=== PATIENT | male | born 1960 | race Caucasian/White ===

== ENCOUNTER 2017-01-03 09:25 | Inpatient (IN) | payer OTHER ==
[~2017-01-03] VITALS: Ht 182.9 cm; Wt 102.7 kg
[~2017-01-03 09:25] MED LIST: ACET-749 PO
[2017-01-03 09:44] VITALS: BP 135/93; PULSE 79; TEMP 36.5; O2SAT 97; Ht 182.9 cm; Wt 102.7 kg
[2017-01-03] MEDS ORDERED: ZOLPIDEM TARTRATE 5 MG TAB PO PRN (10:00)
[2017-01-03] MEDS ORDERED: MAGNESIUM HYDROXIDE SUSP 30 ML UDC PO PRN (10:00)
[2017-01-03] MEDS ORDERED: ONDANSETRON INJ 2 MG/ML 2 ML VIAL IV PRN (10:00)
[2017-01-03] MEDS ORDERED: ALUMINUM/MAGNESIUM/SIMETH (MAALOX MAX) 30 ML UDC PO PRN (10:00)
[2017-01-03] MEDS ORDERED: ACETAMINOPHEN 325 MG TAB PO PRN (10:00)
[2017-01-03 10:01] VITALS: BP 135/93; PULSE 79; TEMP 36.5; O2SAT 97
[2017-01-03] MEDS ORDERED: TRAMADOL HCL 50 MG TAB PO PRN (10:15)
--- NOTE | 2017-01-03 10:15 | History and Physical ---
History & Physical Date & Time of Service: Jan 03, 2017 at 10:03 Chief Complaint: Orbital Cellulitis Primary Care Physician: Dick Carl M.D. History of Present Illness Source: patient 56 y/o M who denies active medical issues. Pt developed swelling of his eyelid and periorbital tenderness in addition to tenderness over his R frontal sinuses. He was treated with 5 days of outpt antibiotics which have had no effect. He was therefore referred to the hospital for IV antibiotics due to concern for spreading periorbital and facial cellulitis. He states he may have had a fever the previous evening. 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 Social History Smoking Status: Never Smoker Multi-Drug Resistant Organisms History of MDRO: No Allergies Coded Allergies: No Known Allergies (Verified Allergy, Unknown, 11/29/02) Home Medications Scheduled PRN Acetaminophen/Codeine (Tylenol W/Codeine #3), 1 TAB PO for Pain Review of Systems Constitutional: + fever, No chills, No sweats Eyes: + eye pain, + redness, No worsening of vision ENT: + problem reported (facial pain), No hearing loss, No unusual epistaxis, No nasal symptoms Respiratory: No cough, No sputum, No wheezing Cardiovascular: No chest pain, No orthopnea, No PND Abdomen: No pain, No nausea, No vomiting Musculoskeletal: No joint pain, No muscle pain Genitourinary - Male: No hematuria, No dysuria, No urinary frequency, No urinary urgency Neurologic: No memory loss, No paralysis Psychiatric: No depression symptoms Endocrine: No fatigue Hematologic / Lymphatic: No abnormal bleeding/bruising Integumentary: No rash Allergic / Immunologic: No environmental allergies Physical Exam Vital Signs Date Time Temp Pulse Resp B/P (MAP) Pulse Ox O2 Delivery O2 Flow Rate FiO2 01/03/17 10:01 36.5 79 16 135/93 (107) 97 Room Air 01/03/17 09:44 36.5 79 18 135/93 97 Room Air General Appearance: WD/WN, no apparent distress Head: + pertinent finding (Erythema over R lat nasal bridge and above orbit - lid is markedly swollen - does noit appear to have orbital involvemet - no pain with eye moveemnt) Eyes: + pertinent finding (Erythema over R lat nasal bridge and above orbit - lid is markedly swollen - does noit appear to have orbital involvemet - no pain with eye moveemnt) ENT: normal ENT inspection, hearing grossly normal, TMs normal, pharynx normal Neck: supple, no JVD Respiratory/Chest: chest non-tender, lungs clear, normal breath sounds, no respiratory distress, no accessory muscle use Cardiovascular: regular rate, rhythm, no edema, no gallop, no JVD, no murmur, normal peripheral pulses Abdomen/GI: normal bowel sounds, non tender, soft Back: normal inspection, no CVA tenderness Extremities/Musculoskelatal: normal inspection, no calf tenderness, normal capillary refill, no pedal edema, normal range of motion 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 Pt developed swelling of his eyelid and periorbital tenderness in addition to tenderness over his R frontal sinuses. He was treated with 5 days of outpt antibiotics which have had no effect. He was therefore referred to the hospital for IV antibiotics due to concern for spreading periorbital and facial cellulitis. He states he may have had a fever the previous evening. Pt admitted for periorbital and facial cellulitis - labs pending - cultures to be obtained if pt has fever. We will obtain a facial/orbital CT. He is started on Van and Ceftriaxone in interim. May need ophthalmology if stye is present Heparin prophylaxis - Full code - total time for this admit including review of records - discussion with pt and outpt attending - 30 min Level of Care Med/Surg Advanced Directives Existing Living Will: No Existing Power of Rn Embedded: No Resuscitation Status FULL RESUSCITATION VTE Prophylaxis VTE Risk Assessment Done? Y/N: Yes Risk Level: Low Given or contraindicated: Unfractionated heparin SQ
[2017-01-03] MEDS ORDERED: POLYETHYLENE (MIRALAX) 17 GM PACK PO PRN (10:30)
[2017-01-03] MEDS ORDERED: SODIUM CHLORIDE 0.9% 1000ML 1,000 ML IV SCH (10:30)
--- NOTE | 2017-01-03 10:40 | Pharmacy Progress Note ---
Pharmacy Abx Initial Consult Date of Service Jan 03, 2017. Pharmacy Dosing Scope Date of Consult: 01/03/17 Consultation requested by: Dr. Stone Pharmacy is consulted to initiate Vancomycin IV dosing therapy, order appropriate labs and adjust drug dose/frequency. Subjective The patient is a 56 year old male admitted on Jan 03, 2017 at 09:25 with worsening periorbital cellulitis. Objective Height (Feet): 6 Weight (Kilograms): 102.700 Vital Signs (Past 12Hrs) Vital Signs Past 12 Hours Date Time Temp Pulse Resp B/P (MAP) Pulse Ox O2 Delivery O2 Flow Rate FiO2 01/03/17 10:01 36.5 79 16 135/93 (107) 97 Room Air 01/03/17 09:44 36.5 79 18 135/93 97 Room Air Lab Results (24Hrs) Laboratory Tests (24 Hours) Test 01/03/17 10:22 Micro Results Date/Time Source Procedure Growth Status 01/03/17 10:24 Blood Blood Culture Pending Chan Batch 01/03/17 10:24 Blood Blood Culture Pending Chan Batch Risk Factors for Resistance * Antimicrobial use within the last 90 days (Failed 5 days outpatient PO ABX prior to admission) Assessment & Plan Assessment 56 year old male initiated on Vancomycin + Rocephin IV for worsening periorbital /facial cellulitis. He is noted to have failed 5 days of outpatient PO ABX but those ABX are unknown at this time. Blood cultures pending. Plan Vancomycin IV * Loading dose: 2500 mg (25 mg/kg) * Maintenance dose: 1750 mg IV (17 mg/kg) every 12 hours * Goal trough level for cellulitis: ~15 mcg/mL. IF blood cultures positive, increase goal to 15-20 mcg/mL. * Trough level ordered for 01/05/17 @1330 prior to the 1400 dose. * Dose may need changed if Scr bumps over the next 24-48 hours; pt received IV contrast on 01/03/17. Pharmacy will continue to follow and will adjust dose/frequency as necessary. Thank you.
[2017-01-03] MEDS ORDERED: VANCOMYCIN CONSULT ACTIVE PRN (10:45)
[2017-01-03] MEDS: VANCOMYCIN INJ 2,500 MG in SODIUM CHLORIDE 0.9% 500ML 500 ML IV ONE ×2 (10:45→14:25)
[2017-01-03 10:48] LABS: HEMATOCRIT 45.2 % (42-52); MEAN CELL VOLUME 93.2 fL (80-100); MEAN CORPUSCULAR HEMOGLOBIN 33.2 pg (25-34); MEAN CORPUSCULAR HGB CONC 35.6 g/dl (32-36); MEAN PLATELET VOLUME 10.1 fL (7.4-10.4); PLATELET COUNT 163 K/uL (130-400); RED BLOOD COUNT 4.85 M/uL (4.7-6.1); WHITE BLOOD COUNT 4.18 K/uL (4.8-10.8)
[2017-01-03] MEDS: CEFTRIAXONE SOD INJ 1 GM in DEXTROSE 5% ADD-VANTAGE 50ML 50 ML IV SCH (11:05)
[2017-01-03 11:21] LABS: PROTHROMBIN TIME (PATIENT) 10.4 SECONDS (9.0-12.0)
[2017-01-03 11:26] LABS: BUN/CREATININE RATIO 14.3 (10-20); CREATININE 1.2 mg/dl (0.60-1.40); POTASSIUM 4.6 mmol/L (3.5-5.1)
[2017-01-03 11:32] LABS: CALCIUM 8.8 mg/dl (8.5-10.1)
[2017-01-03] MEDS ORDERED: OPTIRAY 320 IV PRN (13:15)
--- NOTE | 2017-01-03 13:21 | DIAGNOSTIC IMAGING REPORT ---
CT maxillofacial FACIAL-MAXILLOFACIAL WITH CLINICAL HISTORY: please cover sinuses and periorbital cellulitis TECHNIQUE: Transaxial acquisition with multi axial reformatted images COMPARISON STUDY: None FINDINGS: Findings consistent with mild right preorbital and right preseptal cellulitis. No evidence for drainable abscess or collection. Globes are symmetric. Retroseptal structures are unremarkable. All remaining soft tissue structures of the maxillofacial region are unremarkable. There are several small reactive nodes. There is again no evidence for drainable abscess or collection. There is no evidence for airway compromise. IMPRESSION: Localized right preorbital and right preseptal soft tissue edema and/or cellulitis. No evidence for abscess or collection. Electronically signed by: Kamlesh Torres M.D. 01/03/2017 1:19 PM Dictated Date/Time: 01/03/2017 1:15 PM
[2017-01-03] MEDS: HEPARIN SOD 5000 UNIT/0.5 ML CARP SQ SCH ×2 (14:00→19:38)
[2017-01-03 15:48] VITALS: BP 121/84; PULSE 88; TEMP 36.5; O2SAT 97
[2017-01-03 16:12] VITALS: O2SAT 97
[2017-01-03 23:15] VITALS: BP 112/68; PULSE 78; TEMP 37; O2SAT 96
[2017-01-04] MEDS ORDERED: VANCOMYCIN INJ 1,750 MG in SODIUM CHLORIDE 0.9% 500ML 500 ML IV SCH (02:00)
[2017-01-04] MEDS: HEPARIN SOD 5000 UNIT/0.5 ML CARP SQ SCH (06:00)
[2017-01-04 07:44] LABS: CREATININE 1.1 mg/dl (0.60-1.40)
[2017-01-04 07:55] VITALS: BP 139/98; PULSE 64; TEMP 36.6; O2SAT 98
[2017-01-04] MEDS: CEFTRIAXONE SOD INJ 1 GM in DEXTROSE 5% ADD-VANTAGE 50ML 50 ML IV SCH (09:56)
[2017-01-04] MEDS ORDERED: DOXY-300 PO (09:57)
[2017-01-04] MEDS ORDERED: CEFD1CAP14 PO (09:57)
--- NOTE | 2017-01-04 10:06 | Discharge Instructions ---
Discharge Instructions Date of Service Jan 04, 2017. Admission Reason for Admission: Orbital Cellulitis Discharge Discharge Diagnosis / Problem: facial cellulitis Discharge Goals Goal(s): Diagnostic testing, Therapeutic intervention Activity Recommendations Activity Limitations: resume your previous activity . Instructions / Follow-Up Instructions / Follow-Up facial cellulitis -infection of the skin and soft tissue around your eye. fortunately no evidence of an actual eyeball/orbit infection -since you didn't get better on the antibiotics dr carl had initially prescribed, it almost certain was one of the following culprits: a) a resistant strain of staph or strep (such as MRSA) --> which is why we started with vancomycin and will continue with doxycycline -- these reliably kill that type of bacteria b) gram negative bacteria (less likely but still possible, and wouldn't be reliably killed with the initial antibiotics) --> which is the reason for the rocephin, then cefdinir -the swollen eyelid appears to be what's causing the irritation that is making your eye water, and the lid crowding your field of vision and the watering making things look hazy is why your vision seems to be "off" -- this should get better as the swelling recedes. if somehow it doesn't, or if you were to start to feel a "foreign body" sensation (like there's something in your eye) then it would be time for a detailed ophthalmologic exam. that said, it's far and away more likely that this will just get better as the swelling goes down -timing for improvement is a little bit of a range: it would be pretty normal/ pretty much expected for this to get better somewhere in 1-2 weeks. i hate to give such a vague timeframe, but for skin and soft tissue infections, that's typically the range we expect. on the short end of things, if you're getting better really fast, then when you see Dr Carl in the office next week, he might be able to have you stop the antibiotics early; on the long end of things , if you're not basically 100% by the end of day 14 of treatment, then we'd need to have things investigated further (the same holds true for the cloudy vision) --your next doses of antibiotics should be tomorrow morning, then it's a doxycycline pill and a cefdinir pill in the morning and in the evening until either the whole course is complete or Dr Carl sees improvement to where he can stop things early. the cefdinir is usually really well tolerated - biggest thing to watch for would be if it upsets your stomach (then take with food) but the doxycycline can actually make you sun sensitive to the point of actually even a blistering sunburn on a day like today -- to prevent that, wear SPF 30 and reapply frequently, wear a hat, long sleeves, etc. everyone is a little different on this side effect, and for some people the effect can last a little while after the antibiotic is done. Current Hospital Diet Patient's current hospital diet: Regular Diet Discharge Diet Recommended Diet: Regular Diet Pending Studies Studies pending at discharge: no List of pending studies: technically your blood cultures will run in the lab for 5 days, but no growth at this point combined with your clinical appearance makes it REALLY unlikely that blood cultures will show anything Medical Emergencies . Who to Call and When: Medical Emergencies: If at any time you feel your situation is an emergency, please call 911 immediately. . Non-Emergent Contact Non-Emergency issues call your: Primary Care Provider (follow up with Dr Carl late this coming week (by 01/10)) . . "Provider Documentation" section prepared by Juno Graves. . VTE Core Measure Inpt VTE Proph given/why not?: Unfractionated heparin SQ
[2017-01-04 10:09] VITALS: O2SAT 98
[2017-01-04 10:15] VITALS: BP 139/98; PULSE 64; TEMP 36.6; O2SAT 98
--- NOTE | 2017-01-04 13:01 | Discharge Summary ---
Discharge Summary Date of Service Jan 04, 2017. Discharge Summary Admission Date: Jan 03, 2017 at 09:25 Discharge Date: Jan 04, 2017 Discharge Disposition: Home Principal Diagnosis: facial (pre-septal) cellulitis Procedures: CT maxillofacial FACIAL-MAXILLOFACIAL WITH CLINICAL HISTORY: please cover sinuses and periorbital cellulitis TECHNIQUE: Transaxial acquisition with multi axial reformatted images COMPARISON STUDY: None FINDINGS: Findings consistent with mild right preorbital and right preseptal cellulitis. No evidence for drainable abscess or collection. Globes are symmetric. Retroseptal structures are unremarkable. All remaining soft tissue structures of the maxillofacial region are unremarkable. There are several small reactive nodes. There is again no evidence for drainable abscess or collection. There is no evidence for airway compromise. IMPRESSION: Localized right preorbital and right preseptal soft tissue edema and/or cellulitis. No evidence for abscess or collection. 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 EOMI, no tenderness/pain in ROM. vision acuity seems OK per bedside assessment) Hospital Course facial cellulitis -failed broad PCN as outpt - admitted -fortunately nothing appearing truly orbital, and stayed stable on IV abx -most likely resistant gram positives as reason for failure (vanco--> doxy as outpt) vs less likely gram negatives (rocephin --> cefdinir as outpt) -extensive discussion with pt and stable for discharge after today's doses of vanco and rocephin -f/u PCP next week - total duration of abx to be determined based on how quickly he's getting better - wrote Rx to cover for 14 total days treatment, but might need as little as 7 --> to see PCP next week Total Time Spent: Greater than 30 minutes This includes examination of the patient, discharge planning, medication reconciliation, and communication with other providers. Discharge Instructions Please refer to the electronic Patient Visit Report (Discharge Instructions) for additional information. Additional Copies To Dick Carl M.D.
[2017-01-05] MEDS ORDERED: VANCOMYCIN TROUGH SCH (13:30)
== END 2017-01-04 11:41 | disposition home or self-care (01) | DRG 603 ==
LOC: C.MS2W 09:25
PROVIDERS: ADMIT Family Medicine; ATTEND Family Medicine
DX: L03.211 Cellulitis of face (principal); F17.220 Nicotine dependence, chewing tobacco, uncomplicated

== ENCOUNTER 2019-02-12 08:30 | Inpatient (IN) ==
[2019-02-12] MEDS ORDERED: SODIUM CHLORIDE 0.9% 1000ML 1,000 ML IV ONE (08:59)
[2019-02-12] MEDS ORDERED: PROMETHAZINE 25 MG/51 ML BAG IV STA (08:59)
[2019-02-12] MEDS ORDERED: KETOROLAC 30 MG/ML VIAL IV STA (09:03)
[2019-02-12] MEDS: HYDROmorphone INJ 0.5 MG/0.5 ML SYR IV PRN (09:16)
[2019-02-12 09:36] LABS: Eosinophils # (auto) 0.04 K/uL (0-0.5); Eosinophils % (auto) 2.9 %; Hematocrit (blood only) 23.5 % (42-52); Hemoglobin 8.2 g/dL (14.0-18.0); Immature Granulocytes # (auto) 0.02 K/uL (0.00-0.02); Immature Granulocytes % (auto) 1.4 %; Lymphocytes # (auto) 0.17 K/uL (1.2-3.4); Lymphocytes % (auto) 12.2 %; Mean Corpuscular Hgb Conc 34.9 g/dL (32-36); Mean Corpuscular Volume 96.3 fL (80-100); Mean Platelet Volume 9.1 fL (7.4-10.4); Monocytes # (auto) 0.11 K/uL (0.11-0.59); Monocytes % (auto) 7.9 %; Neutrophils # (auto) 1.05 K/uL (1.4-6.5); Neutrophils % (auto) 75.6 %; Platelet Count 105 K/uL (130-400); RDW Coefficient of Variation 14.5 % (11.5-14.5); RDW Standard Deviation 50.9 fL (36.4-46.3); Red Blood Count 2.44 M/uL (4.7-6.1); White Blood Count 1.39 K/uL (4.8-10.8)
[2019-02-12 09:43] LABS: iSTAT Creatinine 1.5 mg/dl (0.6-1.3); iSTAT Hemoglobin 8.5 g/dl (14.0-18.0); iSTAT Ionized Calcium 1.11 mmol/l (1.12-1.32); iSTAT Potassium 3.9 mEq/L (3.3-5.0)
[2019-02-12] MEDS ORDERED: SODIUM CHLORIDE 0.9% 250 ML IV PRN ×3 (09:48→14:26)
[2019-02-12 09:52] LABS: Alanine Aminotransferase 38 U/L (12-78); Albumin Level 2.4 gm/dl (3.4-5.0); Aspartate Aminotransferase 27 U/L (15-37); BUN Creatinine Ratio 22.2 (10-20); Blood Urea Nitrogen 34 mg/dl (7-18); Calcium 7.2 mg/dl (8.5-10.1); Carbon Dioxide 26 mmol/L (21-32); Chloride 107 mmol/L (98-107); Creatinine Clr Calc Pharmacy 64.9 ml/min; Est GFR (African American) 58.1; Est GFR (Non-African American) 50.1; Glucose 115 mg/dl (70-99); Potassium 3.9 mmol/L (3.5-5.1); Sodium 136 mmol/L (136-145)
[2019-02-12 09:57] LABS: Albumin Globulin Ratio 0.3 (0.9-2); Alkaline Phosphatase 45 U/L (45-117); Bilirubin,Total 0.5 mg/dl (0.2-1); Creatine Kinase 82 U/L (39-308); Creatine Kinase MB < 1.0 ng/ml (0.5-3.6); Globulin 7.4 gm/dl (2.5-4.0); Total Protein 9.8 gm/dl (6.4-8.2); Troponin I < 0.015 ng/ml (0-0.045)
[2019-02-12 10:28] LABS: Rouleaux 1+
--- NOTE | 2019-02-12 10:35 | XRay Report ---
XR chest 1V portable HISTORY: Sepsis COMPARISON: Head CT 02/10/2019. FINDINGS: No pneumothorax. No pleural effusions. The heart is borderline enlarged. No focal lung cons olidations to suggest pneumonia. No evidence for pulmonary edema. The patient's scattered lytic lesio ns are better appreciated on the recent study. IMPRESSION: Borderline cardiomegaly. Otherwise, no acute process within the chest. Electronically signed by: Roland Melgar M.D. 02/12/2019 10:34 AM
[2019-02-12 10:42] LABS: INR 1.2 (0.9-1.1); Partial Thromboplastin Ratio 0.8; Partial Thromboplastin Time 21.1 Seconds (21.0-31.0); Prothrombin Time 11.7 Seconds (9.0-12.0)
[2019-02-12] MEDS ORDERED: IOVERSOL 100ml IV PRN (11:15)
--- NOTE | 2019-02-12 11:29 | CT Scan Report ---
CT head/brain wo con CT DOSE: HISTORY: Mental status change Pt c/o syncope TECHNIQUE: Multiaxial CT images of the head were performed without the use of intravenous contrast. A dose lowering technique was utilized adhering to the principles of ALARA. Comparison: None. Findings: The paranasal sinuses and mastoid air cells are clear. The calvarium and skull base are int act. The ventricles and sulci are within normal limits. There is no mass, hematoma, midline shift, or acute infarct. Impression: No acute intracranial abnormality. The above report was generated using voice recognition software. It may contain grammatical, syntax or spelling errors. Electronically signed by: Kamlesh Torres M.D. 02/12/2019 11:27 AM
--- NOTE | 2019-02-12 11:29 | History & Physical Report ---
Date of Service February 12, 2019 Assessment & Plan (1) Syncope: Suspected orthostatic etiology from chemotherapy side effect probably from Velcade. Telemetry. IV fluids. EKG is normal. No chest pain or shortness of breath. Monitor orthostatic blood pressure measurements Present on Admission?: Yes (2) Pancytopenia: Hemoglobin is dropped to 8.5. Stool Hemoccult negative. I suspect the this is due to combined side effects from the Velcade and Revlimid. 2 units packed red blood cells recommended by hematology. Abdominal CT scan pending to rule out unlikelihood of retroperitoneal bleed. Present on Admission?: Yes (3) Multiple myeloma: With frequent back spasms. Start baclofen 10 mg 3 times a day. Consult hematology oncology, radiation oncology. Consult orthopedic surgery to evaluate stability of lumbar spine Present on Admission?: Yes (4) DVT prophylaxis: Avoid heparin and Lovenox for the time being. SCDs and early ambulation Present on Admission?: Yes History of Present Illness Chief Complaint: Passed out in the shower Primary Care Provider: Dick Carl MD 58-year-old male with suspected multiple myeloma who recently was started on chemotherapy including Velcade and Revlimid. He also started radiation treatments to his lumbar spine area 2 days ago. Today he felt lightheaded while in the shower and had a syncopal episode. He denies any palpitations chest pain or shortness of breath. This was witnessed by his . He has pancytopenia at this time which is a side effect of both chemotherapeutic agents. In addition, the Velcade can cause hypotension. I suspect he is having side effects from the chemotherapy agents which caused his current symptoms. Stool Hemoccult is negative. There has been no melena or hematochezia. Abdominal CT scan is pending to rule out the unlikelihood of retroperitoneal bleed. Hematology oncology has recommended 2 units blood transfusion which has been ordered by the ED physician. He will be admitted to a telemetry bed with IV fluids. Orthostatic blood pressure measurements will be monitored. Consultation to hematology oncology, radiation oncology, orthopedic surgery to evaluate lumbar spine stability have been requested. He will remain on dexamethasone 20 mg daily for the time being. We will avoid heparin or Lovenox at this time and use SCDs only and early ambulation for DVT prophylaxis. Allergies Allergy/AdvReac Type Severity Reaction Status Date / Time fentanyl AdvReac Severe nausa/vomit Unverified 02/12/19 08:51 ing Home Medications Home Medications Medication Instructions Recorded Confirmed Type oxycodone 10 mg tablet 10 mg PO Q4H PRN tab 01/29/19 02/12/19 History bortezomib 0 mg IV 2XWK 02/12/19 02/12/19 History dexamethasone 20 mg PO Q2D 02/12/19 02/12/19 History ibuprofen [Advil] 200 mg PO Q6H PRN 02/12/19 02/12/19 History lenalidomide [Revlimid] 25 mg PO UD 02/12/19 02/12/19 History ondansetron HCl 8 mg PO UD 02/12/19 02/12/19 History prochlorperazine maleate 10 mg PO UD 02/12/19 02/12/19 History Past Med/Surg History Medical History Back pain (Acute) Cellulitis, face Hyperlipemia, mixed (Acute) Lytic lesion of bone on x-ray (Acute) Plantar fascial fibromatosis (Acute) Surgical History H/O wrist surgery (Acute) Right wrist 40 yrs ago Family History Mother , age 93 / old age Breast cancer Father , age 67 Prostate cancer had radiation Coronary heart disease Diabetes Brother Diabetes Brother No problems noted. Sister Asthma Addisons disease Daughter No problems noted. Daughter No problems noted. Son No problems noted. Other Family history non-contributory Social History Preferred Language: Malawian Communication Ability: Effective Visual Impairment: No Limitations Beliefs That Will Affect Care: None marital status: Current Living Situation: Spouse current occupational status: employed Feels Safe at Home: Yes Smoking Status: Never smoker Hx Alcohol Use: No Hx Substance Use: No Childhood Exposure to Second-Hand Smoke: No Dental Care, Regularly: Yes Review of Systems Review of Systems: Constitutional-no fever or chills ENT-no blurred vision, no double vision, no epistaxis, no sore throat Respiratory-no cough, no wheezing, no shortness of breath Cardiac-no palpitations, no chest pain. Syncopal episode today as described above GI-no nausea, vomiting, diarrhea, melena, hematochezia -no urinary retention, no urinary incontinence, no dysuria, no hematuria Musculoskeletal-persistent low back pain with frequent muscle spasm Skin-no bruising, no rashes, no pruritus Neuro-no isolated weakness, no paresthesia, no weakness Psych-no depression, no anxiety Physical Exam Physical Exam: General-alert and oriented x3, no fevers, no chills. Appears flushed HEENT-head atraumatic and normocephalic, TMs intact bilaterally, pupils equal and reactive to light, extraocular muscles intact Neck-no lymphadenopathy or thyromegaly, trachea midline Chest-clear to auscultation percussion. No rales wheezing or rhonchi Cardiac-regular rate and rhythm, normal S1 and S2, no murmurs Abdomen-normal bowel sounds, nontender, no hepatosplenomegaly Extremities-no cyanosis, clubbing, or edema Neuro-cranial nerves II through XII intact, motor and sensory function within normal limits, strength symmetrical 5/5, no focal deficits Psych-normal affect, normal mood Results & Data Vital Signs (Past 12 Hours) Vital Signs Temp Pulse Pulse Resp BP BP Pulse Ox 02/12/19 11:00 79 12 100/46 L 97 02/12/19 10:45 89 13 132/71 98 02/12/19 10:30 85 24 118/68 97 02/12/19 10:15 93 H 24 140/72 98 02/12/19 10:06 92 H 96 02/12/19 10:04 88 L 02/12/19 10:00 96 H 26 H 119/76 89 L 02/12/19 09:55 97 H 25 H 144/80 H 89 L 02/12/19 09:45 103 H 17 144/80 H 91 02/12/19 09:30 108 H 22 137/63 95 02/12/19 09:15 99 H 22 97 02/12/19 09:00 93 H 22 118/58 L 98 02/12/19 08:47 85 13 104/51 L 98 02/12/19 08:36 36.7 C 80 16 107/52 L 97 02/12/19 08:15 102 H 96 Laboratory Results 02/12/19 09:21 02/12/19 09:21 PG Care Time/CCT Total # of Minutes Spent Total Time Spent with Patient: Total time spent is greater than 50% in coordination of care (as documented) at patient's floor/unit and/or counseling patient:
--- NOTE | 2019-02-12 11:45 | CT Scan Report ---
CT lumbar spine wo con CT DOSE: 1695.87 mGy.cm HISTORY: Trauma. Pain. Pt c/o low back pain TECHNIQUE: Multiaxial CT images of the lumbar spine were performed and reformatted in the sagittal an d coronal plane without the use of contrast. A dose lowering technique was utilized adhering to the principles of ALARA. COMPARISON: 01/27/2019 FINDINGS: No significant change from the prior study. Extensive lytic lesions throughout all major vi sualized structures of the lumbar and low thoracic spine. Mild superior endplate compression fracture s at L1, L2, L4, and L5 are similar. There has been no new fracture nor is there evidence of been дмитрий dence for progression of any pre-existing fracture. No significant compromise of the spinal canal. Extensive lytic lesions throughout are unchanged. IMPRESSION: 1. No change compared to the prior study of 01/27/2019. 2. Extensive lytic metastatic bone disease throughout all major visualized bony structures. 3. Mild compression deformities at L1, L2, L4, and L5 are similar. 4. No evidence for a new, interval, or progressive compression deformity. 5. No significant compromise of the spinal canal. The above report was generated using voice recognition software. It may contain grammatical, syntax or spelling errors. Electronically signed by: Kamlesh Torres M.D. 02/12/2019 11:44 AM
--- NOTE | 2019-02-12 11:57 | CT Scan Report ---
CT abd pelvis IV con only CT DOSE: HISTORY: Pain. Trauma. Pt c/o abd pain TECHNIQUE: Multiaxial CT images of the abdomen and pelvis were performed following the use of intrave nous contrast. A dose lowering technique was utilized adhering to the principles of ALARA. COMPARISON STUDY: 01/29/2019 FINDINGS: Unchanged bibasilar atelectatic change. Diffuse bony metastatic change which has been descr ibed previously and is nonprogressive. No acute posttraumatic bony changes. Small right hepatic lobe cyst. Liver spleen and pancreas otherwise enhances uniformly. Gallstone region of the gallbladder neck. Kidneys are uniform in appearance with no evidence for hydronephrosis. Nonobstructive bowel pattern. Scattered colonic diverticuli with no evidence for diverticulitis. The diffuse metastatic bone disease is again noted and is unchanged from the prior exam. Several mild compression deformities of the lumbar spine are stable with no evidence for progressive change. No e vidence for bony compromise of the spinal canal. IMPRESSION: 1. Diffuse bony metastatic disease. 2. Bibasilar chronic atelectatic change. 3. No evidence for an acute or superimposed posttraumatic finding. 4. Gallstone in the gallbladder neck The above report was generated using voice recognition software. It may contain grammatical, syntax or spelling errors. Electronically signed by: Kamlesh Torres M.D. 02/12/2019 11:55 AM
[2019-02-12 12:16] LABS: Appearance Urine Clear (Clear); Bilirubin Urine Negative (Negative); Blood Urine Negative (Negative); Color Urine Yellow; Glucose Urine UA Negative (Negative); Ketones Urine Negative (Negative); Leukocyte Esterase Urine Negative (Negative); Nitrite Urine Negative (Negative); Protein Urine Negative (Negative); Specific Gravity Urine 1.018 (1.000-1.030); Urobilinogen Urine Negative (Negative)
[2019-02-12] MEDS ORDERED: ALUMINUM/MAGNESIUM SUSP 30 ML UDC PO PRN (13:33)
[2019-02-12] MEDS: SODIUM CHLORIDE 0.9% 1000ML 1,000 ML IV SCH (13:35)
[2019-02-12] MEDS: BACLOFEN 10 MG TAB PO SCH ×2 (14:37→21:26)
--- NOTE | 2019-02-12 14:51 | Emergency Department Note ---
Entered by Noris Fisher acting as a scribe for Grey Savage MD History of Present Illness General Chief complaint: Syncope Stated complaint: Syncope Nausea Spinal CA Time Seen by Provider: 02/12/19 08:39 Source: patient and family History of Present Illness Onset (ago): hour(s) (this morning) Location: head Pain Consistency: + other (episode) Quality: + other (near-syncope) Relieved By: + rest Associated symptoms: + denies other symptoms (abdominal, neck, head, or shoulder pain; fall; head trauma) and + other (nausea, subjective fever (resolved), elevated thirst) The patient is a 58 year old male with a history of bone cancer that is presenting to the Emergency Room with complaints of a near syncopal episode that occurred this morning while the patient was in the shower. The patient reports that he became overheated and felt like he could pass out. He states that he lowered himself to the ground at this time. He denies falling or any trauma to his body. He denies any abdominal, head, neck, or shoulder pain. The patient notes that he is currently nauseous despite having received Zofran at home and en route by EMS. He states that he might have had a subjective fever last night around 2300 and notes that he took Tylenol at that time. He reports that he did not feel like himself last night. The patient states that he is currently undergoing radiation therapy for bone cancer in his spine. He notes that he has a L2 fracture. The patients family states that the patient started chemotherapy medication three days ago. His family reports that the patient is due for another dose today. His family notes that the patient stated he was extremely thirsty last night despite his fluid intake. The patient denies taking any blood thinners currently. Home Medications Home Medications Medication Instructions Recorded Confirmed Type oxycodone 10 mg tablet 10 mg PO Q4H PRN tab 01/29/19 02/12/19 History bortezomib 0 mg IV [id number] 02/12/19 02/12/19 History dexamethasone 20 mg PO Q2D 02/12/19 02/12/19 History ibuprofen [Advil] 200 mg PO Q6H PRN 02/12/19 02/12/19 History lenalidomide [Revlimid] 25 mg PO UD 02/12/19 02/12/19 History ondansetron HCl 8 mg PO UD 02/12/19 02/12/19 History prochlorperazine maleate 10 mg PO UD 02/12/19 02/12/19 History Allergies Allergy/AdvReac Type Severity Reaction Status Date / Time fentanyl AdvReac Severe nausa/vomit Unverified 02/12/19 08:51 ing Past Med/Surg History Medical History Multiple myeloma (Acute) Pancytopenia (Acute) Syncope (Acute) Back pain (Acute) Cellulitis, face Hyperlipemia, mixed (Acute) Lytic lesion of bone on x-ray (Acute) Plantar fascial fibromatosis (Acute) Surgical History H/O wrist surgery (Acute) Right wrist 40 yrs ago Family History Mother , age 93 / old age Breast cancer Father , age 67 Prostate cancer had radiation Coronary heart disease Diabetes Brother Diabetes Brother No problems noted. Sister Asthma Addisons disease Daughter No problems noted. Daughter No problems noted. Son No problems noted. Other Family history non-contributory Social History Preferred Language: Estonian Communication Ability: Effective Visual Impairment: No Limitations Community Product Specialist Required: No Beliefs That Will Affect Care: None marital status: Current Living Situation: Spouse current occupational status: employed Feels Safe at Home: Yes Smoking Status: Never smoker Hx Alcohol Use: No Hx Substance Use: No Childhood Exposure to Second-Hand Smoke: No Dental Care, Regularly: Yes Review of Systems See HPI for pertinent positives & negatives. and A total of 10 systems reviewed and were otherwise negative Physical Exam Vital Signs Vital Signs - 24 hr 02/12/19 08:15 02/12/19 08:36 02/12/19 08:47 Temperature 36.7 C Temperature Source Oral Sepsis Recent Fever Within 48 Hours No Sepsis New/Unexplained Change in Mental Status No Sepsis Action Taken by Nursing No Action Required Oxygen Flow Rate - Titration Pulse Oximetry Post Tiitration Pulse Rate 102 H 80 Pulse Rate [Apical] 85 Pulse Rate from SpO2 Sensor Pulse Rhythm Regular Pulse Rhythm [Apical] Regular Respiratory Rate 16 13 Respiratory Effort / Characteristics Non-Labored Non-Labored Respiratory Depth Normal Normal Respiratory Pattern Regular Regular Blood Pressure 107/52 L Blood Pressure [Left Arm] 104/51 L Blood Pressure Mean 70 Blood Pressure Mean [Left Arm] 68 Blood Pressure Position Lying Blood Pressure Position [Left Arm] Lying Pulse Oximetry 96 97 98 Oxygen Delivery Method Room Air Room Air Room Air Oxygen Flow Rate 0 02/12/19 09:00 02/12/19 09:15 02/12/19 09:30 Temperature Temperature Source Sepsis Recent Fever Within 48 Hours Sepsis New/Unexplained Change in Mental Status Sepsis Action Taken by Nursing Oxygen Flow Rate - Titration Pulse Oximetry Post Tiitration Pulse Rate 93 H 99 H 108 H Pulse Rate [Apical] Pulse Rate from SpO2 Sensor 93 H 109 H Pulse Rhythm Pulse Rhythm [Apical] Respiratory Rate 22 22 22 Respiratory Effort / Characteristics Respiratory Depth Respiratory Pattern Blood Pressure 118/58 L 137/63 Blood Pressure [Left Arm] Blood Pressure Mean 78 87 Blood Pressure Mean [Left Arm] Blood Pressure Position Blood Pressure Position [Left Arm] Pulse Oximetry 98 97 95 Oxygen Delivery Method Oxygen Flow Rate 02/12/19 09:45 02/12/19 09:55 02/12/19 10:00 Temperature Temperature Source Sepsis Recent Fever Within 48 Hours Sepsis New/Unexplained Change in Mental Status Sepsis Action Taken by Nursing Oxygen Flow Rate - Titration Pulse Oximetry Post Tiitration Pulse Rate 103 H 97 H 96 H Pulse Rate [Apical] Pulse Rate from SpO2 Sensor 102 H 96 H 96 H Pulse Rhythm Pulse Rhythm [Apical] Respiratory Rate 17 25 H 26 H Respiratory Effort / Characteristics Respiratory Depth Respiratory Pattern Blood Pressure 144/80 H 144/80 H 119/76 Blood Pressure [Left Arm] Blood Pressure Mean 101 101 90 Blood Pressure Mean [Left Arm] Blood Pressure Position Blood Pressure Position [Left Arm] Pulse Oximetry 91 89 L 89 L Oxygen Delivery Method Oxygen Flow Rate 02/12/19 10:04 02/12/19 10:06 02/12/19 10:15 Temperature Temperature Source Sepsis Recent Fever Within 48 Hours Sepsis New/Unexplained Change in Mental Status Sepsis Action Taken by Nursing Oxygen Flow Rate - Titration 2 Pulse Oximetry Post Tiitration 92 Pulse Rate 93 H Pulse Rate [Apical] 92 H Pulse Rate from SpO2 Sensor 92 H Pulse Rhythm Pulse Rhythm [Apical] Respiratory Rate 24 Respiratory Effort / Characteristics Respiratory Depth Respiratory Pattern Blood Pressure 140/72 Blood Pressure [Left Arm] Blood Pressure Mean 94 Blood Pressure Mean [Left Arm] Blood Pressure Position Blood Pressure Position [Left Arm] Pulse Oximetry 88 L 96 98 Oxygen Delivery Method Room Air Nasal Cannula Nasal Cannula Oxygen Flow Rate 0 2 2 02/12/19 10:30 02/12/19 10:45 02/12/19 11:00 Temperature Temperature Source Sepsis Recent Fever Within 48 Hours Sepsis New/Unexplained Change in Mental Status Sepsis Action Taken by Nursing Oxygen Flow Rate - Titration Pulse Oximetry Post Tiitration Pulse Rate 85 89 79 Pulse Rate [Apical] Pulse Rate from SpO2 Sensor 86 89 79 Pulse Rhythm Pulse Rhythm [Apical] Respiratory Rate 24 13 12 Respiratory Effort / Characteristics Respiratory Depth Respiratory Pattern Blood Pressure 118/68 132/71 100/46 L Blood Pressure [Left Arm] Blood Pressure Mean 84 91 64 Blood Pressure Mean [Left Arm] Blood Pressure Position Blood Pressure Position [Left Arm] Pulse Oximetry 97 98 97 Oxygen Delivery Method Nasal Cannula Nasal Cannula Oxygen Flow Rate 2 2 2 GENERAL: Awake. Physically weak on exam. Lying on side. Actively vomiting. HENT: Normocephalic, atraumatic. Oropharynx unremarkable. EYES: Normal conjunctiva. Sclera non-icteric. NECK: Supple. No nuchal rigidity. FROM. No JVD. RESPIRATORY: Clear to auscultation. CARDIAC: Regular rate, normal rhythm. Extremities warm and well perfused. Pulses equal. ABDOMEN: Soft, non-distended. No tenderness to palpation. No rebound or guarding. No masses. RECTAL: Heme negative. MUSCULOSKELETAL: Chest examination reveals no tenderness. The back is symmetrical on inspection without obvious abnormality. There is no CVA ten derness to palpation. No joint edema. LOWER EXTREMITIES: Calves are equal size bilaterally and non-tender. No edema. No discoloration. NEURO: Normal sensorium. No sensory or motor deficits noted. SKIN: No rash or jaundice noted. Course 0850:The patient was evaluated in room B06. A complete history and physical examination was performed. 1002: I discussed the patients case with Dr. Crooks, Oncology, who recommended that the patient receive 2 units of blood via transfusion. 1008: I updated the patient on his current lab results. He is amenable to the treatment plan. 1042: I discussed the patients case with Dr. Giles, [facility], who will evaluate the patient for further management and care. 1049: I reevaluated the patient at this time and performed a rectal exam, which was heme negative. 1055: Upon reevaluation, the patient is resting comfortably. I discussed laboratory and radiographic results with the patient. He verbalized agreement of the treatment plan. The patient will be evaluated for further management and care. Consultations Consultation #1: I discussed the patients case with Dr. Giles [facility], who will evaluate the patient for further management and care. Time: 10:42 Administered Medications Baclofen (Lioresal) 10 mg PO TID RADHA Stop: 03/14/19 13:59 Last Admin: 02/12/19 14:37 Dose: 10 mg Documented by: [id number] Hydromorphone HCl (Dilaudid) 0.5 mg IV Q15M PRN PRN Reason: Pain Stop: 02/26/19 09:02 Last Admin: 02/12/19 09:16 Dose: 0.5 mg Documented by: [id number] Sodium Chloride (Nss 1000ml) 1,000 mls @ 100 mls/hr IV .Q10H RADHA Stop: 03/14/19 13:32 Last Admin: 02/12/19 13:35 Dose: 100 mls/hr Documented by: [id number] Ioversol (Optiray 320 100ml) 94 ml IV ONCE PRN PRN Reason: Interaction Checking Stop: 02/16/19 11:14 Last Admin: 02/12/19 11:16 Dose: 94 ml Documented by: [id number] Discontinued Medications Promethazine HCl (Phenergan) 25 mg in 51 mls @ 204 mls/hr IV NOW STA Stop: 02/12/19 09:13 Last Infusion: 02/12/19 09:25 Dose: 0 mls/hr Documented by: [id number] Admin: 02/12/19 09:10 Dose: 204 mls/hr Documented by: [id number] Sodium Chloride (Nss 1000ml) 1,000 mls @ 999 mls/hr IV .Q1H1M ONE Stop: 02/12/19 09:59 Last Infusion: 02/12/19 10:11 Dose: 0 mls/hr Documented by: [id number] Admin: 02/12/19 09:10 Dose: 999 mls/hr Documented by: [id number] Ketorolac Tromethamine (Toradol) 30 mg IV NOW STA Stop: 02/12/19 09:04 Last Admin: 02/12/19 09:16 Dose: 30 mg Documented by: [id number] Medical Decision Making Differential Diagnosis Differential diagnosis: Etiologies such as vasovagal event, infection, hypoglycemia, electrolyte abnormalities, cardiac sources, intracerebral event, toxicologic, neurologic, as well as others were entertained. Medical Records Attestation: I reviewed the patient's medical records. Home Medications Current Medication List: was personally reviewed by me Laboratory Data Attestation: I reviewed the patient's lab results. Result diagrams: 02/12/19 09:21 02/12/19 09:21 Lab Results 02/12/19 02/12/19 02/12/19 Range/Units 09:21 09:21 09:21 WBC 1.39 L (4.8-10.8) K/uL RBC 2.44 L (4.7-6.1) M/uL Hgb 8.2 L (14.0-18.0) g/dL POC Hgb (14.0-18.0) g/dl Hct 23.5 L (42-52) % POC Hct (42-52) % MCV 96.3 (80-100) fL MCH 33.6 (25-34) pg MCHC 34.9 (32-36) g/dL RDW Std Deviation 50.9 H (36.4-46.3) fL RDW Coeff of George 14.5 (11.5-14.5) % Plt Count 105 L (130-400) K/uL MPV 9.1 (7.4-10.4) fL Immature Gran % (Auto) 1.4 % Neut % (Auto) 75.6 % Lymph % (Auto) 12.2 % Fergus % (Auto) 7.9 % Eos % (Auto) 2.9 % Baso % (Auto) 0.0 % Immature Gran # (Auto) 0.02 (0.00-0.02) K/uL Neut # (Auto) 1.05 L (1.4-6.5) K/uL Lymph # (Auto) 0.17 L (1.2-3.4) K/uL Fergus # (Auto) 0.11 (0.11-0.59) K/uL Eos # (Auto) 0.04 (0-0.5) K/uL Baso # (Auto) 0.00 (0-0.2) K/uL Rouleaux 1+ PT Cancelled INR Cancelled APTT Cancelled PTT Ratio Cancelled POC Sodium (135-144) mEq/L Sodium 136 (136-145) mmol/L POC Potassium (3.3-5.0) mEq/L Potassium 3.9 (3.5-5.1) mmol/L POC Chloride (101-112) mEq/L Chloride 107 (98-107) mmol/L Carbon Dioxide 26 (21-32) mmol/L POC Total CO2 (24-31) mEq/l Anion Gap 2.0 L (3-11) POC Anion Gap (16-25) mmol/L POC BUN (7-18) mg/dl BUN 34 H (7-18) mg/dl Creatinine 1.52 H (0.6-1.4) mg/dl POC Creatinine (0.6-1.3) mg/dl Est Cr Clr Drug Dosing 64.9 ml/min Est GFR ( Amer) 58.1 Est GFR (Non-Af Amer) 50.1 BUN/Creatinine Ratio 22.2 H (10-20) Glucose 115 H (70-99) mg/dl POC Glucose (other) (70-99) mg/dl Lactate (0.4-2.0) mmol/L Calcium 7.2 L (8.5-10.1) mg/dl POC Ioniz Calcium Narayan (1.12-1.32) mmol/l Total Bilirubin 0.5 (0.2-1) mg/dl AST 27 (15-37) U/L ALT 38 (12-78) U/L Alkaline Phosphatase 45 (45-117) U/L Total Creatine Kinase 82 (39-308) U/L CK-MB (CK-2) < 1.0 (0.5-3.6) ng/ml CK/CKMB % Calc TNP Troponin I < 0.015 (0-0.045) ng/ml Total Protein 9.8 H (6.4-8.2) gm/dl Albumin 2.4 L (3.4-5.0) gm/dl Globulin 7.4 H (2.5-4.0) gm/dl Albumin/Globulin Ratio 0.3 L (0.9-2) Blood Type Blood Type Recheck Antibody Screen Crossmatch 02/12/19 02/12/19 02/12/19 Range/Units 09:21 09:30 09:48 WBC (4.8-10.8) K/uL RBC (4.7-6.1) M/uL Hgb (14.0-18.0) g/dL POC Hgb 8.5 L (14.0-18.0) g/dl Hct (42-52) % POC Hct 25 L (42-52) % MCV (80-100) fL MCH (25-34) pg MCHC (32-36) g/dL RDW Std Deviation (36.4-46.3) fL RDW Coeff of George (11.5-14.5) % Plt Count (130-400) K/uL MPV (7.4-10.4) fL Immature Gran % (Auto) % Neut % (Auto) % Lymph % (Auto) % Fergus % (Auto) % Eos % (Auto) % Baso % (Auto) % Immature Gran # (Auto) (0.00-0.02) K/uL Neut # (Auto) (1.4-6.5) K/uL Lymph # (Auto) (1.2-3.4) K/uL Fergus # (Auto) (0.11-0.59) K/uL Eos # (Auto) (0-0.5) K/uL Baso # (Auto) (0-0.2) K/uL Rouleaux PT INR APTT PTT Ratio POC Sodium 137 (135-144) mEq/L Sodium (136-145) mmol/L POC Potassium 3.9 (3.3-5.0) mEq/L Potassium (3.5-5.1) mmol/L POC Chloride 102 (101-112) mEq/L Chloride (98-107) mmol/L Carbon Dioxide (21-32) mmol/L POC Total CO2 22 L (24-31) mEq/l Anion Gap (3-11) POC Anion Gap 18.0 (16-25) mmol/L POC BUN 34 H (7-18) mg/dl BUN (7-18) mg/dl Creatinine (0.6-1.4) mg/dl POC Creatinine 1.5 H (0.6-1.3) mg/dl Est Cr Clr Drug Dosing ml/min Est GFR ( Amer) Est GFR (Non-Af Amer) BUN/Creatinine Ratio (10-20) Glucose (70-99) mg/dl POC Glucose (other) 122 H (70-99) mg/dl Lactate 1.4 (0.4-2.0) mmol/L Calcium (8.5-10.1) mg/dl POC Ioniz Calcium Narayan 1.11 L (1.12-1.32) mmol/l Total Bilirubin (0.2-1) mg/dl AST (15-37) U/L ALT (12-78) U/L Alkaline Phosphatase (45-117) U/L Total Creatine Kinase (39-308) U/L CK-MB (CK-2) (0.5-3.6) ng/ml CK/CKMB % Calc Troponin I (0-0.045) ng/ml Total Protein (6.4-8.2) gm/dl Albumin (3.4-5.0) gm/dl Globulin (2.5-4.0) gm/dl Albumin/Globulin Ratio (0.9-2) Blood Type Blood Type Recheck A Positive Antibody Screen Crossmatch 02/12/19 02/12/19 Range/Units 09:49 10:18 WBC (4.8-10.8) K/uL RBC (4.7-6.1) M/uL Hgb (14.0-18.0) g/dL POC Hgb (14.0-18.0) g/dl Hct (42-52) % POC Hct (42-52) % MCV (80-100) fL MCH (25-34) pg MCHC (32-36) g/dL RDW Std Deviation (36.4-46.3) fL RDW Coeff of George (11.5-14.5) % Plt Count (130-400) K/uL MPV (7.4-10.4) fL Immature Gran % (Auto) % Neut % (Auto) % Lymph % (Auto) % Fergus % (Auto) % Eos % (Auto) % Baso % (Auto) % Immature Gran # (Auto) (0.00-0.02) K/uL Neut # (Auto) (1.4-6.5) K/uL Lymph # (Auto) (1.2-3.4) K/uL Fergus # (Auto) (0.11-0.59) K/uL Eos # (Auto) (0-0.5) K/uL Baso # (Auto) (0-0.2) K/uL Rouleaux PT 11.7 INR 1.2 H APTT 21.1 PTT Ratio 0.8 POC Sodium (135-144) mEq/L Sodium (136-145) mmol/L POC Potassium (3.3-5.0) mEq/L Potassium (3.5-5.1) mmol/L POC Chloride (101-112) mEq/L Chloride (98-107) mmol/L Carbon Dioxide (21-32) mmol/L POC Total CO2 (24-31) mEq/l Anion Gap (3-11) POC Anion Gap (16-25) mmol/L POC BUN (7-18) mg/dl BUN (7-18) mg/dl Creatinine (0.6-1.4) mg/dl POC Creatinine (0.6-1.3) mg/dl Est Cr Clr Drug Dosing ml/min Est GFR ( Amer) Est GFR (Non-Af Amer) BUN/Creatinine Ratio (10-20) Glucose (70-99) mg/dl POC Glucose (other) (70-99) mg/dl Lactate (0.4-2.0) mmol/L Calcium (8.5-10.1) mg/dl POC Ioniz Calcium Narayan (1.12-1.32) mmol/l Total Bilirubin (0.2-1) mg/dl AST (15-37) U/L ALT (12-78) U/L Alkaline Phosphatase (45-117) U/L Total Creatine Kinase (39-308) U/L CK-MB (CK-2) (0.5-3.6) ng/ml CK/CKMB % Calc Troponin I (0-0.045) ng/ml Total Protein (6.4-8.2) gm/dl Albumin (3.4-5.0) gm/dl Globulin (2.5-4.0) gm/dl Albumin/Globulin Ratio (0.9-2) Blood Type A Positive Blood Type Recheck Antibody Screen NEGATIVE Crossmatch See Detail Imaging Data Radiologist's Impression: Radiology results as stated below per my review and the radiologist's interpretation: XR chest 1V portable HISTORY: Sepsis COMPARISON: Head CT 02/10/2019. FINDINGS: No pneumothorax. No pleural effusions. The heart is borderline enlarg ed. No focal lung consolidations to suggest pneumonia. No evidence for pulmonary edema. The patient's scattered lytic lesions are better appreciated on the recent study. IMPRESSION: Borderline cardiomegaly. Otherwise, no acute process within the chest. Electronically signed by: Roland Melgar M.D. 02/12/2019 10:[address] head/brain wo con CT DOSE: HISTORY: Mental status change Pt c/o syncope TECHNIQUE: Multiaxial CT images of the head were performed without the use of intravenous contrast. A dose lowering technique was utilized adhering to the principles of ALARA. Comparison: None. Findings: The paranasal sinuses and mastoid air cells are clear. The calvarium and skull base are intact. The ventricles and sulci are within normal limits. There is no mass, hematoma, midline shift, or acute infarct. Impression: No acute intracranial abnormality. The above report was generated using voice recognition software. It may contain grammatical, syntax or spelling errors. Electronically signed by: Kamlesh Torres M.D. 02/12/2019 11:[address] abd pelvis IV con only CT DOSE: HISTORY: Pain. Trauma. Pt c/o abd pain TECHNIQUE: Multiaxial CT images of the abdomen and pelvis were performed f ollowing the use of intravenous contrast. A dose lowering technique was utilized adhering to the principles of ALARA. COMPARISON STUDY: 01/29/2019 FINDINGS: Unchanged bibasilar atelectatic change. Diffuse bony metastatic change which has been described previously and is nonprogressive. No acute p osttraumatic bony changes. Small right hepatic lobe cyst. Liver spleen and pancreas otherwise enhances uniformly. Gallstone region of the gallbladder neck. Kidneys are uniform in appearance with no evidence for hydronephrosis. Nonobstructive bowel pattern. Scattered colonic diverticuli with no evidence for diverticulitis. The diffuse metastatic bone disease is again noted and is unchanged from the prior exam. Several mild compression deformities of the lumbar spine are stable with no evidence for progressive change. No evidence for bony compromise of the spinal canal. IMPRESSION: 1. Diffuse bony metastatic disease. 2. Bibasilar chronic atelectatic change. 3. No evidence for an acute or superimposed posttraumatic finding. 4. Gallstone in the gallbladder neck The above report was generated using voice recognition software. It may contain grammatical, syntax or spelling errors. Electronically signed by: Kamlesh Torres M.D. 02/12/2019 11:[address] lumbar spine wo con CT DOSE: 1695.87 mGy.cm HISTORY: Trauma. Pain. Pt c/o low back pain TECHNIQUE: Multiaxial CT images of the lumbar spine were performed and reformatted in the sagittal and coronal plane without the use of contrast. A dose lowering technique was utilized adhering to the principles of ALARA. COMPARISON: 01/27/2019 FINDINGS: No significant change from the prior study. Extensive lytic lesions throughout all major visualized structures of the lumbar and low thoracic spine. Mild superior endplate compression fractures at L1, L2, L4, and L5 are similar. There has been no new fracture nor is there evidence of been evidence for progression of any pre-existing fracture. No significant compromise of the spinal canal. Extensive lytic lesions throughout are unchanged. IMPRESSION: 1. No change compared to the prior study of 01/27/2019. 2. Extensive lytic metastatic bone disease throughout all major visualized bony structures. 3. Mild compression deformities at L1, L2, L4, and L5 are similar. 4. No evidence for a new, interval, or progressive compression deformity. 5. No significant compromise of the spinal canal. The above report was generated using voice recognition software. It may contain grammatical, syntax or spelling errors. Electronically signed by: Kamlesh Torres M.D. 02/12/2019 11:44 AM ECG Data Attestation: I personally reviewed and interpreted this ECG as follows: Indication: syncope Rate (beats per minute): 90 Rhythm: normal sinus Findings: + other (normal EKG); no ST depression, no ST elevation and no acute ischemic change Blood Pressure Blood Pressure Findings: Normal blood pressure MDM Narrative This is a 58-year-old male who presents emergency department after syncopal episode at home. The patient is pancytopenic and has dropped a significant amount of red blood cells in the past 2 weeks. He was given a normal saline bolus x2. I did discuss the case with the patient's oncologist who asked that the patient be typed and crossed for 2 units of packed red blood cells. For thi s reason I did discuss the case with the hospitalist service. CAT scans of the head lumbar spine and abdomen and pelvis do not show any acute process. Impression & Plan Syncope, Anemia Discharge Plan Visit Data *Final* Discharge Date/Time: 02/12/19 13:37 Chief Complaint: Syncope Stated Complaint: Syncope Nausea Spinal CA Other Complaint: Nausea ED Provider: Grey Savage Discharge Problem: Syncope, Anemia Patient Disposition: Admitted As Inpatient Discharge Instructions Interventions: ED Discharge Assessment Last Done: 02/12/19 13:37 Discharge Problem: Syncope Qualifiers: Syncope type: unspecified Qualified Code(s): R55 - Syncope and collapse The scribe's documentation has been prepared under my direction and personally reviewed by me in its entirety. I confirm that the note above accurately reflects all work, treatment, procedures, and medical decision making performed by me.
--- NOTE | 2019-02-12 15:47 | Radiation OncologyConsultation ---
Date of Consultation February 12, 2019 Assessment & Plan (1) Multiple myeloma: Assessment: Mr. Silva is a 58-year-old gentleman with myeloma who is currently receiving external beam radiation therapy to the lumbar spine. He has received 7/10 fractions of radiation therapy. He was not treated today due to being admitted to the hospital due to a syncopal episode most likely from chemotherapy. Orthopedic surgery has also been consulted regarding this patient to discuss potential stabilization and their recommendations will be appreciated. Recommendation: Unless intervention is recommended by orthopedic surgery, plan to continue palliative external beam radiation therapy on Friday in the inpatient or outpatient setting. Plan: 1. Plan for external beam radiation therapy to continue on Friday unless otherwise noted by orthopedic surgery for intervention. 2. Appreciate orthopedic surgery and medical oncology input. 3. Continue all other medical care as per primary medical team. Multiple myeloma remission status: not in remission Qualified Code(s): C90.00 - Multiple myeloma not having achieved remission History of Present Illness Attending Physician: Armand Giles MD History of Present Illness 07/2018. Patient noted that he started to develop migratory lower back and pelvic pain. 12/2018. Patient has been seen by Dr. Harrell who performed injections in the left thigh SI joint for presumed low back pain. 01/16/2019. Patient presented to emergency room for low back pain. Discharged home with pain medication and referred to primary care. 01/20/2019. MRI of lumbar spine. IMPRESSION: 1. Interval development of a diffusely abnormal marrow signal. The findings are consistent with diffuse metastatic disease or myeloma. Further workup is advocated. 01/27/2019. CT lumbar spine. IMPRESSION: 1. Innumerable lytic lesions seen throughout the visualized osseous structures consistent with metastatic disease or multiple myeloma. 2.. Pathologic mild compression fractures at L1, L2, L4, an d L5. No associated retropulsion. These remain unchanged. 3. A 1.5 cm lytic lesion within the posterior aspect of the L3 vertebral body demonstrating breakthrough of the posterior cortex and mild epidural involvement. However, no significant central canal narrowing. 01/29/2019. Medical oncology consultation with Dr. Crooks. Dr. Crooks has recommended work-up for potential multiple myeloma. Dr. Crooks has recommended obtaining staging scans including a PET/CT and a bone marrow biopsy. Dr. Crooks has referred the patient to Dr. Angel for recommendations regarding orthopedic stabilization. Dr. Crooks was also recommended consideration of palliative radiation therapy to the lumbar spine. 02/03/2019. External beam radiation therapy started to lumbar spine. Plan for 10 fractions, 300 cGy per fraction, 3000 cGy total dose. 02/10/2019. PET/CT. IMPRESSION: 1. Innumerable lytic lesions are noted predominantly involving the spine, ribs, sternum, scapula and bony pelvis. Lesions within the left scapula and pelvis demonstrate hypermetabolic uptake as above. No acute pathologic fracture identified. Findings are suggestive of multiple myeloma with lytic metastasis also within the differential. 2. No hypermetabolic adenopathy. 3. Additional incidental findings as above include coronary arterial calcifications, cholelithiasis and colonic diverticulosis. 01/2019. Patient started on Velcade chemotherapy underneath the supervision of Dr. Crooks. 02/12/2019. Patient admitted to hospital due to syncopal episode at home thought to be due to Velcade chemotherapy. 02/12/2019. CT head. Impression: No acute intracranial abnormality. 02/12/2019. Lumbar spine CT. IMPRESSION: 1. No change compared to the prior study of 01/27/2019. 2. Extensive lytic metastatic bone disease throughout all major visualized bony structures. 3. Mild compression deformities at L1, L2, L4, and L5 are similar. 4. No evidence for a new, interval, or progressive compression deformity. 5. No significant compromise of the spinal canal. 02/12/2019. CT of abdomen/pelvis. IMPRESSION: 1. Diffuse bony metastatic disease. 2. Bibasilar chronic atelectatic change. 3. No evidence for an acute or superimposed posttraumatic finding. 4. Gallstone in the gallbladder neck. Currently, the patient continues to have some low back pain and muscle aches as well to. He is feeling better since he got admitted to the hospital. Allergies Allergy/AdvReac Type Severity Reaction Status Date / Time fentanyl AdvReac Severe nausa/vomit Unverified 02/12/19 08:51 ing Home Medications Home Medications Medication Instructions Recorded Confirmed Type oxycodone 10 mg tablet 10 mg PO Q4H PRN tab 01/29/19 02/12/19 History bortezomib 0 mg IV 2XWK 02/12/19 02/12/19 History dexamethasone 20 mg PO Q2D 02/12/19 02/12/19 History ibuprofen [Advil] 200 mg PO Q6H PRN 02/12/19 02/12/19 History lenalidomide [Revlimid] 25 mg PO UD 02/12/19 02/12/19 History ondansetron HCl 8 mg PO UD 02/12/19 02/12/19 History prochlorperazine maleate 10 mg PO UD 02/12/19 02/12/19 History Patient History Medical History Multiple myeloma (Acute) Pancytopenia (Acute) Syncope (Acute) Back pain (Acute) Cellulitis, face Hyperlipemia, mixed (Acute) Lytic lesion of bone on x-ray (Acute) Plantar fascial fibromatosis (Acute) Surgical History H/O wrist surgery (Acute) Right wrist 40 yrs ago Family History Mother , age 93 / old age Breast cancer Father , age 67 Prostate cancer had radiation Coronary heart disease Diabetes Brother Diabetes Brother No problems noted. Sister Asthma Addisons disease Daughter No problems noted. Daughter No problems noted. Son No problems noted. Other Family history non-contributory Social History Preferred Language: Haitian Communication Ability: Effective Visual Impairment: No Limitations Activity Assistant Required: No Beliefs That Will Affect Care: None marital status: Current Living Situation: Spouse current occupational status: employed Feels Safe at Home: Yes Smoking Status: Never smoker Hx Alcohol Use: No Hx Substance Use: No Childhood Exposure to Second-Hand Smoke: No Dental Care, Regularly: Yes Physical Exam Constitutional: WD/WN, vitals as above well developed Results Additional Studies 02/12/19 08:59 ECG 12 lead EKG Stat XR chest 1V portable Stat 02/12/19 10:43 CT abd pelvis IV con only Stat CT head/brain wo con Stat CT lumbar spine wo con Stat
[2019-02-13] MEDS: SODIUM CHLORIDE 0.9% 1000ML 1,000 ML IV SCH ×3 (00:50→19:58)
[2019-02-13] MEDS: ACETAMINOPHEN 325 MG TAB PO PRN ×3 (00:51→20:37)
--- NOTE | 2019-02-13 04:39 | Progress Note ---
Date of Service February 13, 2019 Received a text page at 4:26 AM from the patient's nurse stating that patient had a temperature of 38.1 around midnight and received Tylenol for this. However, on recheck his temperature is now 38.3. In brief review of his chart, patient was admitted yesterday for syncope. He is undergoing chemotherapy and radiation therapy for multiple myeloma and lumbar spine treatments. Based on admission labs, his ANC is 1042. No reports of suspected infectious issues on admission. Patient complains of some back spasms but otherwise no new symptoms. Due to this new neutropenic fever, will start empiric cefepime 2 gm IV every 8 hours. This order will need to be renewed if needed past 48 hours. Soni Aldana, PGY3 Overnight call Results & Data Vital Signs (Past 12 Hours) Vital Signs Temp Pulse Pulse Resp BP Pulse Ox 02/13/19 01:08 101 H 02/12/19 23:10 38.1 C H 100 H 18 110/65 94 02/12/19 18:55 37.7 C H 100 H 18 116/56 L 95
[2019-02-13] MEDS: CEFEPIME 2,000 MG in SYRINGE 7.5 ML IV SCH ×3 (05:03→21:26)
[2019-02-13 08:06] LABS: Hematocrit (blood only) 27.4 % (42-52); Hemoglobin 9.5 g/dL (14.0-18.0); Mean Corpuscular Hgb Conc 34.7 g/dL (32-36); Mean Corpuscular Volume 93.5 fL (80-100); RDW Coefficient of Variation 16.6 % (11.5-14.5); RDW Standard Deviation 56.8 fL (36.4-46.3); Red Blood Count 2.93 M/uL (4.7-6.1); White Blood Count 1.25 K/uL (4.8-10.8)
[2019-02-13] MEDS ORDERED: MAGNESIUM HYDROXIDE SUSP 30 ML UDC PO ONE (08:22)
[2019-02-13 08:32] LABS: Mean Platelet Volume 9.3 fL (7.4-10.4); Platelet Count 89 K/uL (130-400)
[2019-02-13 08:34] LABS: Eosinophils # (auto) 0.04 K/uL (0-0.5); Eosinophils % (auto) 3.2 %; Lymphocytes # (auto) 0.17 K/uL (1.2-3.4); Lymphocytes % (auto) 13.6 %; Monocytes # (auto) 0.06 K/uL (0.11-0.59); Monocytes % (auto) 4.8 %; Neutrophils # (auto) 0.98 K/uL (1.4-6.5); Neutrophils % (auto) 78.4 %; Platelet Estimate Decreased (Normal); Rouleaux 1+
[2019-02-13 08:35] LABS: BUN Creatinine Ratio 18.9 (10-20); Calcium 6.7 mg/dl (8.5-10.1); Est GFR (African American) 57.2; Est GFR (Non-African American) 49.4; Potassium 3.6 mmol/L (3.5-5.1)
[2019-02-13] MEDS: dexAMETHasone 4 MG TAB PO SCH (08:50)
[2019-02-13] MEDS: BACLOFEN 10 MG TAB PO SCH ×3 (08:51→20:35)
--- NOTE | 2019-02-13 09:05 | Consultation Report ---
DATE OF ADMISSION: 02/12/2019 CHIEF COMPLAINT: Back pain and syncopal episode. HISTORY OF PRESENT ILLNESS: Ankit is delightful. He is 58. I have known him for years. 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 He was getting some chemotherapy, had some orthostatic syncope, fell forward, hit his head, 911 was called. He was brought via emergency transport to [facility] for evaluation and treatment and admission. I am serving as a consulting physician for his disease and multiple myeloma. I just saw Mr. Silva in the office about a week ago, we were going to continue with the chemotherapy and radiation treatments and hold off any type of spinal surgery if at all possible. I am seeing him this morning on rounds approximately 8:00 in the morning. He has a fever. He is sweating. He is alert and oriented, does not appear to be his normal usual healthy self. He seems a lot more impaired here today than he did just a week ago. PAST MEDICAL HISTORY: Positive for hyperlipidemia and apparent multiple myeloma, I do not think it is metastatic disease from another source. PAST SURGICAL HISTORY: Wrist surgery for carpal tunnel. FAMILY HISTORY: Mother is . Father is of prostate CA. Brother, diabetes. Children are healthy. SOCIAL HISTORY: He is nonsmoker, nonalcohol user, no substance abuser. REVIEW OF SYSTEMS: He admits to some fevers, sweats, chills. Denies any chest pain or palpitations. Denies any nausea, vomiting, urgency, frequency, dysuria. He has significant musculoskeletal back pain. He can barely turn left to right with significant muscle spasticity. There are no bruises or rashes. PHYSICAL EXAMINATION: GENERAL: He is alert, oriented. VITAL SIGNS: He has a slight temperature elevation this morning. His pulse is 102. His blood pressure is slightly low: HEENT: Examination essentially normal. LUNGS: Clear. CARDIAC: Regular rate, rhythm at 100 beats per minute. ABDOMEN: Soft. EXTREMITIES: Demonstrate no cyanosis or clubbing. NEUROLOGIC: Cranial nerves intact. Motor and sensory to the extremities intact as well. LABORATORY DATA: From this morning demonstrates a hemoglobin of 9.5. It is up a little bit from yesterday. Hematocrit 27.4. White cell count 1.25, which is concerning. His blood glucose is 122. Sodium 137, potassium 3.9. His BUN is elevated at 34. Creatinine is elevated at 1.52. Calcium is normal. His MRI was reviewed in detail, CT scan as well, appears to have diffuse infiltrate throughout all vertebral bodies that I can see on lumbar spine, we have not accessed to the thoracic spine. He has very mild compression fractures of L4 and L2 and L1. IMPRESSION: Delightful patient with apparent multiple myeloma or metastatic focus. He is significantly compromised medically and physically here today. He has some mild compression deformities consistent with his disease process. PLAN: At this point in time, we are not planning any heroic surgery over the weekend. He would be a reasonable candidate for kyphoplasty procedure for pain control which is quite useful in the setting of multiple myeloma. I probably do a kyphoplasty of L1, L2 and L4 one setting. I think he can tolerate that well. I would prefer if we can continue with the radiation and pain control, chemotherapy and then get his metabolic stay little better situated, sometimes going into surgery when were compromised is not always leaving the best outcome. I will follow him daily as we proceed with his care.
--- NOTE | 2019-02-13 09:18 | Hospitalist Progress Note ---
Date of Service February 13, 2019 Assessment & Plan (1) Gram negative sepsis: continue cefepime. Awaiting final culture results. preliminary are positive. (2) Febrile neutropenia: Patient has been having fevers. Started on cefepime overnight. This is likely causing his fevers. (3) Syncope: Suspected orthostatic etiology from chemotherapy side effect probably from Velcade. Telemetry. IV fluids. EKG is normal. No chest pain or shortness of breath. Monitor orthostatic blood pressure measurements (4) Pancytopenia: . Stool Hemoccult negative. I suspect the this is due to combined side effects from the Velcade and Revlimid. 2 units packed red blood cells recommended by hematology. Abdominal CT scan pending to rule out unlikelihood of retroperitoneal bleed. Likely secondary to multiple myeloma. Numbers improved after transfusion, will continue to monitor. (5) Multiple myeloma: With frequent back spasms. Start baclofen 10 mg 3 times a day. Consult hematology oncology, radiation oncology. Consult orthopedic surgery to evaluate stability of lumbar spine (6) DVT prophylaxis: Avoid heparin and Lovenox for the time being. SCDs and early ambulation Spent 35 minutes in management of patient. Subjective Patient reports overnight he had a fever and this was accompanied by shivering. Patient then states he has back pain and right side lumbar. Patient received 2 PRBC overnight. He states he feels more comfortable this morning. He continues to have moderate pain. Patient denies any abd. pain, nausea, vomiting. Review of Systems Review of Systems: Constitutional-no fever or chills ENT-no blurred vision, no double vision, no epistaxis, no sore throat Respiratory-no cough, no wheezing, no shortness of breath Cardiac-no palpitations, no chest pain. GI-no nausea, vomiting, diarrhea, melena, hematochezia -no urinary retention, no urinary incontinence, no dysuria, no hematuria Musculoskeletal-persistent low back pain with frequent muscle spasm Skin-no bruising, no rashes, no pruritus Neuro-no isolated weakness, no paresthesia, no weakness Psych-no depression, no anxiety Physical Exam 2 Physical Exam: General-alert and oriented x3, no fevers, no chills. Appears flushed HEENT-head atraumatic and normocephalic, Neck-no lymphadenopathy or thyromegaly, trachea midline Chest-clear to auscultation percussion. No rales wheezing or rhonchi Cardiac-regular rate and rhythm, normal S1 and S2, no murmurs Abdomen-normal bowel sounds, nontender, no hepatosplenomegaly Extremities-no cyanosis, clubbing, or edema Neuro-cranial nerves II through XII intact, motor and sensory function within normal limits, strength symmetrical 5/5, no focal deficits Psych-normal affect, normal mood Results & Data Vital Signs (Past 12 Hours) Vital Signs Temp Pulse Pulse Resp BP Pulse Ox 02/13/19 09:00 104 H 02/13/19 07:33 38.0 C H 102 H 18 108/56 L 90 02/13/19 04:00 38.3 C H 100 H 20 121/70 95 02/13/19 01:08 101 H 02/12/19 23:10 38.1 C H 100 H 18 110/65 94 PG Care Time/CCT Total # of Minutes Spent Total Time Spent with Patient: Total time spent is greater than 50% in coordination of care (as documented) at patient's floor/unit and/or counseling patient: (1) Syncope Syncope type: unspecified Qualified Code(s): R55 - Syncope and collapse (2) Multiple myeloma Multiple myeloma remission status: not in remission Qualified Code(s): C90.00 - Multiple myeloma not having achieved remission
[2019-02-13] MEDS: LIDOCAINE 5% 1 PATCH TD SCH (10:18)
[2019-02-13] MEDS: CALCIUM 600MG + VIT D 400 IU TAB PO SCH ×2 (10:18→21:23)
[2019-02-13] MEDS ORDERED: POTASSIUM PHOS 3 MMOL/1 ML INFUSION IV STA (11:17)
--- NOTE | 2019-02-13 11:29 | Oncology Consultation ---
Date of Consultation February 13, 2019 Assessment & Plan (1) Pancytopenia: His pancytopenia is related to multiple myeloma. We are still awaiting a final report on his bone marrow biopsy, but I suspect he has extensive marrow involvement with disease. This would be much to soon to see cytopenias related to Velcade or Revlimid on their own. I would transfuse him for hemoglobin <8 and platelets <20K or bleeding. Present on Admission?: Yes (2) Multiple myeloma: He is due for another dose of Velcade on Friday and should be ready by then. We will just skip his planned dose on Friday. He will also need to resume radiation therapy on Friday for his symptomatic lumbar spine lesion. He can restart his Revlimid on Friday. He should also be on Acyclovir 400 mg BID for HSV reactivation prophylaxis. Present on Admission?: Yes (3) Febrile neutropenia: The source of his fevers is not immediately clear. His UA was non-infectio us and his chest x-ray is clear. I would continue with broad-spectrum antibiotics for now while we await blood cultures. It is possible these represent drug fevers (seen in up to a quarter of patients who receive Velcade) or tumor fevers, but we should rule out infection first before assuming one of these etiologies. Present on Admission?: Yes History of Present Illness Reason for Consultation: Fevers Pancytopenia Multiple myeloma Attending Physician: Archie Jiménez History of Present Illness Mr. Silva is a 58 year old man with newly diagnosed IgG kappa multiple myeloma. He began treatment last week with Velcade, Revlimid, and dexamethasone. He had his first dose of Velcade on Friday. He also has been undergoing palliative RT for a symptomatic lumbar spine metastasis. He was due for both treatments on Friday morning, but was brought to the ER by EMS instead after a syncopal episode at home. He had chills and a subjective fever on night. He felt generally unwell but did not have any cough, sputum production, diarrhea, dysuria, or pyuria. Yesterday morning, he was taking a hot shower and, as he went to turn off the water, he started feeling faint and passed out in the shower. He did not hit his head and only fell a few inches. He was febrile again overnight last night, with Tmax 38.3C. He is feeling better today on antibiotics and IV fluids. His pain is his primary issue, particularly in his low back. He also has had a difficult time moving his bowels. He is on narcotics but had stopped his Senokot S out of concern that he might have treatment-related diarrhea. Allergies Allergy/AdvReac Type Severity Reaction Status Date / Time fentanyl AdvReac Severe nausa/vomit Unverified 02/12/19 08:51 ing Home Medications Home Medications Medication Instructions Recorded Confirmed Type oxycodone 10 mg tablet 10 mg PO Q4H PRN tab 01/29/19 02/12/19 History bortezomib 0 mg IV 2XWK 02/12/19 02/12/19 History dexamethasone 20 mg PO Q2D 02/12/19 02/12/19 History ibuprofen [Advil] 200 mg PO Q6H PRN 02/12/19 02/12/19 History lenalidomide [Revlimid] 25 mg PO UD 02/12/19 02/12/19 History ondansetron HCl 8 mg PO UD 02/12/19 02/12/19 History prochlorperazine maleate 10 mg PO UD 02/12/19 02/12/19 History Patient History Medical History Multiple myeloma (Acute) Pancytopenia (Acute) Syncope (Acute) Back pain (Acute) Cellulitis, face Hyperlipemia, mixed (Acute) Lytic lesion of bone on x-ray (Acute) Plantar fascial fibromatosis (Acute) Surgical History H/O wrist surgery (Acute) Right wrist 40 yrs ago Family History Mother , age 93 / old age Breast cancer Father , age 67 Prostate cancer had radiation Coronary heart disease Diabetes Brother Diabetes Brother No problems noted. Sister Asthma Addisons disease Daughter No problems noted. Daughter No problems noted. Son No problems noted. Other Family history non-contributory Social History Preferred Language: Tristanian Communication Ability: Effective Visual Impairment: No Limitations Supervisor [employer] Required: No Beliefs That Will Affect Care: None marital status: Current Living Situation: Spouse current occupational status: employed Feels Safe at Home: Yes Smoking Status: Never smoker Tobacco Type: smokeless tobacco Second Hand Exposure: No Hx Alcohol Use: No Hx Substance Use: No Childhood Exposure to Second-Hand Smoke: No Dental Care, Regularly: Yes Review of Systems Constitutional: + fever, + fatigue and + weakness Ear, Nose, Mouth, Throat: no nasal congestion and no sinus pain/pressure Respiratory: no cough and no change in sputum Cardiovascular: no chest pain and no edema Gastrointestinal: + constipation; no abdominal pain, no nausea and no diarrhea/loose stools Genitourinary: + urinary frequency; no dysuria and no hematuria Musculoskeletal: + back pain (as per HPI) Integumentary: no rash and no changing lesions Neurologic: + syncope; no headache(s) Hematologic / Lymphatic: no easy bleeding and no easy bruising Physical Exam Constitutional: average body habitus and comfortable; no acute distress Eyes: + anicteric sclerae and EOM intact bilaterally ENMT: external ear and nose normal, oropharynx normal Respiratory: normal respiratory effort, lungs clear to auscultation Cardiovascular: RRR, no murmur, no edema Gastrointestinal (Abdomen): Inspection/Auscultation: normal bowel sounds; abdomen not distended Percussion/Palpation: abdomen soft; abdomen nontender Skin: no rashes, warm and dry Psychiatric: A+Ox3, euthymic affect Results & Data Vital Signs (Past 12 Hours) Vital Signs Temp Pulse Pulse Resp BP Pulse Ox 02/13/19 10:19 37.2 C 02/13/19 09:00 104 H 02/13/19 07:33 38.0 C H 102 H 18 108/56 L 90 02/13/19 04:00 38.3 C H 100 H 20 121/70 95 02/13/19 01:08 101 H Laboratory Results Abnormal lab results 02/12/19 02/12/19 02/13/19 Range/Units 09:49 21:05 07:29 WBC 1.25 L (4.8-10.8) K/uL RBC 2.93 L (4.7-6.1) M/uL Hgb 9.0 L 9.5 L (14.0-18.0) g/dL Hct 27.4 L (42-52) % RDW Std Deviation 56.8 H (36.4-46.3) fL RDW Coeff of George 16.6 H (11.5-14.5) % Plt Count 89 L (130-400) K/uL Neut # (Auto) 0.98 L* (1.4-6.5) K/uL Lymph # (Auto) 0.17 L (1.2-3.4) K/uL [place] # (Auto) 0.06 L (0.11-0.59) K/uL Platelet Estimate Decreased L (Normal) Chloride (98-107) mmol/L BUN (7-18) mg/dl Creatinine (0.6-1.4) mg/dl Glucose (70-99) mg/dl Calcium (8.5-10.1) mg/dl Phosphorus (2.5-4.9) mg/dl Crossmatch See Detail 02/13/19 02/13/19 Range/Units 07:29 07:29 WBC (4.8-10.8) K/uL RBC (4.7-6.1) M/uL Hgb (14.0-18.0) g/dL Hct (42-52) % RDW Std Deviation (36.4-46.3) fL RDW Coeff of George (11.5-14.5) % Plt Count (130-400) K/uL Neut # (Auto) (1.4-6.5) K/uL Lymph # (Auto) (1.2-3.4) K/uL [place] # (Auto) (0.11-0.59) K/uL Platelet Estimate (Normal) Chloride 110 H (98-107) mmol/L BUN 29 H (7-18) mg/dl Creatinine 1.54 H (0.6-1.4) mg/dl Glucose 118 H (70-99) mg/dl Calcium 6.7 L (8.5-10.1) mg/dl Phosphorus 1.2 L* (2.5-4.9) mg/dl Crossmatch (1) Multiple myeloma Multiple myeloma remission status: not in remission Qualified Code(s): C90.00 - Multiple myeloma not having achieved remission
[2019-02-13] MEDS ORDERED: POTASSIUM PHOSPHATE 24 MMOL in SODIUM CHLORIDE 0.9% 500 ML IV ONE (11:30)
--- NOTE | 2019-02-13 14:51 | Infectious Disease Consult ---
Date of Consultation February 13, 2019 Assessment & Plan (1) Febrile neutropenia: 58-year-old male with multiple myeloma with febrile neutropenia with gram- negative bacteremia. No obvious source so may be translocation from the GI tract. Patient can be continued on cefepime pending final identification and sensitivity. Hopefully will not require prolonged IV antibiotics. Await recovery of white blood cell count. Will follow. (2) Gram negative sepsis: History of Present Illness Reason for Consultation: Intractable fever, neutropenia, multiple myeloma Attending Physician: Archie Jiménez History of Present Illness 58-year-old male with known multiple myeloma with extensive involvement of the spine, recently started on chemotherapy and radiation therapy, was admitted after syncopal episode yesterday, then with significant fever and rigors. Was found to be neutropenic, and started on broad-spectrum antibiotics and is feeling better this afternoon. No further chills. Blood cultures now reported positive for gram-negative bacilli. He denies any significant GI or urinary complaints. No cough or shortness of breath. No joint complaints, no rash. No indwelling lines. Allergies Allergy/AdvReac Type Severity Reaction Status Date / Time fentanyl AdvReac Severe nausa/vomit Unverified 02/12/19 08:51 ing Home Medications Home Medications Medication Instructions Recorded Confirmed Type oxycodone 10 mg tablet 10 mg PO Q4H PRN tab 01/29/19 02/12/19 History bortezomib 0 mg IV 2XWK 02/12/19 02/12/19 History dexamethasone 20 mg PO Q2D 02/12/19 02/12/19 History ibuprofen [Advil] 200 mg PO Q6H PRN 02/12/19 02/12/19 History lenalidomide [Revlimid] 25 mg PO UD 02/12/19 02/12/19 History ondansetron HCl 8 mg PO UD 02/12/19 02/12/19 History prochlorperazine maleate 10 mg PO UD 02/12/19 02/12/19 History Patient History Medical History Multiple myeloma (Acute) Pancytopenia (Acute) Syncope (Acute) Back pain (Acute) Cellulitis, face Hyperlipemia, mixed (Acute) Lytic lesion of bone on x-ray (Acute) Plantar fascial fibromatosis (Acute) Surgical History H/O wrist surgery (Acute) Right wrist 40 yrs ago Family History Mother , age 93 / old age Breast cancer Father , age 67 Prostate cancer had radiation Coronary heart disease Diabetes Brother Diabetes Brother No problems noted. Sister Asthma Addisons disease Daughter No problems noted. Daughter No problems noted. Son No problems noted. Other Family history non-contributory Social History Preferred Language: Mohawk Communication Ability: Effective Visual Impairment: No Limitations Supervisor Production Managing Required: No Beliefs That Will Affect Care: None marital status: Current Living Situation: Spouse current occupational status: employed Feels Safe at Home: Yes Smoking Status: Never smoker Tobacco Type: smokeless tobacco Second Hand Exposure: No Hx Alcohol Use: No Hx Substance Use: No Childhood Exposure to Second-Hand Smoke: No Dental Care, Regularly: Yes Review of Systems Review of Systems: All systems reviewed & are unremarkable except as noted in HPI & below Physical Exam Constitutional: WD/WN, vitals as above comfortable; no acute distress Eyes: PERRL, conjunctivae normal, anicteric sclerae ENMT: external ear and nose normal, oropharynx normal Neck: trachea midline, no thyromegaly neck nontender Respiratory: normal respiratory effort, lungs clear to auscultation normal percussion; does not use accessory muscles Cardiovascular: Rate/Rhythm: regular rate and regular rhythm Heart Sounds: normal S1 and normal S2; no gallop, no murmur and no cardiac rub Vessels: normal peripheral pulses; no JVD Gastrointestinal (Abdomen): normal bowel sounds, soft, nontender, no hepatosplenomegaly Musculoskeletal: no cyanosis or clubbing, extremities motor strength 5/5 Spine: + thoracic spinal tenderness and + lumbar spinal tenderness Skin: no rashes, warm and dry normal turgor; no lesions Neurologic: patellar DTR's 2+ bilat, sensation intact no focal motor deficits Psychiatric: A+Ox3, euthymic affect Orientation: cooperative Lymphatic: no cervical or axillary lymphadenopathy no inguinal lymphadenopathy Results & Data Vital Signs (Past 12 Hours) Vital Signs Temp Pulse Pulse Resp BP Pulse Ox 02/13/19 10:19 37.2 C 02/13/19 09:00 104 H 02/13/19 07:33 38.0 C H 102 H 18 108/56 L 90 02/13/19 04:00 38.3 C H 100 H 20 121/70 95 Laboratory Results Short CBC 02/12/19 02/13/19 Range/Units 21:05 07:29 WBC 1.25 L (4.8-10.8) K/uL Hgb 9.0 L 9.5 L (14.0-18.0) g/dL Hct 27.4 L (42-52) % Plt Count 89 L (130-400) K/uL BMP 02/13/19 07:29 Sodium 136 Potassium 3.6 Chloride 110 H Carbon Dioxide 22 BUN 29 H Creatinine 1.54 H Glucose 118 H Calcium 6.7 L Diagnostic Findings Microbiology 02/12/19 09:25 Blood Aerobic Blood Culture - Preliminary No growth in Aerobic bottle after 24 hours. 02/12/19 09:25 Blood Anaerobic Blood Culture - Preliminary Gram negative bacilli 02/12/19 09:21 Blood Aerobic Blood Culture - Preliminary No growth in Aerobic bottle after 24 hours. 02/12/19 09:21 Blood Anaerobic Blood Culture - Preliminary No growth in Anaerobic bottle after 24 hours. cc: ~ CT lumbar spine wo con CT DOSE: 1695.87 mGy.cm HISTORY: Trauma. Pain. Pt c/o low back pain TECHNIQUE: Multiaxial CT images of the lumbar spine were performed and reformatted in the sagittal and coronal plane without the use of contrast. A dose lowering technique was utilized adhering to the principles of ALARA. COMPARISON: 01/27/2019 FINDINGS: No significant change from the prior study. Extensive lytic lesions throughout all major visualized structures of the lumbar and low thoracic spine. Mild superior endplate compression fractures at L1, L2, L4, and L5 are similar. There has been no new fracture nor is there evidence of been evidence for progression of any pre-existing fracture. No significant compromise of the spinal canal. Extensive lytic lesions throughout are unchanged. IMPRESSION: 1. No change compared to the prior study of 01/27/2019. 2. Extensive lytic metastatic bone disease throughout all major visualized bony structures. 3. Mild compression deformities at L1, L2, L4, and L5 are similar. 4. No evidence for a new, interval, or progressive compression deformity. 5. No significant compromise of the spinal canal. The above report was generated using voice recognition software. It may contain grammatical, syntax or spelling errors. Electronically signed by: Kamlesh Torres M.D. 02/12/2019 11:44 AM Dictated: 02/12/19 1130
[2019-02-13] MEDS: HYDROmorphone INJ 0.5 MG/0.5 ML SYR IV PRN ×2 (16:05→19:32)
[2019-02-13] MEDS: OXYCODONE HCL IR 5 MG TAB (IMMEDIATE RELEASE) PO PRN (20:37)
[2019-02-13] MEDS ORDERED: HYDROmorphone INJ 0.5 MG/0.5 ML SYR IV PRN (21:34)
[2019-02-14] MEDS: ACETAMINOPHEN 325 MG TAB PO PRN ×2 (00:17→05:16)
[2019-02-14] MEDS: SODIUM CHLORIDE 0.9% 1000ML 1,000 ML IV SCH ×2 (05:20→15:38)
[2019-02-14] MEDS: CEFEPIME 2,000 MG in SYRINGE 7.5 ML IV SCH ×3 (05:48→20:47)
[2019-02-14] MEDS: OXYCODONE HCL IR 5 MG TAB (IMMEDIATE RELEASE) PO PRN (05:59)
[2019-02-14] MEDS: dexAMETHasone 4 MG TAB PO SCH (07:43)
[2019-02-14] MEDS: BACLOFEN 10 MG TAB PO SCH ×3 (07:44→20:39)
[2019-02-14] MEDS: LIDOCAINE 5% 1 PATCH TD SCH (07:45)
[2019-02-14 07:53] LABS: Hematocrit (blood only) 26.4 % (42-52); Hemoglobin 9.1 g/dL (14.0-18.0); Mean Corpuscular Hgb Conc 34.5 g/dL (32-36); Mean Corpuscular Volume 92.3 fL (80-100); RDW Coefficient of Variation 16.4 % (11.5-14.5); RDW Standard Deviation 55.1 fL (36.4-46.3); Red Blood Count 2.86 M/uL (4.7-6.1); White Blood Count 2.51 K/uL (4.8-10.8)
[2019-02-14 08:04] LABS: Mean Platelet Volume 9.8 fL (7.4-10.4); Platelet Count 78 K/uL (130-400)
[2019-02-14 08:36] LABS: BUN Creatinine Ratio 18.8 (10-20); Calcium 6.5 mg/dl (8.5-10.1); Creatinine Clr Calc Pharmacy 80.1 ml/min; Est GFR (African American) 74.3; Est GFR (Non-African American) 64.1
[2019-02-14 08:40] LABS: Basophils # (auto) 0.01 K/uL (0-0.2); Basophils % (auto) 0.4 %; Immature Granulocytes # (auto) 0.04 K/uL (0.00-0.02); Immature Granulocytes % (auto) 1.6 %; Lymphocytes # (auto) 0.13 K/uL (1.2-3.4); Lymphocytes % (auto) 5.2 %; Monocytes # (auto) 0.09 K/uL (0.11-0.59); Monocytes % (auto) 3.6 %; Neutrophils # (auto) 2.24 K/uL (1.4-6.5); Neutrophils % (auto) 89.2 %; Rouleaux 1+
--- NOTE | 2019-02-14 09:03 | Progress Note ---
DATE: 02/14/2019 SUBJECTIVE: He is alert, oriented this morning, feels relatively stable. His temperature has come down. He is conversant, lucent and pain relatively controlled. OBJECTIVE: Neurologically intact. Moderate pain with percussion, but neurologically normal. 5/5 strength, good sensation to the extremities, no deficits. Hemoglobin 9.1, hematocrit 26.4, white cell count still low at 2.5. IMPRESSION: Gram-negative sepsis, anemia, multiple myeloma, pancytopenia and compression fractures from the myeloma. PLAN: We will treat him conservatively at this point in time, I am always aware that a kyphoplasty may be helpful to him, we are not going to jump on that and do at anytime soon. Hopefully, he will get improved. He should wear his brace when he is up and ambulatory.
[2019-02-14] MEDS: CALCIUM 600MG + VIT D 400 IU TAB PO SCH ×2 (09:45→20:40)
[2019-02-14] MEDS: ONDANSETRON INJ 2 MG/ML 2 ML VIAL IV PRN (10:32)
[2019-02-14] MEDS ORDERED: ENOXAPARIN INJ 40 MG/0.4 ML SYR SQ ONE (16:25)
--- NOTE | 2019-02-14 17:00 | Infectious Disease Progress Nt ---
Date of Service February 14, 2019 Assessment & Plan (1) Febrile neutropenia: 58-year-old male with multiple myeloma with febrile neutropenia with gram- negative bacteremia. No obvious source so may be translocation from the GI tract. Patient can be continued on cefepime pending final identification and sensitivity. Hopefully will not require prolonged IV antibiotics. Await recovery of white blood cell count. Will follow. (2) Gram negative sepsis: Subjective Offers no new complaints today. Temperature coming down. Orthopedic follow-up noted. Blood cultures still not identified as of yet. Review of Systems Review of Systems: All systems reviewed & are unremarkable except as noted in HPI & below Physical Exam 2 Constitutional: WD/WN, vitals as above comfortable; no acute distress Eyes: PERRL, conjunctivae normal, anicteric sclerae ENMT: external ear and nose normal, oropharynx normal Neck: trachea midline, no thyromegaly neck nontender Respiratory: normal respiratory effort, lungs clear to auscultation normal percussion; does not use accessory muscles Cardiovascular: Rate/Rhythm: regular rate and regular rhythm Heart Sounds: normal S1 and normal S2; no gallop, no murmur and no cardiac rub Vessels: normal peripheral pulses; no JVD Gastrointestinal (Abdomen): normal bowel sounds, soft, nontender, no hepatosplenomegaly Musculoskeletal: no cyanosis or clubbing, extremities motor strength 5/5 Spine: + thoracic spinal tenderness and + lumbar spinal tenderness Skin: no rashes, warm and dry normal turgor; no lesions Neurologic: patellar DTR's 2+ bilat, sensation intact no focal motor deficits Psychiatric: A+Ox3, euthymic affect Orientation: cooperative Lymphatic: no cervical or axillary lymphadenopathy no inguinal lymphadenopathy Results & Data Vital Signs (Past 12 Hours) Vital Signs Temp Pulse Pulse Resp BP Pulse Ox 02/14/19 15:47 78 02/14/19 15:05 36.4 C L 66 16 111/69 91 02/14/19 11:59 68 02/14/19 11:19 36.4 C L 63 18 119/78 91 02/14/19 07:42 36.5 C 66 18 103/63 96 02/14/19 06:23 78 Laboratory Results Short CBC 02/14/19 Range/Units 07:42 WBC 2.51 L (4.8-10.8) K/uL Hgb 9.1 L (14.0-18.0) g/dL Hct 26.4 L (42-52) % Plt Count 78 L (130-400) K/uL BMP 02/14/19 02/14/19 07:42 09:00 Sodium 135 L Potassium 4.4 D Chloride 112 H Carbon Dioxide 19 L BUN 23 H Creatinine 1.24 D Glucose 191 H Calcium 6.5 L Diagnostic Findings Microbiology 02/12/19 09:25 Blood Aerobic Blood Culture - Preliminary No growth in Aerobic bottle after 48 hours. 02/12/19 09:25 Blood Anaerobic Blood Culture - Preliminary Gram negative bacilli 02/12/19 09:21 Blood Aerobic Blood Culture - Preliminary No growth in Aerobic bottle after 48 hours. 02/12/19 09:21 Blood Anaerobic Blood Culture - Preliminary Gram negative bacilli
[2019-02-14] MEDS: DOCUSATE SODIUM/SENNA 50/8.6MG TAB PO SCH (18:23)
[2019-02-14] MEDS: POLYETHYLENE (MIRALAX) 17 GM PACK PO SCH (18:23)
--- NOTE | 2019-02-14 22:40 | Hospitalist Progress Note ---
Date of Service February 14, 2019 Assessment & Plan (1) Gram negative sepsis: continue cefepime. Awaiting final culture results. preliminary are positive. (2) Febrile neutropenia: Patient has been having fevers. Afebrile on 02/04 though. Fevers likely due to bacteremia. (3) Syncope: Suspected orthostatic etiology from chemotherapy side effect probably from Velcade. Telemetry. IV fluids. EKG is normal. No chest pain or shortness of breath. Monitor orthostatic blood pressure measurements (4) Pancytopenia: . Stool Hemoccult negative. I suspect the this is due to combined side effects from the Velcade and Revlimid. 2 units packed red blood cells recommended by hematology. Abdominal CT scan pending to rule out unlikelihood of retroperitoneal bleed. Likely secondary to multiple myeloma. Numbers improved after transfusion, will continue to monitor. Hem/onc is on the case (5) Multiple myeloma: With frequent back spasms. Start baclofen 10 mg 3 times a day. Consult hematology oncology, radiation oncology. Consult orthopedic surgery to evaluate stability of lumbar spine (6) Back pain: On lidocaine, baclofen, and dilaudid. Will decrease baclofen to 5mg po tid. And will monitor respiratory effort (as noted in subjective portion of note). Patient also placed on incentive spirometry. Given that patient has been bedridden, easy for patient to develop atelectasis. (7) DVT prophylaxis: DVT order a one time dose in PM of ovenox. will montior cbc. If patient tolerates dose will recommend continuing in PM. SCDs and early ambulation Spent 35 minutes in management of patient. Subjective Patient reports feeling better as his fever has subsided. His is at bedside and is updated. Patient is concerned as he reports he has felt weak and difficulty breathing today. He attributes that the weakness (difficulty taking a deep breath) is from the baclofen. He is asking if the dose can be lowered. He reports his pain currently is controlled with the pain medicine: narcotics, licocaine patches. Review of Systems Review of Systems: Constitutional-no fever or chills ENT-no blurred vision, no double vision, no epistaxis, no sore throat Respiratory-no cough, no wheezing, no shortness of breath Cardiac-no palpitations, no chest pain. GI-no nausea, vomiting, diarrhea, melena, hematochezia -no urinary retention, no urinary incontinence, no dysuria, no hematuria Musculoskeletal-persistent low back pain with frequent muscle spasm Skin-no bruising, no rashes, no pruritus Neuro-no isolated weakness, no paresthesia, no weakness Psych-no depression, no anxiety Physical Exam Physical Exam: General-alert and oriented x3, no fevers, no chills. HEENT-head atraumatic and normocephalic, Neck-no lymphadenopathy or thyromegaly, trachea midline Chest-clear to auscultation percussion. No rales wheezing or rhonchi Cardiac-regular rate and rhythm, normal S1 and S2, no murmurs Abdomen-normal bowel sounds, nontender, no hepatosplenomegaly Extremities-no cyanosis, clubbing, or edema Neuro-cranial nerves II through XII intact, motor and sensory function within normal limits, strength symmetrical 5/5, no focal deficits Psych-normal affect, normal mood Results & Data Vital Signs (Past 12 Hours) Vital Signs Temp Pulse Pulse Resp BP Pulse Ox 02/14/19 19:01 36.4 C L 81 20 138/81 96 02/14/19 15:47 78 02/14/19 15:05 36.4 C L 66 16 111/69 91 02/14/19 11:59 68 02/14/19 11:19 36.4 C L 63 18 119/78 91 PG Care Time/CCT Total # of Minutes Spent Total Time Spent with Patient: Total time spent is greater than 50% in coordination of care (as documented) at patient's floor/unit and/or counseling patient: (1) Syncope Syncope type: unspecified Qualified Code(s): R55 - Syncope and collapse (2) Multiple myeloma Multiple myeloma remission status: not in remission Qualified Code(s): C90.00 - Multiple myeloma not having achieved remission
[2019-02-15] MEDS: SODIUM CHLORIDE 0.9% 1000ML 1,000 ML IV SCH ×3 (01:14→22:42)
[2019-02-15] MEDS: ONDANSETRON INJ 2 MG/ML 2 ML VIAL IV PRN ×2 (04:15→20:10)
[2019-02-15 07:28] LABS: Hematocrit (blood only) 27.8 % (42-52); Hemoglobin 9.8 g/dL (14.0-18.0); Mean Corpuscular Hgb Conc 35.3 g/dL (32-36); Mean Corpuscular Volume 91.1 fL (80-100); RDW Coefficient of Variation 15.9 % (11.5-14.5); RDW Standard Deviation 53.8 fL (36.4-46.3); Red Blood Count 3.05 M/uL (4.7-6.1); White Blood Count 3.24 K/uL (4.8-10.8)
[2019-02-15] MEDS: BACLOFEN 10 MG TAB PO SCH ×3 (07:40→20:38)
[2019-02-15] MEDS: dexAMETHasone 4 MG TAB PO SCH (07:40)
[2019-02-15] MEDS: CALCIUM 600MG + VIT D 400 IU TAB PO SCH ×2 (07:41→20:37)
[2019-02-15] MEDS: LIDOCAINE 5% 1 PATCH TD SCH (07:41)
[2019-02-15] MEDS: DOCUSATE SODIUM/SENNA 50/8.6MG TAB PO SCH (07:45)
[2019-02-15] MEDS: POLYETHYLENE (MIRALAX) 17 GM PACK PO SCH (07:45)
[2019-02-15 08:06] LABS: BUN Creatinine Ratio 22.8 (10-20); Calcium 7.2 mg/dl (8.5-10.1); Creatinine Clr Calc Pharmacy 87.2 ml/min; Est GFR (African American) 82.3; Mean Platelet Volume 9.6 fL (7.4-10.4); Platelet Count 82 K/uL (130-400); Potassium 4.1 mmol/L (3.5-5.1)
[2019-02-15 08:13] LABS: Basophils # (auto) 0.01 K/uL (0-0.2); Basophils % (auto) 0.3 %; Dohle Bodies 1+; Immature Granulocytes # (auto) 0.01 K/uL (0.00-0.02); Immature Granulocytes % (auto) 0.3 %; Lymphocytes # (auto) 0.24 K/uL (1.2-3.4); Lymphocytes % (auto) 7.4 %; Monocytes # (auto) 0.22 K/uL (0.11-0.59); Monocytes % (auto) 6.8 %; Neutrophils # (auto) 2.76 K/uL (1.4-6.5); Neutrophils % (auto) 85.2 %; Rouleaux 1+
--- NOTE | 2019-02-15 08:31 | Progress Note ---
DATE: 02/15/2019 HEMATOLOGY PROGRESS NOTE DIAGNOSES: 1. Gram-negative bacteremia. 2. Febrile neutropenia. 3. Syncope. 4. Pancytopenia. 5. Multiple myeloma. SUBJECTIVE: Tim is a pleasant 58-year-old gentleman recently diagnosed with IgG kappa multiple myeloma, recently began combination Revlimid, Velcade and dexamethasone. Tim had also been receiving palliative XRT to the lumbar spine. He became severely myelosuppressed as a result. I believe the radiation therapy probably played a little bit more of a role considering he just recently started chemotherapy. He had a precipitous drop in hemoglobin level necessitating a transfusion. His pain is currently managed. He continues to have difficulty with muscle spasms and ambulation. His fever has improved as well as his white count. Blood cultures recently grew out gram-negative bacilli. He is being covered. Nursing reports no overnight difficulties at this juncture. OBJECTIVE: GENERAL: A very pleasant 58-year-old gentleman in no acute distress. VITAL SIGNS: Temperature 36.3, pulse 75, respiratory rate 18, blood pressure 124/70. SKIN: Without rash or lesion. HEENT: Oral mucosa without erythema or ulceration. HEART: Regular rate and rhythm. LUNGS: Clear to auscultation bilaterally. ABDOMEN: Soft, nontender, nondistended. EXTREMITIES: No clubbing, cyanosis or edema. NEUROLOGIC: Grossly intact. LABORATORY DATA: WBC count 30-40, hemoglobin 9.8, platelet count 82,000. Calcium 7.2. Sodium 140, potassium 4.1, chloride 113, carbon dioxide 22, creatinine 1.44, BUN 26. RADIOGRAPHIC DATA: CT scan of the lumbar spine performed on 02/12 reveals no change compared to prior study. Extensive lytic metastatic bony disease and mild compression deformities of L1, L2, L4, L5. IMPRESSION: 1. Neutropenic fever. 2. Pancytopenia attributable to both radiation and chemotherapy. 3. Gram-negative bacilli. 4. IgG multiple myeloma. 5. Acute renal injury. PLAN: I saw Tim at bedside this morning. Continues to struggle with ambulation with spasticity of his left quad. Pain is vastly improved, currently on opioids. I would argue radiation therapy was most likely the myelosuppressive trigger as he just recently began Revlimid and Velcade. Agree with transfusional support. I will talk to Dr. Chatman informally and advise aborting the remaining fractions prescribed so that I can resume systemic therapy. I believe blood cultures have been repeated and would prefer they be clear before moving forward. We will continue to follow Tim extensively during his hospital stay. Appreciate the assistance in his care from the hospitalist service. Thank you very much for allowing me to participate in his care. ISABEL
[2019-02-15] MEDS: CEFEPIME 2,000 MG in SYRINGE 7.5 ML IV SCH ×2 (09:35→20:41)
--- NOTE | 2019-02-15 15:02 | Infectious Disease Progress Nt ---
Date of Service February 15, 2019 Assessment & Plan (1) Febrile neutropenia: 58-year-old male with multiple myeloma with febrile neutropenia with Bacteroides bacteremia. No obvious source so may be translocation from the GI tract. Have added metronidazole. Will follow. (2) Gram negative sepsis: Subjective Patient seen in follow-up for neutropenic fever. Feeling slightly better today, still having muscle spasms. Blood cultures growing Bacteroides. Currently afebrile, hemodynamically stable. No other new complaints. Review of Systems Review of Systems: All systems reviewed & are unremarkable except as noted in HPI & below Physical Exam Constitutional: WD/WN, vitals as above comfortable; no acute distress Eyes: PERRL, conjunctivae normal, anicteric sclerae ENMT: external ear and nose normal, oropharynx normal Neck: trachea midline, no thyromegaly neck nontender Respiratory: normal respiratory effort, lungs clear to auscultation normal percussion; does not use accessory muscles Cardiovascular: Rate/Rhythm: regular rate and regular rhythm Heart Sounds: normal S1 and normal S2; no gallop, no murmur and no cardiac rub Vessels: normal peripheral pulses; no JVD Gastrointestinal (Abdomen): normal bowel sounds, soft, nontender, no hepatosplenomegaly Musculoskeletal: no cyanosis or clubbing, extremities motor strength 5/5 Spine: + thoracic spinal tenderness and + lumbar spinal tenderness Skin: no rashes, warm and dry normal turgor; no lesions Neurologic: patellar DTR's 2+ bilat, sensation intact no focal motor deficits Psychiatric: A+Ox3, euthymic affect Orientation: cooperative Lymphatic: no cervical or axillary lymphadenopathy no inguinal lymphadenopathy Results & Data Vital Signs (Past 12 Hours) Vital Signs Temp Pulse Pulse Resp BP Pulse Ox 02/15/19 11:52 60 02/15/19 07:43 36.3 C L 75 18 124/70 94 02/15/19 05:41 36.4 C L 79 18 138/81 93 Laboratory Results Short CBC 02/15/19 Range/Units 07:19 WBC 3.24 L (4.8-10.8) K/uL Hgb 9.8 L (14.0-18.0) g/dL Hct 27.8 L (42-52) % Plt Count 82 L (130-400) K/uL BMP 02/15/19 07:19 Sodium 140 Potassium 4.1 Chloride 113 H Carbon Dioxide 22 BUN 26 H Creatinine 1.14 Glucose 147 H Calcium 7.2 L Diagnostic Findings Microbiology 02/12/19 09:21 Blood Aerobic Blood Culture - Preliminary No growth in Aerobic bottle after 48 hours. 02/12/19 09:21 Blood Anaerobic Blood Culture - Preliminary Bacteroides uniformis 02/12/19 09:25 Blood Aerobic Blood Culture - Preliminary No growth in Aerobic bottle after 48 hours. 02/12/19 09:25 Blood Anaerobic Blood Culture - Preliminary Bacteroides uniformis
[2019-02-15] MEDS: VALACYCLOVIR HCL 500 MG TABLET PO SCH ×2 (16:11→20:37)
[2019-02-15] MEDS: metroNIDAZOLE 500 MG/100 ML BAG IV SCH ×2 (16:15→23:34)
[2019-02-15] MEDS: LENALIDOMIDE 25 MG PO SCH (20:37)
--- NOTE | 2019-02-15 21:31 | Hospitalist Progress Note ---
Date of Service February 15, 2019 Assessment & Plan (1) Septicemia: Improved. 2nd to bacteroides. repeat blood cx's from 02/14/19 thus far negative. GI source suspected. has gallstones on prior imaging -- will obtain gall bladder u/s -- r/o cholecystitis. IV flagyl added by Dr Clements -- need to continue cefepime? Present on Admission?: Yes (2) Febrile neutropenia: 2nd to bacteremia/septicemia - resolved. ANC well over 1500 today. Neutropenia 2nd to MM and recent radiation to the spine. Appreciate Dr Crooks's consultation. CBC in am for stability. Present on Admission?: Yes (3) Syncope: Likely he had volume depletion and weakness in setting of septicemia. Resolved. No further dizziness. In light of brief run of wide-complex tachycardia today -- obtain echo in am to ensure structurally normal heart. Present on Admission?: Yes (4) Pancytopenia: 2nd to MM and additional myelosuppression in setting of recent Rx for MM. Counts stable. s/p 2 units PRBCs on 02/12/19 for low Hb of 8.2. CBC in am. Present on Admission?: Yes (5) Wide-complex tachycardia: Recheck electrolytes in am. Continue telemetry. Echo in am. NSVT vs aberrancy. Present on Admission?: No (6) Multiple myeloma: Resume revlimid - patient to use home stock. Care d/w Dr Crooks today. MM has led to widespread lytic bony lesions and was set up for pathological lumbar compression fractures. Present on Admission?: Yes (7) Back pain: On lidocaine patches, baclofen, and dilaudid. Cont decreased baclofen dose at 5mg po tid. See compression Fx section below. Present on Admission?: Yes (8) Lumbar compression fracture: L1, L2, L4, L5. nonoperative management for now. cont topical Rx, pain meds, back brace, gentle PT/OT. appreciate Dr Angel's consult. These are pathological compression Fx's due to the presence of lytic bone lesions from his multiple myeloma. Present on Admission?: Yes (9) Cold sore: Due to immunocompromised status start valtrex 500mg BID. (10) Acute kidney injury: Likely due to volume depletion. Resolved. Peak Cr 1.5, now 1.1. Stop IVF. Present on Admission?: Yes (11) Gallstone: In light of bacteroides septicemia will check RUQ u/s to rule out acute cholecystitis as cause of bacteremia. Present on Admission?: Yes (12) BRBPR (bright red blood per rectum): Sounds like anal outlet bleeding -- hemorroid?? Will check external rectum. (13) DVT prophylaxis: In light of thrombocytopenia will avoid chemical means for now. SCDs and ambulation. updated. Subjective pt c/o left lateral thigh numbness. also had what sounds like muscle spasm over this area in the last few days (very severe over weekend). energy and appetite are beginning to improve. denies dizziness. back pain still quite prominent. using brace. also with cold sore over bottom lip - present for a few days. had episode of bright red blood per rectum over weekend - was not in the stool but surrounded such. Review of Systems Constitutional: no fever and no chills Respiratory: no dyspnea Cardiovascular: no chest pain Gastrointestinal: no abdominal pain Physical Exam Constitutional: well developed and well nourished; no acute distress and no altered mental status ENMT: external ear and nose normal, oropharynx normal Mouth: + lip abnormality (cold sore bottom left lip) Respiratory: normal respiratory effort, lungs clear to auscultation Cardiovascular: Rate/Rhythm: regular rate and regular rhythm Heart Sounds: normal S1 and normal S2; no murmur Vessels: posterior tibial pulses present and dorsalis pedis pulses present; no JVD Extremities: no edema Gastrointestinal (Abdomen): normal bowel sounds, soft, nontender, no hepatosplenomegaly Musculoskeletal: back brace in place Neurologic: deep tendon reflexes 2+ bilaterally and moves all extremities; no focal motor deficits Psychiatric: A+Ox3, euthymic affect Results & Data Vital Signs (Past 12 Hours) Vital Signs Temp Pulse Pulse Resp BP Pulse Ox 02/15/19 20:11 36.5 C 71 18 143/69 H 96 02/15/19 15:58 36.5 C 65 20 153/72 H 96 02/15/19 15:47 81 02/15/19 11:52 60 Laboratory Results Laboratory Results - last 24 hr 02/15/19 02/15/19 07:19 07:19 WBC 3.24 L RBC 3.05 L Hgb 9.8 L Hct 27.8 L MCV 91.1 MCH 32.1 MCHC 35.3 RDW Std Deviation 53.8 H RDW Coeff of George 15.9 H Plt Count 82 L MPV 9.6 Immature Gran % (Auto) 0.3 Neut % (Auto) 85.2 Lymph % (Auto) 7.4 Shoshone % (Auto) 6.8 Eos % (Auto) 0.0 Baso % (Auto) 0.3 Immature Gran # (Auto) 0.01 Neut # (Auto) 2.76 Lymph # (Auto) 0.24 L Shoshone # (Auto) 0.22 Eos # (Auto) 0.00 Baso # (Auto) 0.01 Dohle Bodies 1+ Rouleaux 1+ Sodium 140 Potassium 4.1 Chloride 113 H Carbon Dioxide 22 Anion Gap 5.0 BUN 26 H Creatinine 1.14 Est Cr Clr Drug Dosing 87.2 Est GFR ( Amer) 82.3 Est GFR (Non-Af Amer) 71.0 BUN/Creatinine Ratio 22.8 H Glucose 147 H Calcium 7.2 L Diagnostic Findings blood cx's with bacteroides PG Care Time/CCT Total # of Minutes Spent Total Time Spent with Patient: Total time spent is greater than 50% in coordination of care (as documented) at patient's floor/unit and/or counseling patient: (1) Back pain Back pain location: low back pain Chronicity: acute Back pain laterality: midline Sciatica presence: without sciatica Qualified Code(s): M54.5 - Low back pain (2) Syncope Syncope type: unspecified Qualified Code(s): R55 - Syncope and collapse (3) Multiple myeloma Multiple myeloma remission status: not in remission Qualified Code(s): C90.00 - Multiple myeloma not having achieved remission (4) Lumbar compression fracture Encounter type: subsequent encounter Lumbar vertebra fracture level: unspecified lumbar vertebra Fracture healing: with routine healing Qualified Code(s): S32.000D - Wedge compression fracture of unspecified lumbar vertebra, subsequent encounter for fracture with routine healing (5) Gallstone Cholecystitis presence: without cholecystitis Biliary obstruction: without biliary obstruction Qualified Code(s): K80.20 - Calculus of gallbladder without cholecystitis without obstruction
[2019-02-16] MEDS: CALCIUM CARBONATE 500 MG CHEWABLE TAB PO PRN ×2 (00:09→05:09)
[2019-02-16] MEDS: ONDANSETRON INJ 2 MG/ML 2 ML VIAL IV PRN (05:09)
--- NOTE | 2019-02-16 06:31 | Ultrasound Report ---
US gallbladder HISTORY: 58 years-old Male anaerobic bacteremia; gallstones; eval cholecystit acute right upper quad rant abdominal pain with cholelithiasis COMPARISON: CT abdomen and pelvis 02/12/2019 TECHNIQUE: Multiple real-time sonographic images of the abdominal right upper quadrant were obtained assessing grayscale appearance and color flow FINDINGS: Study is limited secondary to obscuring bowel gas. Pancreas is not diagnostically visualized. 7 mm hy poechoic lesion of the left hepatic lobe suggests a probable cyst. No evidence of cirrhosis or ascite s. No biliary ductal dilation. Cholelithiasis without gallbladder wall thickening or pericholecystic fluid. Nonmobile stone seen within the gallbladder neck. Sonographic Coon sign not reported. Common bile duct is normal, 4 mm. Imaged right kidney is unremarkable without hydronephrosis. Incidental note is made of a small right pleural effusion. IMPRESSION: 1. Cholelithiasis without sonographic evidence of acute cholecystitis. 2. No biliary ductal dilation. 3. Incidental note is made of a small right pleural effusion. The above report was generated using voice recognition software. It may contain grammatical, syntax o r spelling errors. Electronically signed by: Yoni Johnson M.D. 02/16/2019 6:30 AM
[2019-02-16] MEDS ORDERED: PERFLUTREN LIPID MICROSPHERE (DEFINITY) IV ONE (07:17)
[2019-02-16] MEDS: BACLOFEN 10 MG TAB PO SCH ×3 (07:40→20:38)
[2019-02-16] MEDS: DOCUSATE SODIUM/SENNA 50/8.6MG TAB PO SCH (07:41)
[2019-02-16] MEDS: dexAMETHasone 4 MG TAB PO SCH (07:41)
[2019-02-16] MEDS: VALACYCLOVIR HCL 500 MG TABLET PO SCH ×2 (07:42→20:39)
[2019-02-16] MEDS: CALCIUM 600MG + VIT D 400 IU TAB PO SCH ×2 (07:42→20:39)
[2019-02-16] MEDS: POLYETHYLENE (MIRALAX) 17 GM PACK PO SCH (07:42)
[2019-02-16] MEDS: LIDOCAINE 5% 1 PATCH TD SCH (07:42)
[2019-02-16] MEDS: metroNIDAZOLE 500 MG/100 ML BAG IV SCH ×3 (07:43→23:43)
[2019-02-16 08:13] LABS: Hemoglobin 9.9 g/dL (14.0-18.0); Mean Corpuscular Hgb Conc 35.4 g/dL (32-36); Mean Corpuscular Volume 92.4 fL (80-100); RDW Coefficient of Variation 15.7 % (11.5-14.5); RDW Standard Deviation 53.3 fL (36.4-46.3); Red Blood Count 3.03 M/uL (4.7-6.1)
[2019-02-16 08:31] LABS: Mean Platelet Volume 10.1 fL (7.4-10.4); Platelet Count 89 K/uL (130-400)
[2019-02-16 08:38] LABS: Calcium 7.6 mg/dl (8.5-10.1); Creatinine Clr Calc Pharmacy 89.8 ml/min; Est GFR (Non-African American) 73.3; Magnesium 2.1 mg/dl (1.8-2.4); Potassium 4.1 mmol/L (3.5-5.1)
--- NOTE | 2019-02-16 09:07 | Progress Note ---
DATE: 02/16/2019 HEMATOLOGY PROGRESS NOTE DIAGNOSES: 1. Gram-negative bacteremia. 2. Cholelithiasis. 3. Febrile neutropenia. 4. Syncope. 5. Pancytopenia. 6. Multiple myeloma. SUBJECTIVE: Tim was seen and examined at bedside. Had recommended discontinuing radiation as I believe contributed more to his myelosuppression and chemotherapy. Actually, recommended he resume daily Revlimid while he recovers. His hemoglobin has remained stable since transfusion. Metronidazole was added by the infectious disease portfolio consultant. Making slow but steady progress. Nursing reports no overnight difficulties. OBJECTIVE: GENERAL: A very pleasant 58-year-old gentleman in no acute distress. VITAL SIGNS: Temperature 36.4, pulse 66, respiratory rate 20, blood pressure 135/77. SKIN: Without rash or lesion. HEENT: Oral mucosa without erythema or ulceration. HEART: Regular rate and rhythm. LUNGS: Clear to auscultation bilaterally. ABDOMEN: Soft, nontender, nondistended. EXTREMITIES: No clubbing, cyanosis or edema. NEUROLOGICAL: Grossly intact. LABORATORY DATA: WBC count 4000, hemoglobin 9.9, platelet count is pending. Electrolytes pending. RADIOGRAPHIC DATA: Ultrasound of the gallbladder reveals cholelithiasis without sonographic evidence for acute cholecystitis. IMPRESSION: 1. Neutropenic fever. 2. Pancytopenia, attributable to both chemo and radiation therapy. 3. Gram-negative bacilli bacteremia. 4. IgG multiple myeloma. 5. Acute renal injury. 6. Cholelithiasis. PLAN: Tim was seen and examined at bedside. I think he is slowly starting to feel better. Recommended restarting daily Revlimid moving forward. I have asked radiation to defer on further palliative radiation therapy to avoid protracted myelosuppression. His peripheral counts seem to be stable at this point. While he has evidence for gallstones, there is no evidence of underlying cholecystitis. Would avoid proceeding with surgery unless he becomes symptomatic. Renal function is slowly improving. Agree with medical management including antimicrobial therapy moving forward. We will continue to follow Tim regularly during his stay.
[2019-02-16] MEDS: CEFEPIME 2,000 MG in SYRINGE 7.5 ML IV SCH ×2 (09:10→20:38)
[2019-02-16] MEDS: PANTOprazole 40 MG TAB PO SCH (11:52)
--- NOTE | 2019-02-16 19:56 | Hospitalist Progress Note ---
Date of Service February 16, 2019 Assessment & Plan (1) Septicemia: Improved/resolved. 2nd to bacteroides. repeat blood cx's from 02/14/19 cont to be negative. GI source suspected. bowel translocation? has gallstones on u/s but no signs of acute cholecystitis and no symptoms of such. IV flagyl added by Dr Clements. d/c cefepime. (2) Febrile neutropenia: 2nd to bacteremia/septicemia - resolved. Neutropenia 2nd to MM and recent radiation to the spine. Appreciate Dr Crooks's consultation. CBC in am for stability. (3) Syncope: Likely he had volume depletion and weakness in setting of septicemia. Resolved. No further dizziness. ECHO normal. Normal anatomy and LV function/wall motion. (4) Pancytopenia: 2nd to MM and additional myelosuppression in setting of recent Rx for MM. Counts stable again today. s/p 2 units PRBCs on 02/12/19 for low Hb of 8.2. CBC in am. (5) Wide-complex tachycardia: K/mag normal. Echo normal. NSVT vs aberrancy x 1 episode this admission. Cont tele status. Has seen Dr Trino Mann in past. (6) Multiple myeloma: Resumed revlimid - patient to use home stock. MM has led to widespread lytic bony lesions and was set up for pathological lumbar compression fractures. (7) Back pain: On lidocaine patches, baclofen, and oxycodone prn. Cont decreased baclofen dose at 5mg po tid. See compression Fx section below. Adequate control today. Cont back brace. Cont heat. (8) Lumbar compression fracture: L1, L2, L4, L5. Pathological fx's. nonoperative management for now. cont topical Rx, pain meds, back brace, gentle PT/OT. appreciate Dr Angel's consult. These are pathological compression Fx's due to the presence of lytic bone lesions from his multiple myeloma. (9) Cold sore: Due to immunocompromised status cont valtrex 500mg BID. (10) Acute kidney injury: Likely due to volume depletion. Resolved. (11) Gallstone: RUQ u/s w/ stones but no signs of acute cholecystitis. Monitor for biliary colic episodes. (12) BRBPR (bright red blood per rectum): Sounds like anal outlet bleeding -- internal hemorrhoid? Has not recurred. (13) GERD (gastroesophageal reflux disease): change zantac to protonix 40mg daily monitor response (14) DVT prophylaxis: In light of thrombocytopenia will avoid chemical means for now. SCDs and ambulation. updated again today. observe until repeat blood cx's are proven to be negative. Subjective patient feels better today. appetite improved. back pain modestly better. denies dyspnea. no constipation. had episode of reflux last night - resolved with Tums and zantac. denies any exertional CP or dyspnea in the weeks/months leading up to this admission. father with CAD and had CABG however. tele yesterday - wide complex tachycardia episode, 10-15 beats; no other events. Review of Systems Constitutional: no fever and no chills Respiratory: no cough and no dyspnea Cardiovascular: no chest pain Gastrointestinal: as per Subjective / HPI, + bloating, + heartburn and + nausea (early AM only; none otherwise) Physical Exam Constitutional: well developed and well nourished; no acute distress and no altered mental status looks good today wearing back brace ENMT: external ear and nose normal, oropharynx normal Mouth: + lip abnormality (cold sore bottom left lip) Respiratory: normal respiratory effort, lungs clear to auscultation Cardiovascular: Rate/Rhythm: regular rate and regular rhythm Heart Sounds: normal S1 and normal S2; no murmur Vessels: posterior tibial pulses present and dorsalis pedis pulses present; no JVD Extremities: no edema Gastrointestinal (Abdomen): normal bowel sounds, soft, nontender, no hepatosplenomegaly no external hemorrhoid Neurologic: moves all extremities; no focal motor deficits Psychiatric: A+Ox3, euthymic affect Results & Data Vital Signs (Past 12 Hours) Vital Signs Temp Pulse Pulse Resp BP BP Pulse Ox 02/16/19 17:15 56 L 02/16/19 15:06 36.6 C 65 21 133/75 96 02/16/19 10:47 66 02/16/19 07:58 36.4 C L 66 20 135/77 96 Laboratory Results Laboratory Results - last 24 hr 02/16/19 02/16/19 08:01 08:01 WBC 4.00 L RBC 3.03 L Hgb 9.9 L Hct 28.0 L MCV 92.4 MCH 32.7 MCHC 35.4 RDW Std Deviation 53.3 H RDW Coeff of George 15.7 H Plt Count 89 L MPV 10.1 Sodium 139 Potassium 4.1 Chloride 112 H Carbon Dioxide 21 Anion Gap 6.0 BUN 29 H Creatinine 1.11 Est Cr Clr Drug Dosing 89.8 Est GFR ( Amer) 85.0 Est GFR (Non-Af Amer) 73.3 BUN/Creatinine Ratio 26.0 H Glucose 115 H Calcium 7.6 L Magnesium 2.1 PG Care Time/CCT Total # of Minutes Spent Total Time Spent with Patient: Total time spent is greater than 50% in coordination of care (as documented) at patient's floor/unit and/or counseling patient: (1) Gallstone Biliary obstruction: without biliary obstruction Cholecystitis presence: without cholecystitis Qualified Code(s): K80.20 - Calculus of gallbladder without cholecystitis without obstruction (2) Back pain Back pain laterality: midline Back pain location: low back pain Chronicity: acute Sciatica presence: without sciatica Qualified Code(s): M54.5 - Low back pain (3) Lumbar compression fracture Encounter type: subsequent encounter Fracture healing: with routine healing Lumbar vertebra fracture level: unspecified lumbar vertebra Qualified Code(s): S32.000D - Wedge compression fracture of unspecified lumbar vertebra, subsequent encounter for fracture with routine healing (4) Syncope Syncope type: unspecified Qualified Code(s): R55 - Syncope and collapse (5) Multiple myeloma Multiple myeloma remission status: not in remission Qualified Code(s): C90.00 - Multiple myeloma not having achieved remission (6) GERD (gastroesophageal reflux disease) Esophagitis presence: esophagitis presence not specified Qualified Code(s): K21.9 - Gastro-esophageal reflux disease without esophagitis
[2019-02-16] MEDS: LENALIDOMIDE 25 MG PO SCH (20:40)
[2019-02-17 07:29] LABS: Hematocrit (blood only) 29.3 % (42-52); Hemoglobin 10.3 g/dL (14.0-18.0); Mean Corpuscular Hgb Conc 35.2 g/dL (32-36); Mean Corpuscular Volume 92.4 fL (80-100); RDW Coefficient of Variation 15.4 % (11.5-14.5); RDW Standard Deviation 52.5 fL (36.4-46.3); Red Blood Count 3.17 M/uL (4.7-6.1)
[2019-02-17 07:37] LABS: Mean Platelet Volume 9.9 fL (7.4-10.4); Platelet Count 98 K/uL (130-400)
[2019-02-17] MEDS: POLYETHYLENE (MIRALAX) 17 GM PACK PO SCH (07:42)
[2019-02-17] MEDS: metroNIDAZOLE 500 MG/100 ML BAG IV SCH (07:44)
[2019-02-17 07:49] LABS: Immature Granulocytes # (auto) 0.01 K/uL (0.00-0.02); Immature Granulocytes % (auto) 0.3 %; Lymphocytes # (auto) 0.43 K/uL (1.2-3.4); Lymphocytes % (auto) 14.3 %; Monocytes # (auto) 0.38 K/uL (0.11-0.59); Monocytes % (auto) 12.7 %; Neutrophils # (auto) 2.18 K/uL (1.4-6.5); Neutrophils % (auto) 72.7 %; Rouleaux 1+
[2019-02-17] MEDS: VALACYCLOVIR HCL 500 MG TABLET PO SCH (07:49)
[2019-02-17] MEDS: CALCIUM 600MG + VIT D 400 IU TAB PO SCH (07:49)
[2019-02-17] MEDS: LIDOCAINE 5% 1 PATCH TD SCH (07:50)
[2019-02-17] MEDS: BACLOFEN 10 MG TAB PO SCH ×2 (07:50→13:08)
[2019-02-17] MEDS: PANTOprazole 40 MG TAB PO SCH (07:50)
[2019-02-17] MEDS: DOCUSATE SODIUM/SENNA 50/8.6MG TAB PO SCH (07:52)
[2019-02-17 08:01] LABS: BUN Creatinine Ratio 26.8 (10-20); Creatinine Clr Calc Pharmacy 89.1 ml/min; Est GFR (Non-African American) 73.3; Potassium 4.3 mmol/L (3.5-5.1)
--- NOTE | 2019-02-17 10:45 | Progress Note ---
DATE: 02/17/2019 HEMATOLOGY PROGRESS NOTE DIAGNOSES: 1. Gram-negative bacteremia (Bacteroides uniformis). 2. Cholelithiasis. 3. Febrile neutropenia. 4. Syncope. 5. Pancytopenia. 6. Multiple myeloma, IgG kappa. SUBJECTIVE: Tim was seen and examined at bedside. Clinically, he seems to be making decent progress. He continues to receive Flagyl for Bacteroides bacteremia. Has been recultured and awaiting clearance before discharge. Presently, tolerating his diet. Back pain seems to be well controlled. I did resume Revlimid for Tim and he recently completed oral dexamethasone. The hospitalist service wants to keep Mr. Silva in until probably Friday. Nursing reports no overnight difficulties otherwise. OBJECTIVE: GENERAL: A very pleasant 58-year-old gentleman, awake, alert and appropriate, in no acute distress. VITAL SIGNS: Temperature 36.9, pulse 79, respiratory rate 20, blood pressure 145/74. SKIN: Without rash or lesion. HEENT: Oral mucosa without erythema or ulceration. NECK: Supple. Trachea is midline. HEART: Regular rate and rhythm. No clicks, rubs or murmurs. LUNGS: Clear to auscultation bilaterally. ABDOMEN: Soft, nontender, nondistended. EXTREMITIES: No clubbing, cyanosis or edema. NEUROLOGIC: Grossly intact. LABORATORY DATA: WBC count 3000, hemoglobin 10.3, platelet count 98,000. Sodium 138, potassium 4.3, chloride 111, carbon dioxide 23, creatinine 1.11, BUN 30. IMPRESSION: 1. Bacteroides bacteremia. 2. Neutropenic fever. 3. Pancytopenia, attributable to both chemo and radiation therapy. 4. IgG multiple myeloma. 5. Acute renal injury. 6. Cholelithiasis. PLAN: Mr. Silva is making steady progress towards discharge. According to nursing, hospitalist service wants to keep Mr. Silva until Friday. Awaiting clearance of cultures while he continues metronidazole. I have instructed Mr. Silva to resume Revlimid and he continues to pulse dexamethasone. We will plan to resume Velcade once he is discharged and medically stable. I have asked radiation oncology to defer on further palliation at this point. We will continue to follow up Tim during his stay. Appreciate the help of the hospitalist service and other consultants.
--- NOTE | 2019-02-17 11:57 | Radiation Oncology Progress Nt ---
Date of Service February 17, 2019 Assessment & Plan (1) Multiple myeloma: As per conversation with patient and Dr. Crooks, we will discontinue radiation therapy due to severe myelosuppression and concern that further radiation therapy will prolong myelosuppresion and prevent patient from continuing on chemotherapy which is more critical for overall prognosis. Patient may continue to follow in our clinic as needed. No scheduled follow up necessary as patient will have close follow up with medical oncology. Please call us with any further questions or concerns. (1) Multiple myeloma Multiple myeloma remission status: not in remission Qualified Code(s): C90.00 - Multiple myeloma not having achieved remission
--- NOTE | 2019-02-23 11:01 | Discharge Summary ---
Date of Service date of admission - 02/12/19 date of discharge - 02/17/19 Admission HPI Per Admitting Provider 58-year-old male with suspected multiple myeloma who recently was started on chemotherapy including Velcade and Revlimid. He also started radiation treatments to his lumbar spine area 2 days ago. Today he felt lightheaded while in the shower and had a syncopal episode. He denies any palpitations chest pain or shortness of breath. This was witnessed by his . He has pancytopenia at this time which is a side effect of both chemotherapeutic agents. In addition, the Velcade can cause hypotension. I suspect he is having side effects from the chemotherapy agents which caused his current symptoms. Stool Hemoccult is negative. There has been no melena or hematochezia. Abdominal CT scan is pending to rule out the unlikelihood of retroperitoneal bleed. Hematology oncology has recommended 2 units blood transfusion which has been ordered by the ED physician. He will be admitted to a telemetry bed with IV fluids. Orthostatic blood pressure measurements will be monitored. Consultation to hematology oncology, radiation oncology, orthopedic surgery to evaluate lumbar spine stability have been requested. He will remain on dexamethasone 20 mg daily for the time being. We will avoid heparin or Lovenox at this time and use SCDs only and early ambulation for DVT prophylaxis. Principal Diagnosis septicemia 2nd bacteroides Discharge Exam Constitutional well developed and well nourished; no acute distress and no altered mental status ENMT external ear and nose normal, oropharynx normal Mouth: + lip abnormality (cold sore bottom left lip) Respiratory normal respiratory effort, lungs clear to auscultation Cardiovascular Rate/Rhythm: regular rate and regular rhythm Heart Sounds: normal S1 and normal S2; no murmur Vessels: posterior tibial pulses present and dorsalis pedis pulses present; no JVD Extremities: no edema Gastrointestinal (Abdomen) normal bowel sounds, soft, nontender, no hepatosplenomegaly Musculoskeletal back brace in place Neurologic moves all extremities; no focal motor deficits Psychiatric A+Ox3, euthymic affect Discharge Data Allergies Allergy/AdvReac Type Severity Reaction Status Date / Time fentanyl AdvReac Severe nausa/vomit Unverified 02/12/19 08:51 ing Consultations Hematology/Oncology - Shar Crooks DO Orthopedic Surgery - Sukhjinder Angel DO Infectious Diseases - Brandyn Clements MD Radiation Oncology - Anjelica Chatman MD PT, OT Orthotics Procedures Performed 2 units PRBCs Ordered Studies 1. CT abd/pelvis- IMPRESSION: 1. Diffuse bony metastatic disease. 2. Bibasilar chronic atelectatic change. 3. No evidence for an acute or superimposed posttraumatic finding. 4. Gallstone in the gallbladder neck 2. CT head - no acute pathology. 3. CT lumbar spine - IMPRESSION: 1. No change compared to the prior study of 01/27/2019. 2. Extensive lytic metastatic bone disease throughout all major visualized bony structures. 3. Mild compression deformities at L1, L2, L4, and L5 are similar. 4. No evidence for a new, interval, or progressive compression deformity. 5. No significant compromise of the spinal canal. 4. US gallbladder - IMPRESSION: 1. Cholelithiasis without sonographic evidence of acute cholecystitis. 2. No biliary ductal dilation. 3. Incidental note is made of a small right pleural effusion. Hospital Course (1) Septicemia: 2nd to bacteroides. Repeat blood cx's from 02/14/19 were negative prior to discharge. GI source suspected. Bowel translocation? Has gallstones on u/s but no signs of acute cholecystitis and no symptoms of biliary tract disease. Was initially treated with broad-spectrum IV antibiotic therapy and then narrowed to cipro/flagyl by the time of discharge. Advised 1-2 additional weeks of PO cipro/flagyl at discharge. Blood cultures will need to be followed closely post-discharge. (2) Febrile neutropenia: 2nd to bacteremia/septicemia - resolved. Neutropenia 2nd to MM and recent radiation to the spine. ANC on day of discharge was well over 1500. (3) Syncope: Likely he had volume depletion and weakness in the setting of septicemia. Resolved. No further dizziness. ECHO normal. Normal anatomy and LV function/wall motion. His telemetry was normal while hospitalized. (4) Pancytopenia: 2nd to MM and additional myelosuppression in setting of recent treatment for MM. s/p 2 units PRBCs on 02/12/19 for low Hb of 8.2. Hemoglobin at discharge was 10.3. (5) Wide-complex tachycardia: K/mag normal. Echo normal. NSVT was seen on one occasion while hospitalized. He was asymptomatic from this. No further follow-up needed unless he developed cardiovascular symptoms. (6) Multiple myeloma: Resumed revlimid while hospitalized. MM has led to widespread lytic bony lesions and was the set up for pathological lumbar compression fractures. Radiation therapy to spine to be placed on hold for now. (7) Back pain: 2nd to compression fractures. On lidocaine patches, baclofen, and oxycodone prn. Cont back brace. Cont heat. (8) Lumbar compression fracture: L1, L2, L4, L5. Pathological fractures due to lytic bone lesions from multiple myeloma. Seen by Dr Sukhjinder Angel - nonoperative management for now. He will continue topical Rx, pain meds, back brace, and gentle PT/OT. (9) Cold sore: Due to his immunocompromised status continue valtrex 500mg BID as prophylaxis. (10) Acute kidney injury: Likely due to volume depletion. Resolved. Peak Cr 1.5; 1.1 at discharge. (11) Gallstone: RUQ u/s w/ stones but no signs of acute cholecystitis. Monitor for biliary colic episodes as outpatient. (12) BRBPR (bright red blood per rectum): Sounds like anal outlet bleeding -- internal hemorrhoid? Diverticular disease? Did not recur while hospitalized. (13) GERD (gastroesophageal reflux disease): Cont PPI at discharge. Total Time Total Time Spent Total Time Spent (In Minutes): 45 Total Time Includes: Examination of the Patient, Discharge Planning, Medication Reconciliation and Communication With Other Providers Discharge Plan Discharge Items Patient Disposition: Home - Self-Care Reason For Visit: SYNCOPE, PANCYTOPENIA Discharge Diagnosis: 1. passing out spell ("syncope") due to blood stream infection ("bacteremia") 2. compression fractures of lumbar spine 3. pancytopenia (low blood counts) due to multiple myeloma and recent radiation treatments Discharge Goals: Decrease discomfort, Diagnostic testing, Improve disease control, Improve function, Learn about illness and Therapeutic intervention Activity: As commented below Activity Comment: light activities only (gentle, short walks) Lifting: No more than 10 pounds Bathing: No limitations Sexual Activity: Wait until after follow-up appointment Exercise/Sports: Wait until after follow-up appointment Driving/Machine Use Comment: no driving for at least 1 week Non-emergency contact: Primary Care Provider, Specialist and Oncologist Call non-emergency contact if: you have any medication questions, your symptoms worsen, your pain is not controlled, your pain is worsening and your temperature is above 100.5 Follow-up/Referrals: Dick Carl MD [Primary Care Provider] - 02/23/19 9:50 am (Please, follow up at Dr. Carl' office on FridayFebruary 23 at 9:50 am. *If you need to change this appointment, call the office at [phone].) Sukhjinder Angel DO [Surgeon] - 03/03/19 11:10 am (Please, follow up with Dr. Angel on FridayMarch 03 at 11:10 am. *The office is located at [address] [facility] in [place]. If you need to change this appointment, call the office at [phone].) Melanie Garcia CRNP [Nurse Practitioner] - 03/02/19 1:50 pm (Please, follow up at [facility] with Melanie ESCAMILLA on FridayMarch 02 at 1:50 pm. *If you need to change this appointment, call the office at [phone].) Diet: Regular Addtl Provider Instructions: You were treated for a number of issues while here including bacteremia (blood stream infection), neutropenia (low neutrophils which is a type of infection- fighting cell), compression fractures of the lumbar spine, reflux, and passing out spell. We believe that the infection in your blood came from the GI tract. We checked your gall bladder and although you have gallstones it appears that the gall bladder is otherwise healthy / not sick at this time. You responded well to antibiotics for the infection and the infection now appears resolved. Dr Angel from orthopedics saw you for your compression fractures and is recommending a brace and non-operative treatment at this time. The compression fractures occurred as a result of your multiple myeloma. In terms of the passing out spell you likely had this because you were sick from your bloodstream infection. Your echocardiogram (heart ultrasound) was normal. Your heart was monitored for 5 days on the manager channel and you had 2 brief episodes of racing heart. You did not have symptoms from these 2 episodes however. I do not think your passing out spell was from heart rhythm abnormalities. However, you can speak to Dr Carl about obtaining a 30-day "event monitor" which is when you wear a small heart monitor under your clothes for a month. This can determine if you are having irregular heart rhythm on a chronic basis. Recommendations -- 1. antibiotics -- 9 more days each of cipro and metronidazole. Please do not drink alcohol with the latter antibiotic as this could lead to nausea and/or vomiting. 2. take valtrex 500mg once daily to prevent cold sores. You can start this tomorrow. 3. back pain - * oxycodone 10mg as needed * baclofen 5mg every 8 hours as needed for back pain/spasm * back brace (you can remove when in bed) * tylenol as needed * I would avoid anti-inflammatories (motrin, ibuprofen, naprosyn, aspirin, etc) 4. reflux and prevention of stomach upset - take pantoprazole 40mg once daily every morning. 5. constipation - [id number] miralax once or twice daily for prevention/treatment of constipation. 6. steroids - * take the dexamethasone for 4 days followed by OFF for 4 days * you are on day #1 of the "OFF" cycle * thus, please resume the steroid dexamethasone on Friday, February 21 * if you have questions about the steroids please call Dr Crooks 7. resume your revlimid per the instructions of Dr Crooks Follow-up -- see separate section. Please call the Oncology office TOMORROW on - Dr Crooks will likely give you your Valcade injection prior to the weekend. Return to [facility] if -- * you have fevers over 100 degrees * you have shaking chills or loss of appetite * you have worsening back pain not responding to your pain meds * you have numbness or weakness in either leg * you have right-sided abdominal pain, nausea or vomiting following meals * you have chest pain or difficulty breathing * any other concerns Prescriptions: New polyethylene glycol 3350 [Miralax] 17 gram Powder In Packet 17 g PO DAILY Qty: 1 RF: 0 valacyclovir 500 mg Tablet 500 mg PO DAILY Qty: 30 RF: 1 baclofen 10 mg Tablet 5 mg PO TID Qty: 60 RF: 0 pantoprazole 40 mg Tablet,Delayed Release (Dr/Ec) 40 mg PO QAM Qty: 30 RF: 5 ciprofloxacin HCl [Cipro] 500 mg tablet 500 mg PO BID Qty: 14 RF: 0 metronidazole [Flagyl] 500 mg tablet 500 mg PO TID Qty: 21 RF: 0 Continued oxycodone 10 mg tablet 10 mg PO Q4H PRN (Reason: pain) RF: 0 ondansetron HCl 8 mg tablet 8 mg PO UD RF: 0 prochlorperazine maleate 10 mg tablet 10 mg PO UD RF: 0 bortezomib 3.5 mg Recon Soln IV 2XWK RF: 0 Revlimid 25 mg capsule 25 mg PO UD RF: 0 Changed dexamethasone 4 mg tablet 20 mg PO Q4D Qty: 0 RF: 0 Discontinued ibuprofen [Advil] 200 mg Tablet 200 mg PO Q6H PRN (Reason: Pain) RF: 0 Stand-Alone Forms: [facility] Discharge Orders: Discharge Order (Routine); Ordered 02/17/19 Ordered By: Dick Vazquez Admission Data Admit Date/Time: 02/12/19 11:26 Attending Provider: Dick Vazquez Admit Provider: Armand Giles Primary Care Provider: Dick Carl Other Providers: Armand Giles ; Shar Crooks John C ; Patel, Veeral B. ; Brandyn Clements Service: Telemetry Medical Other Interventions: Discharge Summary Assessment (RN) Last Done: 02/17/19 15:49 Pending Studies at Discharge: No DC Date/Time DO NOT enter until pt leaves facility: 02/17/19 16:05
== END 2019-02-17 16:05 | disposition home or self-care (01) | DRG 872 ==
LOC: ED 08:30 → SUATTDRO 11:26 → 2N 11:26
DX: N17.9 Acute kidney failure, unspecified; K21.9 Gastro-esophageal reflux disease without esophagitis; R55 Syncope and collapse; E78.5 Hyperlipidemia, unspecified; K62.5 Hemorrhage of anus and rectum; K80.20 Calculus of gallbladder without cholecystitis without obstruction; B00.9 Herpesviral infection, unspecified; R00.0 Tachycardia, unspecified; D70.9 Neutropenia, unspecified; C90.00 Multiple myeloma not having achieved remission; D61.818 Other pancytopenia; A41.9 Sepsis, unspecified organism

== ENCOUNTER 2019-03-22 11:15 | Inpatient (IN) ==
[2019-03-22 12:17] LABS: Albumin Level 2.8 gm/dl (3.4-5.0); BUN Creatinine Ratio 17.1 (10-20); Calcium 8.3 mg/dl (8.5-10.1); Creatinine Clr Calc Pharmacy 76.5 ml/min; Est GFR (African American) 79.7; Est GFR (Non-African American) 68.8; Potassium 3.8 mmol/L (3.5-5.1)
[2019-03-22 12:19] LABS: Albumin Globulin Ratio 0.7 (0.9-2); Bilirubin,Total 1.3 mg/dl (0.2-1); Globulin 4.3 gm/dl (2.5-4.0); Total Protein 7.1 gm/dl (6.4-8.2)
[2019-03-22] MEDS ORDERED: MoRPHine SULFATE 10 MG/ML CARP/VIAL IV STA (12:22)
[2019-03-22 12:36] LABS: Eosinophils # (auto) 0.01 K/uL (0-0.5); Eosinophils % (auto) 0.3 %; Hematocrit (blood only) 29.2 % (42-52); Hemoglobin 10.2 g/dL (14.0-18.0); Immature Granulocytes # (auto) 0.02 K/uL (0.00-0.02); Immature Granulocytes % (auto) 0.7 %; Lymphocytes # (auto) 0.31 K/uL (1.2-3.4); Lymphocytes % (auto) 10.6 %; Mean Corpuscular Hgb Conc 34.9 g/dL (32-36); Mean Corpuscular Volume 95.1 fL (80-100); Mean Platelet Volume 9.2 fL (7.4-10.4); Monocytes # (auto) 0.55 K/uL (0.11-0.59); Monocytes % (auto) 18.8 %; Neutrophils # (auto) 2.04 K/uL (1.4-6.5); Neutrophils % (auto) 69.6 %; Platelet Count 122 K/uL (130-400); RDW Coefficient of Variation 17.6 % (11.5-14.5); RDW Standard Deviation 60.8 fL (36.4-46.3); Red Blood Count 3.07 M/uL (4.7-6.1); White Blood Count 2.93 K/uL (4.8-10.8)
[2019-03-22] MEDS ORDERED: ONDANSETRON INJ 2 MG/ML 2 ML VIAL ONE (12:38)
[2019-03-22] MEDS ORDERED: IOVERSOL 100ml IV PRN (12:57)
[2019-03-22 13:01] LABS: Dohle Bodies 1+; Giant Platelets 1+; Toxic Granulation 1+
--- NOTE | 2019-03-22 13:20 | CT Scan Report ---
CT abd pelvis IV con only CLINICAL HISTORY: 58 years-old Male presenting with lower ab pain, h/o MM, gallstones. TECHNIQUE: Multidetector CT of the abdomen and pelvis was performed after the administration of intra venous contrast. IV contrast: 84 mL of Optiray 320. One or more dose lowering techniques were used co nsistent with the principles of ALARA (as low as reasonably achievable), including automatic exposure control, mA or kV adjustment to individual patient size, and/or use of iterative reconstruction. COMPARISON: 02/18/2019. CT DOSE (mGy.cm): The estimated cumulative dose is 576.75 mGy.cm. FINDINGS: [employer] topogram: Unremarkable. Lung bases: Normal heart size. No pericardial or pleural effusion. Minimal dependent changes likely a telectasis. Liver: Normal morphology. Well-defined hypodense lesion in the left hepatic lobe likely cyst. Additio nal smaller cysts or hamartomas noted. Patent hepatic vasculature. Biliary: No intrahepatic or extrahepatic biliary ductal dilatation. Gallbladder contains gallstones. Pancreas: Normal. Spleen: Normal. Adrenal glands: Normal. Kidneys and ureters: Resolution of the prior hypoenhancement of the lower pole the left kidney. Renal parenchyma is now normal bilaterally. No nephrolithiasis or hydronephrosis. Ureters nondistended. Bladder: Circumferential bladder wall thickening. Pelvic organs: Prostate enlargement likely secondary to benign prostatic hyperplasia. Bowel: Diverticulosis of the descending and sigmoid colon to a severe degree. There is also now wall thickening and extensive pericolonic inflammatory change along the distal sigmoid colon. This abuts t he bladder dome and results in significant peritoneal thickening. The appendix is normal. No bowel ob struction. Peritoneal cavity: Small free fluid in the left lower quadrant and pelvis. The fluid within the rectu m prostatic recess may also demonstrate peritoneal enhancement. Extensive fluid in the extraperitonea l pelvis and lower portions of the retroperitoneum as a response to the sigmoid colon inflammation. Lymph nodes: No enlarged lymph nodes in the abdomen or pelvis. Vasculature: Aorta and IVC patent and normal in caliber. Abdominal wall: Small fat-containing umbilical hernia. Musculoskeletal: Diffusely abnormal bone marrow with innumerable lytic foci. More focal soft tissue l ytic lesion in the L2 vertebral body as on prior exam. No gross evidence of acute fracture. Mild comp ression deformity of L1 and minimal compression deformity of L2 as on prior exam. IMPRESSION: 1. Interval development of severe acute diverticulosis of the distal sigmoid colon with associated t race early peritonitis in the pelvis. No abscess, extraluminal gas, or free air. Extensive inflammati on along the bladder dome without evidence of a fistula at this time. 2. Extensive bone marrow abnormality consistent with the history of multiple myeloma. Focal soft tis shavon lytic lesion noted at L2 as on prior exam. 3. Cholelithiasis. Electronically signed by: Isidro Powers M.D. 03/22/2019 1:19 PM
[2019-03-22] MEDS ORDERED: PIPERACILL/TAZOBAC CONSULT ACTIVE PRN ×2 (13:23→16:37)
[2019-03-22] MEDS ORDERED: PIPERACILLIN/TAZOBACTAM 4.5 GM/120 ML BAG IV ONE (13:23)
--- NOTE | 2019-03-22 15:05 | History & Physical Report ---
Date of Service March 22, 2019 Assessment & Plan (1) Diverticulosis large intestine w/o perforation or abscess w/o bleeding: Is a 58-year-old male with recent diagnosis of multiple myeloma. He underwent chemotherapy and recently was treated for febrile neutropenia. He reached marko 03/16/2019 and presents today with abdominal pain without nausea, vomiting, diarrhea. Last bowel movement was this morning with small hard stool. Patient is on Senokot for bowel regimen at home with nothing further. CT imaging shows diverticulosis of the sigmoid colon. There is no perforation or free air Patient will be admitted to the medical floor in a private room due to his recent neutropenia Patient will be continued on Zosyn every 8 hours. Patient will also be started on Diflucan due to high risk for fungemia Patient is on suppressive therapy with acyclovir. This will be continued as well. Patient has been pancultured Oncology be consulted as the patient is followed by Dr. Crooks At this point we will keep the patient clear fluids only for diet and see how he progresses No further imaging is ordered at this time. Reevaluate tomorrow (2) Intractable abdominal pain: Patient with diverticulosis as listed above Patient did receive morphine sulfate 8 mg IV in the emergency department Will hold morphine and is much the patient has bowel full of stool and diverticulosis Patient on oxycodone at home Will continue oral oxycodone and will add 1 mg of Dilaudid IV every 6 hours as needed for pain (3) Multiple myeloma: Patient diagnosed with IgG kappa multiple myeloma in January Underwent first course of chemotherapy in mid January with Velcade, Revlimid, and dexamethasone. Patient is also underwent concurrent palliative radiation therapy for symptomatic lumbar spine metastasis. * Radiation to the lumbar spine was stopped February 11, 2019. Total radiation received was 2100 cGy * Treatment stopped at the request of medical oncology due to low blood counts Most recently admitted to [facility] for febrile neutropenia and received 2 units of packed red blood cells on 02/12/2019 for low hemoglobin of 8.2 (4) Hyperglycemia: No history of diabetes mellitus Most likely elevated glucose secondary to prednisone use Will check a hemoglobin A1c to trend Hold metformin while inpatient Will start NovoLog sliding scale insulin Follow labs (5) GERD (gastroesophageal reflux disease): Patient on continuous release pantoprazole at home Will prescribe pantoprazole 40 mg p.o. daily while inpatient (6) DVT prophylaxis: Hemoglobin count and platelet count acceptable We will start Lovenox for prophylaxis as patient is malignant with metastatic disease No prior history of thrombotic disease Ambulate as tolerated Please refer to Dr. Ellis's addendum for further recommendations History of Present Illness This is a 58-year-old male with recent diagnosis of multiple myeloma and chemotherapy. He recently had neutropenia and reach marko 03/16/2019. His counts recovered at this point. The patient does report that he did have Neupogen but does not know what date. Patient presents with 2 days of abdominal pain with worsening yesterday. The patient thought that it was obstipation and although he has significant abdominal pain with bowel movement yesterday he elected to wait to come to the hospital until today. On arrival patient was found to be afebrile with a white blood cell count of 10. He had CT abdomen pelvis completed which showed diverticulosis at the sigmoid colon with wall thickening. The patient denies any melena, hematochezia, bright red blood per rectum. He has no hematemesis. He does have a crampy painful feeling in the abdomen in the left lower quadrant. Patient does report he had some chills and fever with night sweats over the last 2 to 3 days. He attributes this to prednisone taken 4 days on a 4 days off. The patient has no shortness of breath or chest pain. He has no awareness of palpitations. He is on prescribed medications only and is not using any medical marijuana or other controlled substance. He denies tobacco abuse and denies ethanol use. The patient does have 4 levels of compression fracture in his lumbar spine and does complain about bilateral hip pain that is worsened with pressure when laying on one side or the other. He has no long bone pain and no pathological fracture history of the long bones. The patient denies any previous blood clots. He does follow with Dr. Crooks for oncology. The patient denies any prior history of cardiac or pulmonary disease. He had one period where he had some PVCs which was attributed to heavy caffeine use. He has significantly decreased his caffeine intake to 1 or less caffeinated drinks per day. The patient has no prior malignancy history. He does have a history of GERD and is on pantoprazole daily. He has no other acute complaints at this time. Primary Care Provider: Dick Carl MD Allergies Allergy/AdvReac Type Severity Reaction Status Date / Time fentanyl AdvReac Severe nausa/vomit Unverified 03/22/19 12:22 ing Home Medications Home Medications Medication Instructions Recorded Confirmed Type oxycodone 10 mg tablet 10 mg PO Q4H PRN tab 01/29/19 03/22/19 History Revlimid 25 mg PO UD 02/12/19 03/22/19 History bortezomib 0 mg IV 2XWK 02/12/19 03/22/19 History ondansetron HCl 8 mg PO UD PRN 02/12/19 03/22/19 History prochlorperazine maleate 10 mg PO UD 02/12/19 03/22/19 History baclofen 5 mg PO TID #60 tab 02/17/19 03/22/19 Rx acyclovir 400 mg PO BID 03/22/19 03/22/19 History calcium-vitamin D3-vitamin K 1 tab PO QAM 03/22/19 03/22/19 History [Citracal Chew] dexamethasone 12 mg PO Q4D 03/22/19 03/22/19 History metformin 500 mg PO DAILY 03/22/19 03/22/19 History pantoprazole 20 mg PO QAM 03/22/19 03/22/19 History sennosides [senna] 8.6 mg PO DAILY 03/22/19 03/22/19 History Past Med/Surg History Medical History GERD (gastroesophageal reflux disease) Gallstone (Chronic) Lumbar compression fracture (Acute) Multiple myeloma (Acute) Pancytopenia (Acute) Syncope (Acute) Neoplasm of bone (Chronic) Back pain (Acute) Cellulitis, face Hyperlipemia, mixed (Acute) Lytic lesion of bone on x-ray (Acute) Plantar fascial fibromatosis (Acute) Surgical History H/O wrist surgery (Acute) Right wrist 40 yrs ago Family History Mother , age 93 / old age Breast cancer Father , age 67 Prostate cancer had radiation Coronary heart disease Diabetes Brother Diabetes Brother No problems noted. Sister Asthma Addisons disease Daughter No problems noted. Daughter No problems noted. Son No problems noted. Other Family history non-contributory Social History Preferred Language: Slovak Communication Ability: Effective Visual Impairment: No Limitations Business Process Lead Required: No Beliefs That Will Affect Care: None marital status: Current Living Situation: Spouse current occupational status: employed Feels Safe at Home: Yes Safety Concerns: Feels Safe At This Time Smoking Status: Never smoker Tobacco Type: smokeless tobacco ; Second Hand Exposure: No ; Hx Alcohol Use: No Hx Substance Use: No Childhood Exposure to Second-Hand Smoke: No Dental Care, Regularly: Yes Review of Systems Review of Systems: All systems reviewed & are unremarkable except as noted in HPI & below Physical Exam Physical Exam: GENERAL : Moderate distress from abdominal pain but able to speak in full sentences and answer appropriately. is present in the room EYES: No icterus, gaze conjugate. Pupils equal round and reactive to light NOSE: No evidence of epistaxis. MOUTH: No lesions or candidiasis. Mucosa is moist tongue is midline. NECK: Supple. No carotid bruits. Trachea is midline LUNGS: CTA B/L, no wheezes, rales or rhonchi. Good inspiratory effort. Breath sounds are equal to the bases HEART: Regular, rate controlled. No appreciation of murmurs gallops or rubs ABDOMEN: Soft, NT, ND, BS Present. No high-pitched bowel sounds. No rebound tenderness or guarding appreciated. EXTREMITIES: No LE edema, pedal pulses intact. NEURO: A&OX3. No focal deficits appreciated. No facial droop. Tongue midline. PERRL. Speech is appropriate. No memory deficiencies. Results & Data Vital Signs (Past 12 Hours) Vital Signs Temp Pulse Pulse Resp BP BP Pulse Ox 03/22/19 13:08 82 20 120/52 L 96 03/22/19 12:55 86 86 18 104/53 L 95 03/22/19 11:19 36.9 C 88 20 107/70 98 Laboratory Results 03/22/19 12:28 03/22/19 11:44 Magnesium and phosphorus are pending Diagnostic Findings CT abd pelvis IV con only CLINICAL HISTORY: 58 years-old Male presenting with lower ab pain, h/o MM, gallstones. TECHNIQUE: Multidetector CT of the abdomen and pelvis was performed after the administration of intravenous contrast. IV contrast: 84 mL of Optiray 320. One or more dose lowering techniques were used consistent with the principles of ALARA (as low as reasonably achievable), including automatic exposure control, mA or kV adjustment to individual patient size, and/or use of iterative reconstruction. COMPARISON: 02/18/2019. CT DOSE (mGy.cm): The estimated cumulative dose is 576.75 mGy.cm. FINDINGS: P[employer] Supervisor topogram: Unremarkable. Lung bases: Normal heart size. No pericardial or pleural effusion. Minimal dependent changes likely atelectasis. Liver: Normal morphology. Well-defined hypodense lesion in the left hepatic lobe likely cyst. Additional smaller cysts or hamartomas noted. Patent hepatic vasculature. Biliary: No intrahepatic or extrahepatic biliary ductal dilatation. Gallbladder contains gallstones. Pancreas: Normal. Spleen: Normal. Adrenal glands: Normal. Kidneys and ureters: Resolution of the prior hypoenhancement of the lower pole the left kidney. Renal parenchyma is now normal bilaterally. No nephrolithiasis or hydronephrosis. Ureters nondistended. Bladder: Circumferential bladder wall thickening. Pelvic organs: Prostate enlargement likely secondary to benign prostatic hyperplasia. Bowel: Diverticulosis of the descending and sigmoid colon to a severe degree. There is also now wall thickening and extensive pericolonic inflammatory change along the distal sigmoid colon. This abuts the bladder dome and results in significant peritoneal thickening. The appendix is normal. No bowel obstruction. Peritoneal cavity: Small free fluid in the left lower quadrant and pelvis. The fluid within the rectum prostatic recess may also demonstrate peritoneal enhancement. Extensive fluid in the extraperitoneal pelvis and lower portions of the retroperitoneum as a response to the sigmoid colon inflammation. Lymph nodes: No enlarged lymph nodes in the abdomen or pelvis. Vasculature: Aorta and IVC patent and normal in caliber. Abdominal wall: Small fat-containing umbilical hernia. Musculoskeletal: Diffusely abnormal bone marrow with innumerable lytic foci. More focal soft tissue lytic lesion in the L2 vertebral body as on prior exam. No gross evidence of acute fracture. Mild compression deformity of L1 and mini mal compression deformity of L2 as on prior exam. IMPRESSION: 1. Interval development of severe acute diverticulosis of the distal sigmoid colon with associated trace early peritonitis in the pelvis. No abscess, extraluminal gas, or free air. Extensive inflammation along the bladder dome without evidence of a fistula at this time. 2. Extensive bone marrow abnormality consistent with the history of multiple myeloma. Focal soft tissue lytic lesion noted at L2 as on prior exam. 3. Cholelithiasis. Electronically signed by: Isidro Powers M.D. 03/22/2019 1:19 PM Medications Administered Zosyn administered in the emergency department Morphine sulfate 8 mg IV administered in the ED Zofran 4 mg administered in the ED Code Status & VTE Plan Code Status Level I: Full resuscitation VTE Prophylaxis Plan VTE Prophylaxis will be ordered: Yes Critical Care Time Critical Care Time: No Prolonged Care Time Prolonged Care Time: No Supervising Physician Co-Signing Physician Notes I personally interviewed and examined the patient. I agree with history of present illness and physical exam mentioned above, I also performed my own history taking and examination. Past medical history and review of system has been obtained by myself I reviewed all pertinent labs and studies Reviewed current medications I discussed and formulated of the assessment and plan mentioned above. Please refer to the Summary mentioned below. 58-year-old man with recent diagnosis of multiple myeloma 2 to 3 months ago, currently on chemotherapy, who presented to the hospital with acute episode of lower abdominal pain followed 1 diarrhea GI bowel movement yesterday. Denies any blood in stool. Patient does have history of diverticulitis in the past. Never had any colonoscopy. Currently denies any fever, chills. CT scan showed distal sigmoid colitis with possible adjacent peritonitis. No abscess or free air. Started on Zosyn/fluconazole Ordered stool studies including C. difficile, culture and sensitivity, ova and parasite Ordered blood cultures Oncology consult appreciated Eventually will need colonoscopy General Appearance: not in acute distress Eyes: normal Sclerae, extraocular muscle intact ENT: hearing grossly normal Neck: supple Respiratory/Chest: normal air entry bilateral ,no respiratory distress, no accessory muscle use Cardiovascular: regular rate, rhythm, no murmur Abdomen: Abdominal tenderness especially in the left ABDOMEN: Soft, no organs or masses felt. Bowel sounds normo-active. No bruits. Extremities: no edema musculoskeletal: no significant swelling or inflammation in any joint Neurologic/Psychiatric: Awake alert oriented times place and person moves all extremities sensation intact cranial nerves II-12 appear to be intact Skin: normal color, warm/dry, no rash Wesam Moustafa Chris MD, [facility] Care Time/CCT Total # of Minutes Spent Total Time Spent with Patient: Total time spent is greater than 50% in coordination of care (as documented) at patient's floor/unit and/or counseling patient: 50 Critical Care Time: No Prolonged Care Time Prolonged Care Time: No (1) GERD (gastroesophageal reflux disease) Esophagitis presence: esophagitis presence not specified Qualified Code(s): K21.9 - Gastro-esophageal reflux disease without esophagitis
[2019-03-22] MEDS ORDERED: HYDROmorphone INJ 1 MG/ML SYRINGE IV STA ×2 (15:16→15:20)
[2019-03-22 15:59] LABS: Appearance Urine Clear (Clear); Bilirubin Urine Negative (Negative); Blood Urine Negative (Negative); Color Urine Yellow; Glucose Urine UA Negative (Negative); Ketones Urine Negative (Negative); Leukocyte Esterase Urine Negative (Negative); Nitrite Urine Negative (Negative); Protein Urine Negative (Negative); Urobilinogen Urine Negative (Negative); pH Urine 6.5 (4.5-7.5)
[2019-03-22] MEDS ORDERED: PIPERACILLIN/TAZOBACTAM 4.5 GM in DEXTROSE 5% 100 ML IV STA (16:37)
[2019-03-22] MEDS ORDERED: DEXTROSE 50% 50 ML SYRINGE IV PRN (16:37)
[2019-03-22] MEDS ORDERED: HYDROmorphone INJ 1 MG/ML SYRINGE IV PRN (16:37)
[2019-03-22] MEDS ORDERED: GLUCAGON FOR INJ 1 MG VIAL SQ PRN (16:37)
[2019-03-22] MEDS ORDERED: ONDANSETRON INJ 2 MG/ML 2 ML VIAL IV PRN (16:37)
[2019-03-22] MEDS ORDERED: CARBOHYDRATES FOR HYPOGLYCEMIA PO PRN (16:37)
[2019-03-22] MEDS ORDERED: GLUCOSE 10 TABS/TUBE PO PRN (16:37)
[2019-03-22] MEDS ORDERED: POLYETHYLENE (MIRALAX) 17 GM PACK PO PRN (16:37)
[2019-03-22] MEDS ORDERED: GLUCOSE 40% GEL 15 GM TUBE PO PRN (16:37)
[2019-03-22] MEDS: LACTATED RINGER'S 1,000 ML IV SCH ×2 (17:39→23:30)
--- NOTE | 2019-03-22 17:40 | Emergency Department Note ---
Entered by Jacqueline Menchaca acting as a scribe for Triston Munoz MD History of Present Illness General Chief complaint: Abdominal Pain Stated complaint: ABD PAIN Time Seen by Provider: 03/22/19 12:01 Source: patient Mode of arrival: ambulatory Limitations: no limitations History of Present Illness Provider complaint: Abdominal pain Onset (ago): day(s) (noon yesterday) Location: abdomen (lower) Pain Consistency: + other (worsening) Quality: + other (pain) Relieved By: + medication (Oxycodone) Associated symptoms: + fever/chills (positive chills, negative fevers) and + other (Denies: hematochezia, back pain); no nausea/vomiting and no rash The patient is a 58 year old white male w/ PMHx of hyperlipidemia, multiple myeloma, neoplasm of the back, plantar fascial fibromatosis, GERD, lumbar compression fracture, and gallstones who presents to the ED w/ CC of worsening lower abdominal pain beginning around noon yesterday. The patient reports that his pain presented after be passed a bowel movement. He denies any hematochezia. He states that he took Oxycodone for his pain yesterday with no significant relief. He also complains of chills but denies any nausea, vomiting, fevers, rashes, and back pain. He adds that he is not consuming a lot of fluids at this time. The patient reports that he started receiving chemotherapy 2 weeks ago [address] Mary at [facility] for oncology. He notes that he has been taking his medications as prescribed. He states that he has no history of kidney stones, abdominal surgeries, and a port/PICC line. He also denies any history of smoking. Home Medications Home Medications Medication Instructions Recorded Confirmed Type oxycodone 10 mg tablet 10 mg PO Q4H PRN tab 01/29/19 03/22/19 History Revlimid 25 mg PO UD 02/12/19 03/22/19 History bortezomib 0 mg IV 2XWK 02/12/19 03/22/19 History ondansetron HCl 8 mg PO UD PRN 02/12/19 03/22/19 History prochlorperazine maleate 10 mg PO UD 02/12/19 03/22/19 History baclofen 5 mg PO TID #60 tab 02/17/19 03/22/19 Rx acyclovir 400 mg PO BID 03/22/19 03/22/19 History calcium-vitamin D3-vitamin K 1 tab PO QAM 03/22/19 03/22/19 History [Citracal Chew] dexamethasone 12 mg PO Q4D 03/22/19 03/22/19 History metformin 500 mg PO DAILY 03/22/19 03/22/19 History pantoprazole 20 mg PO QAM 03/22/19 03/22/19 History sennosides [senna] 8.6 mg PO DAILY 03/22/19 03/22/19 History Allergies Allergy/AdvReac Type Severity Reaction Status Date / Time fentanyl AdvReac Severe nausa/vomit Unverified 03/22/19 12:22 ing Past Med/Surg History Medical History GERD (gastroesophageal reflux disease) Gallstone (Chronic) Lumbar compression fracture (Acute) Multiple myeloma (Acute) Pancytopenia (Acute) Syncope (Acute) Neoplasm of bone (Chronic) Back pain (Acute) Cellulitis, face Hyperlipemia, mixed (Acute) Lytic lesion of bone on x-ray (Acute) Plantar fascial fibromatosis (Acute) Surgical History H/O wrist surgery (Acute) Right wrist 40 yrs ago Family History Mother , age 93 / old age Breast cancer Father , age 67 Prostate cancer had radiation Coronary heart disease Diabetes Brother Diabetes Brother No problems noted. Sister Asthma Addisons disease Daughter No problems noted. Daughter No problems noted. Son No problems noted. 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 and A total of 10 systems reviewed and were otherwise negative Physical Exam Vital Signs Vital Signs - 24 hr 03/22/19 11:19 03/22/19 12:55 03/22/19 13:08 Temperature 36.9 C Temperature Source Oral Sepsis Recent Fever Within 48 Hours No Sepsis New/Unexplained Change in Mental Status No Sepsis Action Taken by Nursing No Action Required Pulse Rate 88 86 Pulse Rate [Left Finger] 86 82 Pulse Rhythm Regular Pulse Rhythm [Left Finger] Regular Pulse Strength [Left Finger] Normal Respiratory Rate 20 18 20 Respiratory Effort / Characteristics Non-Labored Spontaneous Respiratory Depth Normal Respiratory Pattern Regular Blood Pressure 107/70 Blood Pressure [Left Arm] 104/53 L 120/52 L Blood Pressure Mean 82 Blood Pressure Mean [Left Arm] 70 74 Blood Pressure Position [Left Arm] Lying Pulse Oximetry 98 95 96 Oxygen Delivery Method Room Air Room Air Room Air GENERAL: Uncomfortable appearing, well nourished, mild distress, non-toxic. EYE EXAM: Normal conjunctiva. PERRL, no anisocoria and EOM's grossly intact w/o pain. OROPHARYNX: Moist mucous membranes. Grossly normal dentition. NECK: Supple, no nuchal rigidity, no adenopathy, non-tender. No signs of meningismus. LUNGS: Clear to auscultation. Normal chest wall mechanics. HEART: NSR, no MRG. ABDOMEN: Abdomen soft, non-tender, normo-active bowel sounds, no masses, no rebound or guarding. Lower abdominal pain, not peritonitic. BACK: No CVA TTP. SKIN: No rashes and no bruising. UPPER EXTREMITIES: Upper extremities are grossly normal. LOWER EXTREMITIES: No pitting edema. No calf pain. NEURO EXAM: A&O x3, cranial nerves II-XII grossly intact, normal speech, moves a ll 4 extremities on command w/o issue. Course 1204: The patient was evaluated in room A3, and a complete history and physical examination were performed. 1335: I reviewed the patient's case with Chandra Prater PA-C. Dr. Perez will evaluate the patient for further management. 1341: I checked on the patient and updated him on his results. He is agreeable to the treatment plan. Consultations Consultation #1: I reviewed the patient's case with Chandra Prater PA-C. Dr. Perez will evaluate the patient for further management. Time: 13:35 Administered Medications Ioversol (Optiray 320 100ml) 94 ml IV ONCE PRN PRN Reason: Interaction Checking Stop: 03/26/19 12:56 Last Admin: 03/22/19 12:57 Dose: 94 ml Documented by: [id number] Discontinued Medications Hydromorphone HCl (Dilaudid) 1 mg IV NOW STA Stop: 03/22/19 15:17 Last Admin: 03/22/19 16:38 Dose: Not Given Documented by: [id number] Hydromorphone HCl (Dilaudid) 1 mg IV NOW STA Stop: 03/22/19 15:21 Last Admin: 03/22/19 16:38 Dose: Not Given Documented by: [id number] Piperacillin Sod/Tazobactam Sod (Zosyn) 4.5 gm in 120 mls @ 240 mls/hr IV NOW ONE Stop: 03/22/19 13:52 Last Infusion: 03/22/19 14:07 Dose: 0 mls/hr Documented by: [id number] Admin: 03/22/19 13:37 Dose: 240 mls/hr Documented by: [id number] Morphine Sulfate (Morphine Sulfate) 8 mg IV NOW STA Stop: 03/22/19 12:23 Last Admin: 03/22/19 12:39 Dose: 8 mg Documented by: [id number] Ondansetron HCl (Zofran) Confirm Administered Dose 4 mg .ROUTE .STK-MED ONE Stop: 03/22/19 12:39 Last Admin: 03/22/19 12:39 Dose: 4 mg Documented by: [id number] Medical Decision Making Differential Diagnosis Differential diagnosis includes: appendicitis, diverticulitis, PUD, biliary pathology, UTI, pancreatitis, obstruction, mesenteric ischemia, aortic pathology, infections, inflammatory bowel disease, renal colic, as well as others were entertained. Medical Records Attestation: I reviewed the patient's medical records. Home Medications Current Medication List: was personally reviewed by me Laboratory Data Attestation: I reviewed the patient's lab results. Result diagrams: 03/22/19 12:28 03/22/19 11:44 Lab Results 03/22/19 03/22/19 03/22/19 Range/Units 11:44 11:44 12:28 WBC 2.93 L (4.8-10.8) K/uL RBC 3.07 L (4.7-6.1) M/uL Hgb 10.2 L (14.0-18.0) g/dL Hct 29.2 L (42-52) % MCV 95.1 (80-100) fL MCH 33.2 (25-34) pg MCHC 34.9 (32-36) g/dL RDW Std Deviation 60.8 H (36.4-46.3) fL RDW Coeff of George 17.6 H (11.5-14.5) % Plt Count 122 L (130-400) K/uL MPV 9.2 (7.4-10.4) fL Immature Gran % (Auto) 0.7 % Neut % (Auto) 69.6 % Lymph % (Auto) 10.6 % Hamilton % (Auto) 18.8 % Eos % (Auto) 0.3 % Baso % (Auto) 0.0 % Immature Gran # (Auto) 0.02 (0.00-0.02) K/uL Neut # (Auto) 2.04 (1.4-6.5) K/uL Lymph # (Auto) 0.31 L (1.2-3.4) K/uL Hamilton # (Auto) 0.55 (0.11-0.59) K/uL Eos # (Auto) 0.01 (0-0.5) K/uL Baso # (Auto) 0.00 (0-0.2) K/uL Toxic Granulation 1+ Dohle Bodies 1+ Giant Platelets 1+ Sodium 135 L (136-145) mmol/L Potassium 3.8 (3.5-5.1) mmol/L Chloride 101 (98-107) mmol/L Carbon Dioxide 27 (21-32) mmol/L Anion Gap 7.0 (3-11) BUN 20 H (7-18) mg/dl Creatinine 1.17 (0.6-1.4) mg/dl Est Cr Clr Drug Dosing 76.5 ml/min Est GFR ( Amer) 79.7 Est GFR (Non-Af Amer) 68.8 BUN/Creatinine Ratio 17.1 (10-20) Glucose 160 H (70-99) mg/dl Lactate (0.4-2.0) mmol/L Calcium 8.3 L (8.5-10.1) mg/dl Phosphorus 2.8 (2.5-4.9) mg/dl Total Bilirubin 1.3 H (0.2-1) mg/dl AST 13 L (15-37) U/L ALT 43 (12-78) U/L Alkaline Phosphatase 70 (45-117) U/L Total Protein 7.1 (6.4-8.2) gm/dl Albumin 2.8 L (3.4-5.0) gm/dl Globulin 4.3 H (2.5-4.0) gm/dl Albumin/Globulin Ratio 0.7 L (0.9-2) Lipase 85 (73-393) U/L 03/22/19 Range/Units 12:28 WBC (4.8-10.8) K/uL RBC (4.7-6.1) M/uL Hgb (14.0-18.0) g/dL Hct (42-52) % MCV (80-100) fL MCH (25-34) pg MCHC (32-36) g/dL RDW Std Deviation (36.4-46.3) fL RDW Coeff of George (11.5-14.5) % Plt Count (130-400) K/uL MPV (7.4-10.4) fL Immature Gran % (Auto) % Neut % (Auto) % Lymph % (Auto) % Hamilton % (Auto) % Eos % (Auto) % Baso % (Auto) % Immature Gran # (Auto) (0.00-0.02) K/uL Neut # (Auto) (1.4-6.5) K/uL Lymph # (Auto) (1.2-3.4) K/uL Hamilton # (Auto) (0.11-0.59) K/uL Eos # (Auto) (0-0.5) K/uL Baso # (Auto) (0-0.2) K/uL Toxic Granulation Dohle Bodies Giant Platelets Sodium (136-145) mmol/L Potassium (3.5-5.1) mmol/L Chloride (98-107) mmol/L Carbon Dioxide (21-32) mmol/L Anion Gap (3-11) BUN (7-18) mg/dl Creatinine (0.6-1.4) mg/dl Est Cr Clr Drug Dosing ml/min Est GFR ( Amer) Est GFR (Non-Af Amer) BUN/Creatinine Ratio (10-20) Glucose (70-99) mg/dl Lactate 1.3 (0.4-2.0) mmol/L Calcium (8.5-10.1) mg/dl Phosphorus (2.5-4.9) mg/dl Total Bilirubin (0.2-1) mg/dl AST (15-37) U/L ALT (12-78) U/L Alkaline Phosphatase (45-117) U/L Total Protein (6.4-8.2) gm/dl Albumin (3.4-5.0) gm/dl Globulin (2.5-4.0) gm/dl Albumin/Globulin Ratio (0.9-2) Lipase (73-393) U/L Imaging Data Radiologist's Impression: Radiology results as stated below per my review and the radiologist's interpretation: CT abd pelvis IV con only CLINICAL HISTORY: 58 years-old Male presenting with lower ab pain, h/o MM, gallstones. TECHNIQUE: Multidetector CT of the abdomen and pelvis was performed after the administration of intravenous contrast. IV contrast: 84 mL of Optiray 320. One or more dose lowering techniques were used consistent with the principles of ALARA (as low as reasonably achievable), including automatic exposure control, mA or kV adjustment to individual patient size, and/or use of iterative reconstruction. COMPARISON: 02/18/2019. CT DOSE (mGy.cm): The estimated cumulative dose is 576.75 mGy.cm. FINDINGS: Paper Finisher topogram: Unremarkable. Lung bases: Normal heart size. No pericardial or pleural effusion. Minimal dependent changes likely atelectasis. Liver: Normal morphology. Well-defined hypodense lesion in the left hepatic lobe likely cyst. Additional smaller cysts or hamartomas noted. Patent hepatic vasculature. Biliary: No intrahepatic or extrahepatic biliary ductal dilatation. Gallbladder contains gallstones. Pancreas: Normal. Spleen: Normal. Adrenal glands: Normal. Kidneys and ureters: Resolution of the prior hypoenhancement of the lower pole the left kidney. Renal parenchyma is now normal bilaterally. No nephrolithiasis or hydronephrosis. Ureters nondistended. Bladder: Circumferential bladder wall thickening. Pelvic organs: Prostate enlargement likely secondary to benign prostatic hyperplasia. Bowel: Diverticulosis of the descending and sigmoid colon to a severe degree. Th ere is also now wall thickening and extensive pericolonic inflammatory change along the distal sigmoid colon. This abuts the bladder dome and results in significant peritoneal thickening. The appendix is normal. No bowel obstruction. Peritoneal cavity: Small free fluid in the left lower quadrant and pelvis. The fluid within the rectum prostatic recess may also demonstrate peritoneal enhancement. Extensive fluid in the extraperitoneal pelvis and lower portions of the retroperitoneum as a response to the sigmoid colon inflammation. Lymph nodes: No enlarged lymph nodes in the abdomen or pelvis. Vasculature: Aorta and IVC patent and normal in caliber. Abdominal wall: Small fat-containing umbilical hernia. Musculoskeletal: Diffusely abnormal bone marrow with innumerable lytic foci. More focal soft tissue lytic lesion in the L2 vertebral body as on prior exam. No gross evidence of acute fracture. Mild compression deformity of L1 and minimal compression deformity of L2 as on prior exam. IMPRESSION: 1. Interval development of severe acute diverticulosis of the distal sigmoid colon with associated trace early peritonitis in the pelvis. No abscess, extraluminal gas, or free air. Extensive inflammation along the bladder dome without evidence of a fistula at this time. 2. Extensive bone marrow abnormality consistent with the history of multiple myeloma. Focal soft tissue lytic lesion noted at L2 as on prior exam. 3. Cholelithiasis. Electronically signed by: Isidro Powers M.D. 03/22/2019 1:19 PM Blood Pressure Blood Pressure Findings: Low blood pressure Blood Pressure Disposition: further management by hospitalist BRIT Narrative The patient is a 58 year old white male w/ PMHx of hyperlipidemia, multiple myeloma, neoplasm of the back, plantar fascial fibromatosis, GERD, lumbar compression fracture, and gallstones who presents to the ED w/ CC of worsening lower abdominal pain beginning around noon yesterday. Patient was seen and evaluated the bedside. Patient does have a known history of GERD compression fractures multiple myeloma does present with lower abdominal pain. The patient does receive chemotherapy last received 2 weeks [address] to see Dr. TERRY HERNANDES with [facility] oncology. The patient is mildly uncomfortable in appearance and does have lower abdominal discomfort. The patient had blood work completed along with a CT of the abdomen pelvis and was given pain medication IV fluids. The patient declined any nausea medication at this time. Patient's blood work shows mild leukopenia and anemia. The anemia chronic. The patient does have a trace elevation T bili but patient does not have right upper quadrant pain. The patient's CT abdomen pelvis does show a localized peritonitis and associated inflammation of the bowel without necessarily true diverticulitis. Given the after mentioned the fact that his patient is on chemo I did speak the on-call hospitalist agreed to further evaluate treat the patient. Patient was admitted to the medicine service. Impression & Plan Peritonitis, Diverticulitis Discharge Plan Visit Data *Final* Discharge Date/Time: 03/22/19 15:54 Chief Complaint: Abdominal Pain Stated Complaint: ABD PAIN ED Provider: Triston Munoz Discharge Problem: Peritonitis, Diverticulitis Patient Disposition: Admitted As Inpatient Discharge Instructions Interventions: ED Discharge Assessment Last Done: 03/22/19 15:54 The scribe's documentation has been prepared under my direction and personally reviewed by me in its entirety. I confirm that the note above accurately reflects all work, treatment, procedures, and medical decision making performed by me.
[2019-03-22] MEDS: INSULIN ASPART 100 UNITS/ML 3 ML PEN SC SCH ×2 (17:51→21:41)
[2019-03-22] MEDS: FLUCONAZOLE 200 MG/100 ML BAG IV SCH (18:05)
[2019-03-22] MEDS: ENOXAPARIN INJ 30 MG/0.3 ML SYR SQ SCH (18:22)
[2019-03-22] MEDS: CALCIUM 600MG + VIT D 400 IU TAB PO SCH (18:22)
[2019-03-22] MEDS: PIPERACILLIN/TAZOBACTAM 3.375 GM in DEXTROSE 5% 100 ML IV SCH (19:10)
[2019-03-22] MEDS: ACETAMINOPHEN 325 MG TAB PO PRN (19:10)
[2019-03-22] MEDS: SENNA 8.6 MG TAB PO SCH (21:43)
[2019-03-22] MEDS: DOCUSATE SODIUM 100 MG CAP PO SCH (21:43)
[2019-03-22] MEDS: BACLOFEN 10 MG TAB PO SCH (21:43)
[2019-03-22] MEDS: ACYCLOVIR 400 MG TAB PO SCH (21:43)
[2019-03-22] MEDS: OXYCODONE HCL IR 5 MG TAB (IMMEDIATE RELEASE) PO PRN (21:49)
[2019-03-23] MEDS: PIPERACILLIN/TAZOBACTAM 3.375 GM in DEXTROSE 5% 100 ML IV SCH ×3 (03:54→18:21)
[2019-03-23 06:41] LABS: Eosinophils # (auto) 0.05 K/uL (0-0.5); Eosinophils % (auto) 2.3 %; Hematocrit (blood only) 24.1 % (42-52); Hemoglobin 8.3 g/dL (14.0-18.0); Immature Granulocytes # (auto) 0.02 K/uL (0.00-0.02); Immature Granulocytes % (auto) 0.9 %; Lymphocytes # (auto) 0.37 K/uL (1.2-3.4); Mean Corpuscular Hgb Conc 34.4 g/dL (32-36); Mean Corpuscular Volume 94.5 fL (80-100); Monocytes # (auto) 0.35 K/uL (0.11-0.59); Monocytes % (auto) 16.1 %; Neutrophils # (auto) 1.39 K/uL (1.4-6.5); Neutrophils % (auto) 63.7 %; Platelet Count 113 K/uL (130-400); RDW Coefficient of Variation 17.8 % (11.5-14.5); RDW Standard Deviation 60.9 fL (36.4-46.3); Red Blood Count 2.55 M/uL (4.7-6.1); White Blood Count 2.18 K/uL (4.8-10.8)
[2019-03-23] MEDS: LACTATED RINGER'S 1,000 ML IV SCH ×3 (07:07→23:31)
[2019-03-23] MEDS: ACETAMINOPHEN 325 MG TAB PO PRN (07:07)
[2019-03-23 07:19] LABS: BUN Creatinine Ratio 16.2 (10-20); Calcium 7.6 mg/dl (8.5-10.1); Creatinine Clr Calc Pharmacy 87.7 ml/min; Est GFR (African American) 94.1; Est GFR (Non-African American) 81.2; Magnesium 1.8 mg/dl (1.8-2.4); Potassium 3.6 mmol/L (3.5-5.1)
[2019-03-23 07:23] LABS: Dohle Bodies 2+; Spherocytes 1+; Toxic Granulation 1+
[2019-03-23 07:45] LABS: Estimated Average Glucose 194 mg/dl; Hemoglobin A1C 8.4 % (4.5-5.6)
[2019-03-23] MEDS: CALCIUM 600MG + VIT D 400 IU TAB PO SCH (08:03)
[2019-03-23] MEDS: FLUCONAZOLE 200 MG/100 ML BAG IV SCH (08:03)
[2019-03-23] MEDS: DOCUSATE SODIUM 100 MG CAP PO SCH ×2 (08:03→20:46)
[2019-03-23] MEDS: ACYCLOVIR 400 MG TAB PO SCH ×2 (08:03→20:48)
[2019-03-23] MEDS: BACLOFEN 10 MG TAB PO SCH ×3 (08:03→20:45)
[2019-03-23] MEDS: SENNA 8.6 MG TAB PO SCH ×2 (08:04→20:47)
[2019-03-23] MEDS: PANTOprazole 40 MG TAB PO SCH (08:04)
[2019-03-23] MEDS: INSULIN ASPART 100 UNITS/ML 3 ML PEN SC SCH ×4 (08:26→20:47)
[2019-03-23] MEDS: OXYCODONE HCL IR 5 MG TAB (IMMEDIATE RELEASE) PO PRN (11:55)
--- NOTE | 2019-03-23 13:28 | Hospitalist Progress Note ---
Date of Service March 23, 2019 Assessment & Plan (1) Diverticulosis large intestine w/o perforation or abscess w/o bleeding: Recurrent diverticulitis in the setting of mild neutropenia Continue Zosyn and fluconazole, in the setting of chemotherapy could be mucositis Apparently improving slowly (2) Intractable abdominal pain: Improving, continue conservative management Continue IV fluid hydration Continue antinausea medicine (3) Multiple myeloma: Currently on chemotherapy Continue management by oncology (4) Hyperglycemia: Hemoglobin A1c is 8.4 We will adjust oral hypoglycemic, will consider increasing metformin from 500 mg daily to 500 twice a day, and add small dose of glipizide 5 mg p.o. daily, upon discharge meanwhile continue sliding scale (5) GERD (gastroesophageal reflux disease): Continue Protonix daily (6) DVT prophylaxis: Continue Lovenox subcu (7) Neutropenia: Mild, likely induced by chemotherapy Continue to monitor in a.m. Subjective Laying down comfortable in bed. Continues to have bilateral lower abdominal pain more on the left side Denies any blood in the stool, nausea, vomiting Review of Systems Review of Systems: Review of system Constitutional: No fever / no chills / no sweats / no weakness / no fatigue Eyes: no blurring of vision / no eye pain / no discharge / no redness ENT: no hearing loss / no epistaxis /no swallowing problems Respiratory: no cough / no wheezing / no SOB / no hemoptysis Cardiovascular: no Chest pain / no lower extremity edema / no palpitation Abdomen: Positive for abdominal pain as mentioned no nausea / no vomiting / no constipation Musculoskeletal: no joint pain / no muscle pain / no joint swelling Genitourinary: no dysuria / no incontinence / no urinary retention Neurologic: no focal weakness / no numbness/tingling / no ataxia Psychiatric: no depression symptoms / no anxiety / no insomnia Endocrine: no excessive thirst / no excessive urination Hematologic: no abnormal bleeding / no bruising / no LN swelling Skin: No rash / no pallor Physical Exam Physical Exam: Physical examination General patient appears to be comfortable, not in acute distress HEENT: Atraumatic , normocephalic /no jaundice /no pallor /anicteric /no dry mucous membrane /normal external ear inspection Neck: Supple /no swelling /central trach Heart: S1/S2 normal/regular rate and rhythm/no gallop /no rub /no murmur Lungs: Clear to auscultation bilaterally/normal chest with expansion/no rhonchi/no rales/no wheezing/no use of accessory muscles of respiration Abdomen: Moderate tenderness in left lower quadrant, but no guarding/no rebound/no organomegaly/no pulsatile mass Musculoskeletal: No swelling/no edema/no tenderness/normal range of motion Neuro exam: Awake alert oriented 3/cranial nerves II through XII appear to be intact/sensation intact/moves all extremities/no abnormal movements Psychiatric evaluation: No depressed mood/normal affect Skin: No rash on exposed skin area/no erythema Extremity: Normal pulse/no pitting edema/no clubbing or cyanosis Endocrine/lymphatic: No obvious lymphadenopathy /no lymphedema Results & Data Vital Signs (Past 12 Hours) Vital Signs Temp Pulse Resp BP Pulse Ox 03/23/19 11:23 36.9 C 72 17 101/60 95 03/23/19 06:57 37.2 C 73 17 93/57 L 95 03/23/19 04:00 37.2 C 77 19 101/62 95 PG Care Time/CCT Total # of Minutes Spent Total Time Spent with Patient: 35 minutes total time spent is greater than 50% in coordination of care (as documented) at patient's floor/unit and/or counseling patient/family discussion of care with nursing staff (1) GERD (gastroesophageal reflux disease) Esophagitis presence: esophagitis presence not specified Qualified Code(s): K21.9 - Gastro-esophageal reflux disease without esophagitis
[2019-03-23] MEDS: ENOXAPARIN INJ 30 MG/0.3 ML SYR SQ SCH (18:23)
[2019-03-23 19:07] LABS: Immunoglobulin A 33.6 mg/dl (70-400); Immunoglobulin M 40.9 mg/dl (40-230)
[2019-03-23] MEDS: TRAMADOL HCL 50 MG TABLET PO PRN (20:49)
--- NOTE | 2019-03-23 22:23 | Consultation Report ---
DATE OF CONSULTATION: 03/23/2019 REASON FOR CONSULTATION: A 58-year-old gentleman with IgG kappa multiple myeloma, admitted to [facility] on 03/22 with intractable abdominal pain. HISTORY OF PRESENT ILLNESS: Tim Silva is a pleasant 58-year-old gentleman well known to my service, recently diagnosed with IgG kappa multiple myeloma, currently receiving combination of Revlimid, Velcade and dexamethasone. I believe he is beginning his third cycle tentatively scheduled for today. Over the past couple days, he had been battling with worsening abdominal pain, initially thought it was attributable to constipation as he has required low dose opioids to control skeletal pain, which he presented with originally. The patient also relates a low-grade fever within the last 24 hours with T-max of 100 degrees Fahrenheit. For the most part, Tim has been able to maintain his weight and appetite. He ran into issues with elevated blood sugars attributable to high doses of dexamethasone. Blood sugars have been better controlled since starting Metformin. Upon admission, CT scan of the abdomen and pelvis revealed diverticular disease with sigmoid wall thickening. The patient denies waqas rectal bleeding, hematochezia or melena at present. Again, in regards to multiple myeloma, Ankit has been responding favorably to current regimen. Interestingly, he states that the abdominal pain seems to be most prevalent on his off week from Revlimid. Generally, this agent is given daily for 21 days and then may have 7 days off on a 28-day cycle. Revlimid itself can cause GI side effects, particularly diarrhea and sometimes muscle cramping as well. Nonetheless, I agree with medical approach he is being treated for possible diverticulitis despite no absolute radiographic evidence. I have been asked to check in on Tim as he was to begin his third cycle of combination therapy today. PAST MEDICAL HISTORY: Significant for gastroesophageal reflux disease, cholelithiasis, compression fracture of L2 attributable to multiple myeloma, IgG kappa multiple myeloma, pancytopenia attributable to treatment, back pain, plantar fasciitis. PAST SURGICAL HISTORY: Right wrist 40 years ago. MEDICATIONS: Prior to admission include oxycodone 10 mg q. 4 hours p.r.n. for pain. Revlimid 25 mg p.o. daily for 21 days every 28-day cycle, bortezomib he receives on day 1, 4, 8 and 12 week cycle. Zofran 8 mg p.o. q. 8 hours p.r.n., Compazine 10 mg p.o. q. 6 hours p.r.n., baclofen 5 mg p.o. t.i.d., acyclovir 40 mg p.o. b.i.d., dexamethasone 12 mg daily for 4 days, off for 4 days alternating, metformin 500 mg p.o. daily, Protonix 20 mg p.o. daily, senna 8.6 mg p.o. daily. ALLERGIES: Fentanyl, which is not an allergy. He had some intolerance resulting in severe nausea and vomiting. SOCIAL HISTORY: The patient is , employed at [employer]. He has children. He is a nonsmoker. Positive for social alcohol. FAMILY HISTORY: Mother of breast cancer. Father of prostate cancer. Brother with diabetes mellitus. Sister with asthma and Asim's disease. REVIEW OF SYSTEMS: As per HPI, most notably for a low-grade fever, no chills or rigors. He is maintaining his weight and appetite. SKIN: No rashes or lesions. No history of dermatoses. HEENT: Denies headaches, lightheadedness or dizziness. No acute visual or hearing deficits. No sinus symptoms, sore throat or dysphagia. LYMPH: No history of lymphoproliferative disease. CARDIAC: Negative for angina or palpitations. PULMONARY: Negative for COPD. He is not short of breath, dyspnea or orthopnea. No cough or hemoptysis. GASTROINTESTINAL: As per HPI. GENITOURINARY: No hematuria, dysuria, urinary incontinence. MUSCULOSKELETAL: Positive for lytic bone disease, receives bisphosphonate therapy monthly. Skeletal pain has improved since diagnosis. ENDOCRINE: Positive for hypoglycemia attributable to chronic steroid use. Negative for thyroid disease. NEUROLOGIC: Negative for seizure, stroke, or migraine headache. HEMATOLOGIC: Positive for pancytopenia attributable to current chemotherapy regimen. PHYSICAL EXAMINATION: GENERAL: Tim is a very pleasant 58-year-old gentleman in no acute distress. VITAL SIGNS: Temperature 36.9, pulse 72, respiratory rate 17, blood pressure 101/60. SKIN: Warm, dry, noncyanotic without petechia, rash or ecchymosis. HEENT: Head is atraumatic, normocephalic. Eyes: PERRLA, EOMI. Sclerae nonicteric. No conjunctival injection. Nares are patent without rhinorrhea or discharge. Throat is clear. Tongue is midline. Mucous membranes are moist. NECK: Supple without JVD or thyromegaly. LYMPHATICS: No cervical or supraclavicular palpable nodes. HEART: Regular rate and rhythm. No clicks, rubs, murmurs or gallops. LUNGS: Clear to auscultation bilaterally. ABDOMEN: Soft, nontender, nondistended. EXTREMITIES: No calf tenderness or swelling. No clubbing, cyanosis or edema. NEUROLOGICAL: The patient is grossly intact. No acute motor or sensory deficits to note. LABORATORY DATA: WBC count 2180, hemoglobin 8.3, platelet count 113,000, absolute neutrophil count is 1390. Sodium 139, potassium 3.6, chloride 107, carbon dioxide 26, creatinine 1.02, BUN 17. UA unremarkable. Glucose is a bit generous at 126. RADIOGRAPHIC DATA: CT scan of the abdomen and pelvis reveals interval development of severe acute diverticulosis of the sigmoid and distal colon with associated trace of early peritonitis in the pelvis, extensive bone marrow normally attributable to multiple myeloma. IMPRESSION: 1. New-onset diverticular disease/possible diverticulitis/peritonitis. 2. IgG kappa multiple myeloma. 3. Status post 2 cycles of combination Revlimid, Velcade and dexamethasone. 4. Osseous lytic disease attributable to multiple myeloma. 5. Hyperglycemia attributable to corticosteroid therapy. PLAN: I have been asked to check in on Tim's progress. Again, this is a 58-year-old gentleman recently diagnosed with IgG kappa multiple myeloma, thus far successfully treated with current Revlimid, Velcade and dexamethasone. Over the past couple of days, he developed severe abdominal cramping pain. Tim has been on opiates since diagnosis because of osseous disease and thus has struggled intermittently with constipation. However, once he moves his bowels, pain has remitted. During this episode, the crampiness has not resolved. A CT scan is certainly suspicious for emerging peritonitis, even though the diverticulum do not appear to be infected. Agree with broad-spectrum antibiotics. He is due to resume combination therapy today, but will hold off until he is medically stable. From a hematologic standpoint, he has adequate neutrophils at present, but if he would fall below 800, I recommend administering granulocyte colony stimulating growth factor. His platelets and hemoglobin are otherwise satisfactory at this point. I will plan on reconvening Tim within a week or so and we will continue to follow him periodically during hospital stay. Thank you very much for allowing me to participate in his care. ISABEL
[2019-03-24] MEDS: OXYCODONE HCL IR 5 MG TAB (IMMEDIATE RELEASE) PO PRN (00:26)
[2019-03-24] MEDS: PIPERACILLIN/TAZOBACTAM 3.375 GM in DEXTROSE 5% 100 ML IV SCH ×2 (03:16→10:24)
[2019-03-24] MEDS: LACTATED RINGER'S 1,000 ML IV SCH ×2 (03:16→11:44)
[2019-03-24 07:54] LABS: Basophils # (auto) 0.01 K/uL (0-0.2); Basophils % (auto) 0.5 %; Eosinophils # (auto) 0.06 K/uL (0-0.5); Hematocrit (blood only) 25.9 % (42-52); Lymphocytes # (auto) 0.42 K/uL (1.2-3.4); Lymphocytes % (auto) 21.3 %; Mean Corpuscular Hgb Conc 34.7 g/dL (32-36); Mean Corpuscular Volume 93.8 fL (80-100); Mean Platelet Volume 9.1 fL (7.4-10.4); Monocytes # (auto) 0.33 K/uL (0.11-0.59); Monocytes % (auto) 16.8 %; Neutrophils # (auto) 1.15 K/uL (1.4-6.5); Neutrophils % (auto) 58.4 %; Platelet Count 119 K/uL (130-400); RDW Coefficient of Variation 17.4 % (11.5-14.5); RDW Standard Deviation 59.9 fL (36.4-46.3); Red Blood Count 2.76 M/uL (4.7-6.1); White Blood Count 1.97 K/uL (4.8-10.8)
[2019-03-24] MEDS: TRAMADOL HCL 50 MG TABLET PO PRN ×3 (07:54→19:21)
[2019-03-24] MEDS: FLUCONAZOLE 200 MG/100 ML BAG IV SCH (07:55)
--- NOTE | 2019-03-24 07:57 | Progress Note ---
DATE: 03/24/2019 HEMATOLOGY PROGRESS NOTE DIAGNOSES: 1. New-onset abdominal pain. 2. Diverticular disease, possible emerging diverticulitis versus peritonitis. 3. IgG kappa multiple myeloma. 4. Status post cycle 2 combination of Revlimid, Velcade and dexamethasone. 5. Osseous lytic disease attributable to multiple myeloma. 5. Hyperglycemia attributable to corticosteroid therapy. SUBJECTIVE: Ar was seen and examined at bedside. He continues to struggle with low abdominal pain, which is crampy in nature. He denies any fevers overnight. Spot checked his IgG level; very pleased to see he is definitely responding to therapy. Originally IgG in excess of 6800, now just above 800. He also complains of some mild back pain today as well. Nursing reports no overnight difficulties otherwise. He is not passing flatus, but did have a BM yesterday. OBJECTIVE: GENERAL: A very pleasant 58-year-old gentleman in no acute distress. VITAL SIGNS: Temperature 37.1, pulse 81, respiratory rate 18, blood pressure 108/63. SKIN: Without rash or lesion. HEENT: Oral mucosa without erythema or ulceration. HEART: Regular rate and rhythm. LUNGS: Clear to auscultation bilaterally. ABDOMEN: Soft, somewhat tender in the suprapubic area. No rigidity or guarding, however. EXTREMITIES: No clubbing, cyanosis or edema. NEUROLOGIC: Grossly intact. LABORATORY DATA: Pending. IMPRESSION: 1. Intractable abdominal pain. 2. Diverticular disease with possible emerging diverticulitis/peritonitis. 3. IgG kappa multiple myeloma. 4. Status post 2 cycles of combination Revlimid, Velcade and dexamethasone. 5. Osseous lytic disease attributable to multiple myeloma. 6. Hyperglycemia attributable to corticosteroid therapy. PLAN: Ar continues to struggle with crampy abdominal pain. He is on broad spectrum antibiotics to cover diverticulitis. He reportedly had a bowel movement yesterday. His p.o. intake is marginal at this point. He has required minimal doses of opioids and IV nonsteroidal anti-inflammatories. As stated yesterday, we will hold off on resuming chemotherapy until he is medically stable. I was very pleased to see his IgG level as he is nearing a complete remission. At this point, probably we will have him discontinue corticosteroids completely and continue treating him with a combination Velcade and Revlimid. We will continue to follow Ar periodically during his stay. I agree with medical management otherwise. Thank you for allowing me to participate in Ar's care.
[2019-03-24 08:33] LABS: BUN Creatinine Ratio 8.6 (10-20); Calcium 7.8 mg/dl (8.5-10.1); Creatinine Clr Calc Pharmacy 88.8 ml/min; Est GFR (African American) 86.9; Est GFR (Non-African American) 74.9; Potassium 3.7 mmol/L (3.5-5.1)
[2019-03-24 08:47] LABS: Dohle Bodies 2+; Toxic Granulation 3+
[2019-03-24] MEDS: INSULIN ASPART 100 UNITS/ML 3 ML PEN SC SCH ×4 (08:53→21:15)
[2019-03-24] MEDS: DOCUSATE SODIUM 100 MG CAP PO SCH ×3 (10:25→20:18)
[2019-03-24] MEDS: PANTOprazole 40 MG TAB PO SCH (10:25)
[2019-03-24] MEDS: CALCIUM 600MG + VIT D 400 IU TAB PO SCH (10:25)
[2019-03-24] MEDS: BACLOFEN 10 MG TAB PO SCH ×3 (10:25→20:16)
[2019-03-24] MEDS: SENNA 8.6 MG TAB PO SCH ×2 (10:26→20:16)
[2019-03-24] MEDS: ACYCLOVIR 400 MG TAB PO SCH ×2 (10:26→20:16)
--- NOTE | 2019-03-24 17:09 | Hospitalist Progress Note ---
Date of Service March 24, 2019 Assessment & Plan (1) Diverticulosis large intestine w/o perforation or abscess w/o bleeding: Recurrent diverticulitis in the setting of mild neutropenia Initially started on Zosyn and fluconazole, in the setting of chemotherapy could be mucositis On 03/24, Zosyn and fluconazole were stopped He was started on Cipro/Flagyl He continues to improve (2) Intractable abdominal pain: Improving, continue conservative management Currently tolerating oral intake, will stop IV fluid Continue antinausea medicine (3) Multiple myeloma: Currently on chemotherapy Continue management by oncology, Dr. Medina is pleased by his progress he will continue continue treating him with a combination Velcade and Revlimid (4) Hyperglycemia: Hemoglobin A1c is 8.4 We will adjust oral hypoglycemic, will consider increasing metformin from 500 mg daily to 500 twice a day, and add small dose of glipizide 5 mg p.o. daily, upon discharge meanwhile continue sliding scale (5) GERD (gastroesophageal reflux disease): Continue Protonix daily (6) DVT prophylaxis: Continue Lovenox subcu (7) Neutropenia: Mild, likely induced by chemotherapy Continue to monitor in a.m. Subjective Appears to be more comfortable today, able to walk in the hallway Still have lower abdominal pain but much improved Denies any chest pain or shortness of breath Review of Systems Review of Systems: Review of system Constitutional: No fever / no chills / no sweats / no weakness / no fatigue Eyes: no blurring of vision / no eye pain / no discharge / no redness ENT: no hearing loss / no epistaxis /no swallowing problems Respiratory: no cough / no wheezing / no SOB / no hemoptysis Cardiovascular: no Chest pain / no lower extremity edema / no palpitation Abdomen: Positive for lower abdominal pain but improving/ no nausea / no vomiting / no constipation Musculoskeletal: no joint pain / no muscle pain / no joint swelling Genitourinary: no dysuria / no incontinence / no urinary retention Neurologic: no focal weakness / no numbness/tingling / no ataxia Psychiatric: no depression symptoms / no anxiety / no insomnia Endocrine: no excessive thirst / no excessive urination Hematologic: no abnormal bleeding / no bruising / no LN swelling Skin: No rash / no pallor Physical Exam Physical Exam: Physical examination General patient appears to be comfortable, not in acute distress HEENT: Atraumatic , normocephalic /no jaundice /no pallor /anicteric /no dry mucous membrane /normal external ear inspection Neck: Supple /no swelling /central trach Heart: S1/S2 normal/regular rate and rhythm/no gallop /no rub /no murmur Lungs: Clear to auscultation bilaterally/normal chest with expansion/no rhonchi/no rales/no wheezing/no use of accessory muscles of respiration Abdomen: Soft/mild tenderness in lower/no guarding/no rebound/no organomegaly/no pulsatile mass Musculoskeletal: No swelling/no edema/no tenderness/normal range of motion Neuro exam: Awake alert oriented 3/cranial nerves II through XII appear to be intact/sensation intact/moves all extremities/no abnormal movements Psychiatric evaluation: No depressed mood/normal affect Skin: No rash on exposed skin area/no erythema Extremity: Normal pulse/no pitting edema/no clubbing or cyanosis Endocrine/lymphatic: No obvious lymphadenopathy /no lymphedema Results & Data Vital Signs (Past 12 Hours) Vital Signs Temp Pulse Resp BP Pulse Ox 03/24/19 16:29 37.0 C 82 18 113/72 98 03/24/19 11:20 37.0 C 79 17 118/69 97 03/24/19 07:12 37.1 C 81 18 108/63 94 PG Care Time/CCT Total # of Minutes Spent Total Time Spent with Patient: 35 Total time spent is greater than 50% in coordination of care (as documented) at patient's floor/unit and/or counseling patient: (1) GERD (gastroesophageal reflux disease) Esophagitis presence: esophagitis presence not specified Qualified Code(s): K21.9 - Gastro-esophageal reflux disease without esophagitis
[2019-03-24] MEDS: metroNIDAZOLE 500 MG/100 ML BAG IV SCH (17:42)
[2019-03-24] MEDS: CIPROFLOXACIN 400 MG/200 ML BAG IV SCH (17:43)
[2019-03-24] MEDS: ENOXAPARIN INJ 30 MG/0.3 ML SYR SQ SCH (17:44)
[2019-03-25] MEDS: metroNIDAZOLE 500 MG/100 ML BAG IV SCH ×3 (02:06→17:31)
[2019-03-25] MEDS: CIPROFLOXACIN 400 MG/200 ML BAG IV SCH ×2 (06:20→17:31)
[2019-03-25] MEDS: TRAMADOL HCL 50 MG TABLET PO PRN (06:20)
[2019-03-25] MEDS: INSULIN ASPART 100 UNITS/ML 3 ML PEN SC SCH ×4 (08:40→20:46)
[2019-03-25] MEDS: DOCUSATE SODIUM 100 MG CAP PO SCH ×2 (08:40→20:44)
[2019-03-25] MEDS: CALCIUM 600MG + VIT D 400 IU TAB PO SCH (08:40)
[2019-03-25] MEDS: PANTOprazole 40 MG TAB PO SCH (08:41)
[2019-03-25 08:43] LABS: Basophils # (auto) 0.02 K/uL (0-0.2); Basophils % (auto) 1.1 %; Eosinophils # (auto) 0.05 K/uL (0-0.5); Eosinophils % (auto) 2.8 %; Hemoglobin 7.6 g/dL (14.0-18.0); Immature Granulocytes # (auto) 0.01 K/uL (0.00-0.02); Immature Granulocytes % (auto) 0.6 %; Lymphocytes # (auto) 0.38 K/uL (1.2-3.4); Lymphocytes % (auto) 21.1 %; Mean Corpuscular Hgb Conc 34.5 g/dL (32-36); Mean Platelet Volume 8.9 fL (7.4-10.4); Monocytes # (auto) 0.29 K/uL (0.11-0.59); Monocytes % (auto) 16.1 %; Neutrophils # (auto) 1.05 K/uL (1.4-6.5); Neutrophils % (auto) 58.3 %; Platelet Count 133 K/uL (130-400); RDW Coefficient of Variation 17.3 % (11.5-14.5); RDW Standard Deviation 59.5 fL (36.4-46.3); Red Blood Count 2.34 M/uL (4.7-6.1)
[2019-03-25] MEDS: SENNA 8.6 MG TAB PO SCH ×2 (08:43→20:44)
[2019-03-25] MEDS: ACYCLOVIR 400 MG TAB PO SCH ×2 (08:45→20:46)
[2019-03-25] MEDS: BACLOFEN 10 MG TAB PO SCH ×3 (08:45→20:45)
[2019-03-25] MEDS: OXYCODONE HCL IR 5 MG TAB (IMMEDIATE RELEASE) PO PRN (08:47)
[2019-03-25 09:17] LABS: Albumin Level 2.1 gm/dl (3.4-5.0); BUN Creatinine Ratio 7.2 (10-20); Calcium 7.9 mg/dl (8.5-10.1); Creatinine Clr Calc Pharmacy 100.8 ml/min; Est GFR (African American) 101.3; Est GFR (Non-African American) 87.4; Magnesium 1.9 mg/dl (1.8-2.4); Potassium 3.6 mmol/L (3.5-5.1)
[2019-03-25 09:18] LABS: Anisocytosis Present; Spherocytes 1+
[2019-03-25 09:20] LABS: Albumin Globulin Ratio 0.5 (0.9-2); Bilirubin,Total 0.6 mg/dl (0.2-1); Globulin 3.9 gm/dl (2.5-4.0)
--- NOTE | 2019-03-25 11:19 | Progress Note ---
DATE: 03/25/2019 DIAGNOSES: 1. New onset crampy abdominal pain. 2. Diverticular disease. 3. IgG kappa multiple myeloma. 4. Status post cycle 2 combination of Revlimid, Velcade and dexamethasone. 5. Osseous lytic disease attributable to multiple myeloma. 6. Hyperglycemia attributable to corticosteroid therapy. SUBJECTIVE: The patient was seen and examined this morning at bedside. He once again had an episode of crampy abdominal pain and had a single liquid diarrheal stool. The patient is approximately 6 days removed from his last dose of Revlimid. This agent is notorious for GI side effect. Discussed the possibility of changing his dose to a lower daily dose instead of the daily dose for 3 weeks and the fourth week off. I have also recommended because of his blood sugar issues and great response to therapy to discontinue dexamethasone from this point moving forward. Again, he continues on antibiotics. His white count is decreased, but he is not in neutropenic range. He is ambulating, but again appetite and p.o. intake minimal. Nursing reports no overnight difficulties otherwise. OBJECTIVE: GENERAL: A very pleasant 58-year-old gentleman in no acute distress. VITAL SIGNS: Temperature 36.9, pulse 75, respiratory rate 16, blood pressure 119/76. SKIN: Without rash or lesion. HEENT: Oral mucosa without erythema or ulceration. HEART: Regular rate and rhythm. LUNGS: Clear to auscultation bilaterally. ABDOMEN: Point tenderness just above the pubic line, but otherwise no rigidity or guarding. Bowel sounds are hypoactive. EXTREMITIES: No clubbing, cyanosis or edema. NEUROLOGIC: Grossly intact. LABORATORY DATA: WBC count 1800, hemoglobin 7.6, platelet count 133,000, absolute neutrophil count 1000. Sodium 138, potassium 3.6, chloride 108, carbon dioxide 25, creatinine 0.96, BUN 7. Albumin 2.1. IMPRESSION: 1. Hypoalbuminemia. 2. Leukopenia/anemia attributable to treatment. 3. Crampy abdominal pain. 4. Diverticular disease. 5. Hyperglycemia attributable to corticosteroid therapy. PLAN: Again engaged in active discussion with the patient at bedside this morning. Unclear rather Revlimid may be causing this residual crampy abdominal pain, but would expect 6 days post dose to start to resolve. He is being covered for potential infectious GI pathogens. He is not rigid or guarding. Does not appear to be an acute abdomen per se. Nonetheless, I may consider reducing his dose of Revlimid to 10 mg and provide it daily in lieu of the 25 mg dose which is administered daily for 21 days every 28-day cycle. His response to therapy has been terrific and therefore feel comfortable on discontinuing dexamethasone from this point forward and continuing Revlimid and Velcade combination. Perhaps an antispasmodic such as Bentyl may be reasonable moving forward for the patient. His hemoglobin is 7.6. If it drops any further, would consider transfusion of 1-2 units of packed RBCs. We will continue to watch his white count and if necessary, provide a dose or two of granulocyte colony stimulating growth factor. Thank you again for allowing me to participate in the patient's care.
[2019-03-25] MEDS: ENOXAPARIN INJ 30 MG/0.3 ML SYR SQ SCH (17:31)
[2019-03-25 18:15] LABS: Albumin 2.6 G/DL (3.8-4.8); Alpha 1 Globulin 0.4 G/DL (0.2-0.3); Alpha 2 Globulin 0.9 G/DL (0.5-0.9); Beta-1-Globulin 0.4 G/DL (0.4-0.6); Beta-2-Globulin 0.3 G/DL (0.2-0.5); Gamma Globulin 0.8 G/DL (0.8-1.7); Monoclonal Protein Band 1 0.6 G/DL (NOT DETECTED); Monoclonal Protein Band 2 DNR G/DL (NOT DETECTED); Monoclonal Protein Band 3 DNR G/DL (NOT DETECTED); Total Protein 5.3 G/DL (6.2-8.3)
[2019-03-25] MEDS ORDERED: MoRPHine SULFATE 2 MG/ML CARP IV PRN (20:17)
--- NOTE | 2019-03-25 20:23 | Hospitalist Progress Note ---
Date of Service March 25, 2019 Assessment & Plan (1) Diverticulosis large intestine w/o perforation or abscess w/o bleeding: Recurrent diverticulitis in the setting of mild neutropenia Initially started on Zosyn and fluconazole, in the setting of chemotherapy could be mucositis On 03/24, Zosyn and fluconazole were stopped He was started on Cipro/Flagyl He continues to improve, but today had severe left lower quadrant pain after bowel movement Stool studies are still pending including stool culture, ova and parasite If no improvement, will consider repeating abdomen pelvis CT scan with contrast (2) Intractable abdominal pain: Improving, continue conservative management Currently tolerating oral intake, will stop IV fluid Continue antinausea medicine (3) Multiple myeloma: Currently on chemotherapy Continue management by oncology, Dr. Medina is pleased by his progress he will continue continue treating him with a combination Velcade and Revlimid (4) Hyperglycemia: Hemoglobin A1c is 8.4 We will adjust oral hypoglycemic, will consider increasing metformin from 500 mg daily to 500 twice a day, and add small dose of glipizide 5 mg p.o. daily, upon discharge meanwhile continue sliding scale (5) GERD (gastroesophageal reflux disease): Continue Protonix daily (6) DVT prophylaxis: Continue Lovenox subcu (7) Neutropenia: Mild, likely induced by chemotherapy, await oncologist Continue to monitor in a.m. Subjective Patient appears to be comfortable now, but states that when he had a bowel movement this morning it was watery diarrhea he had severe abdominal pain after that that lasted for 4 hours Review of Systems Review of Systems: Review of system Constitutional: No fever / no chills / no sweats / no weakness / no fatigue Eyes: no blurring of vision / no eye pain / no discharge / no redness ENT: no hearing loss / no epistaxis /no swallowing problems Respiratory: no cough / no wheezing / no SOB / no hemoptysis Cardiovascular: no Chest pain / no lower extremity edema / no palpitation Abdomen: Severe abdominal pain after bowel movement/ no vomiting / no constipation Musculoskeletal: no joint pain / no muscle pain / no joint swelling Genitourinary: no dysuria / no incontinence / no urinary retention Neurologic: no focal weakness / no numbness/tingling / no ataxia Psychiatric: no depression symptoms / no anxiety / no insomnia Endocrine: no excessive thirst / no excessive urination Hematologic: no abnormal bleeding / no bruising / no LN swelling Skin: No rash / no pallor Physical Exam Physical Exam: Physical examination General patient appears to be comfortable, not in acute distress HEENT: Atraumatic , normocephalic /no jaundice /no pallor /anicteric /no dry mucous membrane /normal external ear inspection Neck: Supple /no swelling /central trach Heart: S1/S2 normal/regular rate and rhythm/no gallop /no rub /no murmur Lungs: Clear to auscultation bilaterally/normal chest with expansion/no rhonchi/no rales/no wheezing/no use of accessory muscles of respiration Abdomen: Soft/nontender/no guarding/no rebound/no organomegaly/no pulsatile mass Musculoskeletal: No swelling/no edema/no tenderness/normal range of motion Neuro exam: Awake alert oriented 3/cranial nerves II through XII appear to be intact/sensation intact/moves all extremities/no abnormal movements Psychiatric evaluation: No depressed mood/normal affect Skin: No rash on exposed skin area/no erythema Extremity: Normal pulse/no pitting edema/no clubbing or cyanosis Endocrine/lymphatic: No obvious lymphadenopathy /no lymphedema Results & Data Vital Signs (Past 12 Hours) Vital Signs Temp Pulse Resp BP Pulse Ox 03/25/19 19:00 37.1 C 72 18 99/59 L 96 03/25/19 15:00 37.1 C 79 18 111/69 98 03/25/19 11:19 36.8 C 71 16 102/58 L 97 PG Care Time/CCT Total # of Minutes Spent Total Time Spent with Patient: 35 minutes total time spent is greater than 50% in coordination of care (as documented) at patient's floor/unit and/or counseling patient/family discussion of care with nursing staff (1) GERD (gastroesophageal reflux disease) Esophagitis presence: esophagitis presence not specified Qualified Code(s): K21.9 - Gastro-esophageal reflux disease without esophagitis
[2019-03-26] MEDS: metroNIDAZOLE 500 MG/100 ML BAG IV SCH ×3 (01:23→19:14)
[2019-03-26] MEDS: CIPROFLOXACIN 400 MG/200 ML BAG IV SCH ×2 (05:33→19:14)
[2019-03-26] MEDS: CALCIUM 600MG + VIT D 400 IU TAB PO SCH (08:37)
[2019-03-26] MEDS: DOCUSATE SODIUM 100 MG CAP PO SCH ×2 (08:37→20:21)
[2019-03-26] MEDS: BACLOFEN 10 MG TAB PO SCH ×3 (08:37→20:22)
[2019-03-26] MEDS: PANTOprazole 40 MG TAB PO SCH (08:37)
[2019-03-26] MEDS: SENNA 8.6 MG TAB PO SCH ×2 (08:38→20:21)
[2019-03-26] MEDS: ACYCLOVIR 400 MG TAB PO SCH ×2 (08:38→20:21)
[2019-03-26] MEDS: INSULIN ASPART 100 UNITS/ML 3 ML PEN SC SCH ×4 (08:43→21:40)
[2019-03-26 08:45] LABS: Eosinophils # (auto) 0.03 K/uL (0-0.5); Eosinophils % (auto) 1.7 %; Hematocrit (blood only) 23.8 % (42-52); Hemoglobin 8.4 g/dL (14.0-18.0); Immature Granulocytes # (auto) 0.01 K/uL (0.00-0.02); Immature Granulocytes % (auto) 0.6 %; Lymphocytes # (auto) 0.35 K/uL (1.2-3.4); Lymphocytes % (auto) 20.3 %; Mean Corpuscular Hgb Conc 35.3 g/dL (32-36); Mean Corpuscular Volume 93.3 fL (80-100); Mean Platelet Volume 9.4 fL (7.4-10.4); Monocytes # (auto) 0.24 K/uL (0.11-0.59); Neutrophils # (auto) 1.09 K/uL (1.4-6.5); Neutrophils % (auto) 63.4 %; Platelet Count 135 K/uL (130-400); RDW Coefficient of Variation 17.5 % (11.5-14.5); RDW Standard Deviation 59.9 fL (36.4-46.3); Red Blood Count 2.55 M/uL (4.7-6.1); White Blood Count 1.72 K/uL (4.8-10.8)
[2019-03-26 09:11] LABS: Albumin Level 2.2 gm/dl (3.4-5.0); BUN Creatinine Ratio 6.4 (10-20); Creatinine Clr Calc Pharmacy 89.5 ml/min; Est GFR (African American) 96.4; Est GFR (Non-African American) 83.2; Potassium 3.6 mmol/L (3.5-5.1)
[2019-03-26 09:14] LABS: Albumin Globulin Ratio 0.5 (0.9-2); Bilirubin,Total 0.6 mg/dl (0.2-1); Total Protein 6.2 gm/dl (6.4-8.2)
[2019-03-26] MEDS: OXYCODONE HCL IR 5 MG TAB (IMMEDIATE RELEASE) PO PRN (09:33)
[2019-03-26] MEDS: ACETAMINOPHEN 325 MG TAB PO PRN (14:39)
--- NOTE | 2019-03-26 17:01 | Hospitalist Progress Note ---
Date of Service March 26, 2019 Assessment & Plan (1) Diverticulosis large intestine w/o perforation or abscess w/o bleeding: Recurrent diverticulitis in the setting of mild neutropenia Initially started on Zosyn and fluconazole, in the setting of chemotherapy could be mucositis On 03/24, Zosyn and fluconazole were stopped He was started on Cipro/Flagyl on 03/24/2019 He continues to improve, We will hold off on repeating CT scan at this point (2) Intractable abdominal pain: Improving, continue conservative management Currently tolerating oral intake, IV fluids were Continue antinausea medicine (3) Multiple myeloma: Currently on chemotherapy Continue management by oncology, Dr. Lay is pleased by his progress he will continue continue treating him with a combination Velcade and Revlimid, might adjust the dose as per his note Continues to have neutropenia, its up to Dr. scott lay if he wants to give any granulocyte colony stimulating growth factor. Also hemoglobin improved to 8.4, will hold off transfusion at this point Platelets also improved to 135 (4) Hyperglycemia: Hemoglobin A1c is 8.4 We will adjust oral hypoglycemic, will consider increasing metformin from 500 mg daily to 500 twice a day, and add small dose of glipizide 5 mg p.o. daily, upon discharge meanwhile continue sliding scale (5) GERD (gastroesophageal reflux disease): Continue Protonix daily (6) DVT prophylaxis: Continue Lovenox subcu (7) Neutropenia: Mild, likely induced by chemotherapy, await oncologist Continue to monitor in a.m. Subjective Today and feeling much better Still have lower abdominal pain but is not as severe as before. He had a bowel movement today that was more formed stool Did not complain from severe abdominal pain after the bowel movement like used Review of Systems Review of Systems: Review of system Constitutional: No fever / no chills / no sweats / no weakness / no fatigue Eyes: no blurring of vision / no eye pain / no discharge / no redness ENT: no hearing loss / no epistaxis /no swallowing problems Respiratory: no cough / no wheezing / no SOB / no hemoptysis Cardiovascular: no Chest pain / no lower extremity edema / no palpitation Abdomen: Slight abdominal pain but significantly/ no nausea / no vomiting / no constipation Musculoskeletal: no joint pain / no muscle pain / no joint swelling Genitourinary: no dysuria / no incontinence / no urinary retention Neurologic: no focal weakness / no numbness/tingling / no ataxia Psychiatric: no depression symptoms / no anxiety / no insomnia Endocrine: no excessive thirst / no excessive urination Hematologic: no abnormal bleeding / no bruising / no LN swelling Skin: No rash / no pallor Physical Exam Physical Exam: Physical examination General patient appears to be comfortable, not in acute distress HEENT: Atraumatic , normocephalic /no jaundice /no pallor /anicteric /no dry mucous membrane /normal external ear inspection Neck: Supple /no swelling /central trach Heart: S1/S2 normal/regular rate and rhythm/no gallop /no rub /no murmur Lungs: Clear to auscultation bilaterally/normal chest with expansion/no rhonchi/no rales/no wheezing/no use of accessory muscles of respiration Abdomen: Soft/nontender/no guarding/no rebound/no organomegaly/no pulsatile mass Musculoskeletal: No swelling/no edema/no tenderness/normal range of motion Neuro exam: Awake alert oriented 3/cranial nerves II through XII appear to be intact/sensation intact/moves all extremities/no abnormal movements Psychiatric evaluation: No depressed mood/normal affect Skin: No rash on exposed skin area/no erythema Extremity: Normal pulse/no pitting edema/no clubbing or cyanosis Endocrine/lymphatic: No obvious lymphadenopathy /no lymphedema Results & Data Vital Signs (Past 12 Hours) Vital Signs Temp Pulse Resp BP Pulse Ox 03/26/19 15:19 36.7 C 69 19 104/62 97 03/26/19 11:46 36.9 C 76 17 108/97 97 03/26/19 07:21 36.9 C 72 16 112/66 97 PG Care Time/CCT Total # of Minutes Spent Total Time Spent with Patient: Total time spent is greater than 50% in coordination of care (as documented) at patient's floor/unit and/or counseling patient: (1) GERD (gastroesophageal reflux disease) Esophagitis presence: esophagitis presence not specified Qualified Code(s): K21.9 - Gastro-esophageal reflux disease without esophagitis
[2019-03-26] MEDS: ENOXAPARIN INJ 30 MG/0.3 ML SYR SQ SCH (19:14)
[2019-03-27] MEDS: metroNIDAZOLE 500 MG/100 ML BAG IV SCH ×3 (02:47→18:12)
[2019-03-27] MEDS: CIPROFLOXACIN 400 MG/200 ML BAG IV SCH ×2 (05:42→18:12)
[2019-03-27] MEDS: INSULIN ASPART 100 UNITS/ML 3 ML PEN SC SCH ×4 (08:00→21:26)
[2019-03-27] MEDS: CALCIUM 600MG + VIT D 400 IU TAB PO SCH (09:07)
[2019-03-27] MEDS: BACLOFEN 10 MG TAB PO SCH ×3 (09:08→20:32)
[2019-03-27] MEDS: DOCUSATE SODIUM 100 MG CAP PO SCH ×2 (09:08→20:33)
[2019-03-27] MEDS: PANTOprazole 40 MG TAB PO SCH (09:08)
[2019-03-27] MEDS: SENNA 8.6 MG TAB PO SCH ×2 (09:09→20:32)
[2019-03-27] MEDS: ACYCLOVIR 400 MG TAB PO SCH ×2 (09:09→20:32)
[2019-03-27 10:44] LABS: Hematocrit (blood only) 25.3 % (42-52); Hemoglobin 8.7 g/dL (14.0-18.0); Mean Corpuscular Volume 94.4 fL (80-100); Mean Platelet Volume 9.7 fL (7.4-10.4); Platelet Count 156 K/uL (130-400); RDW Coefficient of Variation 17.6 % (11.5-14.5); RDW Standard Deviation 60.9 fL (36.4-46.3); Red Blood Count 2.68 M/uL (4.7-6.1); White Blood Count 1.52 K/uL (4.8-10.8)
[2019-03-27 11:08] LABS: Mean Corpuscular Hgb Conc 34.4 g/dL (32-36)
[2019-03-27 11:13] LABS: Calcium 8.2 mg/dl (8.5-10.1); Creatinine Clr Calc Pharmacy 76.5 ml/min; Est GFR (African American) 79.7; Est GFR (Non-African American) 68.8; Magnesium 1.8 mg/dl (1.8-2.4); Potassium 3.3 mmol/L (3.5-5.1)
[2019-03-27 12:36] LABS: D Dimer 4010 ug/L FEU (0-500)
--- NOTE | 2019-03-27 13:09 | Hospitalist Progress Note ---
Date of Service March 27, 2019 Assessment & Plan (1) Diverticulosis large intestine w/o perforation or abscess w/o bleeding: Recurrent diverticulitis in the setting of mild neutropenia Initially started on Zosyn and fluconazole, in the setting of chemotherapy could be mucositis On 03/24, Zosyn and fluconazole were stopped He was started on Cipro/Flagyl on 03/24/2019 He continues to improve, had a normal bowel movement today If he continues to improve he will be discharged tomorrow We will hold off on repeating CT scan at this point (2) Intractable abdominal pain: Improving, continue conservative management Currently tolerating oral intake, IV fluids were Continue antinausea medicine (3) Multiple myeloma: Currently on chemotherapy Continue management by oncology, Dr. Lay is pleased by his progress he will continue continue treating him with a combination Velcade and Revlimid, might adjust the dose as per his note Continues to have neutropenia, its up to Dr. scott lay if he wants to give any g ranulocyte colony stimulating growth factor. White blood cell count today is 1.5, discussed with Dr. Gonzalez patient has been stable in the past despite of neutropenia, will repeat white blood cell count in a.m., but currently no intervention Also hemoglobin improved to 8.4, will hold off transfusion at this point Platelets also improved to 135 (4) Hyperglycemia: Hemoglobin A1c is 8.4 We will adjust oral hypoglycemic, will consider increasing metformin from 500 mg daily to 500 twice a day, and add small dose of glipizide 5 mg p.o. daily, upon discharge meanwhile continue sliding scale (5) GERD (gastroesophageal reflux disease): Continue Protonix daily (6) DVT prophylaxis: Continue Lovenox subcu (7) Neutropenia: Mild, likely induced by chemotherapy, await oncologist Continue to monitor in a.m. Subjective Continues to improve, no new complaint Had a bowel movement today with less abdominal pain Review of Systems Review of Systems: Review of system Constitutional: No fever / no chills / no sweats / no weakness / no fatigue Eyes: no blurring of vision / no eye pain / no discharge / no redness ENT: no hearing loss / no epistaxis /no swallowing problems Respiratory: no cough / no wheezing / no SOB / no hemoptysis Cardiovascular: no Chest pain / no lower extremity edema / no palpitation Abdomen: no pain / no nausea / no vomiting / no constipation Musculoskeletal: no joint pain / no muscle pain / no joint swelling Genitourinary: no dysuria / no incontinence / no urinary retention Neurologic: no focal weakness / no numbness/tingling / no ataxia Psychiatric: no depression symptoms / no anxiety / no insomnia Endocrine: no excessive thirst / no excessive urination Hematologic: no abnormal bleeding / no bruising / no LN swelling Skin: No rash / no pallor Physical Exam Physical Exam: Physical examination General patient appears to be comfortable, not in acute distress HEENT: Atraumatic , normocephalic /no jaundice /no pallor /anicteric /no dry mucous membrane /normal external ear inspection Neck: Supple /no swelling /central trach Heart: S1/S2 normal/regular rate and rhythm/no gallop /no rub /no murmur Lungs: Clear to auscultation bilaterally/normal chest with expansion/no rhonchi/no rales/no wheezing/no use of accessory muscles of respiration Abdomen: Soft/nontender/no guarding/no rebound/no organomegaly/no pulsatile mass Musculoskeletal: No swelling/no edema/no tenderness/normal range of motion Neuro exam: Awake alert oriented 3/cranial nerves II through XII appear to be intact/sensation intact/moves all extremities/no abnormal movements Psychiatric evaluation: No depressed mood/normal affect Skin: No rash on exposed skin area/no erythema Extremity: Normal pulse/no pitting edema/no clubbing or cyanosis Endocrine/lymphatic: No obvious lymphadenopathy /no lymphedema Results & Data Vital Signs (Past 12 Hours) Vital Signs Temp Pulse Resp BP Pulse Ox 03/27/19 07:34 37.0 C 80 16 126/74 98 03/27/19 04:00 36.9 C 75 20 106/66 96 PG Care Time/CCT Total # of Minutes Spent Total Time Spent with Patient: Total time spent is greater than 50% in coordination of care (as documented) at patient's floor/unit and/or counseling patient: (1) GERD (gastroesophageal reflux disease) Esophagitis presence: esophagitis presence not specified Qualified Code(s): K21.9 - Gastro-esophageal reflux disease without esophagitis
[2019-03-27] MEDS: ACETAMINOPHEN 325 MG TAB PO PRN (14:35)
--- NOTE | 2019-03-27 16:09 | Ultrasound Report ---
US venous doppler UE RT CLINICAL HISTORY: Right arm swelling. Positive d-dimer. COMPARISON STUDY: No previous studies for comparison. FINDINGS: There is thrombus identified within the mid to distal cephalic vein of the upper arm near t he IV site. No additional thrombus was identified. The internal jugular, radial, basilic, radial, uln ar, axillary, and subclavian veins appear patent. IMPRESSION: Mid to distal cephalic vein thrombus within the upper arm near the IV site. Electronically signed by: Julio C Varghese M.D. 03/27/2019 4:08 PM
[2019-03-27] MEDS: ENOXAPARIN INJ 30 MG/0.3 ML SYR SQ SCH (18:12)
[2019-03-28] MEDS: metroNIDAZOLE 500 MG/100 ML BAG IV SCH ×2 (03:17→10:45)
[2019-03-28] MEDS: CIPROFLOXACIN 400 MG/200 ML BAG IV SCH (05:23)
[2019-03-28 08:24] LABS: Hematocrit (blood only) 25.5 % (42-52); Hemoglobin 8.7 g/dL (14.0-18.0); Mean Corpuscular Hgb Conc 34.1 g/dL (32-36); Mean Corpuscular Volume 94.8 fL (80-100); Mean Platelet Volume 9.6 fL (7.4-10.4); Platelet Count 155 K/uL (130-400); RDW Coefficient of Variation 17.7 % (11.5-14.5); RDW Standard Deviation 60.3 fL (36.4-46.3); Red Blood Count 2.69 M/uL (4.7-6.1); White Blood Count 1.76 K/uL (4.8-10.8)
[2019-03-28] MEDS: SENNA 8.6 MG TAB PO SCH (08:35)
[2019-03-28] MEDS: DOCUSATE SODIUM 100 MG CAP PO SCH (08:35)
[2019-03-28] MEDS: BACLOFEN 10 MG TAB PO SCH ×2 (08:35→12:40)
[2019-03-28] MEDS: ACYCLOVIR 400 MG TAB PO SCH (08:35)
[2019-03-28] MEDS: CALCIUM 600MG + VIT D 400 IU TAB PO SCH (08:35)
[2019-03-28] MEDS: PANTOprazole 40 MG TAB PO SCH (08:35)
[2019-03-28 08:49] LABS: Albumin Level 2.3 gm/dl (3.4-5.0); BUN Creatinine Ratio 4.8 (10-20); Calcium 8.5 mg/dl (8.5-10.1); Creatinine Clr Calc Pharmacy 77.8 ml/min; Est GFR (African American) 81.4; Est GFR (Non-African American) 70.3; Potassium 3.6 mmol/L (3.5-5.1)
[2019-03-28 08:52] LABS: Albumin Globulin Ratio 0.6 (0.9-2); Bilirubin,Total 0.4 mg/dl (0.2-1); Globulin 4.1 gm/dl (2.5-4.0); Total Protein 6.4 gm/dl (6.4-8.2)
[2019-03-28 08:53] LABS: Basophils # (auto) 0.03 K/uL (0-0.2); Basophils % (auto) 1.7 %; Eosinophils # (auto) 0.06 K/uL (0-0.5); Eosinophils % (auto) 3.4 %; Immature Granulocytes # (auto) 0.01 K/uL (0.00-0.02); Immature Granulocytes % (auto) 0.6 %; Lymphocytes # (auto) 0.47 K/uL (1.2-3.4); Lymphocytes % (auto) 26.7 %; Monocytes # (auto) 0.31 K/uL (0.11-0.59); Monocytes % (auto) 17.6 %; Neutrophils # (auto) 0.88 K/uL (1.4-6.5); Polychromasia 1+; Toxic Granulation 2+
[2019-03-28] MEDS: INSULIN ASPART 100 UNITS/ML 3 ML PEN SC SCH (09:20)
--- NOTE | 2019-03-28 11:36 | Discharge Summary ---
Date of Service March 28, 2019 Admission HPI Per Admitting Provider This is a 58-year-old male with recent diagnosis of multiple myeloma and chemotherapy. He recently had neutropenia and reach marko 03/16/2019. His counts recovered at this point. The patient does report that he did have Neupogen but does not know what date. Patient presents with 2 days of abdominal pain with worsening yesterday. The patient thought that it was obstipation and although he has significant abdominal pain with bowel movement yesterday he elected to wait to come to the hospital until today. On arrival patient was found to be afebrile with a white blood cell count of 10. He had CT abdomen pelvis completed which showed diverticulosis at the sigmoid colon with wall thickening. The patient denies any melena, hematochezia, bright red blood per rectum. He has no hematemesis. He does have a crampy painful feeling in the abdomen in the left lower quadrant. Patient does report he had some chills and fever with night sweats over the last 2 to 3 days. He attributes this to predni sone taken 4 days on a 4 days off. The patient has no shortness of breath or chest pain. He has no awareness of palpitations. He is on prescribed medications only and is not using any medical marijuana or other controlled substance. He denies tobacco abuse and denies ethanol use. The patient does have 4 levels of compression fracture in his lumbar spine and does complain about bilateral hip pain that is worsened with pressure when laying on one side or the other. He has no long bone pain and no pathological fracture history of the long bones. The patient denies any previous blood clots. He does follow with Dr. Crooks for oncology. The patient denies any prior history of cardiac or pulmonary disease. He had one period where he had some PVCs which was attributed to heavy caffeine use. He has significantly decreased his caffeine intake to 1 or less caffeinated drinks per day. The patient has no prior malignancy history. He does have a history of GERD and is on pantoprazole daily. He has no other acute complaints at this time. Principal Diagnosis Small bowel obstruction Abdominal pain secondary to above Hemochromatosis Essential hypertension new diagnosis Suspected obstructive sleep apnea Positive colonoscopy 8 years ago, need for follow-up Discharge Exam Physical examination General patient appears to be comfortable, not in acute distress HEENT: Atraumatic , normocephalic /no jaundice /no pallor /anicteric /no dry mucous membrane /normal external ear inspection Neck: Supple /no swelling /central trach Heart: S1/S2 normal/regular rate and rhythm/no gallop /no rub /no murmur Lungs: Clear to auscultation bilaterally/normal chest with expansion/no rhonchi/no rales/no wheezing/no use of accessory muscles of respiration Abdomen: Soft/nontender/no guarding/no rebound/no organomegaly/no pulsatile mass Musculoskeletal: No swelling/no edema/no tenderness/normal range of motion Neuro exam: Awake alert oriented 3/cranial nerves II through XII appear to be intact/sensation intact/moves all extremities/no abnormal movements Psychiatric evaluation: No depressed mood/normal affect Skin: No rash on exposed skin area/no erythema Extremity: Normal pulse/no pitting edema/no clubbing or cyanosis Endocrine/lymphatic: No obvious lymphadenopathy /no lymphedema Discharge Data Allergies Allergy/AdvReac Type Severity Reaction Status Date / Time fentanyl AdvReac Severe nausa/vomit Unverified 03/22/19 12:22 ing Consultations 03/22/19 13:37 ED Decision to Admit Stat 03/22/19 16:37 Consult Case Management - Discharge Planning Routine 03/22/19 17:27 Consult Oncology Routine Ordered Studies 03/22/19 12:02 CT abd pelvis IV con only Stat 03/27/19 13:41 US venous doppler UE RT Stat Hospital Course (1) Diverticulosis large intestine w/o perforation or abscess w/o bleeding: He was admitted to telemetry CT scan abdomen and pelvis showed Severe diverticulosis of sigmoid colon with severe diverticulitis, thickening and pericolonic fluid of distal sigmoid. Recurrent diverticulitis in the setting of mild neutropenia Initially started on Zosyn and fluconazole, the fluconazole was given empirically as in the setting of chemotherapy could be mucositis On 03/24, Zosyn and fluconazole were stopped He was started on Cipro/Flagyl on 03/24/2019then switched to oral on 03/28 to finish 5 more days , course is slightly prolonged as he remains neutropenic (2) Intractable abdominal pain: Initially required morphine IV, IV fluid and Zofran Currently does not require any medications, abdominal pain resolved (3) Multiple myeloma: Currently on chemotherapy Continue management by oncology, Dr. Medina is pleased by his progress he will continue continue treating him with a combination Velcade and Revlimid, might adjust the dose as per his note Continues to have neutropenia, but being asymptomatic, as per oncology team no need for any granulocyte colony stimulating growth factor. Patient has been neutropenic in the past. Dr. Gonzalez recommended that he calls the office if he developed any low-grade fever Pancytopenia in general is due to chemotherapy hemoglobin improved to 8.4, Platelets also improved to 135 (4) Hyperglycemia: Hemoglobin A1c is 8.4 We will adjust oral hypoglycemic, I am in discharge, increased metformin from 500 mg daily to 500 twice a day, and add small dose of glipizide 5 mg p.o. daily, (5) GERD (gastroesophageal reflux disease): Continue Protonix daily (6) DVT prophylaxis: The hospital he was on Lovenox subcu Which was discontinued on Friday (7) Neutropenia: As mentioned above Total Time Total Time Spent Total Time Spent (In Minutes): 35 minutes total time spent is greater than 50% in coordination of care (as documented) at patient's floor/unit and/or counseling patient/family discussion of care with nursing staff Discharge Plan Discharge Items Patient Disposition: Home - Self-Care Reason For Visit: DIVERTICULOSIS,RECENT NEUTROPENIA Discharge Diagnosis: Abdominal pain secondary to below Diverticulitis and distal sigmoid: Severe diverticulosis of descending and sigmoid colon Multiple myeloma currently on Velcade/Revlimid Diabetes mellitus, uncontrolled GERD Neutropenia secondary to chemotherapy Right upper arm distal cephalic vein thrombosis Discharge Goals: Decrease discomfort and Improve function Activity: Resume your previous activity Lifting: Gradually increase as tolerated Sexual Activity: When tolerated Exercise/Sports: Gradually increase as tolerated Driving/Machine Use: Resume 3 days after discharge Weightbearing: Full weightbearing Non-emergency contact: Primary Care Provider, Paper Pattern Folder and Oncologist Call non-emergency contact if: you have any medication questions and your pain is not controlled Follow-up/Referrals: Dick Carl MD [Primary Care Provider] - 03/30/19 8:50 am (Please, follow up at Dr. Dick Carl' office on FridayMarch 30 at 8:50 am. *If you need to change this appointment, call the office at [phone].) Diet: Carb Consistent or DM2 Diet Comment: Start with soft diet like mashed potatoes, soup, advance slowly as tolerated, chew the food really well and take sips of water with a Addtl Provider Instructions: Your blood sugar was not controlled your hemoglobin A1c is 8.4 Upon discharge increased your metformin dose to 500 twice a day Started you on glipizide 5 mg every morning with breakfast Prescriptions: New polyethylene glycol 3350 [Miralax] 17 gram Powder In Packet 17 g PO DAILY Qty: 30 RF: 0 glipizide 5 mg tablet 5 mg PO .with breakfast Qty: 30 RF: 0 metronidazole [Flagyl] 500 mg tablet 500 mg PO BID 5 Days Qty: 10 RF: 0 ciprofloxacin HCl [Cipro] 500 mg tablet 500 mg PO BID 5 Days Qty: 10 RF: 0 Continued oxycodone 10 mg tablet 10 mg PO Q4H PRN (Reason: pain) RF: 0 ondansetron HCl 8 mg tablet 8 mg PO UD PRN (Reason: Nausea) RF: 0 prochlorperazine maleate 10 mg tablet 10 mg PO UD RF: 0 bortezomib 3.5 mg Recon Soln IV 2XWK RF: 0 Revlimid 25 mg capsule 25 mg PO UD RF: 0 baclofen 10 mg Tablet 5 mg PO TID Qty: 60 RF: 0 sennosides [senna] 8.6 mg Tablet 8.6 mg PO DAILY RF: 0 acyclovir 400 mg tablet 400 mg PO BID RF: 0 pantoprazole 20 mg tablet,delayed release (DR/EC) 20 mg PO QAM RF: 0 calcium-vitamin D3-vitamin K [Citracal Chew] 500 mg-1,000 unit-40 mcg Tablet,Chewable 1 tab PO QAM RF: 0 Changed metformin 500 mg tablet extended release 24 hr 500 mg PO BID Qty: 60 RF: 0 Discontinued dexamethasone 4 mg tablet 12 mg PO Q4D RF: 0 Stand-Alone Forms: Call Back Authorization, [facility]/Other Patient Handouts: Diabetes Manage A1C Test Discharge Orders: Discharge Order (Routine); Ordered 03/28/19 Ordered By: Silvia Perez Admission Data Admit Date/Time: 03/22/19 14:40 Attending Provider: Silvia Fulton Admit Provider: [place]ad Primary Care Provider: Dick Carl Other Providers: Shar Crooks V ; Silvia Fulton Service: Medical
[2019-03-28] MEDS: ACETAMINOPHEN 325 MG TAB PO PRN (12:40)
== END 2019-03-28 13:05 | disposition home or self-care (01) | DRG 392 ==
LOC: ED 11:15 → SUATTDRO 14:40 → 2W 14:40
DX: C90.00 Multiple myeloma not having achieved remission; K57.90 Diverticulosis of intestine, part unspecified, without perforation or abscess without bleeding; R73.9 Hyperglycemia, unspecified; T45.1X5A Adverse effect of antineoplastic and immunosuppressive drugs, initial encounter; T38.0X5A Adverse effect of glucocorticoids and synthetic analogues, initial encounter; D70.9 Neutropenia, unspecified; K21.9 Gastro-esophageal reflux disease without esophagitis

== ENCOUNTER 2019-12-30 09:16 | Inpatient (IN) ==
[2019-12-30] MEDS ORDERED: ACETAMINOPHEN 325 MG TAB PO PRN ×2 (11:10→14:12)
[2019-12-30] MEDS ORDERED: ONDANSETRON INJ 2 MG/ML 2 ML VIAL IV PRN (11:10)
[2019-12-30] MEDS ORDERED: ALUMINUM/MAGNESIUM SUSP 30 ML UDC PO PRN (11:10)
[2019-12-30] MEDS ORDERED: MAGNESIUM HYDROXIDE SUSP 30 ML UDC PO PRN (11:10)
[2019-12-30] MEDS ORDERED: POLYETHYLENE (MIRALAX) 17 GM PACK PO PRN (11:10)
--- NOTE | 2019-12-30 11:15 | History & Physical Report ---
Date of Service December 30, 2019 Assessment & Plan (1) Pulmonary embolism: Incidental finding on outpatient CT A/P with IV contrast Patient is hemodynamically stable No right heart strain on EKG adn troponin negative Patient with multiple myeloma - discussed anticoagulation with Dr Crooks and will start on apixaban Since he already had IV contrast today and took metformin yesterday will get CT for PE in AM to confirm US suppler LE given swelling L > R (2) Multiple myeloma: Continue Dexamethasone (3) Type 2 diabetes mellitus: Steroid-induced but has to remain on these for his myeloma treatment T2 diabetic diet with insulin sliding scale HbA1C repeat in AM (4) Weight gain: Suspect steroids causing his weight gain and abdominal distension Follow up EGD/colonoscopy as per GI note Admission and Anticipated Discharge Date Admission Date: December 30, 2019 History of Present Illness Chief Complaint: Pulmonary Embolism Primary Care Provider: Dick Carl MD Ankit Silva is a 59 year old male with multiple myeloma who is a direct admission from home (referring physician Dr Vail) after incidental finding on CT A/P showed bilateral pulmonary filling defects indicative of pulmonary emboli. Initial scan was performed due to increasing abdominal distension with no pathology to explain this, although he does note his weight has increased dramatically with steroid use. In hindsight he has been more fatigued with shortness of breath on exertion for the last 2 weeks. No chest pain. Other than snoring no other symptoms to suggest obstructive sleep apnea. Allergies Allergy/AdvReac Type Severity Reaction Status Date / Time fentanyl AdvReac Severe nausa/vomit Verified 12/29/19 10:58 ing Home Medications Home Medications Medication Instructions Recorded Confirmed Type ondansetron HCl 8 mg PO Q8H PRN 02/12/19 12/30/19 History prochlorperazine maleate 10 mg PO Q8H PRN 02/12/19 12/30/19 History acyclovir 400 mg PO BID 03/22/19 12/30/19 History acetaminophen 650 mg PO Q6H PRN 05/19/19 12/30/19 History calcium citrate-vitamin D3 1 tab PO QAM 05/19/19 12/30/19 History [Citracal Regular] dexamethasone [Decadron] 2 mg PO QAM 05/19/19 12/30/19 History dicyclomine 20 mg PO BID 05/19/19 12/30/19 History pantoprazole 40 mg PO QAM 05/19/19 12/30/19 History bortezomib 3.5 mg solution for 3.5 mg SUBCUT WK 12/28/19 12/30/19 History injection cetirizine 10 mg capsule 10 mg PO QAM 12/28/19 12/30/19 History daratumumab 20 mg/mL intravenous 20 mg IV DIRECTED 12/28/19 12/30/19 History solution metformin 1,000 mg tablet 1,000 mg PO BID 12/28/19 12/30/19 History zoledronic acid 4 mg/5 mL 4 mg IV DIRECTED 12/28/19 12/30/19 History intravenous solution sodium,potassium,mag sulfates 17.5 See Rx Instructions PO .COMPLEX 12/29/19 12/30/19 Rx gram-3.13 gram-1.6 gram oral soln #354 ml Past Med/Surg History Medical History (Updated 12/31/19 @ 10:06 by Dick Cali MD) Acute kidney injury (Inactive) Anemia Cellulitis, face Diverticular disease Febrile neutropenia (Inactive) Gallstone (Chronic) GERD (gastroesophageal reflux disease) Lumbar compression fracture (Acute) Lytic lesion of bone on x-ray (Acute) Multiple myeloma (Acute) BLOOD AND BONE DX JANUARY 2019 Neoplasm of bone (Chronic) Pancytopenia (Acute) Peritonitis (Inactive) Plantar fascial fibromatosis (Acute) PT UNAWARE Prediabetes STEROID INDUCED Surgical History H/O kyphoplasty [facility] H/O wrist surgery (Acute) RT [place] teeth removed Social History Preferred Language: [place] Communication Ability: Effective Visual Impairment: No Limitations Line Crew Supervisor Required: No Beliefs That Will Affect Care: None marital status: Current Living Situation: Spouse current occupational status: employed Other Information That Helps Us Care for You: No Feels Safe at Home: Yes Safety Concerns: Feels Safe At This Time Smoking Status: Never smoker Tobacco Type: smokeless tobacco ; Second Hand Exposure: No ; Hx Alcohol Use: Yes Alcohol type: beer and wine Hx Substance Use: No Childhood Exposure to Second-Hand Smoke: No Dental Care, Regularly: Yes Review of Systems Review of Systems: All systems reviewed & are unremarkable except as noted in HPI & below Physical Exam Constitutional: + obese Eyes: + anicteric sclerae; normal pupil size ENMT: external ear and nose normal, oropharynx normal Neck: trachea midline, no thyromegaly Respiratory: normal respiratory effort, lungs clear to auscultation Cardiovascular: Rate/Rhythm: regular rate and regular rhythm Heart Sounds: no murmur Extremities: normal capillary refill and + pedal edema (2+ to knees b/l L > R); no calf tenderness Gastrointestinal (Abdomen): Inspection/Auscultation: + abdomen distended and normal bowel sounds Percussion/Palpation: abdomen soft; abdomen nontender, no guarding and abdomen not rigid Musculoskeletal: no cyanosis or clubbing, extremities motor strength 5/5 Skin: no rashes, warm and dry Neurologic: moves all extremities and awake; no focal motor deficits Psychiatric: A+Ox3, euthymic affect Results & Data Results & Data ([facility]) Vital Signs (Past 12 Hours) Vital Signs Temp Pulse Pulse Resp BP Pulse Ox 12/30/19 11:02 99 H 12/30/19 10:52 36.8 C 95 H 16 138/[address] abd pelvis oral and IV con IMPRESSION: 1. Bilateral pulmonary filling defects indicative of acute pulmonary embolism. This finding will be called to the referring clinician. 2. Extensive lytic bone disease consistent with the clinical history of multiple myeloma 3. No evidence of bowel obstruction. No evidence of free air 4. Normal appendix 5. Diverticulosis. No evidence of acute diverticulitis ECG Indication: SOB/dyspnea Rate (beats per minute): 87 Rhythm: normal sinus Findings: no acute ischemic change Comparison ECG Date: from (02/12/2019) Change: no significant change Code Status & VTE Plan Code Status Full VTE Prophylaxis Plan VTE Prophylaxis will be ordered: Yes PG Care Time/CCT Total # of Minutes Spent Total Time Spent with Patient: Total time spent is greater than 50% in coordination of care (as documented) at patient's floor/unit and/or counseling patient: Coding Level of Care Code 23896 Initial Inpt Care Lvl 2 Diagnoses Pulmonary embolism I26.99 Multiple myeloma C90.00 Type 2 diabetes mellitus E11.9 Weight gain R63.5
[2019-12-30 11:30] LABS: Basophils # (auto) 0.01 K/uL (0-0.2); Basophils % (auto) 0.3 %; Eosinophils # (auto) 0.01 K/uL (0-0.5); Eosinophils % (auto) 0.3 %; Hematocrit (blood only) 36.9 % (42-52); Hemoglobin 12.1 g/dL (14.0-18.0); Immature Granulocytes # (auto) 0.01 K/uL (0.00-0.02); Immature Granulocytes % (auto) 0.3 %; Lymphocytes # (auto) 1.18 K/uL (1.2-3.4); Lymphocytes % (auto) 31.2 %; Mean Corpuscular Hemoglobin 34.4 pg (25-34); Mean Corpuscular Volume 104.8 fL (80-100); Mean Platelet Volume 10.7 fL (7.4-10.4); Monocytes # (auto) 0.42 K/uL (0.11-0.59); Monocytes % (auto) 11.1 %; Neutrophils # (auto) 2.15 K/uL (1.4-6.5); Neutrophils % (auto) 56.8 %; Nucleated RBC # (auto) 0.05 K/uL (0-0); Nucleated RBC % (auto) 1.4 %; Platelet Count 183 K/uL (130-400); RDW Coefficient of Variation 15.9 % (11.5-14.5); Red Blood Count 3.52 M/uL (4.7-6.1); White Blood Count 3.78 K/uL (4.8-10.8)
[2019-12-30 11:41] LABS: Mean Corpuscular Hgb Conc 32.8 g/dL (32-36); Partial Thromboplastin Ratio 0.8; Partial Thromboplastin Time 23.1 Seconds (21.0-31.0); Prothrombin Time 10.8 Seconds (9.0-12.0)
[2019-12-30 11:47] LABS: Albumin Level 3.5 gm/dl (3.4-5.0); BUN Creatinine Ratio 16.2 (10-20); Calcium 9.2 mg/dl (8.5-10.1); Creatinine Clr Calc Pharmacy 78.9 ml/min; Est GFR (African American) 69.7; Est GFR (Non-African American) 60.1; Potassium 3.7 mmol/L (3.5-5.1)
[2019-12-30 11:50] LABS: Albumin Globulin Ratio 0.8 (0.9-2); Bilirubin,Total 0.3 mg/dl (0.2-1); Globulin 4.4 gm/dl (2.5-4.0); Total Protein 7.9 gm/dl (6.4-8.2)
[2019-12-30] MEDS ORDERED: GLUCOSE 10 TABS/TUBE PO PRN (13:13)
[2019-12-30] MEDS ORDERED: GLUCAGON FOR INJ 1 MG VIAL SQ PRN (13:13)
[2019-12-30] MEDS ORDERED: CARBOHYDRATES FOR HYPOGLYCEMIA PO PRN (13:13)
[2019-12-30] MEDS ORDERED: GLUCOSE 40% GEL 15 GM TUBE PO PRN (13:13)
[2019-12-30] MEDS ORDERED: DEXTROSE 50% 50 ML SYRINGE IV PRN (13:13)
[2019-12-30] MEDS ORDERED: PROCHLORPERAZINE MALEATE 10 MG TAB PO PRN (14:12)
[2019-12-30] MEDS ORDERED: ONDANSETRON 8MG OD TAB PO PRN (14:12)
[2019-12-30] MEDS ORDERED: APIXABAN 5 MG TABLET PO STA (14:16)
--- NOTE | 2019-12-30 16:09 | Ultrasound Report ---
BILATERAL LOWER EXTREMITY VENOUS DOPPLER CLINICAL HISTORY: left > right leg swelling ?DVT COMPARISON STUDY: No previous studies for comparison. TECHNIQUE: Sonography of the deep venous system of the bilateral lower extremities was performed. Co mpression and augmentation were evaluated. FINDINGS: The right common femoral, superficial femoral and popliteal veins were compressible. Augme ntation was normal. Flow was shown within the deep calf vessels. Note is made of acute appearing occl usive thrombus within the distal left popliteal vein as well as the left peroneal vein. IMPRESSION: Acute appearing deep venous thrombus within the left popliteal and peroneal veins. ACT 112: Negative or not required by law. Electronically signed by: Mendel Roach M.D. 12/30/2019 4:08 PM
[2019-12-30] MEDS: INSULIN ASPART 100 UNITS/ML 3 ML PEN SC SCH ×2 (17:31→20:36)
[2019-12-30] MEDS: ACYCLOVIR 400 MG TAB PO SCH (20:37)
[2019-12-30] MEDS: DICYCLOMINE HCL 20 MG TAB PO SCH (20:38)
--- NOTE | 2019-12-30 23:25 | Electrocardiogram Report ---
Test Reason : Blood Pressure : / mmHG Vent. Rate : 087 BPM Atrial Rate : 087 BPM P-R Int : 148 ms QRS Dur : 086 ms QT Int : 350 ms P-R-T Axes : 056 044 053 degrees QTc Int : 421 ms Normal sinus rhythm Normal ECG When compared with ECG of 12-FEB-2019 08:53, No significant change was found Confirmed by Doc Marie ([id number]) on 12/30/2019 11:25:15 PM Referred By: Dick Cali Confirmed By:Doc Marie
[2019-12-31 06:08] LABS: Hematocrit (blood only) 35.8 % (42-52); Hemoglobin 11.7 g/dL (14.0-18.0); Mean Corpuscular Hemoglobin 34.3 pg (25-34); Mean Corpuscular Hgb Conc 32.7 g/dL (32-36); Mean Platelet Volume 10.7 fL (7.4-10.4); Nucleated RBC # (auto) 0.02 K/uL (0-0); Nucleated RBC % (auto) 0.7 %; Platelet Count 159 K/uL (130-400); Red Blood Count 3.41 M/uL (4.7-6.1); White Blood Count 3.21 K/uL (4.8-10.8)
[2019-12-31 06:40] LABS: BUN Creatinine Ratio 16.2 (10-20); Calcium 9.6 mg/dl (8.5-10.1); Creatinine Clr Calc Pharmacy 82.7 ml/min; Est GFR (African American) 73.1; Est GFR (Non-African American) 63.1; Potassium 4.2 mmol/L (3.5-5.1)
[2019-12-31 07:22] LABS: Estimated Average Glucose 183 mg/dl
[2019-12-31] MEDS ORDERED: OPTIRAY 320 125ml IV PRN (08:10)
[2019-12-31] MEDS: DICYCLOMINE HCL 20 MG TAB PO SCH (08:28)
[2019-12-31] MEDS: ACYCLOVIR 400 MG TAB PO SCH (08:29)
[2019-12-31] MEDS: INSULIN ASPART 100 UNITS/ML 3 ML PEN SC SCH ×2 (08:31→12:40)
--- NOTE | 2019-12-31 08:36 | CT Scan Report ---
CT ANGIOGRAM OF THE CHEST CLINICAL HISTORY: Shortness of breath. Possible pulmonary embolism. Abnormal prior CT scan. COMPARISON STUDY: Abdominal pelvic CT dated 12/30/2019 TECHNIQUE: Following the IV administration of 120 mL of Optiray-320, CT angiogram of the thorax was p erformed from the thoracic inlet to the lung bases utilizing the pulmonary embolus protocol. Images a re reviewed in the axial, sagittal, and coronal planes. IV contrast was administered without complica tion. MIP imaging was performed. A dose lowering technique was utilized adhering to the principles o f ALARA. CT DOSE: 561.96 mGycm FINDINGS: Lymph nodes within the right as ago esophageal recess are the upper limits of normal in diameter There was no evidence of thoracic aortic dilatation. There are bilateral pulmonary artery filling defects, confirming the previously described bilateral p ulmonary emboli. There is no evidence of significant right ventricular strain. No pleural effusions are visualized. There are dependent opacities, likely atelectatic. There are innumerable lytic foci within the skeleton consistent with the clinical history of multiple myeloma IMPRESSION: 1. Bilateral pulmonary filling defects, indicative of bilateral pulmonary emboli. 2. Innumerable lytic foci within the skeleton, consistent with the clinical history of multiple myelo ma ACT 112: Negative or not required by law. Electronically signed by: Julio C Varghese M.D. 12/31/2019 8:34 AM
[2019-12-31] MEDS ORDERED: CETIRIZINE HCL 10 MG TABLET PO SCH (09:00)
[2019-12-31] MEDS ORDERED: CALCIUM 600MG + VIT D 400 IU TAB PO SCH (09:00)
[2019-12-31] MEDS ORDERED: APIXABAN 5 MG TABLET PO SCH (09:00)
[2019-12-31] MEDS ORDERED: dexAMETHasone 1 MG TAB PO SCH (09:00)
[2019-12-31] MEDS ORDERED: PANTOprazole 40 MG TAB PO SCH (09:00)
--- NOTE | 2019-12-31 10:10 | Hospitalist Progress Note ---
Date of Service December 31, 2019 Assessment & Plan Admission and Anticipated Discharge Date Admission Date: December 30, 2019 Results & Data Results & Data ([facility]) Vital Signs (Past 12 Hours) Vital Signs Temp Pulse Pulse Resp BP BP Pulse Ox 12/31/19 07:24 36.7 C 87 18 118/75 93 12/31/19 04:00 36.6 C 91 H 19 103/65 93 12/31/19 00:56 88 12/30/19 23:01 36.8 C 95 H 19 134/67 92
[2019-12-31 11:17] VITALS: TEMP 97.9; O2SAT 95
--- NOTE | 2019-12-31 13:57 | Discharge Summary ---
Date of Service December 31, 2019 Admission HPI Per Admitting Provider Ankit Silva is a 59 year old male with multiple myeloma who is a direct admission from home (referring physician Dr Vail) after incidental finding on CT A/P showed bilateral pulmonary filling defects indicative of pulmonary emboli. Initial scan was performed due to increasing abdominal distension with no pathology to explain this, although he does note his weight has increased dramatically with steroid use. In hindsight he has been more fatigued with shortness of breath on exertion for the last 2 weeks. No chest pain. Other than snoring no other symptoms to suggest obstructive sleep apnea. Principal Diagnosis VTE Discharge Exam gen aaox3 pleasant nad heent nc at mmm breathing unlabored no accessory muscles good effort skin no rashes no pallor or icterus neuro no focal deficits Discharge Data Allergies Allergy/AdvReac Type Severity Reaction Status Date / Time fentanyl AdvReac Severe nausa/vomit Verified 12/29/19 10:58 ing Ordered Studies 12/30/19 15:00 US venous doppler LE BI Routine showing DVT 12/31/19 07:00 CT angio chest PE protocol Routine showing B/L PE 12/29 CT abd/pelvis - showed PE's and lytic lesions but no intraabdominal findings of pathologic significance. on personal review, there was at least a modest degree of stool Hospital Course (1) Pulmonary embolism: incidental but large enough to be significant, with concomitant DVT, and ongoing risk for hypercoagulability given myeloma --> eliquis started - 10mg bid x first 7 days, then 5mg bid thereafter - ongoing provoking factor w myeloma so anticoagulation right now needs to be open ended. discussed risks/benefits/bleeding/etc - he expressed good understanding. --->stable for home (2) Type 2 diabetes mellitus: A1c less than optimal at 8% - discussed "high sugars clog arteries" and discussed how eating habits (not just sugars but also starches) will worsen hyperglycemia. discussed checking postprandial glucoses to learn from foods. no med changes for now since lifestyle change, if done successfully, should regress his insulin resistance and bring sugars in line. if not, then GLP reasonable to consider (3) Weight gain: appears calories in > calories out. discussed calorie balance and "physics of weight loss" - steroids probably play a role but more in increasing appetite than fundamentally altering metabolic rate. he expressed understanding (4) Multiple myeloma: (5) Abdominal distention: CT wtihout pathologic findings - but did have reasonable amount of stool - which certainly could explain what he's been feeling. miralax. Total Time Total Time Spent Total Time Spent (In Minutes): ~90mins Discharge Plan Discharge Items Patient Disposition: Home - Self-Care Reason For Visit: PE Discharge Diagnosis: Pulmonary Embolus Activity: Resume your previous activity Non-emergency contact: Primary Care Provider and Oncologist Call non-emergency contact if: you have any medication questions, your symptoms worsen and your pain is not controlled Follow-up/Referrals: Dikc Carl MD [Primary Care Provider] - Diet: Carb Consistent or DM2 Addtl Attending Provider Instructions: You were evaluated in the hospital for abdominal distension that required a CT of your abdomen and pelvis. The CT scan showed no acute abnormalities, but did show blood clots at the bases of both lungs. A follow up CT angiography of your chest confirmed multiple large blood clots in your lungs. Because these are likely secondary to your cancer making your blood more clottable, you were started on Eliquis 10 mg in the hospital. You will continue on 10 mg twice daily for a total of one week, and then switch down to 5 mg twice daily going forward. This will likely be a daily medication for you as long as your cancer diagnosis is ongoing. We also discussed your Diabetes Type 2 management and your A1C of 8.0. The metformin you're currently on is helping control your sugars, but is maxed out. The next step that will help control your sugars the most is management of your diet and exercise. Avoiding high sugar and high carb foods AND doing 30 minutes of moderate level activity every day will go a long way in helping your body regulate sugar and fat control, and prevent future clogging of arteries [heart attacks and strokes]. Talk with your primary care provider about all of the resources in the office available to you about changing your lifestyles to support your type 2 diabetes. Contact your GI doctor to reschedule your upper endoscopy and follow up with your Oncologist and Primary Care Provider as needed. Pending Studies at Discharge: No Stand-Alone Forms: [employer], Smoking Cessation Medications and DC Order Prescriptions: New Eliquis 5 mg Tablet 10 mg PO BID 30 Days Qty: 70 RF: 0 Continued Suprep Bowel Prep Kit 17.5-3.13-1.6 gram recon soln See Rx Instructions PO .COMPLEX Qty: 354 RF: 0 Darzalex 20 mg/mL solution 20 mg IV DIRECTED RF: 0 Velcade 3.5 mg recon soln 3.5 mg subcut WK RF: 0 zoledronic acid 4 mg/5 mL solution 4 mg IV DIRECTED RF: 0 metformin 1,000 mg tablet 1,000 mg PO BID RF: 0 Zyrtec 10 mg capsule 10 mg PO QAM RF: 0 acetaminophen 325 mg Tablet 650 mg PO Q6H PRN (Reason: Pain) RF: 0 dicyclomine 20 mg Tablet 20 mg PO BID RF: 0 pantoprazole 40 mg Tablet,Delayed Release (Dr/Ec) 40 mg PO QAM RF: 0 dexamethasone [Decadron] 4 mg Tablet 2 mg PO QAM RF: 0 calcium citrate-vitamin D3 [Citracal Regular] 250 mg calcium- 200 unit Tablet 1 tab PO QAM RF: 0 ondansetron HCl 8 mg tablet 8 mg PO Q8H PRN (Reason: Nausea) RF: 0 prochlorperazine maleate 10 mg tablet 10 mg PO Q8H PRN (Reason: Nausea) RF: 0 acyclovir 400 mg tablet 400 mg PO BID RF: 0 Discharge Orders: Discharge Order (Routine); Ordered 12/31/19 Ordered By: Char Stubbs Admission Data Admit Date/Time: 12/30/19 10:17 Attending Provider: Juno Graves Admit Provider: Dick Cali Primary Care Provider: Dick Carl Other Providers: Char Stubbs ; Dick Cali Other Interventions: Discharge Summary Assessment (RN) Last Done: 12/31/19 14:23 DC Date/Time DO NOT enter until pt leaves facility: 12/31/19 15:15 Supervising Physician Co-Signing Physician Notes I personally examined the patient and verified all pierre points of history and exam, discussed case, and agree with decision making with Dr Stubbs. feeling good, wants to go home extensive discussions - see a/p below - answered all questions to the best of my ability and to his/'s satisfaction vitals noted nad heent nc at mmm breathing unlabored no accessory muscles good effort CT films and reports personally reviewed acute VTE - DVT and PE - incidental finding but not small/subsegmental - appears to definitely require treatment - especially in the context of active malignancy raising VTE risk. treat with eliquis - treatment will need to be extended/open ended. discussed risks/benefits. stable for home DM2 - uncontrolled - discussed diet changes and checking postprandial glucoses weight gain - discussed physics of weight loss / calorie balance/etc - he expressed good understanding of this stable for home, otherwise as above, about 90mins on care today Resident Activity Tracking Resident Involvement: Resident Care Provided Care Provided: Adult Hospital Medicine
[2019-12-31 14:26] VITALS: BP 103/65; PULSE 87
--- NOTE | 2019-12-31 17:24 | Billing Data ---
Date of Service December 31, 2019 Coding Level of Care Code D/C Day Management >30 mins
== END 2019-12-31 15:15 | disposition home or self-care (01) | DRG 299 ==
LOC: 2N 10:17 → SUATTDRO 10:17 → 2W 17:29

== ENCOUNTER 2021-02-20 03:30 | Observation (INO) ==
[2021-02-20] MEDS ORDERED: ONDANSETRON INJ 2 MG/ML 2 ML VIAL IV STA (03:51)
[2021-02-20] MEDS ORDERED: MoRPHine SULFATE 4 MG/ML 1 ML CARP\\VIAL IV STA (03:51)
[2021-02-20] MEDS ORDERED: SODIUM CHLORIDE 0.9% 1000ML 1,000 ML IV STA (03:51)
--- NOTE | 2021-02-20 03:58 | Emergency Department Note ---
History of Present Illness General Chief complaint: Abdominal Pain Stated complaint: ABDOMINAL PAIN Time Seen by Provider: 02/20/21 03:43 History of Present Illness Maximum Pain Intensity: 9 This 60-year-old with multiple myeloma presents to the ER complaining of right upper quadrant pain Location: Right upper quadrant Quality: Painful Severity: Moderate Duration: Tonight Timing: Started about an hour ago Context: Patient was concerned and came in Modifying factors: better with nothing; worse with palpation Patient denies prior abdominal surgeries. He gets chemo every 3 weeks. He is due for tomorrow. Patient denies chest pain, dyspnea, fevers, flulike illness, diarrhea. He still has gallbladder. Home Medications Medication Instructions Recorded Confirmed Type acyclovir 400 mg tablet 400 mg PO BID 03/22/19 02/12/21 History pantoprazole 40 mg tablet,delayed 40 mg PO QAM 05/19/19 02/12/21 History release apixaban 5 mg tablet (Eliquis) 5 mg PO BID 03/14/20 02/12/21 History insulin glargine 100 unit/mL (3 0 - 12 unit SUBCUT QAM 01/25/21 02/12/21 History mL) subcutaneous pen (Basaglar KwikPen U-100 Insulin) sulfamethoxazole 400 1 tab PO UD 01/25/21 02/12/21 History mg-trimethoprim 80 mg tablet (Bactrim) Allergies Allergy/AdvReac Type Severity Reaction Status Date / Time fentanyl Allergy Severe Vomiting Verified 02/12/21 08:44 Past Med/Surg History Medical History Back problem Deep vein thrombosis in leg 02/06 (REASON FOR ELIQUIS) Diverticular disease GERD (gastroesophageal reflux disease) History of chemotherapy oral chemo until 01/30, taking IV chemo and then will be starting with maintaince dose per audie scheduling Lytic lesion of bone on x-ray since 01/2019 and had radiation on this lesion Multiple myeloma (02/02/19) follows with [facility] protocol --- stem cell transplant in 08/2020 with audie and takes bactrim M- W- F. 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 Self 02/05/21 [place] teeth removed Family History Mother , age 93 / old age Breast cancer Father , age 67 Prostate cancer had radiation Coronary heart disease Diabetes Heart disease Brother Diabetes Brother No problems noted. Sister Asthma Addisons disease Daughter No problems noted. Daughter No problems noted. Son No problems noted. 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 Required: No Beliefs That Will Affect Care: None marital status: Current Living Situation: Spouse current occupational status: retired and disabled How many Children do You have: 3 Feels Safe at Home: Yes Childhood Exposure to Second-Hand Smoke: No Dental Care, Regularly: Yes Assistive Devices: Glasses Review of Systems A total of 10 systems reviewed and were otherwise negative Physical Exam Vital Signs Vital Signs - 24 hr 02/20/21 03:34 02/20/21 04:00 02/20/21 04:11 Temperature 36.6 C Temperature Source Temporal Artery Scan Pulse Rate 63 58 L Pulse Rate [Apical] 69 Pulse Rhythm Regular Respiratory Rate 20 22 22 Respiratory Effort / Characteristics Non-Labored Spontaneous Respiratory Depth Normal Blood Pressure 170/83 H Blood Pressure [Right Arm] 148/83 H Blood Pressure Mean 112 Blood Pressure Mean [Right Arm] 104 Blood Pressure Position [Right Arm] Lying Pulse Oximetry 100 100 100 Oxygen Delivery Method Room Air Room Air Room Air Oxygen Flow Rate Sepsis Recent Fever Within 48 Hours No Sepsis New/Unexplained Change in Mental Status N/A Sepsis Action Taken by Nursing No Action Required Oxygen Flow Rate - Titration Pulse Oximetry Post Tiitration 02/20/21 05:26 02/20/21 05:30 Temperature Temperature Source Pulse Rate Pulse Rate [Apical] 63 Pulse Rhythm Respiratory Rate 16 Respiratory Effort / Characteristics Non-Labored Spontaneous Respiratory Depth Normal Blood Pressure Blood Pressure [Right Arm] 134/75 Blood Pressure Mean Blood Pressure Mean [Right Arm] 94 Blood Pressure Position [Right Arm] Lying Pulse Oximetry 85 L 99 Oxygen Delivery Method Room Air Nasal Cannula Nasal Cannula Oxygen Flow Rate 2 Sepsis Recent Fever Within 48 Hours Sepsis New/Unexplained Change in Mental Status Sepsis Action Taken by Nursing Oxygen Flow Rate - Titration 2 Pulse Oximetry Post Tiitration 100 VITALS: Vitals are noted on the nurse's note and reviewed by myself. Vital signs stable. GENERAL: Pleasant male, in no acute distress, nondiaphoretic, well-developed well-nourished. SKIN: The skin was without rashes, erythema, edema, or bruising. There is no tenting of the skin. Capillary reflex less than 2 seconds. HEAD: Normocephalic atraumatic. EARS: External auditory canals clear, EYES: Pupils equal round and reactive to light and accommodation. Conjunctivae without injection, sclerae without icterus. Extraocular movements intact. NOSE: Patent, turbinates without inflammation or discharge. MOUTH: Mucous membranes moist. Pharynx without erythema or exudate. Uvula midline. Airway patent. Tongue does not deviate. NECK: Supple without nuchal rigidity. No lymphadenopathy. No thyromegaly. Cervical spine is nontender. No JVD. HEART: Regular rate and rhythm LUNGS: Clear to auscultation bilaterally without wheezes, rales or rhonchi. No retractions or accessory muscle use. ABDOMEN: Positive bowel sounds x 4. Normal tympanic percussion. Soft, tender to palpation right upper quadrant, without masses or organomegaly. No guarding or rebound tenderness. No CVA tenderness MUSCULOSKELETAL: No muscle atrophy, erythema, or edema noted. NEURO: Patient was alert and oriented to person place and time. Normal sensation to light and sharp touch. No focal neurological deficits. Course Administered Medications Discontinued Medications Hydromorphone HCl (Hydromorphone Inj 1 Mg/Ml Syringe) 1 mg IV NOW STA Stop: 02/20/21 05:03 Last Admin: 02/20/21 05:05 Dose: 1 mg Documented by: [id number] Sodium Chloride (Nss 1000ml) 1,000 mls @ 999 mls/hr IV .Q1H1M STA Stop: 02/20/21 04:51 Last Infusion: 02/20/21 05:07 Dose: 0 mls/hr Documented by: [id number] Admin: 02/20/21 04:03 Dose: 999 mls/hr Documented by: [id number] Cefoxitin Sodium (Mefoxin) 2,000 mg in 60 mls @ 100 mls/hr IV NOW STA Stop: 02/20/21 06:12 Last Admin: 02/20/21 05:46 Dose: 100 mls/hr Documented by: [id number] Morphine Sulfate (Morphine Sulfate 4 Mg/Ml 1 Ml Carp\\Vial) 4 mg IV NOW STA Stop: 02/20/21 03:52 Last Admin: 02/20/21 04:01 Dose: 4 mg Documented by: [id number] Ondansetron HCl (Ondansetron Inj 2 Mg/Ml 2 Ml Vial) 4 mg IV NOW STA Stop: 02/20/21 03:52 Last Admin: 02/20/21 04:01 Dose: 4 mg Documented by: [id number] Medical Decision Making Medical Records Attestation: I reviewed the patient's medical records. Home Medications Current Medication List: was personally reviewed by me Laboratory Data Attestation: I reviewed the patient's lab results. Result diagrams: 02/20/21 03:55 02/20/21 03:55 Lab Results 02/20/21 02/20/21 02/20/21 Range/Units 03:55 03:55 05:09 WBC 3.39 L (4.8-10.8) K/uL RBC 3.32 L (4.7-6.1) M/uL Hgb 11.4 L (14.0-18.0) g/dL Hct 33.2 L (42-52) % MCV 100.0 (80-100) fL MCH 34.3 H (25-34) pg MCHC 34.3 (32-36) g/dL RDW Std Deviation 59.6 H (36.4-46.3) fL RDW Coeff of George 16.3 H (11.5-14.5) % Plt Count 197 (130-400) K/uL MPV 8.9 (7.4-10.4) fL Immature Gran % (Auto) 0.6 % Neut % (Auto) 66.3 % Lymph % (Auto) 20.1 % [place] % (Auto) 7.7 % Eos % (Auto) 3.2 % Baso % (Auto) 2.1 % Neut # (Auto) 2.25 (1.4-6.5) K/uL Lymph # (Auto) 0.68 L (1.2-3.4) K/uL [place] # (Auto) 0.26 (0.11-0.59) K/uL Eos # (Auto) 0.11 (0-0.5) K/uL Baso # (Auto) 0.07 (0-0.2) K/uL Immature Gran # (Auto) 0.02 (0.00-0.02) K/uL Sodium 139 (136-145) mmol/L Potassium 4.0 (3.5-5.1) mmol/L Chloride 110 H (98-107) mmol/L Carbon Dioxide 23 (21-32) mmol/L Anion Gap 6.0 (3-11) BUN 24 H (7-18) mg/dl Creatinine 1.44 H D (0.6-1.4) mg/dl Est Cr Clr Drug Dosing 68.1 ml/min Est GFR ( Amer) 61.2 ml/min Est GFR (Non-Af Amer) 52.8 ml/min BUN/Creatinine Ratio 16.4 (10-20) Glucose 189 H (70-99) mg/dl Calcium 9.0 (8.5-10.1) mg/dl Total Bilirubin 0.8 (0.2-1) mg/dl AST 14 L (15-37) U/L ALT 25 (12-78) U/L Alkaline Phosphatase 166 H (45-117) U/L Total Protein 6.9 (6.4-8.2) gm/dl Albumin 3.6 (3.4-5.0) gm/dl Globulin 3.3 (2.5-4.0) gm/dl Albumin/Globulin Ratio 1.1 (0.9-2) Lipase 66 L (73-393) U/L COVID-19 Eval Order Covid19 at [facility] Imaging Data Attestation: I personally reviewed and interpreted this imaging study as follows: MDM Narrative Prior records/ancillary studies reviewed. Triage Nursing notes reviewed. Additional history obtained from family. The patient's history was concerning for abdominal pain. Differential diagnosis: Etiologies such as appendicitis, diverticulitis, PUD, biliary pathology, UTI, pancreatitis, obstruction, mesenteric ischemia, aortic pathology, infections, inflammatory bowel disease, renal colic, as well as others were entertained. Physical examination findings: As above. ER treatment provided: An order was placed for continuous cardiac monitoring. The monitor shows a rate of 60-1 10 with a sinus rhythm. IV fluids, morphine, Zofran, Dilaudid, Mefoxin On reassessment the patient felt better. Diagnostics interpreted by me: The labs revealed no leukocytosis. Mildly elevated alk phos. Imaging studies: Preliminary Findings Only See Final Report For Complete Findings US RUQ: Impression: Fatty liver. 7 mm left hepatic cyst. 1.5 cm gallstone. Gallbladder wall thickness measures 4.2 mm. Trace pericholecystic fluid. Patient on pain medications ultrasound Coon sign could not be evaluated. These findings are suspicious for acute cholecystitis. Ringdown artifact in the gallbladder wall suggestive of adenomyomatosis. CBD caliber is within normal limits, measuring 4.4 mm Radiologist: Brayden Coronado MD Consultation: A consultation was placed with Dr Jose Cruz KOLB. The case was discussed and diagnostics were reviewed. She request medical admission as the patient has multiple medical problems. Medicine was consulted. The patient was evaluated in the ER for further treatment. Exam and history seem consistent with acute cholecystitis. Patient was started on antibiotics. Surgery medicine were consulted. He will be admitted to the medical service. By the evaluation outlined above emergent etiologies such as appendicitis, diverticulitis, UTI, pancreatitis, obstruction, mesenteric ischemia, aortic pathology, inflammatory bowel disease, renal colic, as well as others were deemed relatively unlikely. The pt informed about the findings as listed above. All questions were answered and pleased with the treatment. The chart was completed utilizing [employer] Speech voice recognition software. Grammatical errors, random word insertions, pronoun errors, and incomplete sentences are an occassional consequence of this system due to software limitations, ambient noise, and hardware issues. Any formal questions or concerns about the content, text, or information contained within the body of this dictation should be directly addressed to the physician players assistant for clarification. Impression & Plan Acute cholecystitis Discharge Plan Visit Data Chief Complaint: Abdominal Pain Stated Complaint: ABDOMINAL PAIN ED Provider: Devin Colmenares ED Midlevel Provider: Kasandra Boyd Discharge Problem: Acute cholecystitis Patient Disposition: Admitted As Inpatient Condition: Fair Forms Stand Alone Forms: My [facility] Prescriptions Prescriptions: No Action Eliquis 5 mg tablet 5 mg PO BID RF: 0 sulfamethoxazole-trimethoprim [Bactrim] 400-80 mg tablet 1 tab PO UD RF: 0 pantoprazole 40 mg Tablet,Delayed Release (Dr/Ec) 40 mg PO QAM RF: 0 acyclovir 400 mg tablet 400 mg PO BID RF: 0 Basaglar KwikPen U-100 Insulin 100 unit/mL (3 mL) Insulin Pen 0 - 12 unit SUBCUT QAM RF: 0 Referrals Referrals: Dick Carl MD [Primary Care Provider] -
[2021-02-20 04:06] LABS: Basophils # (auto) 0.07 K/uL (0-0.2); Basophils % (auto) 2.1 %; Eosinophils # (auto) 0.11 K/uL (0-0.5); Eosinophils % (auto) 3.2 %; Hematocrit (blood only) 33.2 % (42-52); Hemoglobin 11.4 g/dL (14.0-18.0); Immature Granulocytes # (auto) 0.02 K/uL (0.00-0.02); Immature Granulocytes % (auto) 0.6 %; Lymphocytes # (auto) 0.68 K/uL (1.2-3.4); Lymphocytes % (auto) 20.1 %; Mean Corpuscular Hemoglobin 34.3 pg (25-34); Mean Corpuscular Hgb Conc 34.3 g/dL (32-36); Mean Platelet Volume 8.9 fL (7.4-10.4); Monocytes # (auto) 0.26 K/uL (0.11-0.59); Monocytes % (auto) 7.7 %; Neutrophils # (auto) 2.25 K/uL (1.4-6.5); Neutrophils % (auto) 66.3 %; Platelet Count 197 K/uL (130-400); RDW Coefficient of Variation 16.3 % (11.5-14.5); RDW Standard Deviation 59.6 fL (36.4-46.3); Red Blood Count 3.32 M/uL (4.7-6.1); White Blood Count 3.39 K/uL (4.8-10.8)
[2021-02-20 04:22] LABS: Albumin Level 3.6 gm/dl (3.4-5.0); BUN Creatinine Ratio 16.4 (10-20); Creatinine Clr Calc Pharmacy 68.1 ml/min; Est GFR (African American) 61.2 ml/min; Est GFR (Non-African American) 52.8 ml/min
[2021-02-20 04:25] LABS: Albumin Globulin Ratio 1.1 (0.9-2); Bilirubin,Total 0.8 mg/dl (0.2-1); Globulin 3.3 gm/dl (2.5-4.0); Total Protein 6.9 gm/dl (6.4-8.2)
[2021-02-20] MEDS ORDERED: HYDROmorphone INJ 1 MG/ML SYRINGE IV STA (05:02)
[2021-02-20] MEDS ORDERED: cefOXitin 2,000 MG/60 ML BAG IV STA (05:37)
--- NOTE | 2021-02-20 06:48 | History & Physical Report ---
Date of Service February 20, 2021 Assessment & Plan (1) Acute cholecystitis: Plan: Ultrasound findings suggestive of acute cholecystitis 1.5 cm gallstone Normal LFTs NPO Zosyn 4.5 g IV every 8 hours Zosyn 4 g IV every 6 hours as needed Famotidine 20 mg IV every 12 hours NSS at 80 mils per hour General surgery consult Dr. Self asked that Eliquis be reversed to do surgery today. (2) Pulmonary embolism: Plan: Last apixaban dose was last evening We will hold prior to surgery. Reversed today as noted above Start heparin low-dose without bolus in the interim for anticoagulation if needs anticoagulation and cannot take Eliquis (3) Multiple myeloma: Plan: Continue acyclovir and Bactrim prophylaxis. If cannot take oral, may need to take IV (4) Acute kidney injury: Plan: Creatinine 1.44 upon admission, with base 1.11 NSS at 80 mils per hour Recheck laboratories in a.m. (5) Gallstone: Plan: See above Can be discussed with surgery whether an MRCP is indicated as well (6) Multiple myeloma: Plan: Case discussed with Dr. Crooks History of Present Illness Chief Complaint: The patient presents to the emergency department with acute onset of severe epigastric pain and nausea without vomiting that began earlier this morning while in bed Primary Care Provider: Dick Carl MD The patient is a 60-year-old male with a past medical history including syncope, pancytopenia, lumbar compression fracture, wide-complex tachycardia, BRBPR, septicemia, diverticulosis, diverticulitis, multiple myeloma, pulmonary embolism, diabetes mellitus type 2, lytic lesion of bone and GERD. Patient presents with symptoms as noted above Work-up in the emergency department including an ultrasound right upper quadrant which showed the following: Fatty liver. 7 mm left hepatic cyst. 1.5 cm ga llstone. Gallbladder wall thickness measuring 4.2 mm. Trace pericholecystic fluid. These findings are suspicious for acute cholecystitis. Ringdown artifact in the gallbladder wall suggestive of adenomyomatosis. CBD caliber is within normal limits at 4.4 mm Significant laboratories: Glucose 189, creatinine 1.44 Allergies Allergy/AdvReac Type Severity Reaction Status Date / Time fentanyl Allergy Severe Vomiting Verified 02/12/21 08:44 Home Medications Medication Instructions Recorded Confirmed Type acyclovir 400 mg tablet 400 mg PO BID 03/22/19 02/12/21 History pantoprazole 40 mg tablet,delayed 40 mg PO QAM 05/19/19 02/12/21 History release apixaban 5 mg tablet (Eliquis) 5 mg PO BID 03/14/20 02/12/21 History insulin glargine 100 unit/mL (3 0 - 12 unit SUBCUT QAM 01/25/21 02/12/21 History mL) subcutaneous pen (Basaglar KwikPen U-100 Insulin) sulfamethoxazole 400 1 tab PO UD 01/25/21 02/12/21 History mg-trimethoprim 80 mg tablet (Bactrim) Past Med/Surg History Medical History Back problem Deep vein thrombosis in leg 02/06 (REASON FOR ELIQUIS) Diverticular disease GERD (gastroesophageal reflux disease) History of chemotherapy oral chemo until 01/30, taking IV chemo and then will be starting with maintaince dose per audie scheduling Lytic lesion of bone on x-ray since 01/2019 and had radiation on this lesion Multiple myeloma (02/02/19) follows with [facility] protocol --- stem cell transplant in 08/2020 with audie and takes bactrim M- W- F. 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 Self 02/05/21 [place] teeth removed Family History Mother , age 93 / old age Breast cancer Father , age 67 Prostate cancer had radiation Coronary heart disease Diabetes Heart disease Brother Diabetes Brother No problems noted. Sister Asthma Addisons disease Daughter No problems noted. Daughter No problems noted. Son No problems noted. 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 Beliefs That Will Affect Care: None marital status: Current Living Situation: Spouse current occupational status: retired and disabled How many Children do You have: 3 Feels Safe at Home: Yes Childhood Exposure to Second-Hand Smoke: No Dental Care, Regularly: Yes Assistive Devices: Glasses Review of Systems Review of Systems: The patient denies chest pain, palpitations, shortness of breath, dyspnea on exertion, cough, lower extremity swelling, sore throat, fevers, chills, sweats, vomiting, diarrhea , constipation, pelvic pain, blood in urine or stool, dysuria, urinary frequency or urgency, lightheadedness, dizziness, headache, memory loss, loss of consciousness, rash, abnormal bruising or bleeding, imbalance, focal or generalized weakness, numbness or tingling in arms or legs, generalized arthralgias or myalgias, neck pain, or night sweats. The review of systems is otherwise negative other than for that already noted above, and at least 10 systems have been reviewed. Physical Exam Physical Exam: The patient is awake, alert and oriented 3, well developed and well nourished, normocephalic and atraumatic, lying in bed and in mild to moderate distress secondary to abdominal pain HEENT--PERRL, EOMI, mucous membranes and oropharynx dry. Neck--supple. No JVD. No bruits. Thyroid normal, trachea midline, no adenopathy. Heart--normal S1 and S2. No murmurs, rubs or gallops. Lungs--clear bilaterally, no respiratory distress, no accessory muscle use. Abdomen--normal bowel sounds and soft. Epigastric and right upper quadrant tenderness. Nondistended. Extremities--no cyanosis or clubbing. No edema. Dermatologic--normal skin turgor, normal color, no abnormal lymph nodes, no rash. Neurologic--cranial nerves II through XII grossly intact. Rheumatologic--normal range of motion. Psychiatric--normal affect. Results & Data Results & Data ([facility]) Vital Signs (Past 12 Hours) Vital Signs Temp Pulse Pulse Resp BP BP Pulse Ox 02/20/21 05:30 63 16 134/75 99 02/20/21 05:26 85 L 02/20/21 04:11 58 L 22 100 02/20/21 04:00 69 22 148/83 H 100 02/20/21 03:34 97.9 F 63 20 170/83 H 100 Laboratory Results Laboratory Results WBC 3.39 K/uL (4.8-10.8) L 02/20/21 03:55 RBC 3.32 M/uL (4.7-6.1) L 02/20/21 03:55 Hgb 11.4 g/dL (14.0-18.0) L 02/20/21 03:55 Hct 33.2 % (42-52) L 02/20/21 03:55 MCV 100.0 fL (80-100) 02/20/21 03:55 MCH 34.3 pg (25-34) H 02/20/21 03:55 MCHC 34.3 g/dL (32-36) 02/20/21 03:55 RDW Std Deviation 59.6 fL (36.4-46.3) H 02/20/21 03:55 RDW Coeff of George 16.3 % (11.5-14.5) H 02/20/21 03:55 Plt Count 197 K/uL (130-400) 02/20/21 03:55 MPV 8.9 fL (7.4-10.4) 02/20/21 03:55 Immature Gran % (Auto) 0.6 % 02/20/21 03:55 Neut % (Auto) 66.3 % 02/20/21 03:55 Lymph % (Auto) 20.1 % 02/20/21 03:55 [place] % (Auto) 7.7 % 02/20/21 03:55 Eos % (Auto) 3.2 % 02/20/21 03:55 Baso % (Auto) 2.1 % 02/20/21 03:55 Neut # (Auto) 2.25 K/uL (1.4-6.5) 02/20/21 03:55 Lymph # (Auto) 0.68 K/uL (1.2-3.4) L 02/20/21 03:55 [place] # (Auto) 0.26 K/uL (0.11-0.59) 02/20/21 03:55 Eos # (Auto) 0.11 K/uL (0-0.5) 02/20/21 03:55 Baso # (Auto) 0.07 K/uL (0-0.2) 02/20/21 03:55 Immature Gran # (Auto) 0.02 K/uL (0.00-0.02) 02/20/21 03:55 Sodium 139 mmol/L (136-145) 02/20/21 03:55 Potassium 4.0 mmol/L (3.5-5.1) 02/20/21 03:55 Chloride 110 mmol/L (98-107) H 02/20/21 03:55 Carbon Dioxide 23 mmol/L (21-32) 02/20/21 03:55 Anion Gap 6.0 (3-11) 02/20/21 03:55 BUN 24 mg/dl (7-18) H 02/20/21 03:55 Creatinine 1.44 mg/dl (0.6-1.4) H D 02/20/21 03:55 Est Cr Clr Drug Dosing 68.1 ml/min 02/20/21 03:55 Est GFR ( Amer) 61.2 ml/min 02/20/21 03:55 Est GFR (Non-Af Amer) 52.8 ml/min 02/20/21 03:55 BUN/Creatinine Ratio 16.4 (10-20) 02/20/21 03:55 Glucose 189 mg/dl (70-99) H 02/20/21 03:55 Calcium 9.0 mg/dl (8.5-10.1) 02/20/21 03:55 Total Bilirubin 0.8 mg/dl (0.2-1) 02/20/21 03:55 AST 14 U/L (15-37) L 02/20/21 03:55 ALT 25 U/L (12-78) 02/20/21 03:55 Alkaline Phosphatase 166 U/L (45-117) H 02/20/21 03:55 Total Protein 6.9 gm/dl (6.4-8.2) 02/20/21 03:55 Albumin 3.6 gm/dl (3.4-5.0) 02/20/21 03:55 Globulin 3.3 gm/dl (2.5-4.0) 02/20/21 03:55 Albumin/Globulin Ratio 1.1 (0.9-2) 02/20/21 03:55 Lipase 66 U/L (73-393) L 02/20/21 03:55 COVID-19 Eval Order Covid19 at [facility] 02/20/21 05:09 SARS-CoV-2 (PCR) NEGATIVE (Negative) 02/20/21 05:09 Diagnostic Findings [facility] Patient: BLANQUITA ALMEIDA (Male) : 62 Status: ER Date: 02/20/21 04:58 Room #: History: RUQ PAIN Slices: 65 Priors: CT 03/05/20 Tech: Kassy Manriquez @ [phone] Exams: US RUQ Contrast: Accession Numbers: [id number] Referring Physician: REFERRED SELF Preliminary Findings Only See Final Report For Complete Findings US RUQ: Impression: Fatty liver. 7 mm left hepatic cyst. 1.5 cm gallstone. Gallbladder wall thickness measures 4.2 mm. Trace pericholecystic fluid. Patient on pain medications ultrasound Coon sign could not be evaluated. These findings are suspicious for acute cholecystitis. Ringdown artifact in the gallbladder wall suggestive of adenomyomatosis. CBD caliber is within normal limits, measuring 4.4 mm Radiologist: Brayden Coronado MD Study ready at 05:07 and initial results transmitted at 05:30 *This report constitutes a preliminary interpretation only. Non-acute findings felt to be unrelated to the clinical presentation may not be discussed in this report. The study will be interpreted and a final report will be generated by the local Radiologist the following shift. To reach the hospital radiology department call [phone]. If a discrepancy is found between the preliminary and final interpretations of this study, please notify us via our Client Portal at [email or web address] [email or web address].You can also fax this report with a description of the discrepancy, or include the final report, to our daytime fax number [phone].If faxing, please indicate the severity of discrepancy using one of the following categories: [ ] 1 - Agree/Informational [ ] 2 - Unlikely to Affect Management [ ] 3 - Possible Eventual Change of Management [ ] 4 - Probable Immediate Change of Management For all other patient related information, please fax us at [phone] [id number] [phone] Code Status & VTE Plan Code Status Full code VTE Prophylaxis Plan VTE Prophylaxis will be ordered: Yes PG Care Time/CCT Total # of Minutes Spent Total Time Spent with Patient: Total time spent is greater than 50% in coordination of care (as documented) at patient's floor/unit and/or counseling patient: Coding Level of Care Code 79239 Initial Inpt Care Lvl 3 Diagnoses Acute cholecystitis K81.0 Pulmonary embolism I26.99 Multiple myeloma C90.00 Multiple myeloma remission status: not in remission Acute kidney injury N17.9 Gallstone K80.20 Cholecystitis presence: without cholecystitis Biliary obstruction: without biliary obstruction Multiple myeloma C90.00 (1) Multiple myeloma Multiple myeloma remission status: not in remission Qualified Code(s): C90.00 - Multiple myeloma not having achieved remission (2) Gallstone Cholecystitis presence: without cholecystitis Biliary obstruction: without biliary obstruction Qualified Code(s): K80.20 - Calculus of gallbladder without cholecystitis without obstruction
[2021-02-20 06:49] LABS: Appearance Urine Clear (Clear); Bilirubin Urine Negative (Negative); Blood Urine Negative (Negative); Color Urine Yellow; Glucose Urine UA Negative (Negative); Ketones Urine Negative (Negative); Leukocyte Esterase Urine Negative (Negative); Nitrite Urine Negative (Negative); Protein Urine Negative (Negative); Specific Gravity Urine 1.016 (1.000-1.030); Urobilinogen Urine Negative (Negative); pH Urine 6.5 (4.5-7.5)
--- NOTE | 2021-02-20 07:50 | Ultrasound Report ---
US gallbladder HISTORY: 60 years-old Male ruq pain acute right upper quadrant abdominal pain COMPARISON: CTA chest 08/07/2020, PET CT 07/19/2020 TECHNIQUE: Multiple real-time sonographic images of the abdominal right upper quadrant were obtained assessing grayscale appearance and color flow FINDINGS: The pancreas is mostly obscured by bowel gas. Unremarkable appearance of the liver. No hepatic mass i dentified. 9 mm left hepatic lobe cyst. Adenomyomatosis of the gallbladder fundus. Mild gallbladder d istention measuring up to 9.8 cm in length. Gallbladder wall is mildly edematous measuring up to 4 mm in thickness. Trace pericholecystic fluid. 1.5 cm stone within the gallbladder neck. Sonographic Mur phy sign was unable to be assessed secondary to recent pain medication administered to the patient. N ormal common bile duct, 4 mm. The imaged right kidney is unremarkable without hydronephrosis. IMPRESSION: 1. Mild gallbladder distention with cholelithiasis, gallbladder wall thickening and trace pericholecy stic fluid is suspicious for acute cholecystitis. 2. No biliary ductal dilation. 3. Adenomyomatosis of the gallbladder fundus. ACT 112: Negative or not required by law. The above report was generated using voice recognition software. It may contain grammatical, syntax o r spelling errors. Electronically signed by: Misha Johnson M.D. 02/20/2021 7:49 AM
--- NOTE | 2021-02-20 07:50 | Surgery Consultation ---
Date of Consultation February 20, 2021 Assessment & Plan (1) Acute cholecystitis: Patient is for laparoscopic cholecystectomy possible open operation We will give him some Kcentra just prior to the operation He will require overnight observation History of Present Illness Attending Physician: Gerardo Naik MD History of Present Illness 60-year-old male presenting the emergency room with severe upper abdominal pain Tenderness in the right upper quadrant Ultrasound shows a thickened gallbladder with a stone in the neck consistent with acute cholecystitis from obstruction Patient has a history of multiple myeloma, DVT, bilateral PE-he is on Eliquis which he took 5 mg last evening at 9:30 PM Allergies Allergy/AdvReac Type Severity Reaction Status Date / Time fentanyl Allergy Severe Vomiting Verified 02/20/21 06:50 Home Medications Medication Instructions Recorded Confirmed Type acyclovir 400 mg tablet 400 mg PO BID 03/22/19 02/20/21 History pantoprazole 40 mg tablet,delayed 40 mg PO QAM 05/19/19 02/20/21 History release apixaban 5 mg tablet (Eliquis) 5 mg PO BID 03/14/20 02/20/21 History insulin glargine 100 unit/mL (3 0 - 12 unit SUBCUT QAM 01/25/21 02/20/21 History mL) subcutaneous pen (Basaglar KwikPen U-100 Insulin) sulfamethoxazole 400 1 tab PO UD 01/25/21 02/20/21 History mg-trimethoprim 80 mg tablet (Bactrim) Bifidobacterium infantis 4 mg 4 mg PO DAILY 02/20/21 02/20/21 History capsule (Align) Patient History Medical History Back problem Deep vein thrombosis in leg 02/06 (REASON FOR ELIQUIS) Diverticular disease GERD (gastroesophageal reflux disease) History of chemotherapy oral chemo until 01/30, taking IV chemo and then will be starting with maintaince dose per audie scheduling Lytic lesion of bone on x-ray since 01/2019 and had radiation on this lesion Multiple myeloma (02/02/19) follows with [facility] protocol --- stem cell transplant in 08/2020 with audie and takes bactrim M- W- F. 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 Self 02/05/21 [place] teeth removed Family History Mother , age 93 / old age Breast cancer Father , age 67 Prostate cancer had radiation Coronary heart disease Diabetes Heart disease Brother Diabetes Brother No problems noted. Sister Asthma Addisons disease Daughter No problems noted. Daughter No problems noted. Son No problems noted. 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 Beliefs That Will Affect Care: None marital status: Current Living Situation: Spouse current occupational status: retired and disabled How many Children do You have: 3 Feels Safe at Home: Yes Childhood Exposure to Second-Hand Smoke: No Dental Care, Regularly: Yes Assistive Devices: Glasses Review of Systems Review of Systems: All systems reviewed & are unremarkable except as noted in HPI & below Physical Exam Physical Exam: Patient is in the emergency room he is in no distress but does complain of abdominal pain Constitutional: well developed and well nourished; no acute distress Eyes: + anicteric sclerae Respiratory: normal respiratory effort; no respiratory distress Cardiovascular: Rate/Rhythm: regular rate Gastrointestinal (Abdomen): Patient has abdominal pain to palpation of the right upper quadrant Musculoskeletal: No deformities Skin: Warm dry Psychiatric: Normal affect and alert Results & Data ([facility]) Vital Signs (Past 12 Hours) Vital Signs Temp Pulse Pulse Resp BP BP Pulse Ox 02/20/21 07:30 67 16 132/78 100 02/20/21 07:26 69 16 126/76 100 02/20/21 07:00 67 18 122/74 99 02/20/21 06:30 69 20 130/80 97 02/20/21 05:30 63 16 134/75 99 02/20/21 05:26 85 L 02/20/21 04:11 58 L 22 100 02/20/21 04:00 69 22 148/83 H 100 02/20/21 03:34 36.6 C 63 20 170/83 H 100 Laboratory Results I reviewed his laboratories, his liver functions are normal PG Care Time/CCT Total # of Minutes Spent Total Time Spent with Patient: Total time spent is greater than 50% in coordination of care (as documented) at patient's floor/unit and/or counseling patient: Coding Level of Care Code 14446 Inpt Consult Level 3 Diagnoses Acute cholecystitis K81.0
[2021-02-20] MEDS ORDERED: KCENTRA (500unit vial) 2000 units IVP IV SCH (09:00)
[2021-02-20] MEDS ORDERED: ATROPINE SULFATE 0.1 MG/ML 10ML SYR IV PRN (10:46)
[2021-02-20] MEDS ORDERED: HYDROmorphone INJ 1 MG/ML SYRINGE IV PRN (10:46)
[2021-02-20] MEDS ORDERED: LABETALOL HCL IV 5 MG/ML 20ML IV PRN (10:46)
[2021-02-20] MEDS ORDERED: PHENYLEPHRINE 100MCG/ML 5ML SYR IV PRN (10:46)
[2021-02-20] MEDS ORDERED: ePHEDrine sulfate 50 MG/ML AMP IV PRN (10:46)
[2021-02-20] MEDS ORDERED: ONDANSETRON INJ 2 MG/ML 2 ML VIAL IV PRN ×2 (10:46→17:30)
--- NOTE | 2021-02-20 10:50 | Anesthesiology Consultation ---
Date of Service February 20, 2021 Assessment & Plan (1) Encounter for pre-operative examination: Chart Review Chart Review: Acceptable Risk for Surgery and Patient NOT seen in Pre Admission Testing Consults Requested none History Surgery Operation Date: 02/20/21 09:10 Proposed Procedures p Laparoscopic Cholecystectomy - Armand Self MD, FACS Height/Weight Height: 6 ft 1 in Weight: 98.2 kg Allergies Allergy/AdvReac Type Severity Reaction Status Date / Time fentanyl Allergy Severe Vomiting Verified 02/20/21 06:50 Medications Home Medications Medication Instructions Recorded Confirmed Last Taken acyclovir 400 mg tablet 400 mg PO BID 03/22/19 02/20/21 02/19/21 pantoprazole 40 mg tablet,delayed 40 mg PO QAM 05/19/19 02/20/21 02/19/21 release apixaban 5 mg tablet (Eliquis) 5 mg PO BID 03/14/20 02/20/21 02/19/21 insulin glargine 100 unit/mL (3 0 - 12 unit SUBCUT QAM 01/25/21 02/20/21 02/19/21 mL) subcutaneous pen (Basaglar 8 units KwikPen U-100 Insulin) sulfamethoxazole 400 1 tab PO UD 01/25/21 02/20/21 02/19/21 mg-trimethoprim 80 mg tablet (Bactrim) Bifidobacterium infantis 4 mg 4 mg PO DAILY 02/20/21 02/20/21 02/19/21 capsule (Align) Past Medical History Medical History Anemia Back problem Deep vein thrombosis in leg 02/06 (REASON FOR ELIQUIS) Diverticular disease GERD (gastroesophageal reflux disease) History of chemotherapy oral chemo until 01/30, taking IV chemo and then will be starting with maintaince dose per audie scheduling Lytic lesion of bone on x-ray since 01/2019 and had radiation on this lesion Multiple myeloma (02/02/19) follows with [facility] protocol --- stem cell transplant in 08/2020 with audie and takes bactrim M- W- F. this is retirement Neoplasm of bone Plantar fascial fibromatosis PT UNAWARE Prediabetes STEROID INDUCED "MY SUGAR GOES UP AND DOWN" checks sugar daily Pulmonary embolism "01/2019 went from leg to lung" (REASON FOR ELIQUIS) Past Family History Family History Mother , age 93 / old age Breast cancer Father , age 67 Prostate cancer had radiation Coronary heart disease Diabetes Heart disease Brother Diabetes Brother No problems noted. Sister Asthma Addisons disease Daughter No problems noted. Daughter No problems noted. Son No problems noted. Other Family history non-contributory Past Surgical History Surgical History H/O kyphoplasty [facility] May 2019 H/O wrist surgery RT Hx of biopsy ABDOMINAL LESION LOCATED OUTSIDE PANCREAS Hx of colonoscopy May 2020 Port-A-Cath in place (02/05/21) Insertion of Access Port Left Cephalic Dr. Self 02/05/21 [place] teeth removed Social History Smoking Status: Never smoker tobacco type: smokeless tobacco Hx Alcohol Use: Yes Alcohol type: beer alcohol intake frequency: a few times a month Hx Substance Use: No substance use type: does not use Physical Exam Vital Signs Last Vital Signs Temp 36.6 C 02/20/21 03:34 Pulse 62 02/20/21 10:40 Resp 18 02/20/21 10:40 BP 131/82 02/20/21 10:40 Pulse Ox 100 02/20/21 10:40 Testing Laboratory Results 02/20/21 03:55 02/20/21 03:55 Urine Color Yellow 02/20/21 06:40 Urine Appearance Clear (Clear) 02/20/21 06:40 Urine pH 6.5 (4.5-7.5) 02/20/21 06:[address] [place] 1.016 (1.000-1.030) 02/20/21 06:40 Urine Protein Negative (Negative) 02/20/21 06:40 Urine Glucose (UA) Negative (Negative) 02/20/21 06:40 Urine Ketones Negative (Negative) 02/20/21 06:40 Urine Nitrite Negative (Negative) 02/20/21 06:40 Ur Leukocyte Esterase Negative (Negative) 02/20/21 06:40 Electrocardiogram Date: 02/20/21 Findings: + SB @ (58) Chest X-Ray Date: 02/05/21 XR chest 1V portable CLINICAL HISTORY: Port placement COMPARISON STUDY: Chest CT August 07, 2020. FINDINGS: There is no pneumothorax placement of a left subclavian [id number]. Catheter tip projects over the cavoatrial junction. Catheter is intact. Cardiomegaly is unchanged. No evidence for pulmonary edema. There is no consolidation. IMPRESSION: No pneumothorax placement of a left subclavian [id number]. ACT 112: Negative or not required by law. Electronically signed by: Mendel Roach M.D. 02/05/2021 8:17 AM Dictated: 02/05/21 0816Transcribed: 02/05/21 0816
[2021-02-20] MEDS ORDERED: BUPIVACAINE 0.5 % 5 MG/1 ML MPF 30ML VIAL ONE (11:02)
[2021-02-20] MEDS ORDERED: MIDAZOLAM HCL 1 MG/ML 2ML VIAL ONE (11:18)
[2021-02-20] MEDS ORDERED: HYDROmorphone INJ 2 MG/ML SYR/VIAL ONE (11:18)
[2021-02-20] MEDS ORDERED: SCOPOLAMINE 1 MG TDSY TD ONE ×2 (11:32→11:38)
[2021-02-20] MEDS ORDERED: ROCURONIUM BROMIDE 10 MG/ML 5 ML VIAL IV ONE (11:43)
[2021-02-20] MEDS ORDERED: PROPOFOL IV EMULSION 10 MG/ML 20 ML VIAL IV ONE (11:43)
[2021-02-20] MEDS ORDERED: LIDOCAINE 2% 2 ML VIAL/AMP(20MG/ML) INFIL ONE (11:43)
[2021-02-20] MEDS ORDERED: DEXAMETHASONE SOD INJ 4 MG/ML VIAL ONE (11:43)
[2021-02-20] MEDS ORDERED: ONDANSETRON INJ 2 MG/ML 2 ML VIAL ONE ×2 (11:43→11:49)
[2021-02-20] MEDS ORDERED: GLYCOPYRROLATE 0.2 MG/ML VIAL ONE ×2 (11:43→12:21)
[2021-02-20] MEDS ORDERED: NEOSTIGMINE METHYLSULFATE 1 MG/ML 10ML VIAL ONE ×2 (11:43→12:21)
[2021-02-20] MEDS ORDERED: FLOSEAL HEMOSTATIC MATRIX 10ML TOP ONE (12:02)
[2021-02-20] MEDS ORDERED: ACETAMINOPHEN 1,000 MG/100 ML VIAL IV ONE (12:33)
--- NOTE | 2021-02-20 12:33 | Post Operative Brief Note ---
PG Immediate Post Op with CF Date of Surgery February 20, 2021 Pre & Post Diagnosis Operation Date: 02/20/21 09:10 Pre-Op Diagnosis: Cholecystitis Post-Op Diagnosis: Cholecystitis I identified the patient and participated in the time-out.: Yes Procedure Operation Date: 02/20/21 09:10 Actual Procedures p Laparoscopic Cholecystectomy(Not Applicable) - Armand Self MD, FACS Surgeon Armand Self MD, FACS [employer] Annabelle Sexton Estimated Blood Loss 10 Findings Consistent with Post-Op Diagnosis Specimens Specimen Description: A. gallbladder
[2021-02-20] MEDS ORDERED: ACETAMINOPHEN 1000 MG/100 ML IV IV ONE (12:51)
--- NOTE | 2021-02-20 12:57 | Operative Report (OR) ---
DATE OF PROCEDURE: 02/20/2021 NAME OF THE OPERATION: Laparoscopic cholecystectomy. PREOPERATIVE DIAGNOSIS: Acute cholecystitis. POSTOPERATIVE DIAGNOSIS: Acute cholecystitis. NAME OF SURGEON: Armand Self MD. ENGINE REPAIRER PRODUCTION: Debra Sexton PA-C. ANESTHESIA: General. DESCRIPTION OF PROCEDURE: The patient was brought in the operating room and placed on the operating table in supine position. His abdomen was prepped and draped in the usual fashion. A 0.5% plain Mar adonis was used to anesthetize all incisions. Incision was made above the umbilicus, carrying dissect ion down to the fascia, placing a Veress needle producing pneumoperitoneum. Placed an 11 mm port at this level. Under visualization, three 5 mm ports were placed, one cephalad and two laterally. Gall bladder was grasped and retracted. It was edematous, inflamed and hemorrhagic. Dissection was cele ed out to the jacy hepatis, identifying the cystic duct and cystic artery. These were clipped and t ransected and the gallbladder was dissected away from the liver bed in the usual fashion, placed in a n Endobag. After appropriate hemostasis, I did use some FloSeal in the liver bed and then the gallbl adder was removed through the umbilical site. All ports were removed. The fascia at the umbilicus c losed using 0 Vicryl suture. The skin was reapproximated using subcuticular 4-0 Monocryl and Dermabo nd. The patient was transferred to recovery room in stable condition. Job ID: [id number]
--- NOTE | 2021-02-20 13:29 | Anesthesiology Progress Note ---
Date of Service February 20, 2021 Anesthesia Post Procedure Vital Signs Vital Signs: Temp Pulse Pulse Resp BP BP Pulse Ox 02/20/21 13:20 57 L 12 118/62 99 02/20/21 13:10 81 13 145/80 H 97 02/20/21 13:00 65 12 152/81 H 100 02/20/21 12:50 65 14 167/82 H 100 02/20/21 12:44 77 15 153/92 H 100 02/20/21 10:50 36.6 C 58 L 16 133/80 99 02/20/21 10:40 62 18 131/82 100 02/20/21 10:30 67 18 131/82 100 02/20/21 10:00 62 20 137/79 100 02/20/21 09:30 70 18 124/78 97 02/20/21 09:00 58 L 16 125/77 100 02/20/21 08:30 72 16 117/75 100 02/20/21 08:00 63 17 118/67 100 02/20/21 07:30 67 16 132/78 100 02/20/21 07:26 69 16 126/76 100 02/20/21 07:00 67 18 122/74 99 02/20/21 06:30 69 20 130/80 97 02/20/21 05:30 63 16 134/75 99 02/20/21 05:26 85 L 02/20/21 04:11 58 L 22 100 02/20/21 04:00 69 22 148/83 H 100 02/20/21 03:34 36.6 C 63 20 170/83 H 100 Transfer of Care Handoff Completed per policy Notes Mental Status: alert / awake / arousable Patient Amnestic to Procedure: Yes Nausea / Vomiting: adequately controlled Pain: adequately controlled Airway Patency, RR, SpO2: stable & adequate BP & HR: stable & adequate Hydration State: stable & adequate Anesthetic Complications: no major complications apparent and Pt Satisfied with anesthetic care Notes: Postop BSG is 157.
[2021-02-20] MEDS ORDERED: CHECK SCOPOLAMINE PATCH PLACEMENT SCH (16:00)
[2021-02-20 17:17] LABS: Basophils # (auto) 0.02 K/uL (0-0.2); Basophils % (auto) 0.4 %; Eosinophils # (auto) 0.01 K/uL (0-0.5); Eosinophils % (auto) 0.2 %; Hemoglobin 11.1 g/dL (14.0-18.0); Immature Granulocytes # (auto) 0.02 K/uL (0.00-0.02); Immature Granulocytes % (auto) 0.4 %; Lymphocytes # (auto) 0.34 K/uL (1.2-3.4); Lymphocytes % (auto) 6.8 %; Mean Corpuscular Hemoglobin 33.6 pg (25-34); Mean Corpuscular Hgb Conc 33.6 g/dL (32-36); Mean Platelet Volume 8.9 fL (7.4-10.4); Monocytes # (auto) 0.07 K/uL (0.11-0.59); Monocytes % (auto) 1.4 %; Neutrophils # (auto) 4.54 K/uL (1.4-6.5); Neutrophils % (auto) 90.8 %; Platelet Count 167 K/uL (130-400); RDW Coefficient of Variation 16.6 % (11.5-14.5); RDW Standard Deviation 60.1 fL (36.4-46.3)
[2021-02-20] MEDS ORDERED: PIPERACILLIN/TAZOBACTAM 4.5 GM in DEXTROSE 5% 100 ML IV SCH (17:30)
[2021-02-20] MEDS ORDERED: PIPERACILL/TAZOBAC CONSULT ACTIVE PRN (17:30)
[2021-02-20] MEDS ORDERED: GLUCOSE 40% GEL 15 GM TUBE PO PRN (17:30)
[2021-02-20] MEDS ORDERED: GLUCAGON FOR INJ 1 MG VIAL SQ PRN (17:30)
[2021-02-20] MEDS ORDERED: DEXTROSE 50% 50 ML SYRINGE IV PRN (17:30)
[2021-02-20] MEDS ORDERED: PROMETHAZINE HCL 12.5 MG in SODIUM CHLORIDE 0.9% 50 ML IV PRN (17:30)
[2021-02-20] MEDS ORDERED: GLUCOSE 10 TABS/TUBE PO PRN (17:30)
[2021-02-20] MEDS ORDERED: PROMETHAZINE HCL 25 MG in SODIUM CHLORIDE 0.9% 50 ML IV PRN (17:30)
[2021-02-20] MEDS ORDERED: CARBOHYDRATES FOR HYPOGLYCEMIA PO PRN (17:30)
--- NOTE | 2021-02-20 18:21 | History & Physical Bridge Note ---
Date of Service February 20, 2021 History & Physical Bridge Note I have examined the patient, reviewed the History & Physical and in the interval since the performance of the History & Physical I have noted the following changes of clinical significance: no changes noted Seen after surgery. Minimal pain. Some sore throat. Doing well overall with stable vitals. No changes at this time. Will defer apixaban for now. Check labs in the AM. Possible discharge.
[2021-02-20] MEDS ORDERED: PIPERACILLIN/TAZOBACTAM 3.375 GM in DEXTROSE 5% 100 ML IV ONE (18:30)
[2021-02-20] MEDS: INSULIN ASPART 100 UNITS/ML 3 ML PEN SC SCH ×2 (19:01→22:12)
[2021-02-20] MEDS: SODIUM CHLORIDE 0.9% 1000ML 1,000 ML IV SCH (19:03)
[2021-02-20] MEDS: FAMOTIDINE 20 MG in SYRINGE 3 ML IV SCH (19:03)
[2021-02-20] MEDS ORDERED: COUGH DROP (SUGAR FREE) LOZ 24 LOZ/1 BOX BUCCAL ONE (22:18)
[2021-02-21] MEDS: PIPERACILLIN/TAZOBACTAM 3.375 GM in DEXTROSE 5% 100 ML IV SCH ×2 (00:32→09:13)
[2021-02-21] MEDS ORDERED: HEPARIN 100 UNIT/ML 5ML FLUSH FLUSH PRN (01:46)
[2021-02-21 03:36] VITALS: TEMP 97.7
[2021-02-21] MEDS: SODIUM CHLORIDE 0.9% 1000ML 1,000 ML IV SCH (03:58)
[2021-02-21] MEDS: FAMOTIDINE 20 MG in SYRINGE 3 ML IV SCH (06:28)
[2021-02-21 07:30] VITALS: BP 130/60; PULSE 66; O2SAT 96
[2021-02-21 08:04] LABS: Hematocrit (blood only) 32.6 % (42-52); Lymphocytes # (auto) 0.46 K/uL (1.2-3.4); Lymphocytes % (auto) 8.9 %; Mean Corpuscular Hemoglobin 34.3 pg (25-34); Mean Corpuscular Hgb Conc 33.7 g/dL (32-36); Mean Corpuscular Volume 101.6 fL (80-100); Mean Platelet Volume 9.2 fL (7.4-10.4); Monocytes # (auto) 0.32 K/uL (0.11-0.59); Monocytes % (auto) 6.2 %; Neutrophils # (auto) 4.37 K/uL (1.4-6.5); Neutrophils % (auto) 84.9 %; Platelet Count 196 K/uL (130-400); RDW Coefficient of Variation 16.5 % (11.5-14.5); RDW Standard Deviation 60.8 fL (36.4-46.3); Red Blood Count 3.21 M/uL (4.7-6.1); White Blood Count 5.15 K/uL (4.8-10.8)
[2021-02-21 08:05] LABS: Immature Granulocytes # (auto) 0.01 K/uL (0.00-0.02); Immature Granulocytes % (auto) 0.2 %; Lymphocytes # (auto) 0.54 K/uL (1.2-3.4); Lymphocytes % (auto) 10.3 %; Mean Corpuscular Hemoglobin 33.8 pg (25-34); Mean Corpuscular Hgb Conc 33.3 g/dL (32-36); Mean Corpuscular Volume 101.5 fL (80-100); Mean Platelet Volume 9.5 fL (7.4-10.4); Monocytes # (auto) 0.36 K/uL (0.11-0.59); Monocytes % (auto) 6.9 %; Neutrophils # (auto) 4.33 K/uL (1.4-6.5); Neutrophils % (auto) 82.6 %; Platelet Count 202 K/uL (130-400); RDW Coefficient of Variation 16.6 % (11.5-14.5); RDW Standard Deviation 61.1 fL (36.4-46.3); Red Blood Count 3.25 M/uL (4.7-6.1); White Blood Count 5.24 K/uL (4.8-10.8)
[2021-02-21 08:17] LABS: Estimated Average Glucose 114 mg/dl; Hemoglobin A1C 5.6 % (4.5-5.6)
[2021-02-21 08:48] LABS: Albumin Globulin Ratio 1.1 (0.9-2); Albumin Level 3.3 gm/dl (3.4-5.0); BUN Creatinine Ratio 16.2 (10-20); BUN Creatinine Ratio 16.5 (10-20); Bilirubin Direct 0.1 mg/dl (0-0.2); Bilirubin,Total 0.7 mg/dl (0.2-1); Calcium 8.2 mg/dl (8.5-10.1); Creatinine Clr Calc Pharmacy 80.4 ml/min; Creatinine Clr Calc Pharmacy 81.8 ml/min; Est GFR (African American) 74.7 ml/min; Est GFR (African American) 76.3 ml/min; Est GFR (Non-African American) 64.5 ml/min; Est GFR (Non-African American) 65.8 ml/min; Globulin 3.1 gm/dl (2.5-4.0); Globulin 3.2 gm/dl (2.5-4.0); Magnesium 1.8 mg/dl (1.8-2.4); Potassium 4.2 mmol/L (3.5-5.1); Potassium 4.3 mmol/L (3.5-5.1); Total Protein 6.4 gm/dl (6.4-8.2); Total Protein 6.5 gm/dl (6.4-8.2)
[2021-02-21] MEDS ORDERED: HEPARIN SOD 5,000 UNIT/0.5 ML VIAL SQ SCH (09:00)
[2021-02-21] MEDS: INSULIN ASPART 100 UNITS/ML 3 ML PEN SC SCH (09:13)
--- NOTE | 2021-02-21 18:28 | Discharge Summary ---
Date of Service February 21, 2021 Admission HPI Per Admitting Provider The patient is a 60-year-old male with a past medical history including syncope, pancytopenia, lumbar compression fracture, wide-complex tachycardia, BRBPR, septicemia, diverticulosis, diverticulitis, multiple myeloma, pulmonary embolism, diabetes mellitus type 2, lytic lesion of bone and GERD. Patient presents with symptoms as noted above Work-up in the emergency department including an ultrasound right upper quadrant which showed the following: Fatty liver. 7 mm left hepatic cyst. 1.5 cm gallstone. Gallbladder wall thickness measuring 4.2 mm. Trace pericholecystic fluid. These findings are suspicious for acute cholecystitis. Ringdown artifact in the gallbladder wall suggestive of adenomyomatosis. CBD caliber is within normal limits at 4.4 mm Significant laboratories: Glucose 189, creatinine 1.44 Principal Diagnosis Cholecystitis Discharge Exam Constitutional WD/WN, vitals as above Eyes EOM intact bilaterally; no conjunctival abnormality ENMT external ear and nose normal, oropharynx normal Neck trachea midline, no thyromegaly normal visual inspection Respiratory normal respiratory effort, lungs clear to auscultation no respiratory distress Cardiovascular RRR, no murmur, no edema Gastrointestinal (Abdomen) Inspection/Auscultation: + abdominal surgical incision (Clean, no erythema); abdomen not distended Musculoskeletal no cyanosis or clubbing, extremities motor strength 5/5 Skin no rashes, warm and dry Neurologic moves all extremities and awake Psychiatric Orientation: alert, oriented to person and cooperative Discharge Data Allergies Allergy/AdvReac Type Severity Reaction Status Date / Time fentanyl Allergy Severe Vomiting Verified 02/20/21 06:50 Consultations 02/20/21 05:48 ED Decision to Admit Stat Procedures Performed Operation Date: 02/20/21 09:10 Actual Procedures p Laparoscopic Cholecystectomy(Not Applicable) - Armand Self MD, FACS Ordered Studies 02/20/21 03:51 US gallbladder Urgent Hospital Course (1) Acute cholecystitis: Ultrasound findings suggestive of acute cholecystitis 1.5 cm gallstone Normal LFTs NPO Zosyn 4.5 g IV every 8 hours Zosyn 4 g IV every 6 hours as needed Famotidine 20 mg IV every 12 hours NSS at 80 mils per hour General surgery consult Dr. Self asked that Eliquis be reversed to do surgery today. - Underwent uncomplicated lap danica on 02/[address] Self. Instructed to hold apixaban until tomorrow per Dr. Self. (2) Pulmonary embolism: Last apixaban dose was last evening We will hold prior to surgery. Reversed today as noted above (3) Multiple myeloma: Continue acyclovir and Bactrim prophylaxis. (4) Acute kidney injury: Creatinine 1.44 upon admission, with base 1.11 - NSS at 80 mils per hour - Returning to baseline by discharge. (5) Gallstone: See above Total Time Total Time Spent Total Time Spent (In Minutes): 35 Discharge Plan Discharge Items Patient Disposition: Home - Self-Care Reason For Visit: CHOLECYSTITIS, MM, ON ELIQUIS Discharge Diagnosis: cholecysititis Condition on Discharge: Good Activity: Per Instructions section Activity Comment: Light activity for 4 weeks Lifting: No more than 10 pounds Bathing Comment: may shower; no soaking in tubs/pools Sexual Activity: When tolerated Exercise/Sports: Wait until after follow-up appointment Exercise Comment: wait 4 weeks Driving/Machine Use: no driving while taking narcotics for pain Non-emergency contact: Primary Care Provider and Surgeon Call non-emergency contact if: you have any medication questions, your symptoms worsen, your pain is not controlled, your pain is worsening, your pain is concerning for you, you have a fever, your temperature is above 101.5, your wound has increased redness, your wound has increased drainage and your wound pain has increased Follow-up/Referrals: Armand Self MD, FACS [Physician] - 02/28/21 8:30 am Dick Carl MD [Primary Care Provider] - Diet: Carb Consistent or DM2 Addtl Attending Provider Instructions: SPECIAL CARE INSTRUCTIONS: * Cover incisions and change daily for comfort/drainage. * May leave uncovered with dermabond *Begin Eliquis morning- usual dose * Expect some swelling and bruising. Call your doctor if: * Temperature above 101 degrees * Pain not relieved by pain medicine ordered * There is increased drainage or redness from any incision * You have any unanswered questions or concerns [phone]. FOLLOW UP VISIT: If not already scheduled, please call the office for a follow-up visit. for 2 weeks- no sutures to remove OFFICE PHONE NUMBER: Dr. Self Office Pending Studies at Discharge: Yes Studies:: surgical pathology Stand-Alone Forms: My [facility], Smoking Cessation Medications and DC Order Prescriptions: Continued Eliquis 5 mg tablet 5 mg PO BID RF: 0 sulfamethoxazole-trimethoprim [Bactrim] 400-80 mg tablet 1 tab PO UD RF: 0 pantoprazole 40 mg Tablet,Delayed Release (Dr/Ec) 40 mg PO QAM RF: 0 acyclovir 400 mg tablet 400 mg PO BID RF: 0 Align 4 mg Capsule 4 mg PO DAILY RF: 0 Basaglar KwikPen U-100 Insulin 100 unit/mL (3 mL) Insulin Pen 0 - 12 unit SUBCUT QAM RF: 0 Discharge Orders: Discharge Order (Routine); Ordered 02/21/21 Ordered By: Armand Aponte/Other Patient Handouts: DVT Post Op Prevention, Having Laparoscopic Cholecystectomy Admission Data Admit Date/Time: 02/20/21 06:31 Attending Provider: Gerardo Naik Admit Provider: Moustapha Austin Primary Care Provider: Dick Carl Other Providers: Gerardo Naik ; Moustapha Austin Other Interventions: Discharge Summary Assessment (RN) Last Done: 02/21/21 09:36 Coding Level of Care Code D/C DAY MANAGEMENT >30 MINS Diagnoses Acute cholecystitis K81.0 Pulmonary embolism I26.99 Multiple myeloma C90.00 Multiple myeloma remission status: not in remission Acute kidney injury N17.9 Gallstone K80.20 Cholecystitis presence: without cholecystitis Biliary obstruction: without biliary obstruction
--- NOTE | 2021-02-22 05:59 | Electrocardiogram Report ---
Test Reason : Blood Pressure : / mmHG Vent. Rate : 058 BPM Atrial Rate : 055 BPM P-R Int : 170 ms QRS Dur : 092 ms QT Int : 400 ms P-R-T Axes : 055 061 062 degrees QTc Int : 392 ms Sinus bradycardia with sinus arrhythmia Otherwise normal ECG When compared with ECG of 25-JAN-2021 11:26, No significant change Confirmed by Doc Marie ([id number]) on 02/22/2021 5:59:37 AM Referred By: REFERRED SELF Confirmed By:Doc Marie
== END 2021-02-21 11:21 | disposition home or self-care (01) ==
LOC: ED 03:30 → INTOOBSV 06:31 → EDINP 06:31 → SUATTDRO 06:31 → 3E 17:28

== ENCOUNTER 2021-07-30 11:14 | Inpatient (IN) ==
[2021-07-30] MEDS ORDERED: RAPID SEQUENCE INDUCTION BAG ONE (11:21)
[2021-07-30] MEDS ORDERED: SODIUM CHLORIDE 0.9% 1000ML 1,000 ML IV ONE ×2 (11:29→12:41)
[2021-07-30] MEDS ORDERED: ONDANSETRON INJ 2 MG/ML 2 ML VIAL IV STA ×3 (11:30→18:09)
--- NOTE | 2021-07-30 11:30 | Emergency Department Note ---
Impression & Plan Syncope, Aspiration pneumonia ADMIT ED Provider Note HPI: The patient is a 60-year-old male with history of DVT, on Eliquis, history of multiple myeloma currently undergoing radiation therapy, history of neutropenia, presents the emergency department after a syncopal event at radiation oncology today. Patient arrives to the emergency department after a CODE BLUE was called at radiation oncology when the patient had a syncopal event was unresponsive. He reportedly became more responsive after stimulation and chest compressions. On arrival here to the ED the patient is ill-appearing however he is hemodynamically stable. He tells me that he has had syncopal events in the past. Tells me he feels very nauseous but denies any chest pain. While I am obtaining history the patient states that he feels that he is going to "go out". He does have bradycardia on the monitor and then briefly went asystolic for about 5-10 seconds and was unresponsive, CODE BLUE was called and the patient became alert following about 5-10 seconds of chest compressions. On reassess ment following this the patient's vital signs did stabilize, he continues to say that he feels "sick", he denies any focal complaint of pain, admits only to nausea at this time and a generalized feeling of illness. ROS: -Neuro: Multiple syncopal events with bradycardia *10 point review systems was conducted and is otherwise negative unless stated above *Outpatient medications and allergy history reviewed PE: General: Alert, ill-appearing, pale HEENT: Normocephalic, atraumatic Eyes: Extraocular eye movement is intact, no scleral erythema Pulmonary: Clear to auscultation bilaterally, no wheezing Cardio: Regular rate and rhythm GI: Abdomen is soft, nontender : No suprapubic tenderness MSK: No evidence of trauma or malformation of the extremities, no edema Skin: No evidence of rash Neuro: Alert, no focal deficits 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 He actually had a syncopal event shortly after arrival here to the ED from radiation oncology where a CODE BLUE was initially called. Patient did have an episode of bradycardia on the monitor here in the ED, he briefly became asystolic and then became more alert when chest compressions were initiated after a second CODE BLUE was activated. Patient was initiated with IV fluid boluses, he remained symptomatic from the standpoint of his nausea but he had no further syncopal episodes here in the ED. He denied any chest pain or shortness of breath. EKG shows sinus rhythm without any interval prolongation, no evidence of ischemic changes, troponin is negative x1. Case was discussed with on-call interventional cardiology, Dr. Coyne, given the patient's multiple syncopal events with bradycardia and a brief period of asystole on the monitor, who was in agreement for inpatient consultation when the patient is admitted as he is symptomatically improved at this point is been stable on telemetry. His EKG shows normal sinus rhythm without any evidence of a high degree heart block at this time. lab work shows leukopenia which is the patient's baseline as he is on chemo and radiation therapy, he is not neutropenic. He does not have a fever. CT imaging of the chest does not show any evidence of pulmonary embolism, no aortic pathology is noted on CT scan of the chest or the CT scan of the abdomen, otherwise no acute surgical abnormalities. There is mention of a right lower lung consolidation concerning for aspiration pneumonia, patient was initiated on broad-spectrum antibiotics with vancomycin and Unasyn tailored towards the possibility of aspiration pneumonia. His COVID-19 testing is negative. The patient's states he has had a slight cough and some "swallowing issues" recently. Unclear origin of this. He is saturating well on room air here in the ED. He has not had any hypoxia or increased work of breathing. On my reassessment he states he does feel improved. Patient's was requesting transfer to [facility] in [place] where the patient does receive his hematology/oncology care, he previously had a stem cell transplant this past August. I did attempt to arrange this however per [facility] transfer services the patient was accepted but it would be multiple days before bed would be available. Given this I did see it appropriate to admit the patient here [facility] to which the patient and his are in agreement. Case was discussed with the on-call hospitalist service with Dr. Cali, patient was a ccepted to a telemetry bed in stable condition. * CRITICAL CARE TIME: ( 33 ) minutes -Stabilization and brief resuscitation of patient with episode of bradycardia and brief period of asystole requiring activation of a CODE BLUE, interpretation of diagnostic studies, discussion with specialty physician/interventional cardiology, discussion with multiple other providers including the hospitalist service and initial attempt to transfer to tertiary care center given the patient's complex medical history, initiation of broad-spectrum antibiotics for pneumonia with leukopenia in a pt with immunocompromised status. Diagnosis: 1. Multiple syncopal events with transient asystole 2. Bradycardic episode 3. Leukopenia 4. Immunocompromised status, on chemo and radiation therapy 5. Aspiration pneumonia Disposition: Admission Kamlesh Crowley DO Emergency Medicine Past Med/Surg History Medical History Anemia Back problem Deep vein thrombosis in leg 02/06 (REASON FOR ELIQUIS) Diverticular disease GERD (gastroesophageal reflux disease) History of chemotherapy oral chemo until 01/30, taking IV chemo and then will be starting with maintaince dose per [facility] scheduling Lytic lesion of bone on x-ray since 01/2019 and had radiation on this lesion Multiple myeloma (02/02/19) Neoplasm of bone Plantar fascial fibromatosis PT UNAWARE Prediabetes STEROID INDUCED "MY SUGAR GOES UP AND DOWN" checks sugar daily Pulmonary embolism "01/2019 went from leg to lung" (REASON FOR ELIQUIS) Surgical History H/O kyphoplasty H/O wrist surgery Hx laparoscopic cholecystectomy (02/20/21) Hx of biopsy Hx of colonoscopy Port-A-Cath in place (02/05/21) [place] teeth removed Family History Mother Breast cancer Father Prostate cancer Coronary heart disease Diabetes Heart disease Brother Diabetes Brother No problems noted. Sister Asthma Addisons disease Daughter No problems noted. Daughter No problems noted. Son No problems noted. Other Family history non-contributory Hearing loss No family history of adverse response to anesthesia No family history of bleeding disorder Social History Smoking Status: Unknown if ever smoked Second Hand Exposure: No; Hx Alcohol Use: Yes Alcohol type: wine Alcohol Intake Frequency: Monthly or Less Alcohol Intake Frequency Comment: twice a month Hx Substance Use: No Preferred Language: Romansh Communication Ability: Effective Visual Impairment: No Limitations Hearing Ability: Normal Braille Transcriber Required: No Beliefs That Will Affect Care: None marital status: Current Living Situation: Spouse Current Living Situation Comment: Lives with and 2 daughters current occupational status: retired and disabled How many Children do You have: 3 Feels Safe at Home: Yes Childhood Exposure to Second-Hand Smoke: No Dental Care, Regularly: Yes Assistive Devices: None Allergies Allergies Allergy/AdvReac Type Severity Reaction Status Date / Time fentanyl Allergy Severe Vomiting Verified 07/30/21 14:47 Home Meds Home Medications Medication Instructions Recorded Confirmed acyclovir 400 mg tablet 400 mg PO BID 03/22/19 07/30/21 pantoprazole 40 mg tablet,delayed 40 mg PO QAM 05/19/19 07/30/21 release apixaban 5 mg tablet (Eliquis) 5 mg PO BID 03/14/20 07/30/21 insulin glargine 100 unit/mL (3 0 - 12 unit SUBCUT DIRECTED PRN 01/25/21 07/30/21 mL) subcutaneous pen (Basaglar KwikPen U-100 Insulin) carfilzomib 30 mg intravenous 30 mg IV .ON HOLD ea 05/08/21 07/30/21 solution (Kyprolis) dexamethasone 4 mg tablet 4 mg PO .ON HOLD 05/08/21 07/30/21 ondansetron HCl 8 mg tablet 8 mg PO Q8H PRN 05/08/21 07/30/21 oxycodone 5 mg tablet 5 mg PO Q6H PRN 05/08/21 07/30/21 palonosetron 0.25 mg/5 mL 0.25 mg IV .ON HOLD ml 05/08/21 07/30/21 intravenous solution (Aloxi) pomalidomide 1 mg capsule 1 mg PO DAILY 07/16/21 07/30/21 (Pomalyst) tramadol 50 mg tablet 50 mg PO Q6H PRN 07/16/21 07/30/21 Previous Rx's Medication Instructions Recorded fluticasone propionate 50 1 - 2 spray INTRANASAL DAILY #15.8 06/21/21 mcg/actuation nasal ml spray,suspension dicyclomine 10 mg capsule 10 mg PO TID PRN #90 cap 07/18/21 Results & Data (ED) Vital Signs Vital Signs - 24 hr 07/30/21 11:22 07/30/21 11:25 07/30/21 11:30 Temperature Temperature Source Pulse Rate 91 H 85 80 Pulse Rate [Apical] Pulse Rate from SpO2 Sensor 91 H 85 81 Respiratory Rate 27 H 21 25 H Respiratory Effort / Characteristics Respiratory Depth Respiratory Pattern Blood Pressure 128/66 115/68 Blood Pressure [Left Arm] Blood Pressure Mean 86 83 Blood Pressure Mean [Left Arm] Pulse Oximetry 100 100 100 Oxygen Delivery Method Sepsis New/Unexplained Change in Mental Status Sepsis Action Taken by Nursing 07/30/21 11:40 07/30/21 11:45 07/30/21 11:50 Temperature Temperature Source Pulse Rate 79 81 82 Pulse Rate [Apical] Pulse Rate from SpO2 Sensor 81 81 83 Respiratory Rate 25 H 22 19 Respiratory Effort / Characteristics Respiratory Depth Respiratory Pattern Blood Pressure 109/74 113/63 112/66 Blood Pressure [Left Arm] Blood Pressure Mean 85 79 81 Blood Pressure Mean [Left Arm] Pulse Oximetry 100 100 100 Oxygen Delivery Method Sepsis New/Unexplained Change in Mental Status Sepsis Action Taken by Nursing 07/30/21 11:55 07/30/21 12:00 07/30/21 12:23 Temperature Temperature Source Pulse Rate 79 79 95 H Pulse Rate [Apical] Pulse Rate from SpO2 Sensor 79 80 Respiratory Rate 17 19 12 Respiratory Effort / Characteristics Respiratory Depth Respiratory Pattern Blood Pressure 112/68 98/60 L Blood Pressure [Left Arm] Blood Pressure Mean 82 72 Blood Pressure Mean [Left Arm] Pulse Oximetry 100 100 Oxygen Delivery Method Sepsis New/Unexplained Change in Mental Status Sepsis Action Taken by Nursing 07/30/21 12:25 07/30/21 12:30 07/30/21 12:33 Temperature Temperature Source Pulse Rate 95 H 96 H 92 H Pulse Rate [Apical] Pulse Rate from SpO2 Sensor 96 H 99 H 93 H Respiratory Rate 15 14 18 Respiratory Effort / Characteristics Respiratory Depth Respiratory Pattern Blood Pressure 122/67 129/86 114/69 Blood Pressure [Left Arm] Blood Pressure Mean 85 100 84 Blood Pressure Mean [Left Arm] Pulse Oximetry 100 100 100 Oxygen Delivery Method Sepsis New/Unexplained Change in Mental Status Sepsis Action Taken by Nursing 07/30/21 12:34 07/30/21 12:45 07/30/21 13:00 Temperature Temperature Source Pulse Rate 92 H 91 H 91 H Pulse Rate [Apical] Pulse Rate from SpO2 Sensor 91 H 91 H 90 Respiratory Rate 16 21 18 Respiratory Effort / Characteristics Respiratory Depth Respiratory Pattern Blood Pressure 93/75 L 113/67 128/73 Blood Pressure [Left Arm] Blood Pressure Mean 81 82 91 Blood Pressure Mean [Left Arm] Pulse Oximetry 100 100 100 Oxygen Delivery Method Sepsis New/Unexplained Change in Mental Status Sepsis Action Taken by Nursing 07/30/21 13:15 07/30/21 13:26 07/30/21 13:30 Temperature Temperature Source Pulse Rate 92 H 89 Pulse Rate [Apical] Pulse Rate from SpO2 Sensor 92 H 89 Respiratory Rate 20 20 Respiratory Effort / Characteristics Respiratory Depth Respiratory Pattern Blood Pressure 129/86 128/85 Blood Pressure [Left Arm] Blood Pressure Mean 100 99 Blood Pressure Mean [Left Arm] Pulse Oximetry 100 100 Oxygen Delivery Method Sepsis New/Unexplained Change in Mental Status N/A Sepsis Action Taken by Nursing No Action Required 07/30/21 13:36 07/30/21 13:45 07/30/21 14:00 Temperature 36.7 C Temperature Source Oral Pulse Rate 89 94 H Pulse Rate [Apical] 87 Pulse Rate from SpO2 Sensor 90 94 H Respiratory Rate 16 17 12 Respiratory Effort / Characteristics Non-Labored Spontaneous Respiratory Depth Normal Respiratory Pattern Regular Blood Pressure 126/81 129/85 Blood Pressure [Left Arm] 128/85 Blood Pressure Mean 96 99 Blood Pressure Mean [Left Arm] 99 Pulse Oximetry 100 99 98 Oxygen Delivery Method Room Air Sepsis New/Unexplained Change in Mental Status Sepsis Action Taken by Nursing 07/30/21 14:15 07/30/21 14:30 07/30/21 14:40 Temperature Temperature Source Pulse Rate 88 88 84 Pulse Rate [Apical] Pulse Rate from SpO2 Sensor 89 89 84 Respiratory Rate 9 L 21 11 L Respiratory Effort / Characteristics Respiratory Depth Respiratory Pattern Blood Pressure 137/85 134/80 148/65 H Blood Pressure [Left Arm] Blood Pressure Mean 102 98 92 Blood Pressure Mean [Left Arm] Pulse Oximetry 98 99 98 Oxygen Delivery Method Sepsis New/Unexplained Change in Mental Status Sepsis Action Taken by Nursing 07/30/21 14:45 07/30/21 15:07 07/30/21 15:20 Temperature Temperature Source Pulse Rate 83 Pulse Rate [Apical] 87 101 H Pulse Rate from SpO2 Sensor 84 Respiratory Rate 14 16 12 Respiratory Effort / Characteristics Respiratory Depth Respiratory Pattern Blood Pressure 125/68 Blood Pressure [Left Arm] 139/70 112/89 Blood Pressure Mean 87 Blood Pressure Mean [Left Arm] 93 96 Pulse Oximetry 98 98 100 Oxygen Delivery Method Sepsis New/Unexplained Change in Mental Status Sepsis Action Taken by Nursing 07/30/21 15:32 07/30/21 16:00 07/30/21 16:03 Temperature Temperature Source Pulse Rate Pulse Rate [Apical] 82 86 Pulse Rate from SpO2 Sensor Respiratory Rate 13 16 Respiratory Effort / Characteristics Respiratory Depth Respiratory Pattern Blood Pressure Blood Pressure [Left Arm] 144/80 H 145/79 H Blood Pressure Mean Blood Pressure Mean [Left Arm] 101 101 Pulse Oximetry 100 99 99 Oxygen Delivery Method Room Air Sepsis New/Unexplained Change in Mental Status Sepsis Action Taken by Nursing 07/30/21 16:17 07/30/21 16:35 07/30/21 16:53 Temperature Temperature Source Pulse Rate Pulse Rate [Apical] 94 H 94 H 88 Pulse Rate from SpO2 Sensor Respiratory Rate 16 16 16 Respiratory Effort / Characteristics Respiratory Depth Respiratory Pattern Blood Pressure Blood Pressure [Left Arm] 132/87 133/87 134/79 Blood Pressure Mean Blood Pressure Mean [Left Arm] 102 102 97 Pulse Oximetry 97 98 97 Oxygen Delivery Method Sepsis New/Unexplained Change in Mental Status Sepsis Action Taken by Nursing 07/30/21 17:08 07/30/21 17:34 07/30/21 17:57 Temperature Temperature Source Pulse Rate Pulse Rate [Apical] 94 H 99 H 111 H Pulse Rate from SpO2 Sensor Respiratory Rate 16 16 16 Respiratory Effort / Characteristics Respiratory Depth Respiratory Pattern Blood Pressure Blood Pressure [Left Arm] 124/82 141/94 H 145/94 H Blood Pressure Mean Blood Pressure Mean [Left Arm] 96 109 111 Pulse Oximetry 97 97 97 Oxygen Delivery Method Sepsis New/Unexplained Change in Mental Status Sepsis Action Taken by Nursing 07/30/21 18:28 07/30/21 19:11 07/30/21 19:35 Temperature Temperature Source Pulse Rate Pulse Rate [Apical] 96 H 94 H 102 H Pulse Rate from SpO2 Sensor Respiratory Rate 19 16 16 Respiratory Effort / Characteristics Respiratory Depth Respiratory Pattern Blood Pressure Blood Pressure [Left Arm] 148/98 H 142/83 H 141/78 H Blood Pressure Mean Blood Pressure Mean [Left Arm] 114 102 99 Pulse Oximetry 97 96 96 Oxygen Delivery Method Sepsis New/Unexplained Change in Mental Status Sepsis Action Taken by Nursing Laboratory Data Result diagrams: 07/30/21 11:24 07/30/21 11:24 Lab Results 07/30/21 07/30/21 07/30/21 Range/Units 11:23 11:24 11:24 WBC 4.61 L (4.8-10.8) K/uL RBC 2.70 L (4.7-6.1) M/uL Hgb 9.4 L (14.0-18.0) g/dL Hct 28.7 L (42-52) % MCV 106.3 H (80-100) fL MCH 34.8 H (25-34) pg MCHC 32.8 (32-36) g/dL RDW Std Deviation 73.1 H (36.4-46.3) fL RDW Coeff of George 18.7 H (11.5-14.5) % Plt Count 80 L (130-400) K/uL MPV 11.4 H (7.4-10.4) fL Absolute Nucleated RBC 0.02 H (0-0) K/uL Nucleated RBC % (auto) 0.4 % Neutrophils % (Manual) 31.3 % Lymphocytes % (Manual) 22.6 % Monocytes % (Manual) 41.7 % Eosinophils % (Manual) 2.6 % Basophils % (Manual) 0.9 % Myelocytes % (Man) 0.9 % Neutrophils # (Manual) 1.44 (1.4-6.5) K/uL Total Absolute Neuts 1.44 (1.4-6.5) K/uL Lymphocytes # (Manual) 1.04 L (1.2-3.4) K/uL Total Abs Lymphocytes 1.04 L (1.2-3.4) K/uL Monocytes # (Manual) 1.92 H (0.11-0.59) K/uL Eosinophils # (Manual) 0.12 (0-0.5) K/uL Basophils # (Manual) 0.04 (0-0.2) K/uL Myelocytes # (Manual) 0.04 H (0-0) K/uL Toxic Granulation 1+ Dohle Bodies 1+ PT 10.8 (9.0-12.0) Seconds INR 1.1 (0.9-1.1) APTT 44.8 H (21.0-31.0) Seconds PTT Ratio 1.7 Sodium (136-145) mmol/L Potassium (3.5-5.1) mmol/L Chloride (98-107) mmol/L Carbon Dioxide (21-32) mmol/L Anion Gap (3-11) BUN (7-18) mg/dl Creatinine (0.6-1.4) mg/dl Est Cr Clr Drug Dosing Est GFR ( Amer) ml/min Est GFR (Non-Af Amer) ml/min BUN/Creatinine Ratio (10-20) Glucose (70-99) mg/dl POC Glucose 238 H (70-99) mg/dl Lactate (0.4-2.0) mmol/L Calcium (8.5-10.1) mg/dl Total Bilirubin (0.2-1) mg/dl AST (15-37) U/L ALT (12-78) Alkaline Phosphatase (45-117) U/L Troponin I (0-0.045) ng/ml Total Protein (6.4-8.2) gm/dl Albumin (3.4-5.0) gm/dl Globulin (2.5-4.0) gm/dl Albumin/Globulin Ratio (0.9-2) Lipase (73-393) U/L Procalcitonin (0-0.5) ng/ml SARS-CoV-2 (PCR) (Negative) Influenza Type A (PCR) (Neg) Influenza Type B (PCR) (Neg) RSV (RT-PCR) (Neg) 07/30/21 07/30/21 07/30/21 Range/Units 11:24 11:24 11:46 WBC (4.8-10.8) K/uL RBC (4.7-6.1) M/uL Hgb (14.0-18.0) g/dL Hct (42-52) % MCV (80-100) fL MCH (25-34) pg MCHC (32-36) g/dL RDW Std Deviation (36.4-46.3) fL RDW Coeff of George (11.5-14.5) % Plt Count (130-400) K/uL MPV (7.4-10.4) fL Absolute Nucleated RBC (0-0) K/uL Nucleated RBC % (auto) % Neutrophils % (Manual) % Lymphocytes % (Manual) % Monocytes % (Manual) % Eosinophils % (Manual) % Basophils % (Manual) % Myelocytes % (Man) % Neutrophils # (Manual) (1.4-6.5) K/uL Total Absolute Neuts (1.4-6.5) K/uL Lymphocytes # (Manual) (1.2-3.4) K/uL Total Abs Lymphocytes (1.2-3.4) K/uL Monocytes # (Manual) (0.11-0.59) K/uL Eosinophils # (Manual) (0-0.5) K/uL Basophils # (Manual) (0-0.2) K/uL Myelocytes # (Manual) (0-0) K/uL Toxic Granulation Dohle Bodies PT (9.0-12.0) Seconds INR (0.9-1.1) APTT (21.0-31.0) Seconds PTT Ratio Sodium 133 L (136-145) mmol/L Potassium 3.9 (3.5-5.1) mmol/L Chloride 103 (98-107) mmol/L Carbon Dioxide 21 (21-32) mmol/L Anion Gap 9.0 (3-11) BUN 17 (7-18) mg/dl Creatinine 1.27 (0.6-1.4) mg/dl Est Cr Clr Drug Dosing Not Reportable Est GFR ( Amer) 71.2 ml/min Est GFR (Non-Af Amer) 61.4 ml/min BUN/Creatinine Ratio 13.0 (10-20) Glucose 245 H (70-99) mg/dl POC Glucose (70-99) mg/dl Lactate 2.3 H* (0.4-2.0) mmol/L Calcium 9.6 (8.5-10.1) mg/dl Total Bilirubin 1.0 (0.2-1) mg/dl AST 13 L (15-37) U/L ALT 24 (12-78) Alkaline Phosphatase 59 (45-117) U/L Troponin I < 0.015 (0-0.045) ng/ml Total Protein 7.2 (6.4-8.2) gm/dl Albumin 3.1 L (3.4-5.0) gm/dl Globulin 4.1 H (2.5-4.0) gm/dl Albumin/Globulin Ratio 0.8 L (0.9-2) Lipase 60 L (73-393) U/L Procalcitonin 0.43 (0-0.5) ng/ml SARS-CoV-2 (PCR) (Negative) Influenza Type A (PCR) (Neg) Influenza Type B (PCR) (Neg) RSV (RT-PCR) (Neg) 07/30/21 07/30/21 Range/Units 13:51 14:50 WBC (4.8-10.8) K/uL RBC (4.7-6.1) M/uL Hgb (14.0-18.0) g/dL Hct (42-52) % MCV (80-100) fL MCH (25-34) pg MCHC (32-36) g/dL RDW Std Deviation (36.4-46.3) fL RDW Coeff of George (11.5-14.5) % Plt Count (130-400) K/uL MPV (7.4-10.4) fL Absolute Nucleated RBC (0-0) K/uL Nucleated RBC % (auto) % Neutrophils % (Manual) % Lymphocytes % (Manual) % Monocytes % (Manual) % Eosinophils % (Manual) % Basophils % (Manual) % Myelocytes % (Man) % Neutrophils # (Manual) (1.4-6.5) K/uL Total Absolute Neuts (1.4-6.5) K/uL Lymphocytes # (Manual) (1.2-3.4) K/uL Total Abs Lymphocytes (1.2-3.4) K/uL Monocytes # (Manual) (0.11-0.59) K/uL Eosinophils # (Manual) (0-0.5) K/uL Basophils # (Manual) (0-0.2) K/uL Myelocytes # (Manual) (0-0) K/uL Toxic Granulation Dohle Bodies PT (9.0-12.0) Seconds INR (0.9-1.1) APTT (21.0-31.0) Seconds PTT Ratio Sodium (136-145) mmol/L Potassium (3.5-5.1) mmol/L Chloride (98-107) mmol/L Carbon Dioxide (21-32) mmol/L Anion Gap (3-11) BUN (7-18) mg/dl Creatinine (0.6-1.4) mg/dl Est Cr Clr Drug Dosing Est GFR ( Amer) ml/min Est GFR (Non-Af Amer) ml/min BUN/Creatinine Ratio (10-20) Glucose (70-99) mg/dl POC Glucose (70-99) mg/dl Lactate 1.7 (0.4-2.0) mmol/L Calcium (8.5-10.1) mg/dl Total Bilirubin (0.2-1) mg/dl AST (15-37) U/L ALT (12-78) Alkaline Phosphatase (45-117) U/L Troponin I (0-0.045) ng/ml Total Protein (6.4-8.2) gm/dl Albumin (3.4-5.0) gm/dl Globulin (2.5-4.0) gm/dl Albumin/Globulin Ratio (0.9-2) Lipase (73-393) U/L Procalcitonin (0-0.5) ng/ml SARS-CoV-2 (PCR) NEGATIVE (Negative) Influenza Type A (PCR) Negative (Neg) Influenza Type B (PCR) Negative (Neg) RSV (RT-PCR) Negative (Neg) Administered Medications Vancomycin HCl 2,000 mg/ (Sodium Chloride) 540 mls @ 200 mls/hr IV UD RADHA Stop: 08/01/21 12:59 Last Infusion: 07/30/21 17:35 Dose: 0 mls/hr Documented by: [id number] Admin: 07/30/21 14:47 Dose: 200 mls/hr Documented by: [id number] Discontinued Medications Sodium Chloride (Nss 1000ml) 1,000 mls @ 999 mls/hr IV .Q1H1M ONE Stop: 07/30/21 12:29 Last Infusion: 07/30/21 13:11 Dose: 0 mls/hr Documented by: [id number] Admin: 07/30/21 11:58 Dose: 999 mls/hr Documented by: [id number] Sodium Chloride (Nss 1000ml) 1,000 mls @ 999 mls/hr IV .Q1H1M ONE Stop: 07/30/21 13:41 Last Infusion: 07/30/21 14:30 Dose: 0 mls/hr Documented by: [id number] Admin: 07/30/21 12:50 Dose: 999 mls/hr Documented by: [id number] Ampicillin Sodium/Sulbactam Sodium 3,000 mg/ Sodium Chloride 108 mls @ 200 mls/hr IV NOW STA; Protocol Stop: 07/30/21 13:30 Last Infusion: 07/30/21 14:30 Dose: 0 mls/hr Documented by: [id number] Admin: 07/30/21 13:23 Dose: 200 mls/hr Documented by: [id number] Ioversol (Optiray 320 125ml) 120 ml IV ONCE ONE Stop: 07/30/21 12:24 Last Admin: 07/30/21 12:12 Dose: 120 ml Documented by: [id number] Miscellaneous (Rapid Sequence Induction Bag) Confirm Administered Dose 1 ea .ROUTE .STK-MED ONE Stop: 07/30/21 11:22 Last Admin: 07/30/21 13:11 Dose: Not Given Documented by: [id number] Ondansetron HCl (Ondansetron Inj 2 Mg/Ml 2 Ml Vial) 4 mg IV NOW STA Stop: 07/30/21 11:31 Last Admin: 07/30/21 11:58 Dose: 4 mg Documented by: [id number] Ondansetron HCl (Ondansetron Inj 2 Mg/Ml 2 Ml Vial) 4 mg IV NOW STA Stop: 07/30/21 12:42 Last Admin: 07/30/21 12:50 Dose: 4 mg Documented by: [id number] Ondansetron HCl (Ondansetron Inj 2 Mg/Ml 2 Ml Vial) 4 mg IV NOW STA Stop: 07/30/21 18:10 Last Admin: 07/30/21 18:13 Dose: 4 mg Documented by: [id number] Imaging Data Radiologist's Impression: Chest X-Ray 07/30/21 11:27 XR chest 1V portable CLINICAL HISTORY: Atypical chest pain TECHNIQUE: Single frontal radiograph of the chest was obtained. Comparison: None available at the time of this dictation. FINDINGS: A left portacatheter seen. The cardiomediastinal silhouette is normal. There is a focal airspace density in the right lower lung. No evidence of pleural effusion or pneumothorax. IMPRESSION: Focal airspace density in the right lower lung. Attention on CT chest which has already been ordered is recommended. ACT 112: Negative or not required by law. Electronically signed by: Blue Yin M.D. 07/30/2021 12:47 PM Chest CTA 07/30/21 11:28 CT angio chest PE protocol CLINICAL HISTORY: Diffuse pain, syncope, vomiting. History of multiple myeloma. TECHNIQUE: Multidetector row helical CT of the chest was performed. Coronal and sagittal reformations were obtained. Coronal and sagittal MIPS were obtained from the axial data set and were submitted for review. Automated dose lowering techniques and/or adjustment according to patient size were utilized for this exam. Comparison: Comparison is made to CT chest 07/10/2021 FINDINGS: Lungs and pleura: There is a focal consolidative opacity with surrounding groundglass in the right lower lobe. Dependent atelectasis is seen. Heart and pericardium: Heart size is normal. No pericardial effusion. Vessels: Exam is limited by suboptimal contrast timing. No central, lobar, or segmental pulmonary embolus is seen. Mediastinum and hermila: Unremarkable. Chest wall and lower neck: Unremarkable. Abdomen: For findings below the diaphragm, please refer to CT of the abdomen dated the same. Bones: Heterogeneous appearance of the bones compatible with history of multiple myeloma. IMPRESSION: 1. No evidence of pulmonary embolism. 2. Interval development of right lower lobe consolidation compatible with aspiration/pneumonia. ACT 112: Negative or not required by law. Electronically signed by: Blue Yin M.D. 07/30/2021 12:40 PM Abdomen/Pelvis CTA 07/30/21 11:37 CT angio abdomen pelvis w con CLINICAL HISTORY: syncope, vomiting, eval aorta TECHNIQUE: Multidetector row helical CT of the abdomen, pelvis and bilateral lower extremities down through the feet was performed, following intravenous administration of 140 cc of Omnipaque-350. No oral contrast was administered. C oronal and sagittal reformations were obtained. MIP and 3D volume rendered reconstructions were obtained. Comparison: Comparison is made to CT abdomen 03/15/2020 FINDINGS: Lower chest: For findings above the diaphragm, please see CT chest performed same day. Liver: Unremarkable. No focal lesions are seen. Gallbladder and biliary tree: Patient is status post cholecystectomy. No intra- or extrahepatic biliary ductal dilation. Pancreas: Unremarkable, no focal lesions. Spleen: Unremarkable. Adrenals: Unremarkable. Kidneys and ureters: Unremarkable. Bladder: Limited evaluation due to underdistention. Reproductive organs: Unremarkable. Bowel: Diverticulosis is seen without evidence of diverticulitis. The appendix is normal. Lymph nodes Retroperitoneal: Unremarkable. Mesenteric: Unremarkable. Pelvic: Unremarkable. Peritoneum: Normal Abdominal wall: A tiny umbilical helical hernia is seen. Bones: Mottled appearance of the skeleton is seen in this patient with history of multiple myeloma. 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 CT angiogram: The abdominal aortic contours appear intact without evidence of aneurysmal dilatation and/or dissection. No significant atherosclerosis is seen. The origins of the celiac axis, superior mesenteric, inferior mesenteric and bilateral renal arteries are patent. IMPRESSION: 1. No acute abnormalities. No evidence of aortic injury. No bowel obstruction is seen. 2. Additional findings as above. ACT 112: Negative or not required by law. Electronically signed by: Blue Yin M.D. 07/30/2021 12:46 PM Discharge Plan Visit Data Chief Complaint: Syncope ED Provider: Kamlesh Crowley Discharge Problem: Syncope, Aspiration pneumonia Patient Disposition: Admitted As Inpatient Discharge Instructions Interventions: ED Discharge Assessment Last Done: 07/30/21 19:55 Forms Stand Alone Forms: [facility] [employer] Prescriptions Prescriptions: No Action Eliquis 5 mg tablet 5 mg PO BID RF: 0 Kyprolis 30 mg recon soln 30 mg IV .ON HOLD RF: 0 dexamethasone 4 mg tablet 4 mg PO .ON HOLD RF: 0 ondansetron HCl 8 mg tablet 8 mg PO Q8H PRN (Reason: Nausea) RF: 0 palonosetron [Aloxi] 0.25 mg/5 mL solution 0.25 mg IV .ON HOLD RF: 0 oxycodone 5 mg tablet 5 mg PO Q6H PRN (Reason: Pain) RF: 0 tramadol 50 mg tablet 50 mg PO Q6H PRN (Reason: Pain) RF: 0 Pomalyst 1 mg capsule 1 mg PO DAILY RF: 0 dicyclomine 10 mg capsule 10 mg PO TID PRN (Reason: Abdominal Discomfort) Qty: 90 RF: 0 fluticasone propionate 50 mcg/actuation spray,suspension 1 - 2 spray intranasal DAILY Qty: 15.8 RF: 2 pantoprazole 40 mg Tablet,Delayed Release (Dr/Ec) 40 mg PO QAM RF: 0 acyclovir 400 mg tablet 400 mg PO BID RF: 0 Basaglar KwikPen U-100 Insulin 100 unit/mL (3 mL) Insulin Pen 0 - 12 unit SUBCUT DIRECTED PRN (Reason: BSG LEVELS) RF: 0 Referrals Referrals: Dick Carl MD [Primary Care Provider] - Discharge Problem: Syncope Qualifiers: Syncope type: unspecified Qualified Code(s): R55 - Syncope and collapse Aspiration pneumonia Qualifiers: Aspiration pneumonia type: unspecified Laterality: right Lung location: lower lobe of lung Qualified Code(s): J69.0 - Pneumonitis due to inhalation of food and vomit
[2021-07-30 11:48] LABS: Hematocrit (blood only) 28.7 % (42-52); Hemoglobin 9.4 g/dL (14.0-18.0); Mean Corpuscular Hemoglobin 34.8 pg (25-34); Mean Corpuscular Hgb Conc 32.8 g/dL (32-36); Mean Corpuscular Volume 106.3 fL (80-100); Nucleated RBC # (auto) 0.02 K/uL (0-0); Nucleated RBC % (auto) 0.4 %; RDW Coefficient of Variation 18.7 % (11.5-14.5); RDW Standard Deviation 73.1 fL (36.4-46.3); White Blood Count 4.61 K/uL (4.8-10.8)
[2021-07-30 11:51] LABS: Mean Platelet Volume 11.4 fL (7.4-10.4); Platelet Count 80 K/uL (130-400)
[2021-07-30 11:55] LABS: INR 1.1 (0.9-1.1); Partial Thromboplastin Ratio 1.7; Partial Thromboplastin Time 44.8 Seconds (21.0-31.0); Prothrombin Time 10.8 Seconds (9.0-12.0)
[2021-07-30 12:11] LABS: ALC (manual) 1.04 K/uL (1.2-3.4); ANC (manual) 1.44 K/uL (1.4-6.5); Basophils # (manual) 0.04 K/uL (0-0.2); Basophils % (manual) 0.9 %; Dohle Bodies 1+; Eosinophils # (manual) 0.12 K/uL (0-0.5); Eosinophils % (manual) 2.6 %; Lymphocytes # (manual) 1.04 K/uL (1.2-3.4); Lymphocytes % (manual) 22.6 %; Monocytes # (manual) 1.92 K/uL (0.11-0.59); Monocytes % (manual) 41.7 %; Myelocytes # (manual) 0.04 K/uL (0-0); Myelocytes % (manual) 0.9 %; Neutrophils # (manual) 1.44 K/uL (1.4-6.5); Neutrophils % (manual) 31.3 %; Toxic Granulation 1+
[2021-07-30 12:17] LABS: Alanine Aminotransferase 24 (12-78); Albumin Level 3.1 gm/dl (3.4-5.0); Aspartate Aminotransferase 13 U/L (15-37); Blood Urea Nitrogen 17 mg/dl (7-18); Calcium 9.6 mg/dl (8.5-10.1); Carbon Dioxide 21 mmol/L (21-32); Chloride 103 mmol/L (98-107); Est GFR (African American) 71.2 ml/min; Est GFR (Non-African American) 61.4 ml/min; Glucose 245 mg/dl (70-99); Lipase 60 U/L (73-393); Potassium 3.9 mmol/L (3.5-5.1); Sodium 133 mmol/L (136-145)
[2021-07-30 12:22] LABS: Albumin Globulin Ratio 0.8 (0.9-2); Alkaline Phosphatase 59 U/L (45-117); Globulin 4.1 gm/dl (2.5-4.0); Total Protein 7.2 gm/dl (6.4-8.2); Troponin I < 0.015 ng/ml (0-0.045)
[2021-07-30] MEDS ORDERED: OPTIRAY 320 125ml IV ONE (12:23)
--- NOTE | 2021-07-30 12:41 | CT Scan Report ---
CT angio chest PE protocol CLINICAL HISTORY: Diffuse pain, syncope, vomiting. History of multiple myeloma. TECHNIQUE: Multidetector row helical CT of the chest was performed. Coronal and sagittal reformations were obtained. Coronal and sagittal MIPS were obtained from the axial data set and were submitted fo r review. Automated dose lowering techniques and/or adjustment according to patient size were utiliz ed for this exam. Comparison: Comparison is made to CT chest 07/10/2021 FINDINGS: Lungs and pleura: There is a focal consolidative opacity with surrounding groundglass in the right lo wer lobe. Dependent atelectasis is seen. Heart and pericardium: Heart size is normal. No pericardial effusion. Vessels: Exam is limited by suboptimal contrast timing. No central, lobar, or segmental pulmonary emb olus is seen. Mediastinum and hermila: Unremarkable. Chest wall and lower neck: Unremarkable. Abdomen: For findings below the diaphragm, please refer to CT of the abdomen dated the same. Bones: Heterogeneous appearance of the bones compatible with history of multiple myeloma. IMPRESSION: 1. No evidence of pulmonary embolism. 2. Interval development of right lower lobe consolidation compatible with aspiration/pneumonia. ACT 112: Negative or not required by law. Electronically signed by: Blue Yin M.D. 07/30/2021 12:40 PM
--- NOTE | 2021-07-30 12:47 | CT Scan Report ---
CT angio abdomen pelvis w con CLINICAL HISTORY: syncope, vomiting, eval aorta TECHNIQUE: Multidetector row helical CT of the abdomen, pelvis and bilateral lower extremities down t hrough the feet was performed, following intravenous administration of 140 cc of Omnipaque-350. No or al contrast was administered. Coronal and sagittal reformations were obtained. MIP and 3D volume rend ered reconstructions were obtained. Comparison: Comparison is made to CT abdomen 03/15/2020 FINDINGS: Lower chest: For findings above the diaphragm, please see CT chest performed same day. Liver: Unremarkable. No focal lesions are seen. Gallbladder and biliary tree: Patient is status post cholecystectomy. No intra- or extrahepatic bilia ry ductal dilation. Pancreas: Unremarkable, no focal lesions. Spleen: Unremarkable. Adrenals: Unremarkable. Kidneys and ureters: Unremarkable. Bladder: Limited evaluation due to underdistention. Reproductive organs: Unremarkable. Bowel: Diverticulosis is seen without evidence of diverticulitis. The appendix is normal. Lymph nodes Retroperitoneal: Unremarkable. Mesenteric: Unremarkable. Pelvic: Unremarkable. Peritoneum: Normal Abdominal wall: A tiny umbilical helical hernia is seen. Bones: Mottled appearance of the skeleton is seen in this patient with history of multiple myeloma. C ompression deformities are seen at multiple levels with cemented arthroplasties noted at L1 and L2. CT angiogram: The abdominal aortic contours appear intact without evidence of aneurysmal dilatation a nd/or dissection. No significant atherosclerosis is seen. The origins of the celiac axis, superior mesenteric, inferior mesenteric and bilateral renal arteries are patent. IMPRESSION: 1. No acute abnormalities. No evidence of aortic injury. No bowel obstruction is seen. 2. Additional findings as above. ACT 112: Negative or not required by law. Electronically signed by: Blue Yin M.D. 07/30/2021 12:46 PM
--- NOTE | 2021-07-30 12:48 | XRay Report ---
XR chest 1V portable CLINICAL HISTORY: Atypical chest pain TECHNIQUE: Single frontal radiograph of the chest was obtained. Comparison: None available at the time of this dictation. FINDINGS: A left portacatheter seen. The cardiomediastinal silhouette is normal. There is a focal airspace dens ity in the right lower lung. No evidence of pleural effusion or pneumothorax. IMPRESSION: Focal airspace density in the right lower lung. Attention on CT chest which has already been ordered is recommended. ACT 112: Negative or not required by law. Electronically signed by: Blue Yin M.D. 07/30/2021 12:47 PM
[2021-07-30] MEDS ORDERED: AMPICILLIN/SULBACTAM SOD 3,000 MG in 0.9 % SODIUM CHLORIDE 100 ML IV STA (12:58)
[2021-07-30] MEDS ORDERED: VANCOMYCIN CONSULT ACTIVE PRN (12:58)
[2021-07-30] MEDS ORDERED: VANCOMYCIN HCL 2,000 MG in SODIUM CHLORIDE 0.9% 500 ML IV SCH (13:00)
--- NOTE | 2021-07-30 14:17 | Electrocardiogram Report ---
Test Reason : Blood Pressure : / mmHG Vent. Rate : 084 BPM Atrial Rate : 084 BPM P-R Int : 140 ms QRS Dur : 088 ms QT Int : 372 ms P-R-T Axes : 068 053 064 degrees QTc Int : 439 ms Normal sinus rhythm Normal ECG When compared with ECG of 20-JUN-2021 15:36, No significant change was found Confirmed by Cezar Nichole ([id number]) on 07/30/2021 2:17:03 PM Referred By: Palak Chatman Confirmed By:Cezar Nichole
[2021-07-30 15:42] LABS: Influenza A virus by PCR Negative (Neg); Influenza B virus by PCR Negative (Neg); RSV by PCR Negative (Neg); SARS CoV2 RNA(COVID-19) InHosp NEGATIVE (Negative)
--- NOTE | 2021-07-30 19:00 | History & Physical Report ---
Date of Service July 30, 2021 Assessment & Plan (1) Syncope: Plan: Unknown etiology at this time- was associated with bradycardia noted on arrival to EMD - Admit to telemetry- follow overnight - Cardiology consulted by EMD - Consider repeat of ECHO following telemetry review overnight - Is on low dose of Polymast that has not changed (2) Bradycardia: Plan: As above- currently does not appear emergent cause i.e ischemia (3) Aspiration pneumonitis: Plan: No airway collapse, afebrile, on room air - Does have consolidation so will continue with Unasyn 1500mg IV q6 (4) Diplopia: Plan: Secondary to Cranial nerve 6 palsy - self corrected with eye patch over either eye (5) Pancytopenia: Plan: Secondary to chemo regime - Stimulation therapy deferred to Haemetology/Oncology - Appreciate their assistance (6) Hyperglycemia: Plan: On Glargine sliding scale one a day at home - Glucose he noted was 175 this morning he did take his glargine- mildly elevated in rad onc and EMD - Will transition to Aspart sliding scale (7) Multiple myeloma: Plan: As above - Continue his home Pomalyst- he can take his home medication - Continue Prophylactic Acyclovir History of Present Illness Primary Care Provider: Dick Carl MD 60 YOM with past medical history of: MML currently receiving Carfilzomib, Decadron and Pomalyst, Bilateral PE 6/20(on Eliquis), Cranial nerve 6 palsy, anemia, leukopenia, steroid induced hyperglycemia, IBS Pomalyst dosing is 1mg PO daily, as at higher doses he was feeling ill. He has also received an autologous stem cell transplant in Sep 10 at [facility] in [place]- he has been accepted there, but beds are unavailable for ~3-4 days. He follows with radiation oncology for palliative external beam radiation to his C5 Clivus. Patient comes to the emergency room today following syncopal episode at Radiation Oncology this morning- which resulted in a CODE BLUE - where he remained to have a pulse but did appear weak and pale, he was then transported to the EMD and upon arrival he felt like he was going to pass out again, he was noted to be bradycardic on the monitor with HR in the 40s and ~2 second pause where he did "black out" CPR was briefly started by EMD and he returned to NSR without any further intervention and he awoken without any neurological deficits. Patient has noted that he has had these episodes in the past and noted on his most recent admission in March 20 where he had a cholecystectomy done- he was noted to have a HR of 58 at that time. Patient underwent a stress ECHO in 2019 that was normal. Echo in 05.09 was noted for Normal LV with normal EF 55-60% with no RWMA and normal AV and MV. Patient reports that his symptoms are usually precluded by nausea, then followed by hot flushing feeling with ringing in the ears. When he has this episode he usually goes down to one knee and calls his for help. He states he normally doesn't pass out but these episodes are notable for cool sweats following. Patient will be admitted for monitoring of his HR and symptomatology. He will be placed in the PCU. In the EMD the patient did have CXR done, CTA of the chest to rule out PE and abdomen and pelvis CTA performed secondary for his nausea. His CTA of chest was negative for PE, but noted right lower lobe consolidation he was given dose of Unasyn and Vancomycin empirically for aspiration pna. There is no lobar collapse noted. He had no further episodes of bradycardia noted. His troponin level was normal and his ECG was NSR with normal QT interval. He reports new medications as only Zoloft 50mg PO daily started by [facility]. Patient was orginally diagnosed with MML in 2019 with IgG [place] Multiple Myeloma- Please see Oncology Hematology note from 05/07/21 for full review of his oncological history. Allergies Allergy/AdvReac Type Severity Reaction Status Date / Time fentanyl Allergy Severe Vomiting Verified 07/30/21 14:47 Home Medications Medication Instructions Recorded Confirmed Type acyclovir 400 mg tablet 400 mg PO BID 03/22/19 07/30/21 History pantoprazole 40 mg tablet,delayed 40 mg PO QAM 05/19/19 07/30/21 History release apixaban 5 mg tablet (Eliquis) 5 mg PO BID 03/14/20 07/30/21 History insulin glargine 100 unit/mL (3 0 - 12 unit SUBCUT DIRECTED PRN 01/25/21 07/30/21 History mL) subcutaneous pen (Basaglar KwikPen U-100 Insulin) carfilzomib 30 mg intravenous 30 mg IV .ON HOLD ea 05/08/21 07/30/21 History solution (Kyprolis) dexamethasone 4 mg tablet 4 mg PO .ON HOLD 05/08/21 07/30/21 History ondansetron HCl 8 mg tablet 8 mg PO Q8H PRN 05/08/21 07/30/21 History oxycodone 5 mg tablet 5 mg PO Q6H PRN 05/08/21 07/30/21 History palonosetron 0.25 mg/5 mL 0.25 mg IV .ON HOLD ml 05/08/21 07/30/21 History intravenous solution (Aloxi) fluticasone propionate 50 1 - 2 spray INTRANASAL DAILY #15.8 06/21/21 07/30/21 Rx mcg/actuation nasal ml spray,suspension pomalidomide 1 mg capsule 1 mg PO DAILY 07/16/21 07/31/21 History (Pomalyst) tramadol 50 mg tablet 50 mg PO Q6H PRN 07/16/21 07/30/21 History dicyclomine 10 mg capsule 10 mg PO TID PRN #90 cap 07/18/21 07/30/21 Rx Past Med/Surg History Medical History Anemia Back problem Deep vein thrombosis in leg 02/06 (REAS[facility] FOR ELIQUIS) Diverticular disease GERD (gastroesophageal reflux disease) History of chemotherapy oral chemo until 01/30, taking IV chemo and then will be starting with maintaince dose per [facility] scheduling Lytic lesion of bone on x-ray since 01/2019 and had radiation on this lesion Multiple myeloma (02/02/19) Neoplasm of bone Plantar fascial fibromatosis PT UNAWARE Prediabetes STEROID INDUCED "MY SUGAR GOES UP AND DOWN" checks sugar daily Pulmonary embolism "01/2019 went from leg to lung" (REASON FOR ELIQUIS) Surgical History H/O kyphoplasty H/O wrist surgery Hx laparoscopic cholecystectomy (02/20/21) Hx of biopsy Hx of colonoscopy Port-A-Cath in place (02/05/21) Pinon teeth removed Family History Mother Breast cancer Father Prostate cancer Coronary heart disease Diabetes Heart disease Brother Diabetes Brother No problems noted. Sister Asthma Addisons disease Daughter No problems noted. Daughter No problems noted. Son No problems noted. 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 Beliefs That Will Affect Care: None marital status: Current Living Situation: Spouse and Family Current Living Situation Comment: Lives with and 2 daughters current occupational status: retired and disabled How many Children do You have: 3 Feels Safe at Home: Yes Safety Concerns: Feels Safe At This Time Childhood Exposure to Second-Hand Smoke: No Dental Care, Regularly: Yes Assistive Devices: None and Glasses Review of Systems Review of Systems: REVIEW OF SYSTEMS: Constitutional: No fever, sweats or chills Eyes: No diplopia, no worsening or blurred vision ENT: (+) diplopia wears eye patch, normal hearing, no trouble swallowing Respiratory: No cough, sputum, dyspnea at rest or on exertion Cardiovascular: (+) lightheadedness, syncope, No chest pain, tightness or palpitations Abdomen:(+) nausea, No pain, nausea, vomiting, diarrhea or constipation Musculoskeletal: (+) neck and back joint pain, NO calf pain, swelling Neurologic: No weakness, numbness/tingling, or balance problems Psychiatric: No anxiety or depression Skin: No rash or itch Physical Exam Physical Exam: PHYSICAL EXAM: General: awake, alert, no apparent distress Head: Normocephalic, atraumatic ENT: PERRL, EOMI, no pharyngeal exudate, mucous membranes moist Neuro: AAO x 3, speech clear and appropriate, strength intact bilaterally 5/5, sensation intact and equal all extremities and dermatomes, no pronator drift Chest: equal rise and fall of the chest, no accessory muscle use, no heaves or thrills, Clear to auscultation, on room air, Cardiac: Regular rate and rhythm, telemetry reviewed, skin warm dry, cap refill <3 seconds, peripheral pulses +2 no JVD, no murmur, no edema GI: NABS x 4 quadrants, soft, nontender to palpation, no rebound, guarding or tenderness : Spontaneously voiding, no pain, no CVA tenderness, Extremities: Normal inspection, no peripheral edema or erythema, calfs nontender to palpation Psych: Normal mood and affect Skin: no rash or erythema Results & Data Results & Data ([facility]) Vital Signs (Past 12 Hours) Vital Signs Temp Pulse Pulse Resp BP BP Pulse Ox 07/30/21 18:28 96 H 19 148/98 H 97 07/30/21 17:57 111 H 16 145/94 H 97 07/30/21 17:34 99 H 16 141/94 H 97 07/30/21 17:08 94 H 16 124/82 97 07/30/21 16:53 88 16 134/79 97 07/30/21 16:35 94 H 16 133/87 98 07/30/21 16:17 94 H 16 132/87 97 07/30/21 16:03 99 07/30/21 16:00 86 16 145/79 H 99 07/30/21 15:32 82 13 144/80 H 100 07/30/21 15:20 101 H 12 112/89 100 07/30/21 15:07 87 16 139/70 98 07/30/21 14:45 83 14 125/68 98 07/30/21 14:40 84 11 L 148/65 H 98 07/30/21 14:30 88 21 134/80 99 07/30/21 14:15 88 9 L 137/85 98 07/30/21 14:00 94 H 12 129/85 98 07/30/21 13:45 89 17 126/81 99 07/30/21 13:36 36.7 C 87 16 128/85 100 07/30/21 13:30 89 20 128/85 100 07/30/21 13:15 92 H 20 129/86 100 07/30/21 13:00 91 H 18 128/73 100 07/30/21 12:45 91 H 21 113/67 100 07/30/21 12:34 92 H 16 93/75 L 100 07/30/21 12:33 92 H 18 114/69 100 07/30/21 12:30 96 H 14 129/86 100 07/30/21 12:25 95 H 15 122/67 100 07/30/21 12:23 95 H 12 07/30/21 12:00 79 19 98/60 L 100 07/30/21 11:55 79 17 112/68 100 07/30/21 11:50 82 19 112/66 100 07/30/21 11:45 81 22 113/63 100 07/30/21 11:40 79 25 H 109/74 100 07/30/21 11:30 80 25 H 115/68 100 07/30/21 11:25 85 21 128/66 100 07/30/21 11:22 91 H 27 H 100 Laboratory Results Abnormal lab results 07/30/21 07/30/21 07/30/21 Range/Units 11:23 11:24 11:24 WBC 4.61 L (4.8-10.8) K/uL RBC 2.70 L (4.7-6.1) M/uL Hgb 9.4 L (14.0-18.0) g/dL Hct 28.7 L (42-52) % MCV 106.3 H (80-100) fL MCH 34.8 H (25-34) pg RDW Std Deviation 73.1 H (36.4-46.3) fL RDW Coeff of George 18.7 H (11.5-14.5) % Plt Count 80 L (130-400) K/uL MPV 11.4 H (7.4-10.4) fL Absolute Nucleated RBC 0.02 H (0-0) K/uL Lymphocytes # (Manual) 1.04 L (1.2-3.4) K/uL Total Abs Lymphocytes 1.04 L (1.2-3.4) K/uL Monocytes # (Manual) 1.92 H (0.11-0.59) K/uL Myelocytes # (Manual) 0.04 H (0-0) K/uL APTT 44.8 H (21.0-31.0) Seconds Sodium (136-145) mmol/L Glucose (70-99) mg/dl POC Glucose 238 H (70-99) mg/dl Lactate (0.4-2.0) mmol/L AST (15-37) U/L Albumin (3.4-5.0) gm/dl Globulin (2.5-4.0) gm/dl Albumin/Globulin Ratio (0.9-2) Lipase (73-393) U/L 07/30/21 07/30/21 Range/Units 11:24 11:46 WBC (4.8-10.8) K/uL RBC (4.7-6.1) M/uL Hgb (14.0-18.0) g/dL Hct (42-52) % MCV (80-100) fL MCH (25-34) pg RDW Std Deviation (36.4-46.3) fL RDW Coeff of George (11.5-14.5) % Plt Count (130-400) K/uL MPV (7.4-10.4) fL Absolute Nucleated RBC (0-0) K/uL Lymphocytes # (Manual) (1.2-3.4) K/uL Total Abs Lymphocytes (1.2-3.4) K/uL Monocytes # (Manual) (0.11-0.59) K/uL Myelocytes # (Manual) (0-0) K/uL APTT (21.0-31.0) Seconds Sodium 133 L (136-145) mmol/L Glucose 245 H (70-99) mg/dl POC Glucose (70-99) mg/dl Lactate 2.3 H* (0.4-2.0) mmol/L AST 13 L (15-37) U/L Albumin 3.1 L (3.4-5.0) gm/dl Globulin 4.1 H (2.5-4.0) gm/dl Albumin/Globulin Ratio 0.8 L (0.9-2) Lipase 60 L (73-393) U/L Diagnostic Findings Chest X-Ray 07/30/21 11:27 XR chest 1V portable CLINICAL HISTORY: Atypical chest pain TECHNIQUE: Single frontal radiograph of the chest was obtained. Comparison: None available at the time of this dictation. FINDINGS: A left portacatheter seen. The cardiomediastinal silhouette is normal. There is a focal airspace density in the right lower lung. No evidence of pleural effusion or pneumothorax. IMPRESSION: Focal airspace density in the right lower lung. Attention on CT chest which has already been ordered is recommended. ACT 112: Negative or not required by law. Electronically signed by: Blue Yin M.D. 07/30/2021 12:47 PM Chest CTA 07/30/21 11:28 CT angio chest PE protocol CLINICAL HISTORY: Diffuse pain, syncope, vomiting. History of multiple myeloma. TECHNIQUE: Multidetector row helical CT of the chest was performed. Coronal and sagittal reformations were obtained. Coronal and sagittal MIPS were obtained from the axial data set and were submitted for review. Automated dose lowering techniques and/or adjustment according to patient size were utilized for this exam. Comparison: Comparison is made to CT chest 07/10/2021 FINDINGS: Lungs and pleura: There is a focal consolidative opacity with surrounding groundglass in the right lower lobe. Dependent atelectasis is seen. Heart and pericardium: Heart size is normal. No pericardial effusion. Vessels: Exam is limited by suboptimal contrast timing. No central, lobar, or segmental pulmonary embolus is seen. Mediastinum and hermila: Unremarkable. Chest wall and lower neck: Unremarkable. Abdomen: For findings below the diaphragm, please refer to CT of the abdomen dated the same. Bones: Heterogeneous appearance of the bones compatible with history of multiple myeloma. IMPRESSION: 1. No evidence of pulmonary embolism. 2. Interval development of right lower lobe consolidation compatible with aspiration/pneumonia. ACT 112: Negative or not required by law. Electronically signed by: Blue Yin M.D. 07/30/2021 12:40 PM Abdomen/Pelvis CTA 07/30/21 11:37 CT angio abdomen pelvis w con CLINICAL HISTORY: syncope, vomiting, eval aorta TECHNIQUE: Multidetector row helical CT of the abdomen, pelvis and bilateral lower extremities down through the feet was performed, following intravenous administration of 140 cc of Omnipaque-350. No oral contrast was administered. Coronal and sagittal reformations were obtained. MIP and 3D volume rendered reconstructions were obtained. Comparison: Comparison is made to CT abdomen 03/15/2020 FINDINGS: Lower chest: For findings above the diaphragm, please see CT chest performed same day. Liver: Unremarkable. No focal lesions are seen. Gallbladder and biliary tree: Patient is status post cholecystectomy. No intra- or extrahepatic biliary ductal dilation. Pancreas: Unremarkable, no focal lesions. Spleen: Unremarkable. Adrenals: Unremarkable. Kidneys and ureters: Unremarkable. Bladder: Limited evaluation due to underdistention. Reproductive organs: Unremarkable. Bowel: Diverticulosis is seen without evidence of diverticulitis. The appendix is normal. Lymph nodes Retroperitoneal: Unremarkable. Mesenteric: Unremarkable. Pelvic: Unremarkable. Peritoneum: Normal Abdominal wall: A tiny umbilical helical hernia is seen. Bones: Mottled appearance of the skeleton is seen in this patient with history of multiple myeloma. 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 CT angiogram: The abdominal aortic contours appear intact without evidence of aneurysmal dilatation and/or dissection. No significant atherosclerosis is seen. The origins of the celiac axis, superior mesenteric, inferior mesenteric and bilateral renal arteries are patent. IMPRESSION: 1. No acute abnormalities. No evidence of aortic injury. No bowel obstruction is seen. 2. Additional findings as above. ACT 112: Negative or not required by law. Electronically signed by: Blue Yin M.D. 07/30/2021 12:46 PM Medications Administered Vancomycin HCl 2,000 mg/ (Sodium Chloride) 540 mls @ 200 mls/hr IV UD RADHA Stop: 08/01/21 12:59 Last Infusion: 07/30/21 17:35 Dose: 0 mls/hr Documented by: [id number] Admin: 07/30/21 14:47 Dose: 200 mls/hr Documented by: [id number] Discontinued Medications Sodium Chloride (Nss 1000ml) 1,000 mls @ 999 mls/hr IV .Q1H1M ONE Stop: 07/30/21 12:29 Last Infusion: 07/30/21 13:11 Dose: 0 mls/hr Documented by: [id number] Admin: 07/30/21 11:58 Dose: 999 mls/hr Documented by: [id number] Sodium Chloride (Nss 1000ml) 1,000 mls @ 999 mls/hr IV .Q1H1M ONE Stop: 07/30/21 13:41 Last Infusion: 07/30/21 14:30 Dose: 0 mls/hr Documented by: [id number] Admin: 07/30/21 12:50 Dose: 999 mls/hr Documented by: [id number] Ampicillin Sodium/Sulbactam Sodium 3,000 mg/ Sodium Chloride 108 mls @ 200 mls/hr IV NOW STA; Protocol Stop: 07/30/21 13:30 Last Infusion: 07/30/21 14:30 Dose: 0 mls/hr Documented by: [id number] Admin: 07/30/21 13:23 Dose: 200 mls/hr Documented by: [id number] Ioversol (Optiray 320 125ml) 120 ml IV ONCE ONE Stop: 07/30/21 12:24 Last Admin: 07/30/21 12:12 Dose: 120 ml Documented by: [id number] Miscellaneous (Rapid Sequence Induction Bag) Confirm Administered Dose 1 ea .ROUTE .STK-MED ONE Stop: 07/30/21 11:22 Last Admin: 07/30/21 13:11 Dose: Not Given Documented by: [id number] Ondansetron HCl (Ondansetron Inj 2 Mg/Ml 2 Ml Vial) 4 mg IV NOW STA Stop: 07/30/21 11:31 Last Admin: 07/30/21 11:58 Dose: 4 mg Documented by: [id number] Ondansetron HCl (Ondansetron Inj 2 Mg/Ml 2 Ml Vial) 4 mg IV NOW STA Stop: 07/30/21 12:42 Last Admin: 07/30/21 12:50 Dose: 4 mg Documented by: [id number] Ondansetron HCl (Ondansetron Inj 2 Mg/Ml 2 Ml Vial) 4 mg IV NOW STA Stop: 07/30/21 18:10 Last Admin: 07/30/21 18:13 Dose: 4 mg Documented by: [id number] ECG Additional Comments: Vent. Rate : 084 BPM Atrial Rate : 084 BPM P-R Int : 140 ms QRS Dur : 088 ms QT Int : 372 ms P-R-T Axes : 068 053 064 degrees QTc Int : 439 ms Normal sinus rhythm Normal ECG When compared with ECG of 20-JUN-2021 15:36, No significant change was found Confirmed by Cezar Nichole ([id number]) on 07/30/2021 2:17:03 PM Code Status & VTE Plan Code Status CODE: FULL VTE: SCDs, Eliquis VTE Prophylaxis Plan VTE Prophylaxis will be ordered: Yes Supervising Physician Co-Signing Physician Notes I personally saw and examined the patient. I verified all pierre points and agree with FRANCINE Barroso with the following exceptions and/or additions: 60 year old male with multiple myeloma. Code blue/purple in radiation oncology earlier today. Patient seen during this code, in the ER and in the PCU. Appeared pale during code and regained his color significantly although still having nausea. He reports this is not uncommon for him and has had multiple pre- syncopal episodes associated with radiation treatment. O/E HS 1+2, no murmurs, chest CTAB, mild umbilical pain on deep palpation (patient reports chronic), BS normal A/P Syncope - suspect vasovagal in setting of mild dehydration since sinus bradycardia on telemetry in the ER. He is not on any AV sandy blocking agents. No heart block seen on EKG or telemetry. Appears to be related to radiation ronni tments although given these are at multiple sites difficult to correlate to the actual treatment but perhaps making his nausea worse and precipitating vasovagal effect. Monitor on telemetry overnight with cardiology to see tomorrow. Has a pending transfer to [facility] when bed available due to history of stem cell transplant. Cardiology consult in AM. Aspiration pneumonia - given changes on CT with large area of consolidation, continue treatment with Unasyn. PG Care Time/CCT Total # of Minutes Spent Total Time Spent with Patient: Total time spent is greater than 50% in coordination of care (as documented) at patient's floor/unit and/or counseling patient: Coding Level of Care Code 45810 Initial Inpt Care Lvl 3 Diagnoses Syncope R55 Bradycardia R00.1 Diplopia H53.2 Pancytopenia D61.818 Hyperglycemia R73.9 Multiple myeloma C90.00 Aspiration pneumonitis J69.0
[2021-07-30] MEDS ORDERED: traMADol HCL 50 MG TABLET PO PRN (20:28)
[2021-07-30] MEDS ORDERED: CARBOHYDRATES FOR HYPOGLYCEMIA PO PRN (20:28)
[2021-07-30] MEDS ORDERED: GLUCOSE 40% GEL 15 GM TUBE PO PRN (20:28)
[2021-07-30] MEDS ORDERED: DEXTROSE 50% 50 ML SYRINGE IV PRN (20:28)
[2021-07-30] MEDS ORDERED: POLYETHYLENE (MIRALAX) 17 GM PACK PO PRN (20:28)
[2021-07-30] MEDS ORDERED: GLUCAGON FOR INJ 1 MG VIAL SQ PRN (20:28)
[2021-07-30] MEDS ORDERED: oxyCODONE HCL IR 5 MG TAB (IMMEDIATE RELEASE) PO PRN (20:28)
[2021-07-30] MEDS ORDERED: GLUCOSE 10 TABS/TUBE PO PRN (20:28)
[2021-07-30] MEDS ORDERED: DICYCLOMINE HCL 10 MG CAP PO PRN (20:28)
[2021-07-30] MEDS ORDERED: ONDANSETRON 8MG OD TAB PO PRN (20:42)
[2021-07-30] MEDS ORDERED: [UNRECOGNIZED DRUG - OTHER] PO SCH (21:30)
[2021-07-30] MEDS ORDERED: METOCLOPRAMIDE HCL INJ 5 MG/ML 2 ML VIAL IV PRN (21:32)
[2021-07-30] MEDS: AMPICILLIN/SULBACTAM SOD 1,500 MG in 0.9 % SODIUM CHLORIDE 100 ML IV SCH (21:37)
[2021-07-30] MEDS: ACETAMINOPHEN 325 MG TAB PO PRN (21:37)
[2021-07-30] MEDS: APIXABAN 5 MG TABLET PO SCH (21:45)
[2021-07-30] MEDS: ACYCLOVIR 400 MG TAB PO SCH (21:46)
[2021-07-30] MEDS: SERTRALINE HCL 50 MG TABLET PO SCH (21:46)
[2021-07-30] MEDS: INSULIN ASPART PER UNIT SC SCH (21:57)
[2021-07-30] MEDS ORDERED: HEPARIN 100 UNIT/ML 5ML FLUSH FLUSH PRN (22:30)
[2021-07-31] MEDS: AMPICILLIN/SULBACTAM SOD 1,500 MG in 0.9 % SODIUM CHLORIDE 100 ML IV SCH ×3 (05:00→16:31)
[2021-07-31] MEDS: SERTRALINE HCL 50 MG TABLET PO SCH (07:54)
[2021-07-31] MEDS: ACYCLOVIR 400 MG TAB PO SCH (07:55)
[2021-07-31] MEDS: APIXABAN 5 MG TABLET PO SCH (07:56)
[2021-07-31] MEDS: INSULIN ASPART PER UNIT SC SCH ×3 (08:26→17:06)
[2021-07-31] MEDS ORDERED: PANTOprazole 40 MG TAB PO SCH (09:00)
--- NOTE | 2021-07-31 09:06 | Electrocardiogram Report ---
Test Reason : Blood Pressure : / mmHG Vent. Rate : 091 BPM Atrial Rate : 091 BPM P-R Int : 152 ms QRS Dur : 088 ms QT Int : 334 ms P-R-T Axes : 002 004 004 degrees QTc Int : 410 ms Normal sinus rhythm Normal ECG When compared with ECG of 30-JUL-2021 11:22, QRS axis Shifted left Confirmed by Cezar Nichole ([id number]) on 07/31/2021 9:05:41 AM Referred By: Palak Chatman Confirmed By:Cezar Nichole
[2021-07-31] MEDS ORDERED: ATROPINE SULFATE 0.1 MG/ML 5ML SYR IV ONE (09:53)
--- NOTE | 2021-07-31 10:51 | Cardiology Consultation ---
Date of Consultation July 31, 2021 Assessment & Plan (1) Syncope: (2) Bradycardia: (3) Multiple myeloma: 60-year-old man with no cardiac history undergoing chemotherapy and radiation therapy for multiple myeloma. Suspect that cranial irradiation induced nausea that resulted in a profound vagal response and subsequent transient syncope. As noted, he had a similar episode after a prior episode of cranial irradiation. Doubt any medication/chemotherapy related effect, since he has not bradycardic at baseline but rather had a very episodic and transient bradycardia occurring in the context of severe nausea. In the absence of evidence for heart block or extremely prolonged pauses, would not consider pacemaker placement, particularly in patient with thrombocytopenia, anemia, and leukopenia undergoing cancer treatment. His rhythm has been normal and unremarkable over the past nearly 24 hours, however given the severity of his symptoms yesterday would recommend maintaining on monitor another 24 hours. If he has recurrent syncope (particularly if traumatic), would need to reconsider pacemaker. At this point, emphasized importance of lying down should he develop nausea and using antiemetic prior to any future irradiation (fortunately, none is planned in the near term). He has taken Zofran in the past with good antiemetic effect. While in the hospital, would keep atropine at bedside. Patient had no significant symptoms and was hemodynamically stable at the time of this consultation. History of Present Illness Reason for Consultation: syncope Requesting Physician: Carolina Vidales MD Attending Physician: Carolina Vidales MD History of Present Illness 60-year-old man with no cardiac history but with a history of pulmonary embolism 2018 (chronic apixaban) and multiple myeloma status post autologous stem cell transplant August 2020 who is currently undergoing chemotherapy and radiation therapy, had an episode of profound bradycardia with syncope after radiation therapy yesterday. Patient notes that once in the past after cranial irradiation he passed out in the shower at home. [place] a prodrome and had no trauma. Had noted significant nausea at that time. Yesterday, shortly after receiving his 10th and final dose of cranial irradiation, he noted 5 or 10 minutes of intense nausea followed by lightheadedness and loss of consciousness. Monitors showed profound bradycardia, heart rate down to 20 bpm briefly. He appeared weak and pale but initially had a palpable pulse, he was transferred to the ER where he became lightheaded again and demonstrated bradycardia and loss of consciousness, CPR started very briefly but he returned to a normal rhythm without further intervention and awoke with no further symptoms or neurologic deficits. Upon transfer to the telemetry unit yesterday he had a brief episode of bradycardia in the 20s bpm range lasting a few seconds shortly after his arrival on the unit, subsequently his heart rhythm has been sinus between 60 bpm and 90 bpm overnight with no further pauses. No evidence of heart block at any time. No further symptoms overnight. No further nausea, lightheadedness, presyncope, or syncope. He notes a feeling of generalized fatigue, but has no other complaints presently. Allergies Allergy/AdvReac Type Severity Reaction Status Date / Time fentanyl Allergy Severe Vomiting Verified 07/30/21 14:47 Home Medications Medication Instructions Recorded Confirmed Type acyclovir 400 mg tablet 400 mg PO BID 03/22/19 07/30/21 History pantoprazole 40 mg tablet,delayed 40 mg PO QAM 05/19/19 07/30/21 History release apixaban 5 mg tablet (Eliquis) 5 mg PO BID 03/14/20 07/30/21 History insulin glargine 100 unit/mL (3 0 - 12 unit SUBCUT DIRECTED PRN 01/25/21 07/30/21 History mL) subcutaneous pen (Basaglar KwikPen U-100 Insulin) carfilzomib 30 mg intravenous 30 mg IV .ON HOLD ea 05/08/21 07/30/21 History solution (Kyprolis) dexamethasone 4 mg tablet 4 mg PO .ON HOLD 05/08/21 07/30/21 History ondansetron HCl 8 mg tablet 8 mg PO Q8H PRN 05/08/21 07/30/21 History oxycodone 5 mg tablet 5 mg PO Q6H PRN 05/08/21 07/30/21 History palonosetron 0.25 mg/5 mL 0.25 mg IV .ON HOLD ml 05/08/21 07/30/21 History intravenous solution (Aloxi) fluticasone propionate 50 1 - 2 spray INTRANASAL DAILY #15.8 06/21/21 07/30/21 Rx mcg/actuation nasal ml spray,suspension pomalidomide 1 mg capsule 1 mg PO DAILY 07/16/21 07/31/21 History (Pomalyst) tramadol 50 mg tablet 50 mg PO Q6H PRN 07/16/21 07/30/21 History dicyclomine 10 mg capsule 10 mg PO TID PRN #90 cap 07/18/21 07/30/21 Rx Patient History Medical History Anemia Back problem Deep vein thrombosis in leg 02/06 ([facility]) Diverticular disease GERD (gastroesophageal reflux disease) History of chemotherapy oral chemo until 01/30, taking IV chemo and then will be starting with maintaince dose per [facility] scheduling Lytic lesion of bone on x-ray since 01/2019 and had radiation on this lesion Multiple myeloma (02/02/19) Neoplasm of bone Plantar fascial fibromatosis PT UNAWARE Prediabetes STEROID INDUCED "MY SUGAR GOES UP AND DOWN" checks sugar daily Pulmonary embolism "01/2019 went from leg to lung" ([facility]) Surgical History H/O kyphoplasty H/O wrist surgery Hx laparoscopic cholecystectomy (02/20/21) Hx of biopsy Hx of colonoscopy Port-A-Cath in place (02/05/21) [place] teeth removed Family History Mother Breast cancer Father Prostate cancer Coronary heart disease Diabetes Heart disease Brother Diabetes Brother No problems noted. Sister Asthma Addisons disease Daughter No problems noted. Daughter No problems noted. Son No problems noted. Other Family history non-contributory Hearing loss No family history of adverse response to anesthesia No family history of bleeding disorder Social History Smoking Status: Never smoker Second Hand Exposure: No; Do You Dip or Chew Tobacco: Yes; Hx Alcohol Use: Yes Alcohol type: beer and wine Alcohol Intake Frequency: Monthly or Less Alcohol Intake Frequency Comment: twice a month Hx Substance Use: No Preferred Language: Vietnamese Communication Ability: Effective Visual Impairment: No Limitations Hearing Ability: Normal It Infrastructure Consultant Required: No Beliefs That Will Affect Care: None marital status: Current Living Situation: Spouse and Family Current Living Situation Comment: Lives with and 2 daughters current occupational status: retired and disabled How many Children do You have: 3 Feels Safe at Home: Yes Safety Concerns: Feels Safe At This Time Childhood Exposure to Second-Hand Smoke: No Dental Care, Regularly: Yes Assistive Devices: None and Glasses Physical Exam Physical Exam: Normal habitus adult white male in no distress. Blood pressure normotensive to mildly hypertensive overnight. Pulse currently 94 bpm and regular. Skin: no ecchymoses or generalized lesions. HEENT: Eyepatch right eye, otherwise unremarkable. Neck: Jugular is pulse at the clavicle at 90 degrees, no carotid bruits. Chest: Left subclavian region access port. Lungs: clear bilaterally Cardiac: regular rhythm without ectopy no murmur or gallop. Abdomen: benign. Extremities: no edema, pulses intact. Neurologic: normal affect and conversation nonfocal. Results & Data ([facility]) Vital Signs (Past 12 Hours) Vital Signs Temp Pulse Pulse Resp BP Pulse Ox 07/31/21 09:46 100 H 07/31/21 07:53 98.4 F 112 H 18 115/60 95 07/31/21 03:34 98.1 F 89 14 109/68 95 07/31/21 02:41 100 H 07/30/21 23:07 97.7 F 90 16 109/57 L 94 Laboratory Results Sodium 133, otherwise normal electrolytes, BUN 17, creatinine 1.27. Hemoglobin 9.4, WBC 4.6, platelets 80,000. Troponin measured yesterday was negative. Diagnostic Findings ECG yesterday showed sinus rhythm at 84 bpm and was completely unremarkable. ECG today showed sinus rhythm at 91 bpm and was completely unremarkable. Compared with yesterday, QRS axis shifted left, otherwise no change. Chest x-ray with focal airspace density right lower lung. Chest CT with no evidence of pulmonary embolism, right lower lobe consolidation is new compared with 07/10/[address] with no acute abnormalities. Echocardiogram 2019 showed normal LV systolic function (EF 55-60%) with no wall motion abnormalities or valvular pathology. PG Care Time/CCT Total # of Minutes Spent Total Time Spent with Patient: Total time spent is greater than 50% in coordination of care (as documented) at patient's floor/unit and/or counseling patient: Coding Level of Care Code 79481 Inpt Consult Level 4 Diagnoses Syncope R55 Syncope type: unspecified Bradycardia R00.1 Multiple myeloma C90.00 Multiple myeloma remission status: not in remission (1) Syncope Syncope type: unspecified Qualified Code(s): R55 - Syncope and collapse (2) Multiple myeloma Multiple myeloma remission status: not in remission Qualified Code(s): C90.00 - Multiple myeloma not having achieved remission
--- NOTE | 2021-07-31 11:47 | Consultation Report ---
HEMATOLOGY CONSULTATION DATE OF SERVICE: 07/31/2021 REASON FOR CONSULTATION: Syncopal episode in a 60-year-old gentleman with IgG kappa multiple myeloma. HISTORY OF PRESENT ILLNESS: Mr. Silva is very pleasant, unfortunate 60-year-old gentleman well known to [facility] with history of IgG kappa multiple myeloma, admitted to [facility] yesterday after a syncopal episode experienced at radiation oncology. He was receiving external beam radiation to C5 region, apparently had a syncopal episode in radiation oncology, which resulted in code blue. The patient maintained a pulse, but appeared weak and pale, was subsequently transported to the Emergency Room where he felt like he was going to have another syncopal event. He was noted to be bradycardic with his heart rate in the 40s. A 2-second pause where apparently he did black out. CPR was briefly initiated and returned to normal sinus rhythm without further intervention. Glenny is a very complex 60-year-old gentleman diagnosed a couple of years ago with IgG kappa multiple myeloma, has had multiple treatments including Pomalyst, carfilzomib and dexamethasone as well as autologous peripheral blood stem cell transplant in 08/2020. He was recently restarted on carfilzomib, Pomalyst and dexamethasone in 04/2021 because of concern for disease progression. This gentleman has had multiple issues, recent development of diplopia, which is otherwise unexplained. Transfer arrangements to [facility] have been made. However, because of COVID, the prospect of a bed and transfer is pending at this time. He is currently being seen by cardiology and on monitored bed. At bedside this morning, Glenny is awake, alert and conversant. PAST MEDICAL HISTORY: Significant for IgG kappa multiple myeloma - refractory to current therapy, anemia, deep vein thrombosis, gastroesophageal reflux disease, lytic bone lesions, plantar fasciitis, prediabetes, pulmonary embolism. CURRENT MEDICATIONS: Include acyclovir 400 mg p.o. b.i.d., Protonix 40 mg p.o. daily, apixaban 5 mg p.o. b.i.d., insulin glargine 0-12 units subQ as directed p.r.n., carfilzomib 30 mg IV - currently on hold, dexamethasone 4 mg p.o. - currently on hold, Zofran 8 mg p.o. q.8 hours p.r.n., oxycodone 5 mg p.o. q.6 hours p.r.n., Flonase 1 or 2 sprays intranasally daily, pomalidomide 1 mg capsule 1 p.o. daily, tramadol 50 mg p.o. q.6 p.r.n., ____ 10 mg p.o. t.i.d. p.r.n. ALLERGIES: FENTANYL. 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 He is . He has children. He is a nonsmoker and nondrinker. FAMILY HISTORY: Mother attributable to breast cancer. Father attributable to prostate cancer, coronary artery disease, and diabetes mellitus. REVIEW OF SYSTEMS: CONSTITUTIONAL: As per HPI, most notably for a syncopal episode. He has had chronic diplopia. No current headaches, lightheadedness or dizziness. SKIN: No rashes or lesions. No history of dermatoses. HEENT: No headaches, lightheadedness or dizziness. Positive for diplopia. No hearing deficits. No sinus symptoms, sore throat or dysphagia. LYMPH NODES: No history of lymphoproliferative disease. CARDIAC: He has no known cardiac history, apparently was bradycardic leading up to admission. PULMONARY: Has a history of pulmonary embolism. He is not acutely short of breath, dyspneic or orthopneic. GASTROINTESTINAL: Negative for abdominal pain, nausea, vomiting, diarrhea or constipation, hematochezia or melena stools. GENITOURINARY: No hematuria, dysuria, or urinary incontinence. PSYCHIATRIC: Negative for anxiety, depression, or psychoses. ENDOCRINE: Positive for diabetes mellitus. MUSCULOSKELETAL: Positive for lytic bone disease. NEUROLOGIC: Negative for seizure, stroke or migraine headache. HEMATOLOGIC: Positive for anemia and thrombocytopenia attributable to ongoing chemotherapeutic treatment. PHYSICAL EXAMINATION: GENERAL: A very pleasant 60-year-old gentleman, awake, alert and appropriate, wearing eye patch over the right eye, in no acute distress. VITAL SIGNS: Temperature 36.9, pulse 112, respiratory rate 18, blood pressure 115/60. SKIN: Warm, dry, noncyanotic without petechia, rash or ecchymosis. HEENT: Atraumatic, normocephalic. Eyes: PERRLA. EOMI. Sclerae are nonicteric. No conjunctival injection. Nares patent without rhinorrhea or discharge. Throat is clear. Tongue is midline. Mucous membranes are moist. NECK: Supple without JVD or thyromegaly. LYMPH NODES: No cervical or supraclavicular palpable nodes. HEART: Tachy, but regular. LUNGS: Diminished breath sounds in the right posterior base with fine basilar crackles. ABDOMEN: Soft, nontender, nondistended, without palpable hepatosplenomegaly. EXTREMITIES: No calf tenderness or swelling. No clubbing, cyanosis or edema. NEUROLOGIC: He is awake, alert and oriented x3. RADIOGRAPHIC DATA: CTA of the chest reveals interval development of right lower lobe consolidation compatible with pneumonia. CTA of the abdomen and pelvis, no acute anomalies noted. The patient underwent a brain MRI on 07/04, which revealed chronic mastoiditis, but no intracranial abnormalities otherwise. LABORATORY DATA: WBC count 4610, hemoglobin 9.4, platelet count 80,000. Sodium 136, potassium 4.0, chloride 104, carbon dioxide 21, creatinine 1.27, BUN 17, lactate 2.3, glucose 245, albumin 3.1. IMPRESSION: 1. Syncope, etiology unclear. 2. Right lower lobe pneumonia. 3. Bradycardia. 4. Cytopenias attributable to chemotherapeutic effect. 5. IgG kappa multiple myeloma. PLAN: In summary, Glenny is a very pleasant 60-year-old gentleman, currently under care in medical and radiation oncology for refractory IgG kappa multiple myeloma. This gentleman is status post autologous peripheral blood stem cell transplant at [facility] in 08/2020. He has had several issues including subacute-onset diplopia, etiology yet to be determined. Apparently while in radiation where he was receiving treatment to C5 bony lesion, suffered a syncopal event and bradycardia. Glenny is very clear that this event came on suddenly. When he has had prior episodes of dizziness and lightheadedness, he generally experiences some sort of warning. Thus, I would be focused on potential cardiac etiology, perhaps within the electrical system per se. Agree with cardiology consult. The patient underwent MRI of the brain less than a month ago, in which there are no intracranial findings other than chronic mastoiditis. Apparently, Tim pending transfer to [facility] and awaits bed availability. There are no acute issues from a hematologic standpoint, agree with broad-spectrum antibiotics for right lower lobe pneumonia, but otherwise would continue to monitor his counts on a daily basis. Await cardiology's findings moving forward. We will plan to see Glenny upon discharge and await Aditya Ritchie's recommendations regarding treatment moving forward. Job ID: [id number] [facility]ITAL[facility]ah[facility]
[2021-07-31 12:31] VITALS: TEMP 98.2
[2021-07-31] MEDS ORDERED: ONDANSETRON INJ 2 MG/ML 2 ML VIAL IV ONE (12:40)
[2021-07-31] MEDS ORDERED: SODIUM CHLORIDE 0.9% 500 ML IV SCH (12:45)
--- NOTE | 2021-07-31 12:47 | Discharge Summary ---
Date of Service July 31, 2021 Admission HPI Per Admitting Provider 60 YOM with past medical history of: MML currently receiving Carfilzomib, Decadron and Pomalyst, Bilateral PE 01/07(on Eliquis), Cranial nerve 6 palsy, anemia, leukopenia, steroid induced hyperglycemia, IBS Pomalyst dosing is 1mg PO daily, as at higher doses he was feeling ill. He has also received an autologous stem cell transplant in Sep 10 at [facility] in [place]- he has been accepted there, but beds are unavailable for ~3-4 days. He follows with radiation oncology for palliative external beam radiation to his C5 Clivus. Patient comes to the emergency room today following syncopal episode at [facility] this morning- which resulted in a CODE BLUE - where he remained to have a pulse but did appear weak and pale, he was then transported to the [facility] and upon arrival he felt like he was going to pass out again, he was noted to be bradycardic on the monitor with HR in the 40s and ~2 second pause where he did "black out" CPR was briefly started by EMD and he returned to NSR without any further intervention and he awoken without any neurological deficits. Patient has noted that he has had these episodes in the past and noted on his most recent admission in March 20 where he had a cholecystectomy done- he was noted to have a HR of 58 at that time. Patient underwent a stress ECHO in 2019 that was normal. Echo in 05.09 was noted for Normal LV with normal EF 55-60% with no RWMA and normal AV and MV. Patient reports that his symptoms are usually precluded by nausea, then followed by hot flushing feeling with ringing in the ears. When he has this episode he usually goes down to one knee and calls his for help. He states he normally doesn't pass out but these episodes are notable for cool sweats following. Patient will be admitted for monitoring of his HR and symptomatology. He will be placed in the PCU. In the EMD the patient did have CXR done, CTA of the chest to rule out PE and abdomen and pelvis CTA performed secondary for his nausea. His CTA of chest was negative for PE, but noted right lower lobe consolidation he was given dose of Unasyn and Vancomycin empirically for aspiration pna. There is no lobar collapse noted. He had no further episodes of bradycardia noted. His troponin level was normal and his ECG was NSR with normal QT interval. He reports new medications as only Zoloft 50mg PO daily [facility]. 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 Principal Diagnosis Syncope-likely vasovagal, pneumonia Discharge Exam Constitutional WD/WN, vitals as above Eyes With eye patch on the right ENMT external ear and nose normal, oropharynx normal Neck trachea midline, no thyromegaly Respiratory normal respiratory effort, lungs clear to auscultation (Except somewhat diminished in right base) Cardiovascular RRR, no murmur, no edema Chest (Breasts) Chest: normal inspection of chest Gastrointestinal (Abdomen) normal bowel sounds, soft, nontender, no hepatosplenomegaly Musculoskeletal Extremities: extremities normal to inspection; no cyanosis and no clubbing Skin no rashes, warm and dry Neurologic moves all extremities and awake; no focal motor deficits Psychiatric A+Ox3, euthymic affect Lymphatic no lymphedema Discharge Data Allergies Allergy/AdvReac Type Severity Reaction Status Date / Time fentanyl Allergy Severe Vomiting Verified 07/30/21 14:47 Consultations 07/30/21 11:47 Consult Cardiology Stat 07/30/21 17:41 ED Decision to Admit Stat 07/30/21 20:28 Consult Oncology Routine Ordered Studies 07/30/21 11:28 CT angio chest PE protocol Stat 07/30/21 11:37 CT angio abdomen pelvis w con Stat Hospital Course (1) Syncope: With noted long pauses on telemetry, associated with bradycardia noted on arrival in the ER Prompted brief resuscitation with chest compressions but heart rate came back spontaneously Had another 3-second pause on telemetry after admission to telemetry unit that was not associated with syncope-was sinus in nature, no heart blocks CT angiogram of chest/abdomen/pelvis with right lower lobe pneumonia, but otherwise nothing acute. Laboratory values with pancytopenia which is chronic, otherwise fairly stable, troponin negative, ECG with normal sinus rhythm No murmur on exam Appreciate cardiology consultation-recommends continue telemetry monitoring for at least another 24 hours, but suspects this is likely due to vasovagal syncope and bradycardia secondary to nausea Patient reports that he has been getting extremely nauseated after each of his radiation treatments the past 2 weeks He has a history of syncope and presyncope in the past also associated with nausea -Treat nausea with Zofran No need for echocardiogram at this time Will give IV fluids as he has had nausea causing him to not be able to eat or drink much today (2) Bradycardia: As above- currently does not appear emergent cause i.e ischemia (3) Aspiration pneumonitis: No airway collapse, afebrile, on room air - Does have consolidation in right lower lobe on chest CT, so will continue with Unasyn 1500mg IV q6 With a low-grade fever on arrival now resolved Follow blood cultures-no growth to date (4) Diplopia: Secondary to Cranial nerve 6 palsy -Continue with eye patch (5) Pancytopenia: Secondary to chemo regime - Stimulation therapy deferred to Haemetology/Oncology - Appreciate their assistance (6) Hyperglycemia: On Glargine sliding scale at home -With some hyperglycemia here Continue NovoLog supplemental insulin and tighten down correction factor and carbohydrate ratio May need to add back on insulin glargine Follow Accu-Cheks Diabetic diet (7) Multiple myeloma: Status post stem cell transplant - Continue his home Pomalyst- he can take his home medication - Continue Prophylactic Acyclovir -Receives chemotherapy with carfilzomib once weekly Transferring to his transplant team at [facility] DVT prophylaxis-Eliquis Disposition-transfer to [facility] today at 1630 Total Time Total Time Spent Total Time Spent (In Minutes): 35 minutes Discharge Plan Discharge Items Patient Disposition: Transfer Acute Care Hospital Reason For Visit: SYNCOPE Discharge Diagnosis: Likely vasovagal, pneumonia Condition on Discharge: Fair Activity: As commented below Bathing: No limitations Exercise/Sports: Rest today Non-emergency contact: Primary Care Provider and Oncologist Call non-emergency contact if: you have any medication questions and your symptoms worsen Follow-up/Referrals: Dick Carl MD [Primary Care Provider] - Diet: Carb Consistent or DM2 Addtl Attending Provider Instructions: Transferred to [facility] in [place], [place] Pending Studies at Discharge: Yes (Blood cultures) Stand-Alone Forms: My [facility] Skilled Items Patient informed of condition?: Yes DNR: No Discharge Level of Care: Other Communicable Disease: No Discharge Prognosis: Stable Lines: Peripheral IV and JACC Urinary Catheter: No Medications and DC Order Prescriptions: New sertraline 50 mg Tablet 25 mg PO QAM Qty: 30 RF: 0 Continued Eliquis 5 mg tablet 5 mg PO BID RF: 0 Kyprolis 30 mg recon soln 30 mg IV .ON HOLD RF: 0 dexamethasone 4 mg tablet 4 mg PO .ON HOLD RF: 0 ondansetron HCl 8 mg tablet 8 mg PO Q8H PRN (Reason: Nausea) RF: 0 palonosetron [Aloxi] 0.25 mg/5 mL solution 0.25 mg IV .ON HOLD RF: 0 oxycodone 5 mg tablet 5 mg PO Q6H PRN (Reason: Pain) RF: 0 tramadol 50 mg tablet 50 mg PO Q6H PRN (Reason: Pain) RF: 0 Pomalyst 1 mg capsule 1 mg PO DAILY RF: 0 dicyclomine 10 mg capsule 10 mg PO TID PRN (Reason: Abdominal Discomfort) Qty: 90 RF: 0 fluticasone propionate 50 mcg/actuation spray,suspension 1 - 2 spray intranasal DAILY Qty: 15.8 RF: 2 pantoprazole 40 mg Tablet,Delayed Release (Dr/Ec) 40 mg PO QAM RF: 0 acyclovir 400 mg tablet 400 mg PO BID RF: 0 Basaglar KwikPen U-100 Insulin 100 unit/mL (3 mL) Insulin Pen 0 - 12 unit SUBCUT DIRECTED PRN (Reason: BSG LEVELS) RF: 0 Discharge Orders: Discharge Order (Routine); Ordered 07/31/21 Ordered By: Carolina Vidales Admission Data Admit Date/Time: 07/30/21 18:07 Attending Provider: Carolina Vidales Admit Provider: Dick Cali Primary Care Provider: Dick Carl Other Providers: Eloy Coyne ; Dick Cali ; Shar Crooks V. Coding Level of Care Code D/C DAY MANAGEMENT >30 MINS Diagnoses Syncope R55 Bradycardia R00.1 Aspiration pneumonitis J69.0 Diplopia H53.2 Pancytopenia D61.818 Hyperglycemia R73.9 Multiple myeloma C90.00
[2021-07-31] MEDS: ACETAMINOPHEN 325 MG TAB PO PRN (15:30)
[2021-07-31 17:00] VITALS: BP 110/59; PULSE 87; O2SAT 98
== END 2021-07-31 17:26 | disposition short-term general hospital (02) | DRG 312 ==
LOC: EDSEX → ED 11:14 → SUATTDRO 18:07 → 2S 18:07

== ENCOUNTER 2022-02-10 13:28 | Inpatient (IN) ==
--- NOTE | 2022-02-10 14:12 | Emergency Department Note ---
Impression & Plan Pancytopenia, Multiple myeloma, Electrolyte abnormality, Acute dehydration, Nausea vomiting and diarrhea ED Provider Note NAME: BLANQUITA ALMEIDA AGE: 61 SEX: M : 1960 ARRIVES VIA: Walk-In INFORMANT: Patient, ED PROVIDER(S): Triston Munoz MD Chief Complaint: Nausea vomiting diarrhea HPI: Patient presents due to concern for nausea vomiting and diarrhea. No blood in the vomit or diarrhea. The patient has been having symptoms since Friday. The patient last had chemotherapy for history of multiple myeloma on the . Patient last took his regular scheduled medications last . Patient denies any chest pains or shortness of breath. The patient denies true abdominal pain but does have a queasiness. The patient has been able to take anything in the sense that he has tried to but has been unable to keep it down. Patient denies any travel with the exception for his chemotherapy at [facility] in [place] last week. Patient denies any fevers or chills. Patient has had some mild nasal drainage but no cough. Patient follows locally with Tabatha Mitchell PA-C. ROS: See HPI for pertinent positives and negatives. A total of 10 systems were reviewed and otherwise negative. Past medical history: See below Surgical history: See below Social history: See below Physical Exam: GENERAL: Fatigued in appearance, wearing glasses. EYE EXAM: Normal conjunctiva. PERRL. NECK: Supple, no nuchal rigidity, no adenopathy, non-tender. No signs of meningismus. FROM of the neck with good chin to chest and neck extension. No stridor. LUNGS: Clear to auscultation. Normal chest wall mechanics. HEART: NSR, no MRG. ABDOMEN: Abdomen soft, non-tender, normo-active bowel sounds, no masses, no rebound or guarding. BACK: No CVA TTP. SKIN: No rashes and no bruising. UPPER EXTREMITIES: Upper extremities are grossly normal. LOWER EXTREMITIES: Grossly normal, no edema. NEURO EXAM: A&O x3, cranial nerves II-XII grossly intact, normal speech, moves all 4 extremities. Differential diagnoses: Gastroenteritis, food borne illness, infections, appendicitis, diverticulitis, inflammatory bowel disease, obstruction, GI bleed, biliary pathology, volvulus, as well as other pathologies. Course: Patient was seen and evaluated the bedside. Full history physical exam was performed. Imaging Studies: See Below Cardiac monitoring: An order was placed for continuous cardiac monitoring. The monitor shows a rate of 92 with sinus rhythm. MDM: Patient presents due to concern for nausea vomiting diarrhea. Blood work is obtained along with COVID swab and chest x-ray given that the patient has had some upper respiratory associated symptoms. Patient was treated with IV fluids as well as Zofran. The patient does have significant pancytopenia with platelet count of 8000 and a white count of 0.03. Patient does have significant electrolyte abnormalities with a sodium 130 potassium 3.1, calcium of 7.9, phosphorus of 1.4 magnesium of 1. The patient did have multiple electrolytes ordered for replacement. The patient was consented for platelet transfusion after discussion with on-call respiratory care technician Dr. Alexis. I subsequently did convey the findings to the patient. The patient was ordered additional antiemetics and IV fluids. I did speak the on-call hospitalist Dr. Cali and the patient was admitted to the medicine service. Critical Care: I have personally spent 37 minutes of critical care time in direct management of this patient. This includes bedside care, interpretation of diagnostic studies, and testing, discussion with consultants, patient, and family members, and other require inpatient management activities. This 37 minutes is in excess of all separately billable procedures. Past Med/Surg History Medical History Acute cholecystitis Anemia Back problem Deep vein thrombosis in leg 02/06 (REASON FOR ELIQUIS) Diverticular disease GERD (gastroesophageal reflux disease) History of chemotherapy oral chemo until 01/30, taking IV chemo and then will be starting with maintaince dose per [facility] scheduling Lumbar compression fracture Lytic lesion of bone on x-ray since 01/2019 and had radiation on this lesion Neoplasm of bone Plantar fascial fibromatosis PT UNAWARE Prediabetes STEROID INDUCED "MY SUGAR GOES UP AND DOWN" checks sugar daily Pulmonary embolism "01/2019 went from leg to lung" (REASON FOR ELIQUIS) Wide-complex tachycardia Surgical History H/O kyphoplasty [facility] May 2019 H/O wrist surgery RT Hx laparoscopic cholecystectomy (02/20/21) Laparoscopic cholecystectomy. Dr. Self 02/20/2021 Hx of biopsy ABDOMINAL LESION LOCATED OUTSIDE PANCREAS Hx of colonoscopy May 2020 Port-A-Cath in place (02/05/21) Insertion of Access Port Left Cephalic Dr. Self 02/05/21 Meadow teeth removed Family History Mother , age 93 / old age Breast cancer Father , age 67 Prostate cancer had radiation Coronary heart disease Diabetes Heart disease Brother Diabetes Brother No problems noted. Sister Asthma Addisons disease Daughter No problems noted. Daughter No problems noted. Son No problems noted. Other Family history non-contributory Hearing loss No family history of adverse response to anesthesia No family history of bleeding disorder Social History Smoking Status: Never smoker Second Hand Exposure: No; Hx Alcohol Use: Yes Alcohol type: beer and wine Alcohol Intake Frequency: Monthly or Less Alcohol Intake Frequency Comment: twice a month Hx Substance Use: No Preferred Language: Welsh Communication Ability: Effective Visual Impairment: No Limitations Hearing Ability: Normal Access Developer Required: No Beliefs That Will Affect Care: None marital status: Current Living Situation: Spouse and Family Current Living Situation Comment: Lives with and 2 daughters current occupational status: retired and disabled How many Children do You have: 3 Feels Safe at Home: Yes Childhood Exposure to Second-Hand Smoke: No Dental Care, Regularly: Yes Assistive Devices: None Allergies Allergies Allergy/AdvReac Type Severity Reaction Status Date / Time fentanyl Allergy Severe Vomiting Verified 01/28/22 08:15 Home Meds Home Medications Medication Instructions Recorded Confirmed acyclovir 400 mg tablet 400 mg PO BID 03/22/19 02/10/22 pantoprazole 40 mg tablet,delayed 40 mg PO QAM 05/19/19 02/10/22 release apixaban 5 mg tablet (Eliquis) 5 mg PO BID 03/14/20 02/10/22 insulin glargine 100 unit/mL (3 0 - 12 unit subcut DIRECTED PRN 01/25/21 02/10/22 mL) subcutaneous pen (Banneraglar BSG LEVELS KwikPen U-100 Insulin) ondansetron HCl 8 mg tablet 8 mg PO Q8H PRN Nausea 05/08/21 02/10/22 oxycodone 5 mg tablet 5 mg PO Q6H PRN Pain 05/08/21 02/10/22 pomalidomide 1 mg capsule 1 mg PO DAILY 07/16/21 02/10/22 (Pomalyst) tramadol 50 mg tablet 50 mg PO Q6H PRN Pain 07/16/21 02/10/22 sertraline 50 mg tablet (Zoloft) 50 mg PO HS 09/17/21 02/10/22 carfilzomib 30 mg intravenous 30 mg IV .As directed 01/10/22 02/10/22 solution (Kyprolis) dexamethasone 4 mg tablet 4 mg PO .As directed 01/10/22 02/10/22 palonosetron 0.25 mg/5 mL 0.25 mg IV .As directed 01/10/22 02/10/22 intravenous solution (Aloxi) fluconazole 200 mg tablet 200 mg PO BID 02/10/22 02/10/22 Previous Rx's Medication Instructions Recorded dicyclomine 10 mg capsule 10 mg PO TID PRN Abdominal 07/18/21 Discomfort #90 caps Results & Data (ED) Vital Signs Vital Signs - 24 hr 02/10/22 13:44 02/10/22 15:15 02/10/22 17:32 Temperature 36.9 C 37.0 C Temperature Source Temporal Artery Scan Oral Pulse Rate 98 H Pulse Rate [Apical] 102 H Respiratory Rate 18 24 Respiratory Effort / Characteristics Non-Labored Respiratory Depth Normal Respiratory Pattern Regular Blood Pressure 127/72 Blood Pressure [Right Arm] 177/86 H Blood Pressure Mean 90 Blood Pressure Mean [Right Arm] 116 Blood Pressure Position Sitting Blood Pressure Position [Right Arm] Lying Pulse Oximetry 99 94 Oxygen Delivery Method Room Air Room Air Room Air Sepsis Recent Fever Within 48 Hours No Sepsis New/Unexplained Change in Mental Status No Sepsis Action Taken by Nursing No Action Required Home Medications Current Medication List: was personally reviewed by me Laboratory Data Attestation: I reviewed the patient's lab results. Result diagrams: 02/10/22 15:20 02/10/22 15:20 Lab Results 02/10/22 02/10/22 02/10/22 Range/Units 15:20 15:20 16:32 WBC 0.03 L* (4.8-10.8) K/ul RBC 2.68 L (4.63-6.08) M/uL Hgb 8.6 L (14.0-18.0) g/dl Hct 24.3 L (40.1-51.0) % MCV 90.7 (80.0-100.0) fL MCH 32.1 (25.0-34.0) pg MCHC 35.4 (32.0-36.0) g/dL RDW Std Deviation 51.6 H (36.4-46.3) fL RDW Coeff of George 15.7 H (11.5-14.5) % Plt Count 8 L* (130-400) K/uL MPV 11.4 (9.4-12.4) fL Immature Gran % (Auto) Cancelled Neut % (Auto) Cancelled Lymph % (Auto) Cancelled Mellette % (Auto) Cancelled Eos % (Auto) Cancelled Baso % (Auto) Cancelled Neut # (Auto) Cancelled Lymph # (Auto) Cancelled Mellette # (Auto) Cancelled Eos # (Auto) Cancelled Baso # (Auto) Cancelled Immature Gran # (Auto) Cancelled Neutrophils % (Manual) Cancelled Band Neutrophils % Cancelled Lymphocytes % (Manual) Cancelled Prolymphocyte % Cancelled Reactive Lymphs % (Man) Cancelled Monocytes % (Manual) Cancelled Eosinophils % (Manual) Cancelled Basophils % (Manual) Cancelled Metamyelocytes % (Man) Cancelled Myelocytes % (Man) Cancelled Promyelocytes % (Man) Cancelled Blast Cells % (Manual) Cancelled Plasma Cell % (Manual) Cancelled Other Cells % Cancelled Nucleated RBC % Cancelled Neutrophils # (Manual) Cancelled Band Neutrophils # Cancelled Total Absolute Neuts Cancelled Lymphocytes # (Manual) Cancelled Prolymphocyte # Cancelled Reactive Lymphs # Cancelled Total Abs Lymphocytes Cancelled Monocytes # (Manual) Cancelled Eosinophils # (Manual) Cancelled Basophils # (Manual) Cancelled Metamyelocytes # (Man) Cancelled Myelocytes # (Manual) Cancelled Promyelocytes # (Man) Cancelled Blast Cells # (Man) Cancelled Plasma Cell # (Manual) Cancelled Other Cells # Cancelled Nucleated RBCs # (Man) Cancelled Hypersegmented Neuts Cancelled Hyposegmented Neuts Cancelled Hypogranular Neuts Cancelled Large Granular Lymphs Cancelled # Lrg Granular Lymphs Cancelled Hairy Cells Cancelled Smudge Cells Cancelled Toxic Granulation Cancelled Toxic Vacuolation Cancelled Dohle Bodies Cancelled Jose Rods Cancelled Hypogranular Platelets Cancelled Clumped Platelets Cancelled Giant Platelets Cancelled Platelet Satelliting Cancelled RBC Morphology Cancelled Polychromasia Cancelled Hypochromasia Cancelled Poikilocytosis Cancelled Basophilic Stippling Cancelled Anisocytosis Cancelled Microcytosis Cancelled Macrocytosis Cancelled Spherocytes Cancelled Pappenheimer Bodies Cancelled Sickle Cells Cancelled Target Cells Cancelled Tear Drop Cells Cancelled Ovalocytes Cancelled Stomatocytes Cancelled Oneal-Nageezi Bodies Cancelled Echinocytes Cancelled Acanthocytes (Spur) Cancelled Rouleaux Cancelled RBC Agglutinates Cancelled Schistocytes Cancelled Sezary Cell Cancelled Sodium 130 L (136-145) mmol/L Potassium 3.1 L (3.5-5.1) mmol/L Chloride 99 (98-107) mmol/L Carbon Dioxide 21 (21-32) mmol/L Anion Gap 10 (3-11) BUN 21 (6-23) mg/dl Creatinine 1.35 (0.6-1.4) mg/dl Est Cr Clr Drug Dosing Not Reportable Est GFR ( Amer) 65.7 ml/min Est GFR (Non-Af Amer) 56.7 ml/min BUN/Creatinine Ratio 15.6 (10-20) Glucose 207 H (70-99(Fasting)) mg/dl Calcium 7.9 L (8.5-10.1) mg/dl Phosphorus 1.4 L* (2.5-4.9) mg/dl Magnesium 1.0 L (1.7-2.4) mg/dl Total Bilirubin 1.3 H (0.2-1.0) mg/dl AST 20 (13-39) U/L ALT 22 (7-52) U/L Alkaline Phosphatase 48 (34-104) U/L Total Protein 7.5 (6.0-8.3) gm/dl Albumin 3.5 (3.4-5.0) gm/dl Globulin 4.0 (2.5-4.0) gm/dl Albumin/Globulin Ratio 0.9 (0.9-2) Lipase 7 L (11-82) U/L SARS-CoV-2, RNA, NAAT NEGATIVE (NEGATIVE) Blood Parasites ID Cancelled Administered Medications Potassium Chloride (K Олег / Wtr) 10 meq in 100 mls @ 100 mls/hr IV Q1H RADHA; Protocol Stop: 02/10/22 18:29 Last Admin: 02/10/22 16:46 Dose: 100 mls/hr Documented By: LENNY Discontinued Medications Diphenhydramine HCl (Diphenhydramine 50 Mg/Ml Vial) 25 mg IV NOW STA Stop: 02/10/22 17:02 Last Admin: 02/10/22 17:17 Dose: 25 mg Documented By: LENNY Sodium Chloride (Nss 1000ml) 1,000 mls @ 999 mls/hr IV .Q1H1M STA Stop: 02/10/22 15:22 Last Admin: 02/10/22 15:21 Dose: 999 mls/hr Documented By: AP Calcium Gluconate () 1,000 mg in 60 mls @ 240 mls/hr IV NOW STA Stop: 02/10/22 16:43 Last Admin: 02/10/22 17:19 Dose: 240 mls/hr Documented By: LENNY Sodium Chloride (Nss 1000ml) 1,000 mls @ 999 mls/hr IV .Q1H1M ONE Stop: 02/10/22 17:31 Last Admin: 02/10/22 16:47 Dose: 999 mls/hr Documented By: LENNY Prochlorperazine (Compazine) 2 mls @ 1 mls/min IV ONE ONE Stop: 02/10/22 17:02 Last Admin: 02/10/22 17:17 Dose: 1 mls/min Documented By: LENNY Ondansetron HCl (Ondansetron Inj 2 Mg/Ml 2 Ml Vial) 4 mg IV NOW STA Stop: 02/10/22 14:23 Last Admin: 02/10/22 15:21 Dose: 4 mg Documented By: AP Imaging Data Radiologist's Impression: Chest X-Ray 02/10/22 14:24 XR chest 1V portable CLINICAL HISTORY: Cough. COMPARISON STUDY: PET/CT November 26, 2021. Chest CT December 26, 2021. FINDINGS: Left subclavian [id number] is in place. There is no pneumothorax or pleural effusion. Cardiomegaly is unchanged. No evidence for pulmonary edema. There is no consolidation to suggest pneumonia. Lytic skeletal lesions are better depicted on chest CT of December 26, 2021. IMPRESSION: No acute cardiopulmonary findings. ACT 112: Negative or not required by law. Electronically signed by: Mendel Roach M.D. 02/10/2022 2:35 PM Discharge Plan Visit Data Chief Complaint: Vomiting Stated Complaint: VOMITING, DIARRHEA, NAUSEA ED Provider: Triston Munoz Discharge Problem: Pancytopenia, Multiple myeloma, Electrolyte abnormality, Acute dehydration, Nausea vomiting and diarrhea Patient Disposition: Admitted As Inpatient Forms Stand Alone Forms: [facility] Prescriptions Prescriptions: No Action Eliquis 5 mg tablet 5 mg PO BID ondansetron HCl 8 mg tablet 8 mg PO Q8H PRN (Reason: Nausea) oxycodone 5 mg tablet 5 mg PO Q6H PRN (Reason: Pain) Kyprolis 30 mg recon soln 30 mg IV .As directed Rx Instructions: 30 mg IV Tuesdays and Wednesdays; dexamethasone 4 mg tablet 4 mg PO .As directed palonosetron [Aloxi] 0.25 mg/5 mL solution 0.25 mg IV .As directed tramadol 50 mg tablet 50 mg PO Q6H PRN (Reason: Pain) Pomalyst 1 mg capsule 1 mg PO DAILY Rx Instructions: LAST DOSE 08/03/21. 21 days on and 7 days off dicyclomine 10 mg capsule 10 mg PO TID PRN (Reason: Abdominal Discomfort) Qty: 90 0RF sertraline [Zoloft] 50 mg tablet 50 mg PO HS pantoprazole 40 mg Tablet,Delayed Release (Dr/Ec) 40 mg PO QAM acyclovir 400 mg tablet 400 mg PO BID fluconazole 200 mg tablet 200 mg PO BID insulin glargine [Basaglar KwikPen U-100 Insulin] 100 unit/mL (3 mL) Insulin Pen 0 - 12 unit SUBCUT DIRECTED PRN (Reason: BSG LEVELS) Rx Instructions: 150 and under no insulin, 150-170=4 UNITS, 171-190=8 units and over 190= 12units. Referrals Referrals: Dick Carl MD [Primary Care Provider] -
[2022-02-10] MEDS ORDERED: ONDANSETRON INJ 2 MG/ML 2 ML VIAL IV STA (14:22)
[2022-02-10] MEDS ORDERED: SODIUM CHLORIDE 0.9% 1000ML 1,000 ML IV STA (14:22)
--- NOTE | 2022-02-10 14:37 | XRay Report ---
XR chest 1V portable CLINICAL HISTORY: Cough. COMPARISON STUDY: PET/CT November 26, 2021. Chest CT December 26, 2021. FINDINGS: Left subclavian [id number] is in place. There is no pneumothorax or pleural effusion. Ca rdiomegaly is unchanged. No evidence for pulmonary edema. There is no consolidation to suggest pneumo tati. Lytic skeletal lesions are better depicted on chest CT of December 26, 2021. IMPRESSION: No acute cardiopulmonary findings. ACT 112: Negative or not required by law. Electronically signed by: Mendel Roach M.D. 02/10/2022 2:35 PM
[2022-02-10 15:40] LABS: Hematocrit (blood only) 24.3 % (40.1-51.0); Hemoglobin 8.6 g/dl (14.0-18.0); Mean Platelet Volume 11.4 fL (9.4-12.4); Platelet Count 8 K/uL (130-400); White Blood Count 0.03 K/ul (4.8-10.8)
[2022-02-10 15:54] LABS: Anion Gap 10 (3-11); BUN Creatinine Ratio 15.6 (10-20); Blood Urea Nitrogen 21 mg/dl (6-23); Calcium 7.9 mg/dl (8.5-10.1); Carbon Dioxide 21 mmol/L (21-32); Chloride 99 mmol/L (98-107); Est GFR (African American) 65.7 ml/min; Est GFR (Non-African American) 56.7 ml/min; Glucose 207 mg/dl (70-99(Fasting)); Potassium 3.1 mmol/L (3.5-5.1); Sodium 130 mmol/L (136-145)
[2022-02-10 15:56] LABS: Alanine Aminotransferase 22 U/L (7-52); Albumin Globulin Ratio 0.9 (0.9-2); Albumin Level 3.5 gm/dl (3.4-5.0); Alkaline Phosphatase 48 U/L (34-104); Aspartate Aminotransferase 20 U/L (13-39); Bilirubin,Total 1.3 mg/dl (0.2-1.0); Lipase 7 U/L (11-82); Phosphorus 1.4 mg/dl (2.5-4.9); Total Protein 7.5 gm/dl (6.0-8.3)
[2022-02-10 16:00] LABS: Mean Corpuscular Hemoglobin 32.1 pg (25.0-34.0); Mean Corpuscular Hgb Conc 35.4 g/dL (32.0-36.0); Mean Corpuscular Volume 90.7 fL (80.0-100.0); RDW Coefficient of Variation 15.7 % (11.5-14.5); RDW Standard Deviation 51.6 fL (36.4-46.3); Red Blood Count 2.68 M/uL (4.63-6.08)
[2022-02-10] MEDS ORDERED: POTASSIUM PHOS 3 MMOL/1 ML INFUSION IV STA (16:28)
[2022-02-10] MEDS ORDERED: CALCIUM GLUCONATE 1,000 MG/60 ML BAG IV STA (16:29)
[2022-02-10] MEDS ORDERED: SODIUM CHLORIDE 0.9% 1000ML 1,000 ML IV ONE ×2 (16:31→17:01)
[2022-02-10] MEDS: POTASSIUM CHLORIDE / WTR 10 MEQ/100 ML PLCT IV SCH ×2 (16:46→18:33)
[2022-02-10] MEDS ORDERED: POTASSIUM PHOSPHATE 21 MMOL in SODIUM CHLORIDE 0.9% 500 ML IV ONE (17:00)
[2022-02-10] MEDS ORDERED: PROCHLORPERAZINE 2 ML IV ONE (17:01)
[2022-02-10] MEDS ORDERED: diphenhydrAMINE 50 MG/ML VIAL IV STA (17:01)
--- NOTE | 2022-02-10 17:13 | History & Physical Report ---
Date of Service February 10, 2022 Assessment & Plan (1) Nausea vomiting and diarrhea: Plan: Ondansetron 4mg q4h PRN IV Stool PCR to assess for infective etiology No abdominal pain to suggest need for CT No fever for need for antibiotics (2) Pancytopenia due to chemotherapy: Plan: Neutropenic precautions Transfuse 1 unit Platelets and repeat in AM Neulasta last given on February 06. Neupogen deferred per hematology Consult heme/onc (3) Multiple myeloma: Plan: Consult oncology (4) Electrolyte abnormality: Plan: Magnesium level 1.0. Mag sulfate 2 g IV ordered by ER. We will give an extra 2 g IV. Potassium level 3.1. KCl 10 M EQ x2 Phosphorus level 1.4. Potassium phosphate 21 mmol IV Repeat levels in a.m. (5) GERD (gastroesophageal reflux disease): Plan: Continue pantoprazole 40 mg p.o. daily Plan VTE Prophylaxis - deferred given thrombocytopenia Diet -clear liquids, advance as tolerated Disposition -admit to PCU Admission and Anticipated Discharge Date Admission Date: February 10, 2022 History of Present Illness Chief Complaint: Nausea, vomiting, diarrhea Primary Care Provider: Dick Carl MD Ankit Silva is a 61 year old male with multiple myeloma who presents to the ER following a new chemotherapy regimen with nausea, vomiting and diarrhea. He denies any fever, abdominal pain, chest pain, shortness of breath, nasal congestion, sinus pain, cough or urinary symptoms. He does report chills however reports this is not unusual for him. He reports starting a new chemotherapy regimen in [place] for 4 days as induction inpatient with last dose on February 05. He received Neulasta and platelet transfusion on February 06. He was doing well up until suddenly getting sick on Friday. Suddenly came on and getting progressively weaker over the last 2 days/ Having watery diarrhea but only 2 times a day, yellowish somewhat watery, no strong smell. No one else in the family is sick. His reports he was supposed to start prophylaxis ciprofloxacin for 5 days and fluconazole but the pharmacy was concerned about interactions therefore by the time this was confirmed to be ok he was already sick and couldn't take it. In the ER he was found to be pancytopenic. His case was discussed with the oncologist personnel monitor and the ER provider and recommended platelet transfusion but not neupogen at this time. He was ordered multiple electrolyte replacements for low magnesium, potassium and phosphorus. He was referred to medicine for admission and ongoing management of nausea, vomiting, diarrhea and pancytopenia. Allergies Allergy/AdvReac Type Severity Reaction Status Date / Time fentanyl Allergy Severe Vomiting Verified 01/28/22 08:15 Home Medications Medication Instructions Recorded Confirmed Type acyclovir 400 mg tablet 400 mg PO BID 03/22/19 02/10/22 History pantoprazole 40 mg tablet,delayed 40 mg PO QAM 05/19/19 02/10/22 History release apixaban 5 mg tablet (Eliquis) 5 mg PO BID 03/14/20 02/10/22 History insulin glargine 100 unit/mL (3 0 - 12 unit subcut DIRECTED PRN 01/25/21 02/10/22 History mL) subcutaneous pen (Basaglar BSG LEVELS KwikPen U-100 Insulin) ondansetron HCl 8 mg tablet 8 mg PO Q8H PRN Nausea 05/08/21 02/10/22 History oxycodone 5 mg tablet 5 mg PO Q6H PRN Pain 05/08/21 02/10/22 History tramadol 50 mg tablet 50 mg PO Q6H PRN Pain 07/16/21 02/10/22 History dicyclomine 10 mg capsule 10 mg PO TID PRN Abdominal 07/18/21 02/10/22 Rx Discomfort #90 caps sertraline 50 mg tablet (Zoloft) 50 mg PO HS 09/17/21 02/10/22 History ciprofloxacin HCl 500 mg tablet 500 mg PO BID 02/10/22 02/10/22 History fluconazole 200 mg tablet 200 mg PO BID 02/10/22 02/10/22 History Past Med/Surg History Medical History Acute cholecystitis Anemia Back problem Deep vein thrombosis in leg 02/06 (REASON FOR ELIQUIS) Diverticular disease GERD (gastroesophageal reflux disease) History of chemotherapy oral chemo until 01/30, taking IV chemo and then will be starting with maintaince dose per [facility] scheduling Lumbar compression fracture Lytic lesion of bone on x-ray since 01/2019 and had radiation on this lesion Neoplasm of bone Plantar fascial fibromatosis PT UNAWARE Prediabetes STEROID INDUCED "MY SUGAR GOES UP AND DOWN" checks sugar daily Pulmonary embolism "01/2019 went from leg to lung" (REASON FOR ELIQUIS) Wide-complex tachycardia Surgical History H/O kyphoplasty [facility] May 2019 H/O wrist surgery RT Hx laparoscopic cholecystectomy (02/20/21) Laparoscopic cholecystectomy. Dr. Self 02/20/2021 Hx of biopsy ABDOMINAL LESION LOCATED OUTSIDE PANCREAS Hx of colonoscopy May 2020 Port-A-Cath in place (02/05/21) Insertion of Access Port Left Cephalic Dr. Self 02/05/21 [place] teeth removed Family History Mother , age 93 / old age Breast cancer Father , age 67 Prostate cancer had radiation Coronary heart disease Diabetes Heart disease Brother Diabetes Brother No problems noted. Sister Asthma Addisons disease Daughter No problems noted. Daughter No problems noted. Son No problems noted. Other Family history non-contributory Hearing loss No family history of adverse response to anesthesia No family history of bleeding disorder Social History Smoking Status: Never smoker Second Hand Exposure: No; Do You Dip or Chew Tobacco: No; Tobacco Cessation Education Requested by Patient: No Hx Alcohol Use: No Hx Substance Use: No Preferred Language: Wallisian Communication Ability: Effective Visual Impairment: No Limitations Hearing Ability: Normal Rough Rice Tender Required: No Beliefs That Will Affect Care: None marital status: Current Living Situation: Spouse Current Living Situation Comment: Lives with and 2 daughters current occupational status: retired and disabled How many Children do You have: 3 Other Information That Helps Us Care for You: No Feels Safe at Home: Yes Safety Concerns: Feels Safe At This Time Childhood Exposure to Second-Hand Smoke: No Dental Care, Regularly: Yes Assistive Devices: Glasses Review of Systems Review of Systems: All systems reviewed & are unremarkable except as noted in HPI & below Physical Exam Constitutional: well developed and + acute distress; + not well nourished Eyes: + anicteric sclerae; normal pupil size known 6th nerve palsy on right side ENMT: Mouth: + dry oral mucous membranes Neck: trachea midline, no thyromegaly Respiratory: normal respiratory effort, lungs clear to auscultation Cardiovascular: Rate/Rhythm: regular rate and regular rhythm Heart Sounds: no murmur Vessels: no JVD Extremities: normal capillary refill; no calf tenderness and no pedal edema Gastrointestinal (Abdomen): Inspection/Auscultation: + hyperactive bowel sounds Percussion/Palpation: abdomen soft; abdomen nontender, no guarding and abdomen not rigid Musculoskeletal: no cyanosis or clubbing, extremities motor strength 5/5 Skin: no rashes, warm and dry Neurologic: moves all extremities and awake; not confused Psychiatric: A+Ox3, euthymic affect Genitourinary: no CVA tenderness Results & Data Results & Data ([facility]) Vital Signs (Past 12 Hours) Vital Signs Temp Pulse Resp BP Pulse Ox O2 Del Method 02/10/22 15:15 Room Air 02/10/22 13:44 36.9 C 98 H 18 127/72 99 Room Air Laboratory Results Abnormal lab results 02/10/22 02/10/22 Range/Units 15:20 15:20 WBC 0.03 L* (4.8-10.8) K/ul RBC 2.68 L (4.63-6.08) M/uL Hgb 8.6 L (14.0-18.0) g/dl Hct 24.3 L (40.1-51.0) % RDW Std Deviation 51.6 H (36.4-46.3) fL RDW Coeff of George 15.7 H (11.5-14.5) % Plt Count 8 L* (130-400) K/uL Sodium 130 L (136-145) mmol/L Potassium 3.1 L (3.5-5.1) mmol/L Glucose 207 H (70-99(Fasting)) mg/dl Calcium 7.9 L (8.5-10.1) mg/dl Phosphorus 1.4 L* (2.5-4.9) mg/dl Magnesium 1.0 L (1.7-2.4) mg/dl Total Bilirubin 1.3 H (0.2-1.0) mg/dl Lipase 7 L (11-82) U/L Diagnostic Findings XR chest 1V portable CLINICAL HISTORY: Cough. COMPARISON STUDY: PET/CT November 26, 2021. Chest CT December 26, 2021. FINDINGS: Left subclavian [id number] is in place. There is no pneumothorax or pleural effusion. Cardiomegaly is unchanged. No evidence for pulmonary edema. There is no consolidation to suggest pneumonia. Lytic skeletal lesions are better depicted on chest CT of December 26, 2021. IMPRESSION: No acute cardiopulmonary findings. Medications Administered ER medications given: NSS 1L bolus x2 Calcium gluconate 1 g IV Ondansetron 4 mg IV Compazine Code Status & VTE Plan Code Status Full VTE Prophylaxis Plan VTE Prophylaxis will be ordered: No PG Care Time/CCT Total # of Minutes Spent Total Time Spent with Patient: Total time spent is greater than 50% in coordination of care (as documented) at patient's floor/unit and/or counseling patient: Coding Level of Care Code 92216 Initial Inpt Care Lvl 3 Diagnoses Nausea vomiting and diarrhea R11.2; R19.7 Pancytopenia due to chemotherapy D61.810 Multiple myeloma C90.00 Electrolyte abnormality E87.8 GERD (gastroesophageal reflux disease) K21.9 Esophagitis presence: esophagitis presence not specified (1) GERD (gastroesophageal reflux disease) Esophagitis presence: esophagitis presence not specified Qualified Code(s): K21.9 - Gastro-esophageal reflux disease without esophagitis
[2022-02-10] MEDS: MAGNESIUM SULFATE / D5W 1 GM/100 ML BAG IV SCH ×4 (18:33→23:30)
[2022-02-10] MEDS ORDERED: ONDANSETRON INJ 2 MG/ML 2 ML VIAL IV PRN (18:54)
[2022-02-10] MEDS ORDERED: DICYCLOMINE HCL 10 MG CAP PO PRN (19:58)
[2022-02-10] MEDS ORDERED: oxyCODONE HCL IR 5 MG TAB (IMMEDIATE RELEASE) PO PRN (19:58)
[2022-02-10] MEDS ORDERED: APIXABAN 5 MG TABLET PO SCH (21:00)
[2022-02-10] MEDS: ACETAMINOPHEN 1,000 MG/100 ML VIAL IV PRN (21:07)
[2022-02-10] MEDS: FLUCONAZOLE 100 MG TAB PO SCH (22:13)
[2022-02-10] MEDS: SERTRALINE HCL 50 MG TABLET PO SCH (22:13)
[2022-02-10] MEDS: ACYCLOVIR 400 MG TAB PO SCH (22:14)
[2022-02-10] MEDS: PANTOprazole 40 MG in SYRINGE 0 ML IV SCH (22:15)
[2022-02-11] MEDS: LACTATED RINGER'S 1,000 ML IV SCH ×3 (00:32→19:23)
[2022-02-11] MEDS ORDERED: ACETAMINOPHEN 325 MG TAB ONE (03:18)
[2022-02-11] MEDS: ACETAMINOPHEN 325 MG TAB PO PRN (03:26)
[2022-02-11] MEDS ORDERED: CEFEPIME 2,000 MG/20 ML VIAL IV STA (05:48)
[2022-02-11] MEDS ORDERED: VANCOMYCIN CONSULT ACTIVE PRN (06:05)
[2022-02-11] MEDS ORDERED: VANCOMYCIN HCL 2,250 MG in SODIUM CHLORIDE 0.9% 500 ML IV SCH (06:30)
[2022-02-11 06:40] LABS: Albumin Globulin Ratio 0.9 (0.9-2); BUN Creatinine Ratio 12.7 (10-20); Bilirubin,Total 0.8 mg/dl (0.2-1.0); Calcium 7.3 mg/dl (8.5-10.1); Est GFR (African American) 66.3 ml/min; Est GFR (Non-African American) 57.2 ml/min; Globulin 3.3 gm/dl (2.5-4.0); Potassium 2.7 mmol/L (3.5-5.1); Total Protein 6.3 gm/dl (6.0-8.3)
[2022-02-11] MEDS: metroNIDAZOLE 500 MG/100 ML BAG IV SCH ×3 (06:44→22:25)
[2022-02-11 07:11] LABS: Hematocrit (blood only) 19.5 % (40.1-51.0); Hemoglobin 6.9 g/dl (14.0-18.0); Mean Corpuscular Hemoglobin 32.2 pg (25.0-34.0); Mean Corpuscular Hgb Conc 35.4 g/dL (32.0-36.0); Mean Corpuscular Volume 91.1 fL (80.0-100.0); Mean Platelet Volume 10.7 fL (9.4-12.4); Platelet Count 8 K/uL (130-400); RDW Coefficient of Variation 15.9 % (11.5-14.5); RDW Standard Deviation 53.1 fL (36.4-46.3); Red Blood Count 2.14 M/uL (4.63-6.08); White Blood Count 0.02 K/ul (4.8-10.8)
[2022-02-11 07:14] LABS: Acanthocytes 2+
[2022-02-11] MEDS ORDERED: ONDANSETRON INJ 2 MG/ML 2 ML VIAL IV PRN (07:59)
[2022-02-11] MEDS ORDERED: FIDAXOMICIN 200 MG TAB PO ONE ×2 (08:00→11:30)
[2022-02-11] MEDS: VANCOMYCIN HCL 500 MG/10 ML SOLN PO SCH ×3 (08:12→18:10)
[2022-02-11] MEDS: FLUCONAZOLE 100 MG TAB PO SCH ×2 (08:12→21:14)
[2022-02-11 08:30] LABS: Magnesium 1.6 mg/dl (1.7-2.4); Phosphorus 1.4 mg/dl (2.5-4.9)
[2022-02-11 08:33] LABS: Appearance Urine Cloudy (Clear); Bacteria Urine Automated Negative (Negative); Bilirubin Urine Negative (Negative); Blood Urine 3+ (Negative); Color Urine Orange; Epithelial Cell Urine Auto >30 /lpf (0-5); Glucose Urine UA 1+ (Negative); Ketones Urine Trace (Negative); Leukocyte Esterase Urine Negative (Negative); Nitrite Urine Negative (Negative); Protein Urine 2+ (Negative); RBC Urine Automated >30 /hpf (0-4); Specific Gravity Urine 1.017 (1.000-1.030); Urobilinogen Urine Negative (Negative)
[2022-02-11] MEDS ORDERED: OPTIRAY 320 100ml IV ONE (08:37)
[2022-02-11] MEDS: ondansetron HCL 8 MG in DEXTROSE 5% 50 ML IV PRN (08:50)
--- NOTE | 2022-02-11 08:50 | CT Scan Report ---
CT head/brain wo con CLINICAL HISTORY: 61 years-old Male with head trauma from fall, thrombocytopenia. Acute head trauma status post fall TECHNIQUE: Multiple axial CT images of the head were obtained without contrast. A dose lowering tech nique was utilized adhering to the principles of ALARA. COMPARISON: Brain MRI 07/04/2021, head CT 06/20/2021 FINDINGS: No acute intracranial hemorrhage, midline shift, intracranial mass, hydrocephalus, territorial ischem ia or abnormal extra-axial collection. Minimal involutional changes. The calvarium is intact. Mastoid air cells are clear. Right periorbital contusion. Minimal mucosal t hickening of the paranasal sinuses. Lesion involving the right aspect of the clivus is better seen on the comparison brain MRI. IMPRESSION: 1. No acute intracranial abnormality. 2. Right periorbital contusion. ACT 112: Negative or not required by law. The above report was generated using voice recognition software. It may contain grammatical, syntax o r spelling errors. Electronically signed by: Misha Johnson M.D. 02/11/2022 8:48 AM
[2022-02-11] MEDS ORDERED: PANTOprazole 40 MG TAB PO SCH (09:00)
[2022-02-11] MEDS: POTASSIUM CHLORIDE / WTR 10 MEQ/100 ML PLCT IV SCH ×4 (09:14→12:41)
--- NOTE | 2022-02-11 09:14 | CT Scan Report ---
ABDOMEN AND PELVIS CT WITH IV CONTRAST CT DOSE: 1492.05 mGy.cm HISTORY: neutropenic fever, diarrhea TECHNIQUE: Multiaxial CT images of the abdomen and pelvis were performed following the use of intrave nous contrast. A dose lowering technique was utilized adhering to the principles of ALARA. COMPARISON STUDY: Abdomen and pelvis CTA 07/30/2021. FINDINGS: Old mild compression deformities again noted within the thoracic and lumbar spine. Multiple lytic lesions seen throughout the visualized osseous structures consistent the patient's known histo ry of myeloma. Prior L1 and L2 vertebroplasty is again noted. There has been interval development of a 3.8 x 3.1 cm soft tissue mass centered within the right T10 pedicle/transverse process. This result s in a pathologic fracture of the right T10 pedicle and right transverse process. The soft tissue mas s extends into the right epidural space with mild central canal narrowing. The epidural component fabian sures up to 5 mm in thickness. No pneumoperitoneum. No pneumatosis. Stable small cyst within the left hepatic lobe. Prior cholecystectomy. The spleen, adrenal glands, and pancreas unremarkable. No renal stones or hydronephrosis. No retroperitoneal lymphadenopathy. The main portal vein is patent. Small fat-containing umbilical hernia. The bladder is unremarkable. A rectal tube is in place. There is mil d diffuse bowel wall thickening seen throughout the majority of the colon with mild pericolonic fat s tranding. This is most process of the sigmoid colon. Findings are consistent with a nonspecific panco litis. No perforation or abscess identified at this time. No evidence for acute diverticulitis. Dominga l appendix. No evidence for bowel obstruction. IMPRESSION: 1. Above findings consistent with a mild diffuse pancolitis. This is nonspecific but could represent an infectious, inflammatory, or neutropenic colitis. 2. Interval development of a 3.8 x 3.1 cm soft tissue mass centered at the right T10 transverse proce ss/pedicle with associated pathologic fractures. This is consistent with a plasmacytoma. This also ex tends into the epidural space at this location resulting in mild central canal narrowing. 3. Innumerable lytic lesions seen throughout the visualized osseous structures consistent with the pa pk's history of multiple myeloma. ACT 112: Negative or not required by law. Electronically signed by: Roland Melgar M.D. 02/11/2022 9:11 AM
[2022-02-11] MEDS ORDERED: SODIUM CHLORIDE 0.9% 250 ML IV PRN (09:15)
[2022-02-11] MEDS: ACETAMINOPHEN 1,000 MG/100 ML VIAL IV PRN (09:15)
[2022-02-11 09:57] LABS: A calco-baum cmplx NotReported Not Detected (NotDetected); Bact fragilis Not Reported Not Detected (NotDetected); C auris Not Reported Not Detected (NotDetected); CTX-M Resistant Gene Not Detected (NotDetected); Calbicans Not Reported Not Detected (NotDetected); Candida glabrata Not Reported Not Detected (NotDetected); Candida krusei Not Reported Not Detected (NotDetected); Cneoformans/gatti Not Reported Not Detected (NotDetected); Cparapsilosis Not Reported Not Detected (NotDetected); Ctropicalis Not Reported Not Detected (NotDetected); E cloacae compx Not Reported Not Detected (NotDetected); Efaecalis Not Reported Not Detected (NotDetected); Efaecium Not Reported Not Detected (NotDetected); Enterobacterales DETECTED (NotDetected); Enterobacterales Not Reported DETECTED (NotDetected); Escherichia coli Not Reported Not Detected (NotDetected); H influenzae Not Reported Not Detected (NotDetected); IMP Resistant Gene Not Detected (NotDetected); K aerogenes Not Reported Not Detected (NotDetected); KPC Resistant Gene Not Detected (NotDetected); Koxytoca Not Reported Not Detected (NotDetected); Kpneumoniae grp Not Reported DETECTED (NotDetected); Lmonocyt Not Reported Not Detected (NotDetected); N meningitidis Not Reported Not Detected (NotDetected); NDM Resistant Gene Not Detected (NotDetected); OXA 48 Like Resistant Gene Not Detected (NotDetected); P aeruginosa Not Reported Not Detected (NotDetected); Proteus spp Not Reported Not Detected (NotDetected); Salmonella spp Not Reported Not Detected (NotDetected); Smarcescens Not Reported Not Detected (NotDetected); Staph lugdunensis Not Reported Not Detected (NotDetected); Staph spp. Not Reported Not Detected (NotDetected); Staphaureus Not Reported Not Detected (NotDetected); Staphepi Not Reported Not Detected (NotDetected); Stenmaltophilia Not Reported Not Detected (NotDetected); Strep agal(GrpB) Not Reported Not Detected (NotDetected); Strep pneum Not Reported Not Detected (NotDetected); Strep pyog (GrpA) Not Reported Not Detected (NotDetected); Strep spp Not Reported Not Detected (NotDetected); VIM Resistant Gene Not Detected (NotDetected); mcr-1 Colistin Resistant Gene Not Detected (NotDetected)
[2022-02-11] MEDS ORDERED: FILGRASTIM 300 MCG/ML VIAL SQ STA (10:05)
[2022-02-11 10:08] LABS: Klebsiella pneumoniae group DETECTED (NotDetected)
[2022-02-11] MEDS ORDERED: FILGRASTIM 480 MCG/1.6 ML VIAL SQ STA (10:16)
[2022-02-11] MEDS ORDERED: POTASSIUM PHOS 3 MMOL/1 ML INFUSION IV STA (10:46)
--- NOTE | 2022-02-11 10:49 | Hospitalist Progress Note ---
Date of Service February 11, 2022 Assessment & Plan (1) Neutropenic fever: Plan: Only symptoms of diarrhea, nausea and vomiting. Still without abdominal pain. No URI or urinary symptoms. UA without bacteria seen and nitrites negative. RBC likely from bleeding around penis. CT A/P ordered to assess for source showing mild diffuse pancolitis therefore will keep c. diff coverage continuing with vancomycin 500mg PO q6h and metronidazole 500mg IV q8h pending ruling this out with stool PCR Broad spectrum antibiotics with IV cefepime and metronidazole. Procalcitonin 35.77. Lactate 2.5. Follow up blood and urine cultures BP dropped this morning likely as a result of antibiotics given. LR 1L bolus now. Given multiple electrolyte abnormalities, unable to use port, fall this morning, neutropenic fever, bacteremia and now hypotension recommend transfer to the ICU. Discussed with Dr Tobar. Unknown if in septic shock or just needing extra fluids at time of transfer. (2) Gram-negative bacteremia: Plan: Suspected Klebsiella pneumoniae based on PCR. Full identification and sensitivities pending. 1/2 bottles - I had requested one be taken from port however bottles were not labelled so unclear if this one was from the port or peripheral Continue cefepime as above, initial IV vancomycin can be discontinued however (3) Periorbital hematoma of right eye: Plan: CT head fortunately negative for intracranial pathology after fall this morning. Low tolerance to repeat if confusion or any other neurological signs given Platelets 8. (4) Pancytopenia due to chemotherapy: Plan: Neutropenic precautions Discussed with Dr Patricio - transfusions have to be irradiated Transfuse 1 unit of platelet - aim Plt > 15 Transfuse 1 unit of packed RBCs - aim Hgb > 8 Repeat CBC after transfusions with more transfusions pending aims as above Neulasta last given on February 06. On discussion with Dr Patricio recommend neupogen 480 mcg SQ daily until ANC > 500 (5) Nausea vomiting and diarrhea: Plan: Stool PCR pending Increase ondansetron to 8mg IV q8h PRN No SBO on CT (6) Electrolyte abnormality: Plan: Magnesium level 1.0 -> 1.6. Mag sulfate 2g IV (4g given yesterday) Potassium level 3.1 -> 2.7. KCl 10 M EQ x4 (20 meq given yesterday) Phosphorus level 1.4. Potassium phosphate 21 mmol IV again ordered today (21 mmol given yesterday) Repeat levels in a.m. 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 Will discuss with oncology whether this has previously been seen on outpatient CTs. Consider radiation oncology consult if not. Plan VTE Prophylaxis - deferred given thrombocytopenia Diet - NPO except meds, sips and chips Disposition - transfer to ICU Admission and Anticipated Discharge Date Admission Date: February 10, 2022 Subjective Feels generally weak this morning. No better than yesterday. Fell this morning after having a bowel movement on the toilet. Hit the right side of his head causing a periorbital hematoma. No hip pain. Unfortunately stool was not sent for PCR. Also now spiking a high fever of T max 40.1 degrees celsius. Blood culture from yesterday (admission) growing Klebsiella pneumoniae identified on PCR with 1/2 bottles (unknown which one is from his port). Port also infiltrated when he fell on it and cannot currently be used. He was started on IV cefepime, vancomycin and metronidazole for broad spectrum coverage with his neutropenic fever this morning. Also started on PO vancomycin 500mg q6h as c. diff not yet ruled out but only had one bowel movement overnight but was noted to be watery. Review of Systems Review of Systems: All systems reviewed & are unremarkable except as noted in HPI & below Physical Exam Constitutional: well developed and + acute distress; + not well nourished Eyes: + anicteric sclerae; normal pupil size Respiratory: normal respiratory effort, lungs clear to auscultation Cardiovascular: Rate/Rhythm: regular rhythm and + tachycardic Heart Sounds: no murmur Vessels: no JVD Extremities: normal capillary refill; no calf tenderness and no pedal edema Gastrointestinal (Abdomen): Inspection/Auscultation: + hyperactive bowel sounds Percussion/Palpation: abdomen soft; abdomen nontender, no guarding and abdomen not rigid Musculoskeletal: no cyanosis or clubbing, extremities motor strength 5/5 Skin: no rashes, warm and dry Trauma: + hematoma (right perorbital) Neurologic: moves all extremities and awake; not confused Psychiatric: A+Ox3, euthymic affect Results & Data Results & Data ([facility]) Vital Signs (Past 12 Hours) Vital Signs Temp Pulse Pulse Resp BP BP Pulse Ox 02/11/22 10:19 39.1 C H 105 H 18 91/57 L 98 02/11/22 10:07 39.3 C H 105 H 18 93/47 L 02/11/22 09:26 39.9 C H 105 H 18 118/75 97 02/11/22 08:00 40.1 C H 121 H 22 180/92 H 98 02/11/22 04:20 39.4 C H 02/11/22 05:19 38.3 C H 02/11/22 03:00 39.3 C H 120 H 16 120/94 95 02/11/22 00:09 37.3 C 80 15 106/55 L 99 02/10/22 23:22 92 H 02/10/22 23:09 36.5 C 85 15 115/71 98 02/10/22 23:00 36.5 C 85 15 115/71 98 O2 Del Method O2 Flow Rate 02/11/22 10:19 0 02/11/22 10:07 02/11/22 09:26 Room Air 02/11/22 08:00 Nasal Cannula 2 02/11/22 04:20 02/11/22 05:19 02/11/22 03:00 Room Air 02/11/22 00:09 02/10/22 23:22 02/10/22 23:09 02/10/22 23:00 Room Air PG Care Time/CCT Total # of Minutes Spent Total Time Spent with Patient: Total time spent is greater than 50% in coordination of care (as documented) at patient's floor/unit and/or counseling patient: Coding Level of Care Code 61109 Subseq Hosp Care Lvl 3 Diagnoses Neutropenic fever D70.9; R50.81 Gram-negative bacteremia R78.81 Periorbital hematoma of right eye H05.231 Pancytopenia due to chemotherapy D61.810 Nausea vomiting and diarrhea R11.2; R19.7 Electrolyte abnormality E87.8 Multiple myeloma C90.00 GERD (gastroesophageal reflux disease) K21.9 Esophagitis presence: esophagitis presence not specified Plasmacytoma C90.30 (1) GERD (gastroesophageal reflux disease) Esophagitis presence: esophagitis presence not specified Qualified Code(s): K21.9 - Gastro-esophageal reflux disease without esophagitis
[2022-02-11] MEDS ORDERED: LACTATED RINGER'S 1,000 ML IV ONE ×2 (10:58→19:10)
[2022-02-11] MEDS ORDERED: POTASSIUM PHOSPHATE 21 MMOL in SODIUM CHLORIDE 0.9% 500 ML IV STA (11:18)
[2022-02-11] MEDS: FILGRASTIM 480 MCG/1.6 ML VIAL SQ SCH (11:23)
[2022-02-11 11:33] LABS: Hematocrit (blood only) 19.2 % (40.1-51.0)
[2022-02-11] MEDS: RASPBERRY SYRUP 5 ML UDP PO SCH ×3 (11:51→18:10)
[2022-02-11] MEDS: PANTOprazole 40 MG in SYRINGE 0 ML IV SCH ×2 (12:00→21:13)
[2022-02-11] MEDS: ACYCLOVIR 400 MG TAB PO SCH ×2 (12:00→20:11)
[2022-02-11] MEDS ORDERED: NOREPINEPHRINE/D5W 4 MG/250 ML IV ONE (12:38)
[2022-02-11] MEDS ORDERED: STAT IV Infusion **Titration per Protocol STA ×2 (12:43→14:01)
--- NOTE | 2022-02-11 12:46 | Critical Care Consultation ---
Date of Consultation February 11, 2022 Assessment & Plan (1) Neutropenic fever: (2) Gram-negative bacteremia: Plan ICU CONSULT NOTE FORMAT: Reason Critically Ill: 61-year-old male past medical history of multiple myeloma, recently started on new chemotherapy presenting with nausea and vomiting and diarrhea. Found to be hypotensive with gram-negative bacteremia Neuro - [facility] ICU: Negative S/p mechanical fall. CT head negative CT abdomen pelvis does not seem to show any signs of pneumonia. Cardiac - -- Septic shock S/p 30 mL/kg of IV fluids Still persistently hypotensive We will start the patient on vasopressors to keep MAP greater than 65 Random cortisol 27. Procalcitonin 35.7 Respiratory - Maintaining O2 saturation on room air GI - -- Nausea vomiting and diarrhea Pancolitis appreciated on the CT abdomen pelvis, typhlitis is a possibility given the pancytopenia Continue with antibiotics Symptomatic antiemetic medications RENAL/LYTES - --NAGMA Likely secondary diarrhea Patient also has mild lactic acidosis Continue with IV fluids -- Electrolyte abnormalities Being replaced ENDO - Continue with ICU hypoglycemia protocol HEME - -- Pancytopenia Likely from the recent chemotherapy S/p 2 units of platelets Hemoglobin is 7, will be getting 1 unit of PRBC Oncology on board ID - -- Gram-negative bacteremia Preliminary it seems to be Klebsiella pneumonia. Seems to be pansensitive Continue with cefepime and Flagyl Possibility of typhlitis given pancytopenia as well as CT abdomen showing pancolitis Continue with p.o. vancomycin till we have C. difficile toxin negativity Continue with prophylactic acyclovir as well as fluconazole --Prophylaxis VTE: IPC GI: Pantoprazole Lines: Left-sided port, peripheral Diet: N.p.o. Plan: In/out: +6 L, urine output 1100 mL Start the patient on Levophed given the persistent hypotension and lactic acidosis Hypophosphatemia, hypokalemia and hypomagnesemia being replaced Cortisol level is 27. No need for hydrocortisone replacement for the time being. Case was discussed with Dr. Cali and RN I have personally spent 63 minutes of critical care time in the direct management of this patient. This is a life/limb threatening event. This includes time spent evaluating patient, direct bedside care, chart review, placing orders, interpretation of diagnostic studies, discussion with consultants, patient, and family members, as well as other required patient management activities. This time is exclusive of all separately billable procedures, and teaching time and separate from and in addition to any other critical care service time. History of Present Illness Attending Physician: Dick Cali MD History of Present Illness 61-year-old male presented to the hospital with nausea vomiting and diarrhea and generalized weakness Past medical history: Recently diagnosed multiple myeloma currently going chemotherapy. Patient was found to be hypotensive persistently on the floor and ICU was consulted At the time of examination patient's was also in the room. Patient's systolic blood pressure was in the high 60s with heart rate in the 100s. Not any respiratory distress. Saturating 99% on room air He complained of generalized weakness. Unfortunately he did have a mechanical fall today. With bruising on the right eyelid. He denies any headache, no dizziness. No chest pain. Does complain of mild nausea. Social history: Lifetime non-smoker Allergies Allergy/AdvReac Type Severity Reaction Status Date / Time fentanyl Allergy Severe Vomiting Verified 01/28/22 08:15 Home Medications Medication Instructions Recorded Confirmed Type acyclovir 400 mg tablet 400 mg PO BID 03/22/19 02/10/22 History pantoprazole 40 mg tablet,delayed 40 mg PO QAM 05/19/19 02/10/22 History release apixaban 5 mg tablet (Eliquis) 5 mg PO BID 03/14/20 02/10/22 History insulin glargine 100 unit/mL (3 0 - 12 unit subcut DIRECTED PRN 01/25/21 02/10/22 History mL) subcutaneous pen (Basaglar BSG LEVELS KwikPen U-100 Insulin) ondansetron HCl 8 mg tablet 8 mg PO Q8H PRN Nausea 05/08/21 02/10/22 History oxycodone 5 mg tablet 5 mg PO Q6H PRN Pain 05/08/21 02/10/22 History tramadol 50 mg tablet 50 mg PO Q6H PRN Pain 07/16/21 02/10/22 History dicyclomine 10 mg capsule 10 mg PO TID PRN Abdominal 07/18/21 02/10/22 Rx Discomfort #90 caps sertraline 50 mg tablet (Zoloft) 50 mg PO HS 09/17/21 02/10/22 History ciprofloxacin HCl 500 mg tablet 500 mg PO BID 02/10/22 02/10/22 History fluconazole 200 mg tablet 200 mg PO BID 02/10/22 02/10/22 History Patient History Medical History Acute cholecystitis Anemia Back problem Deep vein thrombosis in leg 02/06 (REASON FOR ELIQUIS) Diverticular disease GERD (gastroesophageal reflux disease) History of chemotherapy oral chemo until 01/30, taking IV chemo and then will be starting with maintaince dose per [facility] scheduling Lumbar compression fracture Lytic lesion of bone on x-ray since 01/2019 and had radiation on this lesion Neoplasm of bone Plantar fascial fibromatosis PT UNAWARE Prediabetes STEROID INDUCED "MY SUGAR GOES UP AND DOWN" checks sugar daily Pulmonary embolism "01/2019 went from leg to lung" (REASON FOR ELIQUIS) Wide-complex tachycardia Surgical History H/O kyphoplasty [facility] May 2019 H/O wrist surgery RT Hx laparoscopic cholecystectomy (02/20/21) Laparoscopic cholecystectomy. Dr. Self 02/20/2021 Hx of biopsy ABDOMINAL LESION LOCATED OUTSIDE PANCREAS Hx of colonoscopy May 2020 Port-A-Cath in place (02/05/21) Insertion of Access Port Left Cephalic Dr. Self 02/05/21 [place] teeth removed Family History Mother , age 93 / old age Breast cancer Father , age 67 Prostate cancer had radiation Coronary heart disease Diabetes Heart disease Brother Diabetes Brother No problems noted. Sister Asthma Addisons disease Daughter No problems noted. Daughter No problems noted. Son No problems noted. Other Family history non-contributory Hearing loss No family history of adverse response to anesthesia No family history of bleeding disorder Social History Smoking Status: Never smoker Second Hand Exposure: No; Do You Dip or Chew Tobacco: No; Tobacco Cessation Education Requested by Patient: No Hx Alcohol Use: No Hx Substance Use: No Preferred Language: Frisian Communication Ability: Effective Visual Impairment: No Limitations Hearing Ability: Normal Remote Ruby On Rails Developer Required: No Beliefs That Will Affect Care: None marital status: Current Living Situation: Spouse Current Living Situation Comment: Lives with and 2 daughters current occupational status: retired and disabled How many Children do You have: 3 Other Information That Helps Us Care for You: No Feels Safe at Home: Yes Safety Concerns: Feels Safe At This Time Childhood Exposure to Second-Hand Smoke: No Dental Care, Regularly: Yes Assistive Devices: Glasses Review of Systems Review of Systems: All systems reviewed & are unremarkable except as noted in HPI & below Physical Exam Physical Exam: Constitutional: No acute distress HEENT: EOMI, PERRLA, bruising of the right eyelid Respiratory system: Good air entry bilaterally, no wheeze, no rhonchi, no crackles CVS: S1-S2 positive, no murmurs or gallops, tachycardia Abdomen: Soft, nontender, nondistended, positive bowel sounds x4 Extremities: +2 pulses bilaterally radialis/ dorsalis pedis, no cyanosis, no edema Neuro: Awake alert oriented x3 Psych: Normal mood and affect G/U: No Hutchison Skin: no rashes, warm and dry Lymphatic: no cervical or axillary lymphadenopathy Results & Data Results & Data ([facility]) Vital Signs (Past 12 Hours) Vital Signs Temp Pulse Pulse Resp BP BP Pulse Ox 02/11/22 11:57 38.0 C H 103 H 16 85/47 L 99 02/11/22 11:45 38.0 C H 102 H 16 85/47 L 100 02/11/22 11:19 38.1 C H 103 H 18 82/43 L 98 02/11/22 10:49 38.4 C H 103 H 16 78/40 L 02/11/22 10:34 38.6 C H 104 H 18 69/42 L 02/11/22 10:19 39.1 C H 105 H 18 91/57 L 98 02/11/22 10:07 39.3 C H 105 H 18 93/47 L 02/11/22 09:26 39.9 C H 105 H 18 118/75 97 02/11/22 08:00 40.1 C H 121 H 22 180/92 H 98 02/11/22 04:20 39.4 C H 02/11/22 05:19 38.3 C H 02/11/22 03:00 39.3 C H 120 H 16 120/94 95 O2 Del Method O2 Flow Rate 02/11/22 11:57 02/11/22 11:45 0 02/11/22 11:19 0 02/11/22 10:49 02/11/22 10:34 02/11/22 10:19 0 02/11/22 10:07 02/11/22 09:26 Room Air 02/11/22 08:00 Nasal Cannula 2 02/11/22 04:20 02/11/22 05:19 02/11/22 03:00 Room Air Laboratory Results 02/11/22 11:11 02/11/22 06:00 Coding Level of Care Code Critical Care 1st 30-74 mins Diagnoses Neutropenic fever D70.9; R50.81 Gram-negative bacteremia R78.81 Time Spent (min) 63
[2022-02-11] MEDS: NOREPINEPHRINE/D5W 4 MG/250 ML PLCT IV SCH ×2 (12:48→19:26)
[2022-02-11] MEDS: CEFEPIME 2,000 MG in SYRINGE 0 ML IV SCH ×2 (12:57→18:47)
[2022-02-11] MEDS: MAGNESIUM SULFATE / D5W 1 GM/100 ML BAG IV SCH ×2 (13:53→15:46)
[2022-02-11] MEDS: VASOPRESSIN 20 UNITS in 0.9 % SODIUM CHLORIDE 100 ML IV SCH ×3 (14:20→22:26)
--- NOTE | 2022-02-11 14:25 | Electrocardiogram Report ---
Test Reason : Blood Pressure : / mmHG Vent. Rate : 101 BPM Atrial Rate : 101 BPM P-R Int : 148 ms QRS Dur : 090 ms QT Int : 350 ms P-R-T Axes : 059 044 064 degrees QTc Int : 453 ms Sinus tachycardia Otherwise normal ECG When compared with ECG of 31-JUL-2021 06:34, T wave inversion no longer evident in Inferior leads Confirmed by Migel Cruz ([id number]) on 02/11/2022 2:25:13 PM Referred By: REFERRED SELF Confirmed By:Migel Cruz
[2022-02-11 16:55] LABS: Hematocrit (blood only) 20.2 % (40.1-51.0); Hemoglobin 7.1 g/dl (14.0-18.0); Mean Corpuscular Hemoglobin 32.6 pg (25.0-34.0); Mean Corpuscular Hgb Conc 35.1 g/dL (32.0-36.0); Mean Corpuscular Volume 92.7 fL (80.0-100.0); Mean Platelet Volume 13.1 fL (9.4-12.4); Platelet Count 11 K/uL (130-400); RDW Coefficient of Variation 16.4 % (11.5-14.5); RDW Standard Deviation 55.7 fL (36.4-46.3); Red Blood Count 2.18 M/uL (4.63-6.08); White Blood Count 0.04 K/ul (4.8-10.8)
[2022-02-11 17:04] LABS: Calcium 7.3 mg/dl (8.5-10.1); Creatinine Clr Calc Pharmacy 38.8 ml/min; Est GFR (African American) 36.2 ml/min; Est GFR (Non-African American) 31.2 ml/min; Potassium 3.1 mmol/L (3.5-5.1)
[2022-02-11] MEDS ORDERED: SODIUM BICARB 8.4% INJ 50 MEQ/50 ML SYR IV STA (17:16)
[2022-02-11] MEDS: POTASSIUM CHLORIDE / WTR 20 MEQ/100 ML PLCT IV SCH ×2 (17:53→20:11)
[2022-02-11 18:37] LABS: Adenovirus F 40/41 PCR Not Detected (NotDetected); Astrovirus PCR Not Detected (NotDetected); Campylobacter PCR Not Detected (NotDetected); Clostridium diff Toxin A/B PCR Not Detected (NotDetected); Cryptosporidium PCR Not Detected (NotDetected); Cyclospora cayetanensis PCR Not Detected (NotDetected); Entamoeba histolytica PCR Not Detected (NotDetected); Enteroaggregative E.coli(EAEC) Not Detected (NotDetected); Enteropathogenic E.coli (EPEC) Not Detected (NotDetected); Enterotoxigenic E.coli (ETEC) Not Detected (NotDetected); Giardia lamblia PCR Not Detected (NotDetected); Norovirus GI/GII PCR Not Detected (NotDetected); Plesiomonas shigelloides PCR Not Detected (NotDetected); Rotavirus A PCR Not Detected (NotDetected); Salmonella PCR Not Detected (NotDetected); Sapovirus PCR Not Detected (NotDetected); Shiga-like Toxin E.coli (STEC) Not Detected (NotDetected); Shigella/Enteroinvasive E.coli Not Detected (NotDetected); Vibrio cholerae PCR Not Detected (NotDetected); Vibrio species PCR Not Detected (NotDetected); Yersinia enterocolitica PCR Not Detected (NotDetected)
[2022-02-11] MEDS: SERTRALINE HCL 50 MG TABLET PO SCH (20:11)
[2022-02-12] MEDS: RASPBERRY SYRUP 5 ML UDP PO SCH ×2 (00:52→06:02)
[2022-02-12] MEDS: VANCOMYCIN HCL 500 MG/10 ML SOLN PO SCH ×2 (00:56→06:02)
[2022-02-12 01:47] LABS: Hematocrit (blood only) 23.3 % (40.1-51.0)
[2022-02-12] MEDS: CEFEPIME 2,000 MG in SYRINGE 0 ML IV SCH ×2 (03:15→13:16)
[2022-02-12] MEDS: LACTATED RINGER'S 1,000 ML IV SCH ×3 (03:15→20:46)
[2022-02-12 06:35] LABS: INR 1.8 (0.9-1.1); Partial Thromboplastin Ratio 1.3; Prothrombin Time 18.4 Seconds (9.0-12.0)
[2022-02-12 07:00] LABS: Albumin Globulin Ratio 0.8 (0.9-2); Albumin Level 2.8 gm/dl (3.4-5.0); BUN Creatinine Ratio 12.9 (10-20); Bilirubin,Total 2.7 mg/dl (0.2-1.0); Calcium 6.7 mg/dl (8.5-10.1); Creatinine Clr Calc Pharmacy 42.1 ml/min; Est GFR (African American) 38.5 ml/min; Est GFR (Non-African American) 33.2 ml/min; Globulin 3.3 gm/dl (2.5-4.0); Magnesium 2.1 mg/dl (1.7-2.4); Phosphorus 5.2 mg/dl (2.5-4.9); Potassium 4.4 mmol/L (3.5-5.1); Total Protein 6.1 gm/dl (6.0-8.3)
[2022-02-12 07:08] LABS: Hematocrit (blood only) 26.2 % (40.1-51.0); Mean Corpuscular Hemoglobin 32.1 pg (25.0-34.0); Mean Corpuscular Hgb Conc 34.4 g/dL (32.0-36.0); Mean Corpuscular Volume 93.6 fL (80.0-100.0); Mean Platelet Volume 9.1 fL (9.4-12.4); Platelet Count 4 K/uL (130-400); Platelet Estimate Signific. Decreased (Normal); RDW Coefficient of Variation 16.1 % (11.5-14.5); RDW Standard Deviation 53.1 fL (36.4-46.3); White Blood Count 0.05 K/ul (4.8-10.8)
[2022-02-12] MEDS ORDERED: SODIUM BICARB 8.4% INJ 50 MEQ/50 ML SYR IV STA (07:26)
--- NOTE | 2022-02-12 08:41 | Critical Care Progress Note ---
Date of Service February 12, 2022 Assessment & Plan (1) Neutropenic fever: (2) Gram-negative bacteremia: Plan ICU CONSULT NOTE FORMAT: Reason Critically Ill: 61-year-old male past medical history of multiple myeloma, recently started on new chemotherapy presenting with nausea and vom iting and diarrhea. Found to be hypotensive with gram-negative bacteremia Neuro - [facility] ICU: Negative S/p mechanical fall. CT head negative CT abdomen pelvis does not seem to show any signs of pneumonia. Cardiac - -- S/p septic shock S/p 30 mL/kg of IV fluids Still persistently hypotensive We will start the patient on vasopressors to keep MAP greater than 65 Random cortisol 27. Procalcitonin 35.7 Respiratory - Maintaining O2 saturation on room air GI - --Transaminitis Elevated ALT and AST Likely acute lung injury/shock liver from hypotension Continue to monitor -- Nausea vomiting and diarrhea Pancolitis appreciated on the CT abdomen pelvis, typhlitis is a possibility given the pancytopenia Continue with antibiotics Symptomatic antiemetic medications RENAL/LYTES - -- DARYA Likely from hypotension Monitor BUN/creatinine Avoid nephrotoxic medications Strict ins and outs --HAGMA Likely secondary diarrhea and lactic acidosis from hypotension Patient also has mild lactic acidosis Continue with IV fluids 2 A of bicarb given so far ENDO - Continue with ICU hypoglycemia protocol HEME - -- Pancytopenia Likely from the recent chemotherapy S/p 3 units of platelets, 2 units of blood Hemoglobin is 7, will be getting 1 unit of PRBC Oncology on board ID - -- Gram-negative bacteremia Preliminary it seems to be Klebsiella pneumonia. Seems to be pansensitive Continue with cefepime and Flagyl Possibility of typhlitis given pancytopenia as well as CT abdomen showing pancolitis Continue with p.o. vancomycin till we have C. difficile toxin negativity Continue with prophylactic acyclovir as well as fluconazole --Prophylaxis VTE: IPC GI: Pantoprazole Lines: Left-sided port, peripheral Diet: N.p.o. Plan: In/out: +7924, urine output 1300 mL Chest x-ray from today shows other opacity on the right side. This could be atelectasis as the patient has been lying on the right side all the time I will start the patient on incentive spirometry Is already on cefepime and Flagyl DC p.o. vancomycin given negative C. difficile 50 mEq of sodium bicarb given to the patient Patient did have significant elevation of lactate later last evening going up to 7.3. It has started to gradually trend down. Patient's bili is soft nontender. I do not think this is acute abdomen. If patient again has issues with his lactate then I would repeat a CT abdomen pelvis to make sure we are not dealing with ischemic colitis. Using contrast with the CT abdomen will be an issue given the DARYA One of the reasons why the lactate was trending down slowly could also be acute shock liver. Currently he is off vasopressors maintaining his map in the high 60s to low 70s. I will continue to monitor him in the ICU for another 6 hours. And if is still stable then he can be downgraded to medical floor. Start patient on clear liquids Case was discussed with Dr. Cali and RN Please note the above document was generated using voice recognition software. It may contain grammatical, syntax or spelling errors.Any formal questions or concerns about the content, text or information contained within the body of this dictation should be directly addressed to the provider for clarification. Admission and Anticipated Discharge Date Admission Date: February 10, 2022 Subjective Patient seen and examined at bedside. No acute distress, no adverse events overnight. Denies any abdominal pain. Does complain of mild nausea. No vomiting No headache. Generalized fatigue. No blurry vision. No chest pain, no shortness of breath Review of Systems Review of Systems: All systems reviewed & are unremarkable except as noted in Subjective Physical Exam Physical Exam: Constitutional: No acute distress HEENT: EOMI, PERRLA, bruising of the right eyelid Respiratory system: Good air entry bilaterally, no wheeze, no rhonchi, mild crackles bilateral lower lobes, more on the right side CVS: S1-S2 positive, no murmurs or gallops Abdomen: Soft, nontender, nondistended, positive bowel sounds x4 Extremities: +2 pulses bilaterally radialis/ dorsalis pedis, no cyanosis, no edema Neuro: Awake alert oriented x3 Psych: Normal mood and affect G/U: No Hutchison Skin: no rashes, warm and dry Lymphatic: no cervical or axillary lymphadenopathy Results & Data Results & Data ([facility]) Vital Signs (Past 12 Hours) Vital Signs Temp Pulse Resp BP Pulse Ox O2 Flow Rate 02/12/22 00:45 36.7 C 72 20 98/53 L 94 02/12/22 05:00 72 28 H 07/26/22 04:46 98/38 L 02/12/22 04:46 74 26 H 02/12/22 04:45 73 27 H 02/12/22 04:30 74 27 H 02/12/22 04:15 74 25 H 02/12/22 04:15 99/79 L 02/12/22 04:01 110/49 L 02/12/22 04:01 73 25 H 02/12/22 04:00 75 19 02/12/22 03:45 112/71 02/12/22 03:45 72 25 H 98 02/12/22 03:31 117/67 02/12/22 03:31 75 7 L 99 02/12/22 03:30 73 18 99 02/12/22 03:15 76 27 H 99 02/12/22 03:15 116/77 02/12/22 03:01 73 22 99 02/12/22 03:01 122/64 02/12/22 03:00 76 28 H 98 02/12/22 02:47 77 28 H 99 02/12/22 02:47 132/72 02/12/22 02:30 78 25 H 99 02/12/22 02:30 139/76 02/12/22 02:15 79 29 H 99 02/12/22 02:15 124/75 02/12/22 02:00 80 5 L 99 02/12/22 02:00 138/77 02/12/22 01:46 79 31 H 100 02/12/22 01:46 144/70 H 02/12/22 01:30 80 31 H 98 02/12/22 01:15 80 23 99 02/12/22 01:15 119/84 02/12/22 01:00 81 30 H 99 02/12/22 01:00 124/84 02/12/22 00:45 83 30 H 99 02/12/22 00:45 120/79 02/12/22 00:30 82 30 H 99 02/12/22 00:30 126/66 02/12/22 00:15 83 26 H 100 02/12/22 00:15 122/84 02/12/22 00:00 84 28 H 97 02/12/22 00:00 132/92 02/11/22 23:45 85 32 H 97 02/11/22 23:45 117/86 02/11/22 23:30 85 14 100 02/11/22 23:30 114/80 02/11/22 23:15 126/87 02/11/22 23:15 86 31 H 98 02/11/22 23:00 88 30 H 99 02/11/22 23:00 132/85 02/11/22 22:46 87 33 H 100 02/11/22 22:46 110/73 02/11/22 22:31 90 29 H 99 02/11/22 22:30 88 31 H 99 02/11/22 22:15 140/84 02/11/22 22:15 93 H 35 H 99 02/12/22 03:17 36.7 C 78 18 116/77 98 02/11/22 22:00 91 H 29 H 99 02/11/22 22:00 122/76 02/11/22 21:45 111/74 02/11/22 21:45 89 28 H 100 02/11/22 21:30 90 24 100 02/11/22 21:30 138/82 02/11/22 21:16 37.6 C H 90 12 99 02/11/22 21:16 124/92 02/11/22 21:00 37.5 C 90 30 H 100 02/11/22 20:46 37.6 C H 89 29 H 100 02/11/22 20:46 137/115 H 02/11/22 20:31 37.6 C H 89 16 100 02/11/22 20:31 109/75 02/11/22 21:18 37.6 C H 91 H 22 93/61 L 95 2 Laboratory Results 02/12/22 06:05 02/12/22 06:05 Coding Level of Care Code 89278 Subs Hosp Care Lv 3 Diagnoses Neutropenic fever D70.9; R50.81 Gram-negative bacteremia R78.81
[2022-02-12] MEDS ORDERED: FILGRASTIM 300 MCG/ML VIAL SQ SCH (09:00)
[2022-02-12] MEDS: ACYCLOVIR 400 MG TAB PO SCH ×2 (09:13→20:46)
[2022-02-12] MEDS: FLUCONAZOLE 100 MG TAB PO SCH (09:13)
[2022-02-12] MEDS: PANTOprazole 40 MG in SYRINGE 0 ML IV SCH ×2 (09:13→20:46)
[2022-02-12] MEDS: metroNIDAZOLE 500 MG/100 ML BAG IV SCH ×3 (09:13→21:28)
--- NOTE | 2022-02-12 09:30 | XRay Report ---
XR chest 1V portable CLINICAL HISTORY: f/u COMPARISON STUDY: Chest radiograph February 10, 2022. Chest CT December 26, 2021. FINDINGS: Multiple skeletal lesions are better depicted on prior CT. No pneumothorax is present. A s mall right pleural effusion has developed. Right lower lung airspace opacity has also developed. Left lung is clear. Cardiomegaly is noted. Left subclavian [id number] is in place. IMPRESSION: Interval development of a small right pleural effusion with right basilar opacity which could reflect pneumonia or atelectasis. Radiographic follow-up is recommended. ACT 112: Negative or not required by law. Electronically signed by: Mendel Roach M.D. 02/12/2022 9:29 AM
--- NOTE | 2022-02-12 10:40 | Hospitalist Progress Note ---
Date of Service February 12, 2022 Assessment & Plan (1) Septic shock: Plan: Required vasopressin and Levophed yesterday - weaned off this morning Elevated lactate Cr and LFTs consistent with shocked liver and kidneys despite his mentation always being normal. Lactate and Cr now improved which is reassuring his LFTs will improve (bilirubin starting to trend down with normal ALP). If stable this afternoon and LFTs are improving will downgrade to PCU Present on Admission?: No (2) Neutropenic typhlitis: Plan: Cefepime + metronidazole - continue Blood cultures positive for GNB. PCR - Klebsiella pneumoniae, awaiting full culture and sensitivities Due to having a port we will repeat his blood cultures -1 from port and 1 peripheral (3) Neutropenic fever: Plan: Secondary to septic shock as above. (4) Gram-negative bacteremia: Plan: Neutropenic typhlitis as above. (5) Periorbital hematoma of right eye: Plan: CT head fortunately negative for intracranial pathology after fall yesterday morning. Low tolerance to repeat if confusion or any other neurological signs given thrombocytopenia. (6) Pancytopenia due to chemotherapy: Plan: Neutropenic precautions Discussed with Dr Patricio - transfusions have to be irradiated Transfuse 2 unit of platelet - aim Plt > 15 Transfused 1 unit of packed RBCs yesterday - aim Hgb > 8 Repeat CBC tomorrow. Neulasta last given on February 06. On discussion with Dr Patricio recommend neupogen 480 mcg SQ daily until ANC > 1000 (7) Nausea vomiting and diarrhea: Plan: Secondary to sepsis and typhlitis as above Stool PCR negative - medications stopped for c. diff Ondansetron to 8mg IV q8h PRN (8) Electrolyte abnormality: Plan: Magnesium level 1.0 -> 1.6 -> 2.1. Resolved. Repeat daily. Potassium level 3.1 -> 2.7 -> 4.4. Resolved. Repeat daily. Phosphorus level 5.2. Resolved. Repeat daily especially as he starts eating again. 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 Will discuss with oncology whether this has previously been seen on outpatient CTs. Will consult radiation oncology once more stable. (12) Elevated INR: Plan: Unclear if diet related versus shock liver. We will continue to trend. Vitamin K 5 mg given by ICU team. Plan VTE Prophylaxis - deferred given thrombocytopenia Diet - clear liquids - advance as tolerated Disposition - continue in ICU, possible downgrade this afternoon as above Admission and Anticipated Discharge Date Admission Date: February 10, 2022 Subjective Patient feeling improved today. Eating and drinking. Still very weak. No chest pain, abdominal pain. Ongoing diarrhea with DigniShield in place. Able to place Hutchison catheter without significant waqas blood. Periorbital hematoma seems similar to yesterday. No worsening confusion, focal extremity weakness or change in sensation. Review of Systems Review of Systems: All systems reviewed & are unremarkable except as noted in HPI & below Physical Exam Constitutional: well developed and + acute distress; + not well nourished Eyes: + anicteric sclerae; normal pupil size ENMT: Mouth: oral mucous membranes not dry Respiratory: normal respiratory effort, lungs clear to auscultation Cardiovascular: Rate/Rhythm: regular rate, regular rhythm and + tachycardic Heart Sounds: no murmur Vessels: no JVD Extremities: normal capillary refill; no calf tenderness and no pedal edema Gastrointestinal (Abdomen): Inspection/Auscultation: + hyperactive bowel sounds Percussion/Palpation: abdomen soft; abdomen nontender, no guarding and abdomen not rigid Musculoskeletal: no cyanosis or clubbing, extremities motor strength 5/5 Skin: no rashes, warm and dry Trauma: + hematoma (right perorbital, similar size to yesterday) Neurologic: moves all extremities and awake; no focal motor deficits and not confused Psychiatric: A+Ox3, euthymic affect Results & Data Results & Data ([facility]) Vital Signs (Past 12 Hours) Vital Signs Temp Pulse Resp BP Pulse Ox 02/12/22 00:45 36.7 C 72 20 98/53 L 94 02/12/22 05:00 72 28 H 02/12/22 04:46 98/38 L 02/12/22 04:46 74 26 H 02/12/22 04:45 73 27 H 02/12/22 04:30 74 27 H 02/12/22 04:15 74 25 H 02/12/22 04:15 99/79 L 02/12/22 04:01 110/49 L 02/12/22 04:01 73 25 H 02/12/22 04:00 75 19 02/12/22 03:45 112/71 02/12/22 03:45 72 25 H 98 02/12/22 03:31 117/67 02/12/22 03:31 75 7 L 99 02/12/22 03:30 73 18 99 02/12/22 03:15 76 27 H 99 02/12/22 03:15 116/77 02/12/22 03:01 73 22 99 02/12/22 03:01 122/64 02/12/22 03:00 76 28 H 98 02/12/22 02:47 77 28 H 99 02/12/22 02:47 132/72 02/12/22 02:30 78 25 H 99 02/12/22 02:30 139/76 02/12/22 02:15 79 29 H 99 02/12/22 02:15 124/75 02/12/22 02:00 80 5 L 99 02/12/22 02:00 138/77 02/12/22 01:46 79 31 H 100 02/12/22 01:46 144/70 H 02/12/22 01:30 80 31 H 98 02/12/22 01:15 80 23 99 02/12/22 01:15 119/84 02/12/22 01:00 81 30 H 99 02/12/22 01:00 124/84 02/12/22 00:45 83 30 H 99 02/12/22 00:45 120/79 02/12/22 00:30 82 30 H 99 02/12/22 00:30 126/66 02/12/22 00:15 83 26 H 100 02/12/22 00:15 122/84 02/12/22 00:00 84 28 H 97 02/12/22 00:00 132/92 02/11/22 23:45 85 32 H 97 02/11/22 23:45 117/86 02/11/22 23:30 85 14 100 02/11/22 23:30 114/80 02/11/22 23:15 126/87 02/11/22 23:15 86 31 H 98 02/11/22 23:00 88 30 H 99 02/11/22 23:00 132/85 02/11/22 22:46 87 33 H 100 02/11/22 22:46 110/73 07/26/22 03:17 36.7 C 78 18 116/77 98 PG Care Time/CCT Total # of Minutes Spent Total Time Spent with Patient: Total time spent is greater than 50% in coordination of care (as documented) at patient's floor/unit and/or counseling patient: Coding Level of Care Code 82133 Subseq Hosp Care Lvl 3 Diagnoses Septic shock A41.9; R65.21 Neutropenic typhlitis K37; D70.9 Neutropenic fever D70.9; R50.81 Gram-negative bacteremia R78.81 Periorbital hematoma of right eye H05.231 Pancytopenia due to chemotherapy D61.810 Nausea vomiting and diarrhea R11.2; R19.7 Electrolyte abnormality E87.8 Multiple myeloma C90.00 GERD (gastroesophageal reflux disease) K21.9 Esophagitis presence: esophagitis presence not specified Plasmacytoma C90.30 Elevated INR R79.1 (1) GERD (gastroesophageal reflux disease) Esophagitis presence: esophagitis presence not specified Qualified Code(s): K21.9 - Gastro-esophageal reflux disease without esophagitis
[2022-02-12] MEDS ORDERED: PHYTONADIONE 5 MG in DEXTROSE 5% 50 ML IV ONE (10:45)
--- NOTE | 2022-02-12 10:48 | Consultation Report ---
DATE OF SERVICE: 02/12/2022. REASON FOR CONSULTATION: Pancytopenia and multiple myeloma. HISTORY OF PRESENT ILLNESS: Mr. Silva is a 61-year-old gentleman known to [facility], who has refractory IgG kappa multiple myeloma for which he has received several lines of treatments. He most recently received DCEP at [facility] in [place] on last week and received Neulasta/pegfilgrastim at [facility] on 02/06/2022. The patient presented to the ER with nausea, vomiting, and diarrhea. Labs obtained on admission were significant for pancytopenia with ANC of 0, hemoglobin of 6.9, and platelet count of 8000. On admission, he was noted to have developed fever for which cultures were obtained with blood culture growing Klebsiella pneumoniae. The patient was subsequently transferred to the ICU as he was found to be persistently hypotensive despite being on broad- spectrum antibiotics. On evaluation, he complains of generalized weakness. ALLERGIES: FENTANYL. HOME MEDICATIONS: 1. Acyclovir 400 mg p.o. b.i.d. 2. Pantoprazole 40 mg p.o. every day. 3. Apixaban 5 mg p.o. b.i.d. 4. Insulin. 5. Zofran 8 mg p.o. q. 8 hours. 6. Oxycodone 5 mg p.o. q. 6 hours. 7. Tramadol 50 mg p.o. q. 6 hours. 8. Dicyclomine 10 mg p.o. t.i.d. 9. Sertraline 50 mg p.o. at bedtime. 10. Ciprofloxacin 500 mg p.o. b.i.d. 11. Fluconazole 200 mg p.o. b.i.d. PAST MEDICAL HISTORY: 1. Multiple myeloma. 2. GERD. 3. Pulmonary embolism. PAST SURGICAL HISTORY: 1. Kyphoplasty. 2. Laparoscopic cholecystectomy. 3. Wrist surgery. FAMILY HISTORY: Not contributory. SOCIAL HISTORY: Denies smoking, alcohol, and illicit drug use. REVIEW OF SYSTEMS: CONSTITUTIONAL: Positive for nausea, vomiting, generalized weakness, and fever, otherwise unremarkable. PHYSICAL EXAMINATION: Essentially unremarkable. LABORATORY DATA: CBC on 02/12/2022, significant for white count of 0.05, hemoglobin of 9.0, hematocrit of 26, platelet count of 4000. Chemistry significant for sodium of 132, potassium 4.4, chloride 16, bicarbonate 106, BUN 27, creatinine 2.10. Lactate 3.4, calcium 6.7, phosphorus 5.2, total albumin 2.7, AST 1764, ALT 764, alkaline phosphatase 48. IMAGING STUDIES: CT abdomen and pelvis on 02/11/2022, impression: 1. Above findings consistent with a mild diffuse pancolitis. This is nonspecific, but could represent an infectious, inflammatory or neutropenic colitis. 2. Interval development of 3.8 x 3.1 cm soft tissue mass centered at the right T10 transverse process/pedicle with associated pathologic fracture. This is consistent with plasmacytoma. This also extends into the epidural space at this location, resulting in mild central canal narrowing. 3. Innumerable lytic lesions seen throughout the visualized osseous structures consistent with patient's known history of multiple myeloma. ASSESSMENT AND PLAN: 1. Refractory IgG kappa multiple myeloma. 2. Neutropenic sepsis. 3. Neutropenic colitis. 4. Transaminitis. Mr. Silva is a 61-year-old gentleman with refractory IgG kappa multiple myeloma for which he is status post multiple lines of treatment and most recently received DCEP with plan for stem cell transplant in the future based on response. He presented about a week after receiving cycle 1 of DCEP with neutropenic fever. His pancytopenia is most likely due to recent multi-agent systemic therapy with DCEP, most especially from cisplatin. Although he received Neulasta shortly after DCEP, he remains severely neutropenic with ongoing sepsis. As such, recommend filgrastim 480 mcg daily until ANC greater than 1000. Agree with broad-spectrum antibiotics. Also, recommend transfusing with PRBC to maintain hemoglobin greater than 8 and platelet transfusion to maintain platelet count greater than 15,000. He will require leukoreduced and irradiated products. His transaminitis is likely due to shock liver from hypotensive episodes yesterday. Would recommend considering ultrasound of the liver to rule out other acute processes. Also, recommend obtaining hepatitis panel. Regarding his plasmacytoma, he follows with Dr. Chatman of radiation oncology. Would recommend considering radiation treatment if plasmacytoma does not respond to intensive chemotherapy regimen potential involvement of the epidural space. Thank you for this consult. Oncology will continue following the patient while in the hospital. Please feel free to call if you have any further questions. Job ID: [id number] [facility]
[2022-02-12 15:37] LABS: Albumin Globulin Ratio 0.9 (0.9-2); Albumin Level 2.7 gm/dl (3.4-5.0); BUN Creatinine Ratio 14.8 (10-20); Bilirubin,Total 1.8 mg/dl (0.2-1.0); Calcium 6.8 mg/dl (8.5-10.1); Creatinine Clr Calc Pharmacy 45.2 ml/min; Est GFR (African American) 41.8 ml/min; Est GFR (Non-African American) 36.1 ml/min; Globulin 2.9 gm/dl (2.5-4.0); Potassium 2.7 mmol/L (3.5-5.1); Total Protein 5.6 gm/dl (6.0-8.3)
[2022-02-12 17:24] LABS: Phosphorus 3.5 mg/dl (2.5-4.9)
[2022-02-12] MEDS: POTASSIUM CHLORIDE / WTR 20 MEQ/100 ML PLCT IV SCH ×3 (17:30→21:27)
[2022-02-12] MEDS: ACETAMINOPHEN 1,000 MG/100 ML VIAL IV PRN (18:02)
[2022-02-12] MEDS ORDERED: POTASSIUM PHOS 3 MMOL/1 ML INFUSION IV STA (18:14)
[2022-02-12 20:41] LABS: INR 1.5 (0.9-1.1); Prothrombin Time 16.1 Seconds (9.0-12.0)
[2022-02-12] MEDS: SERTRALINE HCL 50 MG TABLET PO SCH (20:46)
[2022-02-12 20:55] LABS: BUN Creatinine Ratio 15.6 (10-20); Creatinine Clr Calc Pharmacy 44.5 ml/min; Est GFR (African American) 41.1 ml/min; Est GFR (Non-African American) 35.4 ml/min; Potassium 3.1 mmol/L (3.5-5.1)
[2022-02-12 21:06] LABS: Albumin Globulin Ratio 0.9 (0.9-2); Albumin Level 2.7 gm/dl (3.4-5.0); Bilirubin,Total 1.7 mg/dl (0.2-1.0); Globulin 3.1 gm/dl (2.5-4.0); Total Protein 5.8 gm/dl (6.0-8.3)
[2022-02-12] MEDS ORDERED: POTASSIUM PHOSPHATE 30 MMOL in SODIUM CHLORIDE 0.9% 500 ML IV ONE (23:30)
[2022-02-13] MEDS: CEFEPIME 2,000 MG in SYRINGE 0 ML IV SCH ×2 (02:40→14:07)
[2022-02-13 06:12] LABS: INR 1.4 (0.9-1.1); Partial Thromboplastin Ratio 1.4; Partial Thromboplastin Time 37.9 Seconds (21.0-31.0); Prothrombin Time 14.9 Seconds (9.0-12.0)
[2022-02-13 06:32] LABS: Albumin Globulin Ratio 0.9 (0.9-2); Albumin Level 2.6 gm/dl (3.4-5.0); BUN Creatinine Ratio 15.3 (10-20); Bilirubin,Total 1.4 mg/dl (0.2-1.0); Calcium 6.5 mg/dl (8.5-10.1); Creatinine Clr Calc Pharmacy 46.8 ml/min; Est GFR (African American) 43.7 ml/min; Est GFR (Non-African American) 37.7 ml/min; Globulin 2.8 gm/dl (2.5-4.0); Magnesium 1.8 mg/dl (1.7-2.4); Phosphorus 5.7 mg/dl (2.5-4.9); Potassium 3.9 mmol/L (3.5-5.1); Total Protein 5.4 gm/dl (6.0-8.3)
[2022-02-13 06:38] LABS: Hematocrit (blood only) 20.4 % (40.1-51.0); Hemoglobin 7.1 g/dl (14.0-18.0); Mean Corpuscular Hemoglobin 31.6 pg (25.0-34.0); Mean Corpuscular Hgb Conc 34.8 g/dL (32.0-36.0); Mean Corpuscular Volume 90.7 fL (80.0-100.0); Mean Platelet Volume 13.1 fL (9.4-12.4); Platelet Count 9 K/uL (130-400); RDW Coefficient of Variation 16.9 % (11.5-14.5); RDW Standard Deviation 55.5 fL (36.4-46.3); Red Blood Count 2.25 M/uL (4.63-6.08); White Blood Count 0.03 K/ul (4.8-10.8)
[2022-02-13] MEDS ORDERED: STAT IV STA (07:07)
[2022-02-13] MEDS ORDERED: SODIUM CHLORIDE 0.9% 250 ML IV PRN (07:10)
[2022-02-13] MEDS ORDERED: CALCIUM GLUCONATE 10% 1,000 MG in DEXTROSE 5% 50 ML IV ONE (07:15)
[2022-02-13] MEDS: FLUCONAZOLE 100 MG TAB PO SCH (08:46)
[2022-02-13] MEDS: ACYCLOVIR 400 MG TAB PO SCH ×2 (08:46→20:21)
[2022-02-13] MEDS: LACTATED RINGER'S 1,000 ML IV SCH (08:46)
[2022-02-13] MEDS: PANTOprazole 40 MG in SYRINGE 0 ML IV SCH (08:47)
--- NOTE | 2022-02-13 09:21 | CT Scan Report ---
HEAD CT NONCONTRAST CT DOSE: 537.48 mGy.cm HISTORY: Follow up CT head from fall,thrombocytopenia TECHNIQUE: Multiaxial CT images of the head were performed without the use of intravenous contrast. A utomated exposure control was utilized for this study. A dose lowering technique was utilized adheri ng to the principles of ALARA. Comparison: Head CT 02/11/2022. Findings: Mild mucosal thickening within the ethmoid air cells. The mastoid air cells are clear. The right periorbital soft tissue swelling has improved. The calvarium and skull base are intact. The joslyn tricles and sulci are within normal limits. There is no mass, hematoma, midline shift, or acute infar ct. Impression: No acute intracranial abnormality. ACT 112: Negative or not required by law. Electronically signed by: Roland Melgar M.D. 02/13/2022 9:17 AM
[2022-02-13] MEDS: FILGRASTIM 480 MCG/1.6 ML VIAL SQ SCH (09:27)
--- NOTE | 2022-02-13 10:14 | Hospitalist Progress Note ---
Date of Service February 13, 2022 Assessment & Plan (1) Septic shock: Plan: Now resolved - LFTs and Cr improving, elevated secondary to septic shock Required vasopressin and Levophed [02/11 -02/12] Elevated lactate Cr and LFTs consistent with shocked liver and kidneys despite his mentation always being normal. (2) Neutropenic typhlitis: Plan: Pansensitive Klebsiella pneumoniae bacteremia - switch to cefepime to ceftriaxone, continue metronidazole. Due to having a port we will repeat his blood cultures - 1 from port and 1 peripheral. Consult ID (3) Neutropenic fever: Plan: Secondary to bacteremia as above. (4) Gram-negative bacteremia: Plan: Neutropenic typhlitis as above. (5) Periorbital hematoma of right eye: Plan: Significantly improved following fall on 02/11 (6) Fall: Plan: Repeat CT head given fall while significantly thrombocytopenic. Negative for any intracranial abnormality. (7) Pancytopenia due to chemotherapy: Plan: Neutropenic precautions Discussed with Dr Patricio - transfusions have to be irradiated Transfuse 2 units of platelets - aim Plt > 15 Transfused 1 unit of packed RBCs yesterday - aim Hgb > 8 Repeat CBC tomorrow. Neulasta last given on February 06. On discussion with Dr Patricio recommend neupogen 480 mcg SQ daily until ANC > 1000 (8) Nausea vomiting and diarrhea: Plan: Secondary to sepsis and typhlitis as above Stool PCR negative - medications stopped for c. 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 Follow up with radiation oncology as outpatient (13) Elevated INR: Plan: Improving after vitamin K given and shocked liver improving. Continue to trend. Plan VTE Prophylaxis - deferred given thrombocytopenia Diet - full liquid - advance as tolerated Disposition - continue in PCU, PT/OT ordered, possible need for rehab placement depending on clinical course Admission and Anticipated Discharge Date Admission Date: February 10, 2022 Subjective Generalized weakness. Wants to try to get out of bed today. Eating and drinking well. No fever or chills. No abdominal pain. DigniShield and Hutchison catheter in place with ongoing liquid stool. Regarding anemia - no chest pain, shortness of breath or dizziness Review of Systems Review of Systems: All systems reviewed & are unremarkable except as noted in HPI & below Physical Exam Constitutional: well developed and + acute distress; + not well nourished Eyes: + anicteric sclerae; normal pupil size ENMT: Mouth: oral mucous membranes not dry Neck: trachea midline, no thyromegaly Respiratory: normal respiratory effort, lungs clear to auscultation Cardiovascular: Rate/Rhythm: regular rate and regular rhythm Heart Sounds: no murmur Vessels: no JVD Extremities: normal capillary refill; no calf tenderness and no pedal edema Gastrointestinal (Abdomen): Inspection/Auscultation: normal bowel sounds Percussion/Palpation: abdomen soft; abdomen nontender, no guarding and abdomen not rigid Musculoskeletal: no cyanosis or clubbing, extremities motor strength 5/5 Skin: no rashes, warm and dry Trauma: + hematoma (mostly resolved over right eye) Neurologic: moves all extremities and awake; no focal motor deficits and not confused Psychiatric: A+Ox3, euthymic affect Results & Data Results & Data ([facility]) Vital Signs (Past 12 Hours) Vital Signs Pulse Resp BP Pulse Ox 02/13/22 06:00 81 28 H 96 02/13/22 06:00 129/80 02/13/22 05:45 132/79 02/13/22 05:45 76 31 H 98 02/13/22 05:30 133/78 02/13/22 05:30 76 29 H 98 02/13/22 05:15 137/84 02/13/22 05:15 79 17 98 02/13/22 05:00 75 28 H 97 02/13/22 05:00 121/75 02/13/22 04:45 73 27 H 97 02/13/22 04:45 130/78 02/13/22 04:31 129/88 02/13/22 04:31 77 28 H 97 02/13/22 04:15 78 33 H 98 02/13/22 04:15 129/69 02/13/22 04:00 81 22 99 02/13/22 04:00 119/74 02/13/22 03:45 125/73 02/13/22 03:45 78 26 H 97 02/13/22 03:30 123/79 02/13/22 03:30 77 28 H 98 02/13/22 03:15 122/72 02/13/22 03:15 77 21 99 02/13/22 03:00 76 22 98 02/13/22 03:00 105/81 02/13/22 02:45 114/77 02/13/22 02:45 75 25 H 99 02/13/22 02:30 76 25 H 98 02/13/22 02:30 123/75 02/13/22 02:15 74 26 H 97 02/13/22 02:15 116/77 02/13/22 02:00 74 28 H 98 02/13/22 02:00 119/77 02/13/22 01:45 112/78 02/13/22 01:45 74 24 98 02/13/22 01:30 127/78 02/13/22 01:30 75 28 H 97 02/13/22 01:15 116/74 02/13/22 01:15 73 25 H 99 02/13/22 01:00 73 26 H 98 02/13/22 01:00 123/80 02/13/22 00:45 121/72 02/13/22 00:45 75 27 H 92 02/13/22 00:30 108/79 02/13/22 00:30 75 33 H 98 02/13/22 00:15 117/77 02/13/22 00:15 72 29 H 97 02/13/22 00:00 72 26 H 99 02/13/22 00:00 120/76 PG Care Time/CCT Total # of Minutes Spent Total Time Spent with Patient: Total time spent is greater than 50% in coordination of care (as documented) at patient's floor/unit and/or counseling patient: Coding Level of Care Code 43947 Subseq Hosp Care Lvl 3 Diagnoses Septic shock A41.9; R65.21 Neutropenic typhlitis K37; D70.9 Neutropenic fever D70.9; R50.81 Gram-negative bacteremia R78.81 Periorbital hematoma of right eye H05.231 Fall W19.XXXA Pancytopenia due to chemotherapy D61.810 Nausea vomiting and diarrhea R11.2; R19.7 Electrolyte abnormality E87.8 Multiple myeloma C90.00 GERD (gastroesophageal reflux disease) K21.9 Esophagitis presence: esophagitis presence not specified Plasmacytoma C90.30 Elevated INR R79.1 (1) GERD (gastroesophageal reflux disease) Esophagitis presence: esophagitis presence not specified Qualified Code(s): K21.9 - Gastro-esophageal reflux disease without esophagitis
[2022-02-13] MEDS ORDERED: metroNIDAZOLE Susp 50mg/ml PO SCH (15:30)
[2022-02-13] MEDS: ACETAMINOPHEN 325 MG TAB PO PRN (17:14)
[2022-02-13] MEDS: metroNIDAZOLE 500 MG TAB PO SCH ×2 (17:58→20:21)
[2022-02-13] MEDS: cefTRIAXone SODIUM 2,000 MG in DEXTROSE 5% 50 ML IV SCH (20:22)
[2022-02-13] MEDS: SERTRALINE HCL 50 MG TABLET PO SCH (20:22)
[2022-02-13] MEDS: PANTOprazole 40 MG TAB PO SCH (20:22)
[2022-02-14 03:01] LABS: Platelet Estimate #SD (Normal)
[2022-02-14 03:01] LABS: Platelet Estimate #SD (Normal)
[2022-02-14 06:26] LABS: INR 1.2 (0.9-1.1); Partial Thromboplastin Ratio 1.2; Partial Thromboplastin Time 33.3 Seconds (21.0-31.0)
[2022-02-14 06:32] LABS: Hematocrit (blood only) 24.2 % (40.1-51.0); Hemoglobin 8.8 g/dl (14.0-18.0); Mean Corpuscular Hemoglobin 31.5 pg (25.0-34.0); Mean Corpuscular Hgb Conc 36.4 g/dL (32.0-36.0); Mean Corpuscular Volume 86.7 fL (80.0-100.0); Mean Platelet Volume 11.3 fL (9.4-12.4); Platelet Count 15 K/uL (130-400); RDW Standard Deviation 53.4 fL (36.4-46.3); Red Blood Count 2.79 M/uL (4.63-6.08); White Blood Count 0.06 K/ul (4.8-10.8)
[2022-02-14 06:50] LABS: Albumin Globulin Ratio 0.9 (0.9-2); Albumin Level 2.7 gm/dl (3.4-5.0); BUN Creatinine Ratio 15.5 (10-20); Bilirubin,Total 1.2 mg/dl (0.2-1.0); Calcium 7.1 mg/dl (8.5-10.1); Creatinine Clr Calc Pharmacy 42.6 ml/min; Est GFR (African American) 39.2 ml/min; Est GFR (Non-African American) 33.8 ml/min; Globulin 3.1 gm/dl (2.5-4.0); Magnesium 1.6 mg/dl (1.7-2.4); Phosphorus 3.1 mg/dl (2.5-4.9); Potassium 2.7 mmol/L (3.5-5.1); Total Protein 5.8 gm/dl (6.0-8.3)
[2022-02-14 07:49] LABS: Platelet Estimate Signific. Decreased (Normal)
[2022-02-14] MEDS: ACYCLOVIR 400 MG TAB PO SCH ×2 (09:49→20:06)
[2022-02-14] MEDS: FLUCONAZOLE 100 MG TAB PO SCH (09:49)
[2022-02-14] MEDS: PANTOprazole 40 MG TAB PO SCH ×2 (09:49→20:07)
[2022-02-14] MEDS: metroNIDAZOLE 500 MG TAB PO SCH ×3 (09:50→20:06)
[2022-02-14] MEDS: FILGRASTIM 480 MCG/1.6 ML VIAL SQ SCH (09:50)
--- NOTE | 2022-02-14 12:13 | Hospitalist Progress Note ---
Date of Service February 14, 2022 Assessment & Plan (1) Septic shock: Plan: Now resolved - LFTs and Cr improving, elevated secondary to septic shock Required vasopressin and Levophed [02/11 -02/12] Elevated lactate Cr and LFTs consistent with shocked liver and kidneys despite his mentation always being normal. (2) Neutropenic typhlitis: Plan: Pansensitive Klebsiella pneumoniae bacteremia - switch to cefepime to ceftriaxone, continue metronidazole. Due to having a port we will repeat his blood cultures - 1 from port and 1 peripheral. Consult ID: given gram negative bacteremia, may be able to keep port. However, patient was in septic shock. Awaiting ID input. (3) Neutropenic fever: Plan: Secondary to bacteremia as above. (4) Gram-negative bacteremia: Plan: Neutropenic typhlitis as above. (5) Periorbital hematoma of right eye: Plan: Significantly improved following fall on 02/11 (6) Fall: Plan: Repeat CT head given fall while significantly thrombocytopenic. Negative for any intracranial abnormality. (7) Pancytopenia due to chemotherapy: Plan: Neutropenic precautions Discussed with Dr Patricio - transfusions have to be irradiated Transfuse 2 units of platelets - aim Plt > 15 Transfused 1 unit of packed RBCs yesterday - aim Hgb > 8 Neulasta last given on February 06. On discussion with Dr Patricio recommend neupogen 480 mcg SQ daily until ANC > 1000 (8) Nausea vomiting and diarrhea: Plan: Secondary to sepsis and typhlitis as above Stool PCR negative - medications stopped for c. 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 Follow up with radiation oncology as outpatient (13) Elevated INR: Plan: Improving after vitamin K given and shocked liver improving. Continue to trend. Plan VTE Prophylaxis - deferred given thrombocytopenia Diet - full liquid - advance as tolerated Disposition - continue in PCU, PT/OT ordered, possible need for rehab placement depending on clinical course Admission and Anticipated Discharge Date Admission Date: February 10, 2022 Subjective 61 yo male continues to complain of generalized weakness. He feels his lower extremity are like weight. However, his nurse states that he is able to move his feet and lift his legs. Patient states that is willing to try to sit at edge of bed and perhpas go to the chair. His nurse reports he continues to require the digi shield. Review of Systems Review of Systems: All systems reviewed & are unremarkable except as noted in HPI & below Physical Exam Constitutional: well developed and + acute distress; + not well nourished Eyes: + anicteric sclerae; normal pupil size ENMT: Mouth: oral mucous membranes not dry Neck: trachea midline, no thyromegaly Respiratory: normal respiratory effort, lungs clear to auscultation Cardiovascular: Rate/Rhythm: regular rate, regular rhythm and + tachycardic Heart Sounds: no murmur Vessels: no JVD Extremities: normal capillary refill; no calf tenderness and no pedal edema Gastrointestinal (Abdomen): Inspection/Auscultation: normal bowel sounds and + hyperactive bowel sounds Percussion/Palpation: abdomen soft; abdomen nontender, no guarding and abdomen not rigid Musculoskeletal: no cyanosis or clubbing, extremities motor strength 5/5 Skin: no rashes, warm and dry Trauma: + hematoma (mostly resolved over right eye) Neurologic: moves all extremities and awake; no focal motor deficits and not confused Psychiatric: A+Ox3, euthymic affect Genitourinary: no CVA tenderness Results & Data Results & Data ([facility]) Vital Signs (Past 12 Hours) Vital Signs Temp Pulse Pulse Resp BP Pulse Ox O2 Del Method 02/14/22 11:00 37.0 C 80 19 138/86 96 Room Air 02/14/22 10:17 Room Air 02/14/22 07:46 36.6 C 78 18 124/73 95 Room Air 02/14/22 03:48 36.8 C 76 18 130/71 95 Room Air PG Care Time/CCT Total # of Minutes Spent Total Time Spent with Patient: Total time spent is greater than 50% in coordination of care (as documented) at patient's floor/unit and/or counseling patient: Coding Level of Care Code 66901 Subseq Hosp Care Lvl 3 Diagnoses Septic shock A41.9; R65.21 Neutropenic typhlitis K37; D70.9 Neutropenic fever D70.9; R50.81 Gram-negative bacteremia R78.81 Periorbital hematoma of right eye H05.231 Fall W19.XXXA Pancytopenia due to chemotherapy D61.810 Nausea vomiting and diarrhea R11.2; R19.7 Electrolyte abnormality E87.8 Multiple myeloma C90.00 GERD (gastroesophageal reflux disease) K21.9 Esophagitis presence: esophagitis presence not specified Plasmacytoma C90.30 Elevated INR R79.1 Time Spent (min) 35 (1) GERD (gastroesophageal reflux disease) Esophagitis presence: esophagitis presence not specified Qualified Code(s): K21.9 - Gastro-esophageal reflux disease without esophagitis
[2022-02-14 12:41] LABS: HBSAG NON-REACTIVE (NON-REACTIVE); Hepatitis A Antibody IgM NON-REACTIVE (NON-REACTIVE); Hepatitis B Core Antibody IgM NON-REACTIVE (NON-REACTIVE)
[2022-02-14] MEDS: ACETAMINOPHEN 325 MG TAB PO PRN (18:24)
[2022-02-14] MEDS: cefTRIAXone SODIUM 2,000 MG in DEXTROSE 5% 50 ML IV SCH (20:06)
[2022-02-14] MEDS: SERTRALINE HCL 50 MG TABLET PO SCH (20:07)
[2022-02-15 07:01] LABS: Hematocrit (blood only) 24.8 % (40.1-51.0); Mean Corpuscular Hemoglobin 31.5 pg (25.0-34.0); Mean Corpuscular Hgb Conc 36.3 g/dL (32.0-36.0); Mean Corpuscular Volume 86.7 fL (80.0-100.0); Mean Platelet Volume 10.7 fL (9.4-12.4); Platelet Count 16 K/uL (130-400); RDW Coefficient of Variation 16.1 % (11.5-14.5); RDW Standard Deviation 51.7 fL (36.4-46.3); Red Blood Count 2.86 M/uL (4.63-6.08); White Blood Count 0.11 K/ul (4.8-10.8)
[2022-02-15 07:09] LABS: BUN Creatinine Ratio 14.9 (10-20); Calcium 7.4 mg/dl (8.5-10.1); Creatinine Clr Calc Pharmacy 42.3 ml/min; Est GFR (African American) 38.9 ml/min; Est GFR (Non-African American) 33.6 ml/min; Potassium 2.6 mmol/L (3.5-5.1)
[2022-02-15 07:10] LABS: Albumin Globulin Ratio 0.9 (0.9-2); Albumin Level 2.8 gm/dl (3.4-5.0); Bilirubin,Total 0.9 mg/dl (0.2-1.0); Globulin 3.2 gm/dl (2.5-4.0); Magnesium 1.4 mg/dl (1.7-2.4); Phosphorus 2.8 mg/dl (2.5-4.9)
[2022-02-15 07:23] LABS: INR 1.3 (0.9-1.1); Partial Thromboplastin Ratio 1.2; Partial Thromboplastin Time 33.3 Seconds (21.0-31.0); Prothrombin Time 13.5 Seconds (9.0-12.0)
[2022-02-15] MEDS: ACYCLOVIR 400 MG TAB PO SCH ×2 (08:46→20:52)
[2022-02-15] MEDS: FLUCONAZOLE 100 MG TAB PO SCH (08:46)
[2022-02-15] MEDS: PANTOprazole 40 MG TAB PO SCH ×2 (08:47→20:52)
[2022-02-15] MEDS: metroNIDAZOLE 500 MG TAB PO SCH ×3 (08:47→20:48)
[2022-02-15] MEDS: FILGRASTIM 480 MCG/1.6 ML VIAL SQ SCH (09:29)
[2022-02-15] MEDS: ACETAMINOPHEN 325 MG TAB PO PRN (11:50)
[2022-02-15] MEDS: POTASSIUM CHLORIDE / WTR 10 MEQ/100 ML PLCT IV SCH ×4 (18:45→21:45)
[2022-02-15] MEDS: POTASSIUM CHLORIDE CRTAB 20 MEQ TABCR PO SCH (20:48)
[2022-02-15] MEDS: SERTRALINE HCL 50 MG TABLET PO SCH (20:52)
--- NOTE | 2022-02-15 20:54 | Hospitalist Progress Note ---
Date of Service February 15, 2022 Assessment & Plan (1) Septic shock: Plan: Now resolved - LFTs and Cr improving, elevated secondary to septic shock Required vasopressin and Levophed [02/11 -02/12] Elevated lactate Cr and LFTs consistent with shocked liver and kidneys despite his mentation always being normal. (2) Neutropenic typhlitis: Plan: Pansensitive Klebsiella pneumoniae bacteremia - switch to cefepime to ceftriaxone, continue metronidazole. Due to having a port we will repeat his blood cultures - 1 from port and 1 peripheral. Consult ID: given gram negative bacteremia, may be able to keep port. However, patient was in septic shock. Awaiting ID input. Patient remains hemodynamicall stable on 02/15 WBC remain low but slowy improving. will continue neupogen (3) Neutropenic fever: Plan: Secondary to bacteremia as above. continue neupogen (4) Gram-negative bacteremia: Plan: Neutropenic typhlitis as above. (5) Periorbital hematoma of right eye: Plan: Significantly improved following fall on 02/11 (6) Fall: Plan: Repeat CT head given fall while significantly thrombocytopenic. Negative for any intracranial abnormality. (7) Pancytopenia due to chemotherapy: Plan: Neutropenic precautions Discussed with Dr Patricio - transfusions have to be irradiated Transfuse 2 units of platelets - aim Plt > 15 Transfused 1 unit of packed RBCs yesterday - aim Hgb > 8 Neulasta last given on February 06. On discussion with Dr Patricio recommend neupogen 480 mcg SQ daily until ANC > 1000 (8) Nausea vomiting and diarrhea: Plan: Secondary to sepsis and typhlitis as above Stool PCR negative - medications stopped for c. 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 Follow up with radiation oncology as outpatient (13) Elevated INR: Plan: Improving after vitamin K given and shocked liver improving. Continue to trend. Plan VTE Prophylaxis - deferred given thrombocytopenia Diet - full liquid - advance as tolerated Disposition - continue in PCU, PT/OT ordered, possible need for rehab placement depending on clinical course Admission and Anticipated Discharge Date Admission Date: February 10, 2022 Subjective Patient reports feeling better today. He would like to have digishield and rossi cathter removed to moved around mre. D/W nurse, he has not required much of the digishield, minimal output today. Patient denies fever, chills. Review of Systems Review of Systems: All systems reviewed & are unremarkable except as noted in HPI & below Physical Exam Constitutional: well developed and + acute distress; + not well nourished Eyes: + anicteric sclerae; normal pupil size ENMT: Mouth: oral mucous membranes not dry Neck: trachea midline, no thyromegaly Respiratory: normal respiratory effort, lungs clear to auscultation Cardiovascular: Rate/Rhythm: regular rate, regular rhythm and + tachycardic Heart Sounds: no murmur Vessels: no JVD Extremities: normal capillary refill; no calf tenderness and no pedal edema Gastrointestinal (Abdomen): Inspection/Auscultation: normal bowel sounds and + hyperactive bowel sounds Percussion/Palpation: abdomen soft; abdomen nontender, no guarding and abdomen not rigid Musculoskeletal: no cyanosis or clubbing, extremities motor strength 5/5 Skin: no rashes, warm and dry Trauma: + hematoma (mostly resolved over right eye) Neurologic: moves all extremities and awake; no focal motor deficits and not confused Psychiatric: A+Ox3, euthymic affect Genitourinary: no CVA tenderness Results & Data Results & Data ([facility]) Vital Signs (Past 12 Hours) Vital Signs Temp Pulse Pulse Resp BP Pulse Ox O2 Del Method 02/15/22 19:40 36.8 C 73 18 154/83 H 96 Room Air 02/15/22 16:15 80 02/15/22 15:14 36.9 C 75 18 154/83 H 97 Room Air 02/15/22 11:05 37.1 C 81 20 132/79 96 Room Air PG Care Time/CCT Total # of Minutes Spent Total Time Spent with Patient: Total time spent is greater than 50% in coordination of care (as documented) at patient's floor/unit and/or counseling patient: Coding Level of Care Code 81470 Subseq Hosp Care Lvl 3 Diagnoses Septic shock A41.9; R65.21 Neutropenic typhlitis K37; D70.9 Neutropenic fever D70.9; R50.81 Gram-negative bacteremia R78.81 Periorbital hematoma of right eye H05.231 Fall W19.XXXA Pancytopenia due to chemotherapy D61.810 Nausea vomiting and diarrhea R11.2; R19.7 Electrolyte abnormality E87.8 Multiple myeloma C90.00 GERD (gastroesophageal reflux disease) K21.9 Esophagitis presence: esophagitis presence not specified Plasmacytoma C90.30 Elevated INR R79.1 Time Spent (min) 35 (1) GERD (gastroesophageal reflux disease) Esophagitis presence: esophagitis presence not specified Qualified Code(s): K21.9 - Gastro-esophageal reflux disease without esophagitis
[2022-02-15] MEDS: cefTRIAXone SODIUM 2,000 MG in DEXTROSE 5% 50 ML IV SCH (20:56)
[2022-02-16 07:26] LABS: Hematocrit (blood only) 26.1 % (40.1-51.0); Hemoglobin 9.2 g/dl (14.0-18.0); INR 1.3 (0.9-1.1); Mean Corpuscular Hgb Conc 35.2 g/dL (32.0-36.0); Mean Corpuscular Volume 87.9 fL (80.0-100.0); Partial Thromboplastin Ratio 1.2; Partial Thromboplastin Time 31.9 Seconds (21.0-31.0); Platelet Count 5 K/uL (130-400); Prothrombin Time 13.7 Seconds (9.0-12.0); RDW Coefficient of Variation 15.9 % (11.5-14.5); RDW Standard Deviation 51.5 fL (36.4-46.3); Red Blood Count 2.97 M/uL (4.63-6.08); White Blood Count 0.22 K/ul (4.8-10.8)
[2022-02-16 07:39] LABS: Albumin Globulin Ratio 0.8 (0.9-2); Albumin Level 2.7 gm/dl (3.4-5.0); BUN Creatinine Ratio 14.5 (10-20); Bilirubin,Total 0.8 mg/dl (0.2-1.0); Calcium 7.1 mg/dl (8.5-10.1); Creatinine Clr Calc Pharmacy 45.7 ml/min; Est GFR (African American) 42.6 ml/min; Est GFR (Non-African American) 36.8 ml/min; Globulin 3.3 gm/dl (2.5-4.0); Magnesium 1.2 mg/dl (1.7-2.4); Phosphorus 2.3 mg/dl (2.5-4.9); Potassium 2.6 mmol/L (3.5-5.1)
[2022-02-16] MEDS: ondansetron HCL 8 MG in DEXTROSE 5% 50 ML IV PRN (08:16)
[2022-02-16] MEDS: ACYCLOVIR 400 MG TAB PO SCH ×2 (08:17→20:25)
[2022-02-16] MEDS: PANTOprazole 40 MG TAB PO SCH ×2 (08:17→20:25)
[2022-02-16] MEDS: FLUCONAZOLE 100 MG TAB PO SCH (08:18)
[2022-02-16] MEDS: metroNIDAZOLE 500 MG TAB PO SCH ×3 (08:18→20:19)
[2022-02-16] MEDS: POTASSIUM CHLORIDE CRTAB 20 MEQ TABCR PO SCH ×3 (08:18→20:24)
[2022-02-16] MEDS: FILGRASTIM 480 MCG/1.6 ML VIAL SQ SCH (09:00)
--- NOTE | 2022-02-16 15:41 | Hospitalist Progress Note ---
Date of Service February 16, 2022 Assessment & Plan (1) Septic shock: Plan: Now resolved - LFTs and Cr improving, elevated secondary to septic shock Required vasopressin and Levophed [02/11 -02/12] Elevated lactate Cr and LFTs consistent with shocked liver and kidneys despite his mentation always being normal. (2) Neutropenic typhlitis: Plan: Pansensitive Klebsiella pneumoniae bacteremia - switch to cefepime to ceftriaxone, continue metronidazole. Due to having a port we will repeat his blood cultures - 1 from port and 1 peripheral. Consult ID: given gram negative bacteremia, may be able to keep port. However, patient was in septic shock. Awaiting ID input. Patient remains hemodynamicaly stable on 02/16 WBC remain low but slowly improving. will continue neupogen (3) Neutropenic fever: Plan: Secondary to bacteremia as above. continue neupogen (4) Gram-negative bacteremia: Plan: Neutropenic typhlitis as above. (5) Periorbital hematoma of right eye: Plan: Significantly improved following fall on 02/11 (6) Fall: Plan: Repeat CT head given fall while significantly thrombocytopenic. Negative for any intracranial abnormality. (7) Pancytopenia due to chemotherapy: Plan: Neutropenic precautions Discussed with Dr Patricio - transfusions have to be irradiated Transfuse 2 units of platelets - aim Plt > 15 Transfused 1 unit of packed RBCs yesterday - aim Hgb > 8 Neulasta last given on February 06. On discussion with Dr Patricio recommend neupogen 480 mcg SQ daily until ANC > 1000 (8) Nausea vomiting and diarrhea: Plan: Secondary to sepsis and typhlitis as above Stool PCR negative - medications stopped for c. 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 Follow up with radiation oncology as outpatient (13) Elevated INR: Plan: Improving after vitamin K given and shocked liver improving. Continue to trend. Plan VTE Prophylaxis - deferred given thrombocytopenia Diet - full liquid - advance as tolerated Disposition - continue in PCU, PT/OT ordered, possible need for rehab placement depending on clinical course Admission and Anticipated Discharge Date Admission Date: February 10, 2022 Subjective 61 yo male reports having dysuria. Review of Systems Review of Systems: All systems reviewed & are unremarkable except as noted in HPI & below Physical Exam Constitutional: well developed and + acute distress; + not well nourished Eyes: + anicteric sclerae; normal pupil size ENMT: Mouth: oral mucous membranes not dry Neck: trachea midline, no thyromegaly Respiratory: normal respiratory effort, lungs clear to auscultation Cardiovascular: Rate/Rhythm: regular rate and regular rhythm Heart Sounds: no murmur Vessels: no JVD Extremities: normal capillary refill; no calf tenderness and no pedal edema Gastrointestinal (Abdomen): Inspection/Auscultation: normal bowel sounds and + hyperactive bowel sounds Percussion/Palpation: abdomen soft; abdomen nontender, no guarding and abdomen not rigid Musculoskeletal: no cyanosis or clubbing, extremities motor strength 5/5 Skin: no rashes, warm and dry Trauma: + hematoma (mostly resolved over right eye) Neurologic: moves all extremities and awake; no focal motor deficits and not confused Psychiatric: A+Ox3, euthymic affect Genitourinary: no CVA tenderness Results & Data Results & Data ([facility]) Vital Signs (Past 12 Hours) Vital Signs Temp Pulse Pulse Resp BP BP Pulse Ox 02/16/22 15:29 36.7 C 84 16 135/77 95 02/16/22 14:58 75 02/16/22 12:25 37.0 C 73 18 156/80 H 96 02/16/22 12:24 37.0 C 77 18 156/80 H 97 02/16/22 10:57 82 02/16/22 11:50 36.9 C 76 18 145/84 H 97 02/16/22 11:20 37.1 C 78 18 146/78 H 96 02/16/22 11:05 37.1 C 75 18 131/71 95 02/16/22 10:51 36.9 C 70 18 136/7 L 96 02/16/22 10:46 36.9 C 75 18 136/75 96 02/16/22 10:10 37.2 C 72 18 143/74 H 94 02/16/22 09:10 37.1 C 76 18 146/86 H 95 02/16/22 08:40 37.1 C 79 18 144/82 H 96 02/16/22 08:25 37.1 C 70 20 152/82 H 94 02/16/22 08:04 37.1 C 82 20 139/91 96 02/16/22 07:46 37.0 C 02/16/22 07:42 95 H 20 164/94 H 97 02/16/22 04:04 37.5 C 83 18 134/73 96 O2 Del Method 02/16/22 15:29 Room Air 02/16/22 14:58 02/16/22 12:25 02/16/22 12:24 02/16/22 10:57 02/16/22 11:50 02/16/22 11:20 02/16/22 11:05 02/16/22 10:51 02/16/22 10:46 02/16/22 10:10 02/16/22 09:10 02/16/22 08:40 02/16/22 08:25 02/16/22 08:04 02/16/22 07:46 02/16/22 07:42 Room Air 02/16/22 04:04 Room Air PG Care Time/CCT Total # of Minutes Spent Total Time Spent with Patient: Total time spent is greater than 50% in coordination of care (as documented) at patient's floor/unit and/or counseling patient: Coding Level of Care Code 99619 Subseq Hosp Care Lvl 3 Diagnoses Septic shock A41.9; R65.21 Neutropenic typhlitis K37; D70.9 Neutropenic fever D70.9; R50.81 Gram-negative bacteremia R78.81 Periorbital hematoma of right eye H05.231 Fall W19.XXXA Pancytopenia due to chemotherapy D61.810 Nausea vomiting and diarrhea R11.2; R19.7 Electrolyte abnormality E87.8 Multiple myeloma C90.00 GERD (gastroesophageal reflux disease) K21.9 Esophagitis presence: esophagitis presence not specified Plasmacytoma C90.30 Elevated INR R79.1 Time Spent (min) 35 (1) GERD (gastroesophageal reflux disease) Esophagitis presence: esophagitis presence not specified Qualified Code(s): K21.9 - Gastro-esophageal reflux disease without esophagitis
[2022-02-16] MEDS: cefTRIAXone SODIUM 2,000 MG in DEXTROSE 5% 50 ML IV SCH (20:19)
[2022-02-16] MEDS: SERTRALINE HCL 50 MG TABLET PO SCH (20:24)
[2022-02-16 21:00] LABS: Bacteria Urine Automated Negative (Negative); Bilirubin Urine Negative (Negative); Blood Urine 3+ (Negative); Cast Urine Automated 0 /lpf (0-5); Glucose Urine UA Trace (Negative); Ketones Urine Negative (Negative); Leukocyte Esterase Urine Negative (Negative); Nitrite Urine Negative (Negative); Protein Urine 2+ (Negative); RBC Urine Automated >30 /hpf (0-4); Specific Gravity Urine 1.013 (1.000-1.030); Urobilinogen Urine Negative (Negative); pH Urine 6.5 (4.5-7.5)
[2022-02-16 21:07] LABS: Appearance Urine Cloudy (Clear); Color Urine Red
[2022-02-16] MEDS: PHENAZOPYRIDINE HCL 200 MG TAB PO SCH (21:18)
[2022-02-17 07:15] LABS: Hematocrit (blood only) 25.6 % (40.1-51.0); Hemoglobin 8.9 g/dl (14.0-18.0); Mean Corpuscular Hemoglobin 31.2 pg (25.0-34.0); Mean Corpuscular Hgb Conc 34.8 g/dL (32.0-36.0); Mean Corpuscular Volume 89.8 fL (80.0-100.0); Platelet Count 13 K/uL (130-400); RDW Coefficient of Variation 15.9 % (11.5-14.5); RDW Standard Deviation 51.2 fL (36.4-46.3); Red Blood Count 2.85 M/uL (4.63-6.08)
[2022-02-17 07:20] LABS: INR 1.3 (0.9-1.1); Partial Thromboplastin Ratio 1.1; Prothrombin Time 13.5 Seconds (9.0-12.0)
[2022-02-17 07:39] LABS: Albumin Globulin Ratio 0.9 (0.9-2); Albumin Level 2.8 gm/dl (3.4-5.0); BUN Creatinine Ratio 15.4 (10-20); Bilirubin,Total 0.8 mg/dl (0.2-1.0); Est GFR (Non-African American) 41.4 ml/min; Globulin 3.1 gm/dl (2.5-4.0); Potassium 2.8 mmol/L (3.5-5.1); Total Protein 5.9 gm/dl (6.0-8.3)
[2022-02-17] MEDS: FILGRASTIM 480 MCG/1.6 ML VIAL SQ SCH (08:06)
[2022-02-17] MEDS: FLUCONAZOLE 100 MG TAB PO SCH (08:07)
[2022-02-17] MEDS: PANTOprazole 40 MG TAB PO SCH ×2 (08:07→20:30)
[2022-02-17] MEDS: POTASSIUM CHLORIDE CRTAB 20 MEQ TABCR PO SCH ×3 (08:07→20:29)
[2022-02-17] MEDS: ACYCLOVIR 400 MG TAB PO SCH ×2 (08:07→20:32)
[2022-02-17] MEDS: PHENAZOPYRIDINE HCL 200 MG TAB PO SCH ×3 (08:07→20:30)
[2022-02-17] MEDS: metroNIDAZOLE 500 MG TAB PO SCH ×3 (08:08→20:29)
[2022-02-17] MEDS: ondansetron HCL 8 MG in DEXTROSE 5% 50 ML IV PRN (10:21)
--- NOTE | 2022-02-17 14:11 | Hospitalist Progress Note ---
Date of Service February 17, 2022 Assessment & Plan (1) Septic shock: Plan: Now resolved - LFTs and Cr improving, elevated secondary to septic shock Required vasopressin and Levophed [02/11 -02/12] Elevated lactate Cr and LFTs consistent with shocked liver and kidneys despite his mentation always being normal. (2) Neutropenic typhlitis: Plan: Pansensitive Klebsiella pneumoniae bacteremia - switch to cefepime to ceftriaxone, continue metronidazole. Due to having a port we will repeat his blood cultures - 1 from port and 1 peripheral. Consult ID: given gram negative bacteremia, may be able to keep port. However, patient was in septic shock. Awaiting ID input. Patient remains hemodynamicaly stable on 02/17 WBC remain low but slowly improving. will continue neupogen (3) Neutropenic fever: Plan: Secondary to bacteremia as above. continue neupogen (4) Gram-negative bacteremia: Plan: Neutropenic typhlitis as above. (5) Periorbital hematoma of right eye: Plan: Significantly improved following fall on 02/11 (6) Fall: Plan: Repeat CT head given fall while significantly thrombocytopenic. Negative for any intracranial abnormality. (7) Pancytopenia due to chemotherapy: Plan: Neutropenic precautions Discussed with Dr Patricio - transfusions have to be irradiated Transfuse 2 units of platelets - aim Plt > 15 Transfused 1 unit of packed RBCs yesterday - aim Hgb > 8 Neulasta last given on February 06. On discussion with Dr Patricio recommend neupogen 480 mcg SQ daily until ANC > 1000 (8) Nausea vomiting and diarrhea: Plan: Secondary to sepsis and typhlitis as above Stool PCR negative - medications stopped for c. diff Ondansetron to 8mg IV q8h PRN Added oxybutyrin forcpain. phenazopyridine is not helping. 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 Follow up with radiation oncology as outpatient (13) Elevated INR: Plan: Improving after vitamin K given and shocked liver improving. Continue to trend. Plan VTE Prophylaxis - deferred given thrombocytopenia Diet - full liquid - advance as tolerated Disposition - continue in PCU, PT/OT ordered, possible need for rehab placement depending on clinical course Admission and Anticipated Discharge Date Admission Date: February 10, 2022 Subjective 61 yo male reports penile pain after rossi cath was removed. Review of Systems Review of Systems: All systems reviewed & are unremarkable except as noted in HPI & below Physical Exam Constitutional: well developed and + acute distress; + not well nourished Eyes: + anicteric sclerae; normal pupil size ENMT: Mouth: oral mucous membranes not dry Neck: trachea midline, no thyromegaly Respiratory: normal respiratory effort, lungs clear to auscultation Cardiovascular: Rate/Rhythm: regular rate, regular rhythm and + tachycardic Heart Sounds: no murmur Vessels: no JVD Extremities: normal capillary refill; no calf tenderness and no pedal edema Gastrointestinal (Abdomen): Inspection/Auscultation: normal bowel sounds and + hyperactive bowel sounds Percussion/Palpation: abdomen soft; abdomen nontender, no guarding and abdomen not rigid Musculoskeletal: no cyanosis or clubbing, extremities motor strength 5/5 Skin: no rashes, warm and dry Trauma: + hematoma (mostly resolved over right eye) Neurologic: moves all extremities and awake; no focal motor deficits and not confused Psychiatric: A+Ox3, euthymic affect Genitourinary: no CVA tenderness Results & Data Results & Data ([facility]) Vital Signs (Past 12 Hours) Vital Signs Temp Pulse Pulse Resp BP Pulse Ox O2 Del Method 02/17/22 11:09 37.3 C 73 20 139/71 95 Room Air 02/17/22 07:16 37.0 C 78 19 134/75 96 Room Air 02/17/22 06:57 74 02/17/22 03:46 36.9 C 78 18 141/74 H 93 Room Air PG Care Time/CCT Total # of Minutes Spent Total Time Spent with Patient: Total time spent is greater than 50% in coordination of care (as documented) at patient's floor/unit and/or counseling patient: Coding Level of Care Code 23376 Subseq Hosp Care Lvl 2 Diagnoses Septic shock A41.9; R65.21 Neutropenic typhlitis K37; D70.9 Neutropenic fever D70.9; R50.81 Gram-negative bacteremia R78.81 Periorbital hematoma of right eye H05.231 Fall W19.XXXA Pancytopenia due to chemotherapy D61.810 Nausea vomiting and diarrhea R11.2; R19.7 Electrolyte abnormality E87.8 Multiple myeloma C90.00 GERD (gastroesophageal reflux disease) K21.9 Esophagitis presence: esophagitis presence not specified Plasmacytoma C90.30 Elevated INR R79.1 (1) GERD (gastroesophageal reflux disease) Esophagitis presence: esophagitis presence not specified Qualified Code(s): K21.9 - Gastro-esophageal reflux disease without esophagitis
[2022-02-17] MEDS: ACETAMINOPHEN 325 MG TAB PO PRN (17:26)
[2022-02-17 18:32] LABS: Appearance Urine Cloudy (Clear); Color Urine Brown; Specific Gravity Urine 1.017 (1.000-1.030)
[2022-02-17 18:39] LABS: Epithelial Cell Urine >30 /lpf (0-5); RBC Urine >30 /hpf (0-4)
[2022-02-17 18:40] LABS: Bacteria Urine 1+ (Negative)
[2022-02-17] MEDS: cefTRIAXone SODIUM 2,000 MG in DEXTROSE 5% 50 ML IV SCH (20:27)
[2022-02-17] MEDS: SERTRALINE HCL 50 MG TABLET PO SCH (20:30)
[2022-02-17] MEDS: OXYBUTYNIN CHLORIDE 5 MG TAB PO SCH (20:30)
[2022-02-18] MEDS: ondansetron HCL 8 MG in DEXTROSE 5% 50 ML IV PRN ×2 (00:01→12:49)
[2022-02-18 07:10] LABS: Albumin Level 2.9 gm/dl (3.4-5.0); BUN Creatinine Ratio 14.5 (10-20); Bilirubin Direct 0.2 mg/dl (0-0.2); Bilirubin,Total 0.7 mg/dl (0.2-1.0); Calcium 6.8 mg/dl (8.5-10.1); Creatinine Clr Calc Pharmacy 54.6 ml/min; Est GFR (African American) 53.9 ml/min; Est GFR (Non-African American) 46.5 ml/min; Potassium 2.8 mmol/L (3.5-5.1)
[2022-02-18 07:16] LABS: Hemoglobin 8.7 g/dl (14.0-18.0); Mean Corpuscular Hemoglobin 31.3 pg (25.0-34.0); Mean Corpuscular Hgb Conc 34.8 g/dL (32.0-36.0); Mean Corpuscular Volume 89.9 fL (80.0-100.0); Mean Platelet Volume 11.5 fL (9.4-12.4); Platelet Count 19 K/uL (130-400); RDW Coefficient of Variation 15.7 % (11.5-14.5); RDW Standard Deviation 52.3 fL (36.4-46.3); Red Blood Count 2.78 M/uL (4.63-6.08); White Blood Count 0.42 K/ul (4.8-10.8)
[2022-02-18] MEDS: ACYCLOVIR 400 MG TAB PO SCH ×2 (08:49→20:02)
[2022-02-18] MEDS: PHENAZOPYRIDINE HCL 200 MG TAB PO SCH ×3 (08:52→20:03)
[2022-02-18] MEDS: POTASSIUM CHLORIDE CRTAB 20 MEQ TABCR PO SCH ×3 (08:54→20:01)
[2022-02-18] MEDS: metroNIDAZOLE 500 MG TAB PO SCH ×3 (08:54→20:03)
[2022-02-18] MEDS: FILGRASTIM 480 MCG/1.6 ML VIAL SQ SCH (08:55)
[2022-02-18] MEDS: PANTOprazole 40 MG TAB PO SCH ×2 (08:55→20:01)
[2022-02-18] MEDS: OXYBUTYNIN CHLORIDE 5 MG TAB PO SCH ×2 (08:55→20:02)
[2022-02-18] MEDS: FLUCONAZOLE 100 MG TAB PO SCH (08:55)
--- NOTE | 2022-02-18 13:04 | Urology Consultation ---
Date of Consultation February 18, 2022 Assessment & Plan (1) Urinary urgency: (2) Gross hematuria: Plan 61yo M with a hx of MM on chemo admitted with pancytopenia and sepsis. A Hutchison catheter was placed on admission, but has since been removed. Urology consulted for urinary urgency, hematuria following catheter removal. -Plan of care and imaging reviewed with Dr. Mcnulty, on-call urologist. -CECI notable for nonspecific bladder wall thickening, but otherwise unremarkable. -Urinary urgency likely from catheter trauma, irritation. -Afebrile and hemodynamically stable. -Labs reviewed-WBC 0.42, hemoglobin 8.7, creatinine 1.59 -Urine culture 02/17 prelim no growth. Blood culture 02/10 with Klebsiella, repeat final and negative. -On IV ceftriaxone. -Voiding spontaneously, urine is dark shakeel-colored. Output appears adequate. Continue to monitor, bladder scan as needed. -Recommend continuing with symptom control including Flomax, Pyridium, oxybutynin as needed. -Will need cystoscopy as an outpatient for further evaluation of bladder and to complete hematuria work-up. -Urology will follow. History of Present Illness Reason for Consultation: Urinary urgency, hematuria Attending Physician: Archie Jiménez History of Present Illness This is a 61-year-old male with multiple myeloma admitted with pancytopenia and sepsis with suspected typhlitis and klebsiella bacteremia. A Hutchison catheter was placed on admission and then subsequently removed yesterday. He was noted to have some hematuria on removal felt secondary to trauma from catheter. Following the removal of his catheter he has complained of urinary urgency and sensation of fullness. He notes this is a completely new sensation. He had tried Pyridium and oxybutynin without any relief. Urology consulted for hematuria, urinary urgency. Pt examined at bedside this afternoon. Awake, arrival. No acute distress. Notes some urinary urgency, sensation of fullness, and occasional dysuria with voiding. Reports a slow stream at times. Urine is dark shakeel-colored. Feels he is voiding more frequently and in smaller amounts. Denies any abdominal, flank, or suprapubic pain. No fevers or chills. Denies history of urological issues or concerns. Denies urinary issues or symptoms at baseline. He has not followed with urology in the past. Family history noncontributory. Renal ultrasound . Normal sonographic appearance of the kidneys. No hydronephrosis. 2. Pronounced bladder wall thickening. This is nonspecific and accentuated by underdistention. This could be correlated with urinalysis and urine cytology. If persistent hematuria, cystoscopy is recommended. Allergies Allergy/AdvReac Type Severity Reaction Status Date / Time fentanyl Allergy Severe Vomiting Verified 01/28/22 08:15 Home Medications Medication Instructions Recorded Confirmed Type acyclovir 400 mg tablet 400 mg PO BID 03/22/19 02/10/22 History pantoprazole 40 mg tablet,delayed 40 mg PO QAM 05/19/19 02/10/22 History release apixaban 5 mg tablet (Eliquis) 5 mg PO BID 03/14/20 02/10/22 History insulin glargine 100 unit/mL (3 0 - 12 unit subcut DIRECTED PRN 01/25/21 02/10/22 History mL) subcutaneous pen (Basaglar BSG LEVELS KwikPen U-100 Insulin) ondansetron HCl 8 mg tablet 8 mg PO Q8H PRN Nausea 05/08/21 02/10/22 History oxycodone 5 mg tablet 5 mg PO Q6H PRN Pain 05/08/21 02/10/22 History tramadol 50 mg tablet 50 mg PO Q6H PRN Pain 07/16/21 02/10/22 History dicyclomine 10 mg capsule 10 mg PO TID PRN Abdominal 07/18/21 02/10/22 Rx Discomfort #90 caps sertraline 50 mg tablet (Zoloft) 50 mg PO HS 09/17/21 02/10/22 History ciprofloxacin HCl 500 mg tablet 500 mg PO BID 02/10/22 02/10/22 History fluconazole 200 mg tablet 200 mg PO BID 02/10/22 02/10/22 History Patient History Medical History Acute cholecystitis Anemia Back problem Deep vein thrombosis in leg 02/06 ([facility]) Diverticular disease GERD (gastroesophageal reflux disease) History of chemotherapy oral chemo until 01/30, taking IV chemo and then will be starting with maintaince dose per [facility] scheduling Lumbar compression fracture Lytic lesion of bone on x-ray since 01/2019 and had radiation on this lesion Neoplasm of bone Plantar fascial fibromatosis PT UNAWARE Prediabetes STEROID INDUCED "MY SUGAR GOES UP AND DOWN" checks sugar daily Pulmonary embolism "01/2019 went from leg to lung" ([facility]) Wide-complex tachycardia Surgical History H/O kyphoplasty [facility] May 2019 H/O wrist surgery RT Hx laparoscopic cholecystectomy (02/20/21) Laparoscopic cholecystectomy. Dr. Self 02/20/2021 Hx of biopsy ABDOMINAL LESION LOCATED OUTSIDE PANCREAS Hx of colonoscopy May 2020 Port-A-Cath in place (02/05/21) Insertion of Access Port Left Cephalic Dr. Self 02/05/21 [place] teeth removed Family History Mother , age 93 / old age Breast cancer Father , age 67 Prostate cancer had radiation Coronary heart disease Diabetes Heart disease Brother Diabetes Brother No problems noted. Sister Asthma Addisons disease Daughter No problems noted. Daughter No problems noted. Son No problems noted. Other Family history non-contributory Hearing loss No family history of adverse response to anesthesia No family history of bleeding disorder Social History Smoking Status: Never smoker Second Hand Exposure: No; Do You Dip or Chew Tobacco: No; Tobacco Cessation Education Requested by Patient: No Hx Alcohol Use: No Hx Substance Use: No Preferred Language: Swedish Communication Ability: Effective Visual Impairment: No Limitations Hearing Ability: Normal Hay Sorter Required: No Beliefs That Will Affect Care: None marital status: Current Living Situation: Spouse Current Living Situation Comment: Lives with and 2 daughters current occupational status: retired and disabled How many Children do You have: 3 Other Information That Helps Us Care for You: No Feels Safe at Home: Yes Safety Concerns: Feels Safe At This Time Childhood Exposure to Second-Hand Smoke: No Dental Care, Regularly: Yes Assistive Devices: None Review of Systems Review of Systems: All systems reviewed & are unremarkable except as noted in HPI & below Physical Exam Constitutional: no acute distress Neck: normal visual inspection Respiratory: no respiratory distress and no labored breathing Gastrointestinal (Abdomen): Inspection/Auscultation: abdomen normal to inspection Musculoskeletal: Head/Neck/Chest: normocephalic Skin: No visible rashes or lesions Neurologic: awake Psychiatric: Orientation: alert, oriented x 3 and cooperative Genitourinary: Urine is dark shakeel-colored in urinal Results & Data ([facility]) Vital Signs (Past 12 Hours) Vital Signs Temp Pulse Pulse Resp BP Pulse Ox O2 Del Method 02/18/22 11:19 36.9 C 77 20 132/82 94 02/18/22 09:16 71 02/18/22 06:32 37.0 C 74 24 152/82 H 93 Room Air 02/18/22 03:26 37.3 C 78 17 147/76 H 94 Room Air PG Care Time/CCT Total # of Minutes Spent Total Time Spent with Patient: Total time spent is greater than 50% in coordination of care (as documented) at patient's floor/unit and/or counseling patient: Coding Level of Care Code 20524 Inpt Consult Level 3 Diagnoses Urinary urgency R39.15 Gross hematuria R31.0
[2022-02-18] MEDS: ACETAMINOPHEN 325 MG TAB PO PRN (13:44)
--- NOTE | 2022-02-18 15:40 | Ultrasound Report ---
RENAL ULTRASOUND CLINICAL HISTORY: hematuria, urinary urgency, r/o obstruction COMPARISON STUDY: CT of the abdomen and pelvis February 11, 2022. TECHNIQUE: Sonography of the kidneys and the urinary bladder was performed. FINDINGS: Right kidney measures 10.4 cm in maximal dimension and the left measures 10.9 cm. There is no hydronephrosis. No renal calculus or mass is identified. Renal echogenicity, size and cortical thi ckness are normal. Note is made of pronounced bladder wall thickening. This is nonspecific and accent uated by underdistention. No discrete bladder lesion is identified on recent CT of February 11, 2022. IMPRESSION: 1. Normal sonographic appearance of the kidneys. No hydronephrosis. 2. Pronounced bladder wall thickening. This is nonspecific and accentuated by underdistention. This c ould be correlated with urinalysis and urine cytology. If persistent hematuria, cystoscopy is recomme nded. ACT 112: Negative or not required by law. Electronically signed by: Mendel Roach M.D. 02/18/2022 3:38 PM
--- NOTE | 2022-02-18 16:38 | Hospitalist Progress Note ---
Date of Service February 18, 2022 Assessment & Plan (1) Septic shock: Plan: Now resolved - LFTs and Cr improving, elevated secondary to septic shock Required vasopressin and Levophed [02/11 -02/12] Elevated lactate Cr and LFTs consistent with shocked liver and kidneys despite his mentation always being normal. (2) Neutropenic typhlitis: Plan: Pansensitive Klebsiella pneumoniae bacteremia - switch to cefepime to ceftriaxone, continue metronidazole. Due to having a port we will repeat his blood cultures - 1 from port and 1 peripheral. Consult ID: given gram negative bacteremia, may be able to keep port. However, patient was in septic shock. Awaiting ID input. Patient remains hemodynamicaly stable on 02/17 WBC remain low but slowly improving. will continue neupogen on 02/18 (3) Urinary urgency: Plan: will consult urology. Likely from trauma from rossi ON OXYUTYNIN, and pyridium. concern over hematuria. Patient though does have thrombocytopenia, concern for possible clots. will await uro input. (4) Neutropenic fever: Plan: Secondary to bacteremia as above. continue neupogen (5) Gram-negative bacteremia: Plan: Neutropenic typhlitis as above. (6) Periorbital hematoma of right eye: Plan: Significantly improved following fall on 02/11 (7) Fall: Plan: Repeat CT head given fall while significantly thrombocytopenic. Negative for any intracranial abnormality. (8) Pancytopenia due to chemotherapy: Plan: Neutropenic precautions Discussed with Dr Patricio - transfusions have to be irradiated Transfuse 2 units of platelets - aim Plt > 15 Transfused 1 unit of packed RBCs yesterday - aim Hgb > 8 Neulasta last given on February 06. On discussion with Dr Patricio recommend neupogen 480 mcg SQ daily until ANC > 1000 (9) Nausea vomiting and diarrhea: Plan: Secondary to sepsis and typhlitis as above Stool PCR negative - medications stopped for c. diff Ondansetron to 8mg IV q8h PRN Added oxybutyrin forcpain. phenazopyridine is not helping. 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 Follow up with radiation oncology as outpatient (14) Elevated INR: Plan: Improving after vitamin K given and shocked liver improving. Continue to trend. Plan VTE Prophylaxis - deferred given thrombocytopenia Diet - full liquid - advance as tolerated Disposition - continue in PCU, PT/OT ordered, possible need for rehab placement depending on clinical course Admission and Anticipated Discharge Date Admission Date: February 10, 2022 Subjective Patient reports he continues to have hematuria. Review of Systems Review of Systems: All systems reviewed & are unremarkable except as noted in HPI & below Physical Exam Constitutional: well developed and + acute distress; + not well nourished Eyes: + anicteric sclerae; normal pupil size ENMT: Mouth: oral mucous membranes not dry Neck: trachea midline, no thyromegaly Respiratory: normal respiratory effort, lungs clear to auscultation Cardiovascular: Rate/Rhythm: regular rate, regular rhythm and + tachycardic Heart Sounds: no murmur Vessels: no JVD Extremities: normal capillary refill; no calf tenderness and no pedal edema Gastrointestinal (Abdomen): Inspection/Auscultation: normal bowel sounds and + hyperactive bowel sounds Percussion/Palpation: abdomen soft; abdomen nontender, no guarding and abdomen not rigid Musculoskeletal: no cyanosis or clubbing, extremities motor strength 5/5 Skin: no rashes, warm and dry Trauma: + hematoma (mostly resolved over right eye) Neurologic: moves all extremities and awake; no focal motor deficits and not confused Psychiatric: A+Ox3, euthymic affect Genitourinary: no CVA tenderness Results & Data Results & Data ([facility]) Vital Signs (Past 12 Hours) Vital Signs Temp Pulse Pulse Resp BP Pulse Ox O2 Del Method 02/18/22 16:27 72 02/18/22 15:24 37.2 C 66 18 139/79 95 Room Air 02/18/22 11:19 36.9 C 77 20 132/82 94 02/18/22 09:16 71 02/18/22 06:32 37.0 C 74 24 152/82 H 93 Room Air PG Care Time/CCT Total # of Minutes Spent Total Time Spent with Patient: Total time spent is greater than 50% in coordination of care (as documented) at patient's floor/unit and/or counseling patient: Coding Level of Care Code 50624 Subseq Hosp Care Lvl 3 Diagnoses Septic shock A41.9; R65.21 Neutropenic typhlitis K37; D70.9 Urinary urgency R39.15 Neutropenic fever D70.9; R50.81 Gram-negative bacteremia R78.81 Periorbital hematoma of right eye H05.231 Fall W19.XXXA Pancytopenia due to chemotherapy D61.810 Nausea vomiting and diarrhea R11.2; R19.7 Electrolyte abnormality E87.8 Multiple myeloma C90.00 GERD (gastroesophageal reflux disease) K21.9 Esophagitis presence: esophagitis presence not specified Plasmacytoma C90.30 Elevated INR R79.1 (1) GERD (gastroesophageal reflux disease) Esophagitis presence: esophagitis presence not specified Qualified Code(s): K21.9 - Gastro-esophageal reflux disease without esophagitis
[2022-02-18] MEDS: SERTRALINE HCL 50 MG TABLET PO SCH (20:02)
[2022-02-18] MEDS: cefTRIAXone SODIUM 2,000 MG in DEXTROSE 5% 50 ML IV SCH (20:04)
[2022-02-19] MEDS: ondansetron HCL 8 MG in DEXTROSE 5% 50 ML IV PRN (06:06)
[2022-02-19 06:32] LABS: BUN Creatinine Ratio 11.2 (10-20); Calcium 6.6 mg/dl (8.5-10.1); Est GFR (African American) 53.1 ml/min; Est GFR (Non-African American) 45.8 ml/min
[2022-02-19 06:38] LABS: Hematocrit (blood only) 23.6 % (40.1-51.0); Hemoglobin 8.3 g/dl (14.0-18.0); Mean Corpuscular Hemoglobin 31.2 pg (25.0-34.0); Mean Corpuscular Hgb Conc 35.2 g/dL (32.0-36.0); Mean Corpuscular Volume 88.7 fL (80.0-100.0); Mean Platelet Volume 8.6 fL (9.4-12.4); Platelet Count 8 K/uL (130-400); RDW Coefficient of Variation 15.4 % (11.5-14.5); RDW Standard Deviation 50.3 fL (36.4-46.3); Red Blood Count 2.66 M/uL (4.63-6.08)
[2022-02-19] MEDS: metroNIDAZOLE 500 MG TAB PO SCH ×3 (09:07→20:44)
[2022-02-19] MEDS: FLUCONAZOLE 100 MG TAB PO SCH (09:07)
[2022-02-19] MEDS: ACYCLOVIR 400 MG TAB PO SCH ×2 (09:07→20:45)
[2022-02-19] MEDS: FILGRASTIM 480 MCG/1.6 ML VIAL SQ SCH (09:34)
[2022-02-19] MEDS: OXYBUTYNIN CHLORIDE 5 MG TAB PO SCH ×2 (10:34→20:43)
[2022-02-19] MEDS: PANTOprazole 40 MG TAB PO SCH ×2 (10:35→20:46)
[2022-02-19] MEDS: POTASSIUM CHLORIDE CRTAB 20 MEQ TABCR PO SCH ×3 (10:35→20:44)
[2022-02-19] MEDS: PHENAZOPYRIDINE HCL 200 MG TAB PO SCH ×2 (10:35→14:11)
[2022-02-19] MEDS: ACETAMINOPHEN 325 MG TAB PO PRN (14:10)
--- NOTE | 2022-02-19 16:21 | Urology Progress Note ---
Date of Service February 19, 2022 Assessment & Plan (1) Gross hematuria: (2) Urinary urgency: Plan 61yo M with a hx of MM on chemo admitted with pancytopenia and sepsis. A Hutchison catheter was placed on admission, but has since been removed. Urology was consulted for urinary urgency, hematuria following catheter removal. -CECI notable for nonspecific bladder wall thickening. -Hematuria and urinary urgency likely from catheter trauma, irritation. -Afebrile and hemodynamically stable. -Labs reviewed-WBC 0.50, hemoglobin 8.3, creatinine 1.61. -Urine culture final with no growth. Blood culture 02/10 with Klebsiella, repeat BCx negative. -Continues on IV ceftriaxone. -Voiding spontaneously, output appears adequate. Continue to monitor, bladder scan as needed. -Recommend continuing with symptom control including Flomax, Pyridium, oxybutynin as needed. -Will need cystoscopy as an outpatient for further evaluation of bladder and to complete hematuria work-up. Pt is agreeable. -Urology will sign-off for now. Please contact us with any further questions, concerns, or changes in patient's status. Admission and Anticipated Discharge Date Admission Date: February 10, 2022 Subjective Patient examined at bedside this afternoon. Awake, sitting in bedside chair on arrival. No acute distress. at bedside. Denies any significant pain. Voiding spontaneously, notes urine to be radiology transporter in color today. Denies gross hematuria or clots. Still some dysuria and urinary urgency/frequency. Review of Systems Constitutional: as per Subjective / HPI Genitourinary: + as per Subjective / HPI Physical Exam 2 Constitutional: no acute distress Respiratory: no respiratory distress and no labored breathing Neurologic: moves all extremities and awake Psychiatric: Orientation: alert, oriented x 3 and cooperative Results & Data ([facility]) Vital Signs (Past 12 Hours) Vital Signs Temp Pulse Pulse Resp BP BP Pulse Ox 02/19/22 15:19 72 02/19/22 14:07 37.2 C 79 18 142/72 H 95 02/19/22 14:07 37.2 C 78 20 142/72 H 95 02/19/22 13:07 37.2 C 85 18 156/70 H 96 02/19/22 12:37 36.8 C 74 18 145/76 H 96 02/19/22 12:22 36.7 C 75 16 147/72 H 97 02/19/22 12:22 36.7 C 74 16 147/72 H 97 02/19/22 12:22 36.7 C 75 16 147/72 H 97 02/19/22 11:58 36.9 C 79 16 141/72 H 95 02/19/22 11:26 36.9 C 76 19 147/83 H 94 02/19/22 11:06 36.8 C 75 18 147/76 H 94 02/19/22 11:25 36.9 C 75 20 147/76 H 97 02/19/22 10:27 36.8 C 79 17 155/70 H 96 02/19/22 09:57 36.9 C 76 18 145/83 H 95 02/19/22 09:42 36.7 C 75 18 148/83 H 93 02/19/22 09:13 36.8 C 90 18 142/87 H 96 02/19/22 07:47 36.6 C 93 H 19 152/89 H 96 02/19/22 07:16 76 O2 Del Method 02/19/22 15:19 02/19/22 14:07 02/19/22 14:07 02/19/22 13:07 02/19/22 12:37 02/19/22 12:22 02/19/22 12:22 02/19/22 12:22 02/19/22 11:58 02/19/22 11:26 02/19/22 11:06 Room Air 02/19/22 11:25 02/19/22 10:27 02/19/22 09:57 02/19/22 09:42 02/19/22 09:13 02/19/22 07:47 Room Air 02/19/22 07:16 PG Care Time/CCT Total # of Minutes Spent Total Time Spent with Patient: Total time spent is greater than 50% in coordination of care (as documented) at patient's floor/unit and/or counseling patient: Coding Level of Care Code 21856 Subseq Hosp Care Lvl 2 Diagnoses Gross hematuria R31.0 Urinary urgency R39.15
--- NOTE | 2022-02-19 18:20 | Hospitalist Progress Note ---
Date of Service February 19, 2022 Assessment & Plan (1) Septic shock: Plan: Now resolved - LFTs and Cr improving, elevated secondary to septic shock Required vasopressin and Levophed [02/11 -02/12] Elevated lactate Cr and LFTs consistent with shocked liver and kidneys despite his mentation always being normal. (2) Neutropenic typhlitis: Plan: Pansensitive Klebsiella pneumoniae bacteremia - switch to cefepime to ceftriaxone, continue metronidazole. Due to having a port we will repeat his blood cultures - 1 from port and 1 peripheral. Consult ID: given gram negative bacteremia, may be able to keep port. However, patient was in septic shock. Awaiting ID input. Patient remains hemodynamicaly stable on 02/17 WBC remain low but slowly improving. will continue neupogen on 02/19 (3) Urinary urgency: Plan: appreciate input from Urology. Likely from trauma from rossi ON OXYBUTYNIN, and pyridium. Added tamsulosin on 02/19 concern over hematuria. Patient though does have thrombocytopenia, concern for possible clots. will await uro input. (4) Neutropenic fever: Plan: Secondary to bacteremia as above. continue neupogen (5) Gram-negative bacteremia: Plan: Neutropenic typhlitis as above. (6) Periorbital hematoma of right eye: Plan: Significantly improved following fall on 02/11 (7) Fall: Plan: Repeat CT head given fall while significantly thrombocytopenic. Negative for any intracranial abnormality. (8) Pancytopenia due to chemotherapy: Plan: Neutropenic precautions Discussed with Dr Patricio - transfusions have to be irradiated Transfuse 2 units of platelets - aim Plt > 15 Transfused 1 unit of packed RBCs yesterday - aim Hgb > 8 Neulasta last given on February 06. On discussion with Dr Patricio recommend neupogen 480 mcg SQ daily until ANC > 1000 (9) Nausea vomiting and diarrhea: Plan: Secondary to sepsis and typhlitis as above Stool PCR negative - medications stopped for c. diff Ondansetron to 8mg IV q8h PRN Added oxybutyrin for pain. phenazopyridine is not helping. 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 Follow up with radiation oncology as outpatient (14) Elevated INR: Plan: Improving after vitamin K given and shocked liver improving. Continue to trend. Plan VTE Prophylaxis - deferred given thrombocytopenia Diet - full liquid - advance as tolerated Disposition - continue in PCU, PT/OT ordered, possible need for rehab placement depending on clinical course Admission and Anticipated Discharge Date Admission Date: February 10, 2022 Subjective 61 yo male reports no new symptoms. Continues to have urinary symptoms, but he reports mild improvement. Review of Systems Review of Systems: All systems reviewed & are unremarkable except as noted in HPI & below Physical Exam Constitutional: well developed and + acute distress; + not well nourished Eyes: + anicteric sclerae; normal pupil size ENMT: Mouth: oral mucous membranes not dry Neck: trachea midline, no thyromegaly Respiratory: normal respiratory effort, lungs clear to auscultation Cardiovascular: Rate/Rhythm: regular rate, regular rhythm and + tachycardic Heart Sounds: no murmur Vessels: no JVD Extremities: normal capillary refill; no calf tenderness and no pedal edema Gastrointestinal (Abdomen): Inspection/Auscultation: normal bowel sounds and + hyperactive bowel sounds Percussion/Palpation: abdomen soft; abdomen nontender, no guarding and abdomen not rigid Musculoskeletal: no cyanosis or clubbing, extremities motor strength 5/5 Skin: no rashes, warm and dry Trauma: + hematoma (mostly resolved over right eye) Neurologic: moves all extremities and awake; no focal motor deficits and not confused Psychiatric: A+Ox3, euthymic affect Genitourinary: no CVA tenderness Results & Data Results & Data ([facility]) Vital Signs (Past 12 Hours) Vital Signs Temp Pulse Pulse Resp BP BP Pulse Ox 02/19/22 16:00 36.8 C 74 23 149/87 H 98 02/19/22 15:19 72 02/19/22 14:07 37.2 C 79 18 142/72 H 95 02/19/22 14:07 37.2 C 78 20 142/72 H 95 02/19/22 13:07 37.2 C 85 18 156/70 H 96 02/19/22 12:37 36.8 C 74 18 145/76 H 96 02/19/22 12:22 36.7 C 75 16 147/72 H 97 02/19/22 12:22 36.7 C 74 16 147/72 H 97 02/19/22 12:22 36.7 C 75 16 147/72 H 97 02/19/22 11:58 36.9 C 79 16 141/72 H 95 02/19/22 11:26 36.9 C 76 19 147/83 H 94 02/19/22 11:06 36.8 C 75 18 147/76 H 94 02/19/22 11:25 36.9 C 75 20 147/76 H 97 02/19/22 10:27 36.8 C 79 17 155/70 H 96 02/19/22 09:57 36.9 C 76 18 145/83 H 95 02/19/22 09:42 36.7 C 75 18 148/83 H 93 02/19/22 09:13 36.8 C 90 18 142/87 H 96 02/19/22 07:47 36.6 C 93 H 19 152/89 H 96 02/19/22 07:16 76 O2 Del Method 02/19/22 16:00 Room Air 02/19/22 15:19 02/19/22 14:07 02/19/22 14:07 02/19/22 13:07 02/19/22 12:37 02/19/22 12:22 02/19/22 12:22 02/19/22 12:22 02/19/22 11:58 02/19/22 11:26 02/19/22 11:06 Room Air 02/19/22 11:25 02/19/22 10:27 02/19/22 09:57 02/19/22 09:42 02/19/22 09:13 02/19/22 07:47 Room Air 02/19/22 07:16 PG Care Time/CCT Total # of Minutes Spent Total Time Spent with Patient: Total time spent is greater than 50% in coordination of care (as documented) at patient's floor/unit and/or counseling patient: Coding Level of Care Code 23158 Subseq Hosp Care Lvl 2 Diagnoses Septic shock A41.9; R65.21 Neutropenic typhlitis K37; D70.9 Urinary urgency R39.15 Neutropenic fever D70.9; R50.81 Gram-negative bacteremia R78.81 Periorbital hematoma of right eye H05.231 Fall W19.XXXA Pancytopenia due to chemotherapy D61.810 Nausea vomiting and diarrhea R11.2; R19.7 Electrolyte abnormality E87.8 Multiple myeloma C90.00 GERD (gastroesophageal reflux disease) K21.9 Esophagitis presence: esophagitis presence not specified Plasmacytoma C90.30 Elevated INR R79.1 (1) GERD (gastroesophageal reflux disease) Esophagitis presence: esophagitis presence not specified Qualified Code(s): K21.9 - Gastro-esophageal reflux disease without esophagitis
[2022-02-19] MEDS: cefTRIAXone SODIUM 2,000 MG in DEXTROSE 5% 50 ML IV SCH (20:38)
[2022-02-19] MEDS: SERTRALINE HCL 50 MG TABLET PO SCH (20:45)
[2022-02-19] MEDS ORDERED: TAMSULOSIN HCL 0.4 MG CAP PO ONE (22:54)
[2022-02-20] MEDS: ACETAMINOPHEN 325 MG TAB PO PRN ×2 (00:10→12:07)
[2022-02-20 06:54] LABS: BUN Creatinine Ratio 9.5 (10-20); Calcium 6.6 mg/dl (8.5-10.1); Creatinine Clr Calc Pharmacy 58.7 ml/min; Est GFR (African American) 58.8 ml/min; Est GFR (Non-African American) 50.7 ml/min; Potassium 2.9 mmol/L (3.5-5.1)
[2022-02-20 07:03] LABS: Hematocrit (blood only) 22.9 % (40.1-51.0); Hemoglobin 7.9 g/dl (14.0-18.0); Mean Corpuscular Hemoglobin 30.7 pg (25.0-34.0); Mean Corpuscular Hgb Conc 34.5 g/dL (32.0-36.0); Mean Corpuscular Volume 89.1 fL (80.0-100.0); Mean Platelet Volume 11.6 fL (9.4-12.4); Platelet Count 22 K/uL (130-400); RDW Standard Deviation 49.1 fL (36.4-46.3); Red Blood Count 2.57 M/uL (4.63-6.08); White Blood Count 0.62 K/ul (4.8-10.8)
[2022-02-20] MEDS: POTASSIUM CHLORIDE CRTAB 20 MEQ TABCR PO SCH ×3 (10:51→21:00)
[2022-02-20] MEDS: metroNIDAZOLE 500 MG TAB PO SCH ×3 (10:51→21:01)
[2022-02-20] MEDS: PANTOprazole 40 MG TAB PO SCH ×2 (10:51→21:00)
[2022-02-20] MEDS: ACYCLOVIR 400 MG TAB PO SCH ×2 (10:51→21:02)
[2022-02-20] MEDS: OXYBUTYNIN CHLORIDE 5 MG TAB PO SCH ×2 (10:52→21:03)
[2022-02-20] MEDS: FLUCONAZOLE 100 MG TAB PO SCH (10:52)
[2022-02-20] MEDS: FILGRASTIM 480 MCG/1.6 ML VIAL SQ SCH (11:44)
[2022-02-20] MEDS ORDERED: POTASSIUM CHLORIDE CRTAB 20 MEQ TABCR PO STA (13:43)
[2022-02-20] MEDS: cefTRIAXone SODIUM 2,000 MG in DEXTROSE 5% 50 ML IV SCH (20:57)
[2022-02-20] MEDS: SERTRALINE HCL 50 MG TABLET PO SCH (20:59)
[2022-02-20] MEDS: TAMSULOSIN HCL 0.4 MG CAP PO SCH (21:02)
--- NOTE | 2022-02-20 21:56 | Hospitalist Progress Note ---
Date of Service February 20, 2022 Assessment & Plan (1) Septic shock: Plan: Now resolved - since 02/12 LFTs and Cr improving, elevated secondary to septic shock Required vasopressin and Levophed [02/11 -02/12] Elevated lactate Cr and LFTs consistent with shocked liver and kidneys despite his mentation always being normal. Updated on 02/20 (2) Neutropenic typhlitis: Plan: Pansensitive Klebsiella pneumoniae bacteremia - switch to cefepime to ceftriaxone, continue metronidazole. Due to having a port we will repeat his blood cultures - 1 from port and 1 peripheral. Consult ID: given gram negative bacteremia, may be able to keep port. However, patient was in septic shock. Awaiting ID input. Patient remains hemodynamicaly stable since 02/12 WBC remain low but slowly improving. will continue neupogen as ANC remains below 1000. (3) Urinary urgency: Plan: appreciate input from Urology. Likely from trauma from rossi ON OXYBUTYNIN, Added tamsulosin on 02/19 PYRIDIUM COURSE COMPLETED. appreciate input from Urology, will obtain cystoscopy as an outpatient. (4) Neutropenic fever: Plan: Secondary to bacteremia as above. continue neupogen afebrile since 02/11 (5) Gram-negative bacteremia: Plan: Neutropenic typhlitis as above. (6) Periorbital hematoma of right eye: Plan: Significantly improved following fall on 02/11 (7) Fall: Plan: Repeat CT head given fall while significantly thrombocytopenic. Negative for any intracranial abnormality. (8) Pancytopenia due to chemotherapy: Plan: Neutropenic precautions Discussed with Dr Patricio - transfusions have to be irradiated Transfuse 2 units of platelets - aim Plt > 15 Transfused 1 unit of packed RBCs yesterday - aim Hgb > 8 Neulasta last given on February 06. On discussion with Dr Patricio recommend neupogen 480 mcg SQ daily until ANC > 1000 (9) Nausea vomiting and diarrhea: Plan: Secondary to sepsis and typhlitis as above Stool PCR negative - medications stopped for c. diff Ondansetron to 8mg IV q8h PRN Tamsulosin added on 01/19 Added oxybutyrin for pain. phenazopyridine is not helping. 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 Follow up with radiation oncology as outpatient (14) Elevated INR: Plan: Improving after vitamin K given and shocked liver improving. Continue to trend. Plan VTE Prophylaxis - deferred given thrombocytopenia Diet - full liquid - advance as tolerated Disposition - continue in PCU, PT/OT ordered, possible need for rehab placement depending on clinical course Disposition: Discharge will be held due to patient requiring multiple transfusions of platelets. Usually every other day. Awaiting for platelets to stabilize over 15k. Patient has also required neupogen daily. Another issue is that patient has been weak, and may require rehab. Admission and Anticipated Discharge Date Admission Date: February 10, 2022 Subjective 61 yo male reports feeling better, not having as much dysuria and urinary urgency today. Review of Systems Review of Systems: All systems reviewed & are unremarkable except as noted in HPI & below Physical Exam Constitutional: well developed and + acute distress; + not well nourished Eyes: + anicteric sclerae; normal pupil size ENMT: Mouth: oral mucous membranes not dry Neck: trachea midline, no thyromegaly Respiratory: normal respiratory effort, lungs clear to auscultation Cardiovascular: Rate/Rhythm: regular rate, regular rhythm and + tachycardic Heart Sounds: no murmur Vessels: no JVD Extremities: normal capillary refill; no calf tenderness and no pedal edema Gastrointestinal (Abdomen): Inspection/Auscultation: normal bowel sounds and + hyperactive bowel sounds Percussion/Palpation: abdomen soft; abdomen nontender, no guarding and abdomen not rigid Musculoskeletal: no cyanosis or clubbing, extremities motor strength 5/5 Skin: no rashes, warm and dry Trauma: + hematoma (mostly resolved over right eye) Neurologic: moves all extremities and awake; no focal motor deficits and not confused Psychiatric: A+Ox3, euthymic affect Genitourinary: no CVA tenderness Results & Data Results & Data ([facility]) Vital Signs (Past 12 Hours) Vital Signs Temp Pulse Pulse Resp BP Pulse Ox O2 Del Method 02/20/22 19:47 37.0 C 69 18 131/69 98 Room Air 02/20/22 19:42 Room Air 02/20/22 15:27 37.0 C 91 H 18 125/71 96 Room Air 02/20/22 15:07 74 02/20/22 12:09 37.3 C 85 20 149/79 H 96 Room Air PG Care Time/CCT Total # of Minutes Spent Total Time Spent with Patient: Total time spent is greater than 50% in coordination of care (as documented) at patient's floor/unit and/or counseling patient: Coding Level of Care Code 59889 Subseq Hosp Care Lvl 3 Diagnoses Septic shock A41.9; R65.21 Neutropenic typhlitis K37; D70.9 Urinary urgency R39.15 Neutropenic fever D70.9; R50.81 Gram-negative bacteremia R78.81 Periorbital hematoma of right eye H05.231 Fall W19.XXXA Pancytopenia due to chemotherapy D61.810 Nausea vomiting and diarrhea R11.2; R19.7 Electrolyte abnormality E87.8 Multiple myeloma C90.00 GERD (gastroesophageal reflux disease) K21.9 Esophagitis presence: esophagitis presence not specified Plasmacytoma C90.30 Elevated INR R79.1 (1) GERD (gastroesophageal reflux disease) Esophagitis presence: esophagitis presence not specified Qualified Code(s): K21.9 - Gastro-esophageal reflux disease without esophagitis
[2022-02-21] MEDS: ondansetron HCL 8 MG in DEXTROSE 5% 50 ML IV PRN (06:14)
[2022-02-21 07:56] LABS: BUN Creatinine Ratio 8.8 (10-20); Bilirubin,Total 0.7 mg/dl (0.2-1.0); Calcium 6.5 mg/dl (8.5-10.1); Creatinine Clr Calc Pharmacy 62.5 ml/min; Est GFR (African American) 65.1 ml/min; Est GFR (Non-African American) 56.2 ml/min; Phosphorus 1.6 mg/dl (2.5-4.9); Potassium 3.3 mmol/L (3.5-5.1)
[2022-02-21 08:03] LABS: Hematocrit (blood only) 22.4 % (40.1-51.0); Hemoglobin 7.7 g/dl (14.0-18.0); Mean Corpuscular Hemoglobin 31.2 pg (25.0-34.0); Mean Corpuscular Hgb Conc 34.4 g/dL (32.0-36.0); Mean Corpuscular Volume 90.7 fL (80.0-100.0); Mean Platelet Volume 9.4 fL (9.4-12.4); Platelet Count 14 K/uL (130-400); RDW Coefficient of Variation 15.1 % (11.5-14.5); RDW Standard Deviation 50.6 fL (36.4-46.3); Red Blood Count 2.47 M/uL (4.63-6.08)
[2022-02-21 08:06] LABS: Basophils # (auto) 0.02 K/uL (0-0.2); Basophils % (auto) 1.8 %; Eosinophils # (auto) 0.01 K/uL (0-0.50); Eosinophils % (auto) 0.9 %; Immature Granulocytes # (auto) 0.07 K/uL (0.00-0.02); Immature Granulocytes % (auto) 6.4 %; Lymphocytes # (auto) 0.11 K/uL (1.2-3.4); Monocytes % (auto) 18.2 %; Neutrophils # (auto) 0.69 K/uL (1.4-6.5); Neutrophils % (auto) 62.7 %; Toxic Granulation 1+
[2022-02-21] MEDS ORDERED: PROMETHAZINE HCL 12.5 MG in SODIUM CHLORIDE 0.9% 50 ML IV STA (10:48)
[2022-02-21] MEDS: FILGRASTIM 480 MCG/1.6 ML VIAL SQ SCH (10:53)
[2022-02-21] MEDS: FLUCONAZOLE 100 MG TAB PO SCH (12:24)
[2022-02-21] MEDS: OXYBUTYNIN CHLORIDE 5 MG TAB PO SCH ×2 (12:24→21:12)
[2022-02-21] MEDS: PANTOprazole 40 MG TAB PO SCH ×2 (12:25→21:12)
[2022-02-21] MEDS: ACYCLOVIR 400 MG TAB PO SCH ×2 (12:25→21:12)
[2022-02-21] MEDS: POTASSIUM CHLORIDE CRTAB 20 MEQ TABCR PO SCH ×3 (12:25→21:12)
[2022-02-21] MEDS: metroNIDAZOLE 500 MG TAB PO SCH ×3 (12:25→21:13)
[2022-02-21] MEDS ORDERED: Nursing to Pharmacy Communication SCH (12:45)
[2022-02-21] MEDS ORDERED: SODIUM CHLORIDE 0.9% 250 ML IV PRN (13:06)
--- NOTE | 2022-02-21 13:22 | Hospitalist Progress Note ---
Date of Service February 21, 2022 Assessment & Plan (1) Septic shock: Plan: Now resolved - since 02/12 LFTs and Cr improving, elevated secondary to septic shock Required vasopressin and Levophed [02/11 -02/12] (2) Neutropenic typhlitis: Plan: Pansensitive Klebsiella pneumoniae bacteremia - currently on ceftriaxone and metronidazole. Due to having a port we will repeat his blood cultures - 1 from port and 1 peripheral. given gram negative bacteremia, may be able to keep port. ID recommends to continue ceftriaxone and metronidazole for a total of 14 days from 02/10/2022. Upon discharge, may continue Augmentin 875 mg p.o. twice daily for the rest of antibiotic therapy. WBC remain low but slowly improving. will continue neupogen as ANC remains below 1000. (3) Urinary urgency: Plan: appreciate input from Urology. Likely from trauma from rossi ON OXYBUTYNIN, Added tamsulosin on 02/19 PYRIDIUM COURSE COMPLETED. appreciate input from Urology, will obtain cystoscopy as an outpatient. (4) Neutropenic fever: Plan: Secondary to bacteremia as above. continue neupogen afebrile since 02/11 (5) Gram-negative bacteremia: Plan: Neutropenic typhlitis as above. (6) Periorbital hematoma of right eye: Plan: Significantly improved following fall on 02/11 (7) Fall: Plan: Repeat CT head given fall while significantly thrombocytopenic. Negative for any intracranial abnormality. (8) Pancytopenia due to chemotherapy: Plan: Neutropenic precautions Discussed with Dr Patricio - transfusions have to be irradiated Transfuse 1 units of platelets - aim Plt > 15 Transfused 1 unit of packed RBCs today - aim Hgb > 8 Neulasta last given on February 06. On discussion with Dr Patricio recommend neupogen 480 mcg SQ daily until ANC > 1000 (9) Nausea vomiting and diarrhea: Plan: Secondary to sepsis and typhlitis as above Stool PCR negative - medications stopped for c. diff Ondansetron to 8mg IV q8h PRN Tamsulosin added on 01/19 Added oxybutyrin for pain. phenazopyridine is not helping. 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 Follow up with radiation oncology as outpatient (14) Elevated INR: Plan: Improving after vitamin K given and shocked liver improving. Continue to trend. Plan VTE Prophylaxis - deferred given thrombocytopenia Diet - full liquid - advance as tolerated Disposition - continue in PCU, PT/OT ordered, possible need for rehab placement depending on clinical course Disposition: Discharge will be held due to patient requiring multiple transfusions of platelets. Usually every other day. Awaiting for platelets to stabilize over 15k. Patient has also required neupogen daily. Another issue is that patient has been weak, and may require rehab. Admission and Anticipated Discharge Date Admission Date: February 10, 2022 Subjective patient seen and examined today, still feels nauseous and weak, but overall much improved Review of Systems Review of Systems: All systems reviewed are negative, apart from the ones contained in the history. Physical Exam Physical Exam: The patient is awake, alert and oriented 3, well developed and well nourished, normocephalic and atraumatic, lying in bed and in no acute distress. HEENT--PERRL, EOMI, mucous membranes and oropharynx mildly dry Neck--supple. No JVD. No bruits. Thyroid normal, trachea midline, no adenopathy. Heart--normal S1 and S2. No murmurs, rubs or gallops. Lungs--clear bilaterally, no respiratory distress, no accessory muscle use. Abdomen--normal bowel sounds and soft. Mild epigastric and left sided abdominal pain Extremities--no cyanosis or clubbing. No edema. Dermatologic--normal skin turgor, normal color, no abnormal lymph nodes, no rash. Neurologic--cranial nerves II through XII grossly intact. Rheumatologic--normal range of motion. Psychiatric--normal affect. Results & Data Results & Data ([facility]) Vital Signs (Past 12 Hours) Vital Signs Temp Pulse Pulse Resp BP Pulse Ox O2 Del Method 02/21/22 11:37 98.8 F 81 17 143/74 H 97 Room Air 02/21/22 08:00 77 02/21/22 07:35 99.9 F H 107 H 18 139/70 96 Room Air 02/21/22 02:57 98.2 F 98 H 19 144/76 H 96 Room Air PG Care Time/CCT Total # of Minutes Spent Total Time Spent with Patient: Total time spent is greater than 50% in coordination of care (as documented) at patient's floor/unit and/or counseling patient: Coding Level of Care Code 01085 Subseq Hosp Care Lvl 2 Diagnoses Septic shock A41.9; R65.21 Neutropenic typhlitis K37; D70.9 Urinary urgency R39.15 Neutropenic fever D70.9; R50.81 Gram-negative bacteremia R78.81 Periorbital hematoma of right eye H05.231 Fall W19.XXXA Pancytopenia due to chemotherapy D61.810 Nausea vomiting and diarrhea R11.2; R19.7 Electrolyte abnormality E87.8 Multiple myeloma C90.00 GERD (gastroesophageal reflux disease) K21.9 Esophagitis presence: esophagitis presence not specified Plasmacytoma C90.30 Elevated INR R79.1 Time Spent (min) 35 (1) GERD (gastroesophageal reflux disease) Esophagitis presence: esophagitis presence not specified Qualified Code(s): K21.9 - Gastro-esophageal reflux disease without esophagitis
[2022-02-21] MEDS: SERTRALINE HCL 50 MG TABLET PO SCH (21:12)
[2022-02-21] MEDS: TAMSULOSIN HCL 0.4 MG CAP PO SCH (21:13)
[2022-02-21] MEDS: cefTRIAXone SODIUM 2,000 MG in DEXTROSE 5% 50 ML IV SCH (21:13)
[2022-02-21] MEDS: ONDANSETRON INJ 2 MG/ML 2 ML VIAL IV PRN (23:44)
[2022-02-22 07:01] VITALS: TEMP 98.6
[2022-02-22] MEDS: ONDANSETRON INJ 2 MG/ML 2 ML VIAL IV PRN (07:24)
[2022-02-22] MEDS: PANTOprazole 40 MG TAB PO SCH (08:47)
[2022-02-22] MEDS: OXYBUTYNIN CHLORIDE 5 MG TAB PO SCH (08:47)
[2022-02-22] MEDS: FLUCONAZOLE 100 MG TAB PO SCH (08:48)
[2022-02-22] MEDS: ACYCLOVIR 400 MG TAB PO SCH (08:48)
[2022-02-22] MEDS: metroNIDAZOLE 500 MG TAB PO SCH (08:49)
[2022-02-22] MEDS: POTASSIUM CHLORIDE CRTAB 20 MEQ TABCR PO SCH (08:49)
[2022-02-22] MEDS: FILGRASTIM 480 MCG/1.6 ML VIAL SQ SCH (09:40)
[2022-02-22 10:13] LABS: Hematocrit (blood only) 27.3 % (40.1-51.0); Hemoglobin 9.7 g/dl (14.0-18.0); Mean Corpuscular Hemoglobin 32.2 pg (25.0-34.0); Mean Corpuscular Hgb Conc 35.5 g/dL (32.0-36.0); Mean Corpuscular Volume 90.7 fL (80.0-100.0); Mean Platelet Volume 11.3 fL (9.4-12.4); Platelet Count 20 K/uL (130-400); RDW Standard Deviation 49.4 fL (36.4-46.3); Red Blood Count 3.01 M/uL (4.63-6.08); White Blood Count 2.17 K/ul (4.8-10.8)
[2022-02-22 10:40] LABS: BUN Creatinine Ratio 8.6 (10-20); Calcium 7.2 mg/dl (8.5-10.1); Creatinine Clr Calc Pharmacy 60.8 ml/min; Est GFR (African American) 62.8 ml/min; Est GFR (Non-African American) 54.2 ml/min; Potassium 3.7 mmol/L (3.5-5.1)
[2022-02-22 11:42] VITALS: O2SAT 95
[2022-02-22 11:56] VITALS: BP 143/72; PULSE 74
--- NOTE | 2022-02-22 13:53 | Discharge Summary ---
Date of Service February 22, 2022 Admission HPI Per Admitting Provider Ankit Silva is a 61 year old male with multiple myeloma who presents to the ER following a new chemotherapy regimen with nausea, vomiting and diarrhea. He denies any fever, abdominal pain, chest pain, shortness of breath, nasal congestion, sinus pain, cough or urinary symptoms. He does report chills however reports this is not unusual for him. He reports starting a new chemotherapy regimen in [employer] for 4 days as induction inpatient with last dose on February 05. He received Neulasta and platelet transfusion on February 06. He was doing well up until suddenly getting sick on Friday. Suddenly came on and getting progressively weaker over the last 2 days/ Having watery diarrhea but only 2 times a day, yellowish somewhat watery, no strong smell. No one else in the family is sick. His reports he was supposed to start prophylaxis ciprofloxacin for 5 days and fluconazole but the pharmacy was concerned about interactions therefore by the time this was confirmed to be ok he was already sick and couldn't take it. In the ER he was found to be pancytopenic. His case was discussed with the oncologist corrections caseworker and the ER provider and recommended platelet transfusion but not neupogen at this time. He was ordered multiple electrolyte replacements for low magnesium, potassium and phosphorus. He was referred to medicine for admission and ongoing management of nausea, vomiting, diarrhea and pancytopenia. Principal Diagnosis pancytopenia Discharge Exam The patient is awake, alert and oriented 3, well developed and well nourished, normocephalic and atraumatic, lying in bed and in no acute distress. HEENT--PERRL, EOMI, mucous membranes and oropharynx mildly dry Neck--supple. No JVD. No bruits. Thyroid normal, trachea midline, no adenopathy. Heart--normal S1 and S2. No murmurs, rubs or gallops. Lungs--clear bilaterally, no respiratory distress, no accessory muscle use. Abdomen--normal bowel sounds and soft. Mild epigastric and left sided abdominal pain Extremities--no cyanosis or clubbing. No edema. Dermatologic--normal skin turgor, normal color, no abnormal lymph nodes, no rash. Neurologic--cranial nerves II through XII grossly intact. Rheumatologic--normal range of motion. Psychiatric--normal affect. Discharge Data Allergies Allergy/AdvReac Type Severity Reaction Status Date / Time fentanyl Allergy Severe Vomiting Verified 01/28/22 08:15 Consultations 02/10/22 16:31 ED Decision to Admit Stat 02/10/22 20:01 Consult Oncology Routine 02/11/22 13:38 Consult Maintenance Craftsman Routine 02/13/22 12:35 Consult Infectious Diseases Routine 02/18/22 09:26 Consult Urology Routine Ordered Studies 02/11/22 07:30 CT Abd and Pelvis [CT abd pelvis IV con only] Stat 02/11/22 07:57 CT head/brain wo con Stat 02/13/22 07:56 CT head/brain wo con Routine 02/18/22 11:41 US renal/blad retro comp Urgent Hospital Course (1) Septic shock: Now resolved - since 02/12 LFTs and Cr improving, elevated secondary to septic shock Required vasopressin and Levophed [02/11 -02/12] (2) Neutropenic typhlitis: Pansensitive Klebsiella pneumoniae bacteremia - currently on ceftriaxone and metronidazole. Due to having a port we will repeat his blood cultures - 1 from port and 1 peripheral. given gram negative bacteremia, may be able to keep port. ID recommends to continue ceftriaxone and metronidazole for a total of 14 days from 02/10/2022. Upon discharge, may continue Augmentin 875 mg p.o. twice daily for the rest of antibiotic therapy. WBC remain low but slowly improving. will continue neupogen as ANC remains below 1000. (3) Urinary urgency: appreciate input from Urology. Likely from trauma from rossi ON OXYBUTYNIN, Added tamsulosin on 02/19 PYRIDIUM COURSE COMPLETED. appreciate input from Urology, will obtain cystoscopy as an outpatient. (4) Neutropenic fever: Secondary to bacteremia as above. continue neupogen afebrile since 02/11 (5) Gram-negative bacteremia: Neutropenic typhlitis as above. (6) Periorbital hematoma of right eye: Significantly improved following fall on 02/11 (7) Fall: Repeat CT head given fall while significantly thrombocytopenic. Negative for any intracranial abnormality. (8) Pancytopenia due to chemotherapy: Neutropenic precautions Discussed with Dr Patricio - transfusions have to be irradiated Transfuse 1 units of platelets - aim Plt > 15 Transfused 1 unit of packed RBCs today - aim Hgb > 8 Neulasta last given on February 06. On discussion with Dr Patricio recommend neupogen 480 mcg SQ daily until ANC > 1000 (9) Nausea vomiting and diarrhea: Secondary to sepsis and typhlitis as above Stool PCR negative - medications stopped for c. diff Ondansetron to 8mg IV q8h PRN Tamsulosin added on 01/19 Added oxybutyrin for pain. phenazopyridine is not helping. 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 Follow up with radiation oncology as outpatient (14) Elevated INR: Improving after vitamin K given and shocked liver improving. Continue to trend. Plan VTE Prophylaxis - deferred given thrombocytopenia Diet - full liquid - advance as tolerated Disposition - continue in PCU, PT/OT ordered, possible need for rehab placement depending on clinical course Disposition: Discharge Total Time Total Time Spent Total Time Spent (In Minutes): 35 Discharge Plan Discharge Items Patient Disposition: Home - Self-Care Reason For Visit: PANCYTOPENIA, DIARRHEA Discharge Diagnosis: pancytopenia Activity: Resume your previous activity Non-emergency contact: Primary Care Provider, Oncologist and Urologist Call non-emergency contact if: you have any medication questions Follow-up/Referrals: Dick Carl MD [Primary Care Provider] - Diet: Regular Addtl Attending Provider Instructions: please make appointment AARON to follow up with your Oncologist and also make Urology Pending Studies at Discharge: No Stand-Alone Forms: My [employer], Smoking Cessation Medications and DC Order Prescriptions: New amoxicillin-pot clavulanate [Augmentin] 500-125 mg tablet 1 tab PO BID 3 Days Qty: 6 0RF ondansetron 4 mg tablet,disintegrating 4 mg PO DAILY PRN (Reason: nausea and vomiting) 4 Days Qty: 4 0RF Continued ondansetron HCl 8 mg tablet 8 mg PO Q8H PRN (Reason: Nausea) oxycodone 5 mg tablet 5 mg PO Q6H PRN (Reason: Pain) tramadol 50 mg tablet 50 mg PO Q6H PRN (Reason: Pain) dicyclomine 10 mg capsule 10 mg PO TID PRN (Reason: Abdominal Discomfort) Qty: 90 0RF sertraline [Zoloft] 50 mg tablet 50 mg PO HS pantoprazole 40 mg Tablet,Delayed Release (Dr/Ec) 40 mg PO QAM acyclovir 400 mg tablet 400 mg PO BID fluconazole 200 mg tablet 200 mg PO BID Rx Instructions: never started too sick insulin glargine [Basaglar KwikPen U-100 Insulin] 100 unit/mL (3 mL) Insulin Pen 0 - 12 unit SUBCUT DIRECTED PRN (Reason: BSG LEVELS) Rx Instructions: 150 and under no insulin, 150-170=4 UNITS, 171-190=8 units and over 190= 12units. Discontinued Eliquis 5 mg tablet 5 mg PO BID ciprofloxacin HCl 500 mg Tablet 500 mg PO BID Rx Instructions: 5 day course but patient never picked it up as pharmacy concerned about interaction so it was delayed and he got sick before picking it up Discharge Orders: Discharge Order (Routine); Ordered 02/22/22 Ordered By: Amish Ball Admission Data Admit Date/Time: 02/10/22 17:06 Attending Provider: Amish Ball Admit Provider: Dick Cali Primary Care Provider: Dick Carl Other Providers: Dick Cali ; Krystal Hou ; Amira Tobar ; Peewee Fan ; Sergio Clay ; Rhys Cuadra I. ; Nathanael Mariee II ; Luci Adams ; Kamlesh Falcon ; Armand Schwab ; Dhaval Mcnulty Other Interventions: Discharge Summary Assessment (RN) Last Done: 02/22/22 11:53 Coding Level of Care Code D/C DAY MANAGEMENT >30 MINS Diagnoses Septic shock A41.9; R65.21 Neutropenic typhlitis K37; D70.9 Urinary urgency R39.15 Neutropenic fever D70.9; R50.81 Gram-negative bacteremia R78.81 Periorbital hematoma of right eye H05.231 Fall W19.XXXA Pancytopenia due to chemotherapy D61.810 Nausea vomiting and diarrhea R11.2; R19.7 Electrolyte abnormality E87.8 Multiple myeloma C90.00 GERD (gastroesophageal reflux disease) K21.9 Esophagitis presence: esophagitis presence not specified Plasmacytoma C90.30 Elevated INR R79.1 Time Spent (min) 35
== END 2022-02-22 14:12 | disposition home or self-care (01) | DRG 871 ==
LOC: ED 13:28 → SUATTDRO 17:06 → EDINP 17:06 → 2E 18:55 → 1E 02-11 13:57 → 2E 02-13 11:53
DX: C90.00 Multiple myeloma not having achieved remission; Y92.239 Unspecified place in hospital as the place of occurrence of the external cause; W19.XXXA Unspecified fall, initial encounter; K36 Other appendicitis; K52.9 Noninfective gastroenteritis and colitis, unspecified; D61.810 Antineoplastic chemotherapy induced pancytopenia; Y84.6 Urinary catheterization as the cause of abnormal reaction of the patient, or of later complication, without mention of misadventure at the time of the procedure; K21.9 Gastro-esophageal reflux disease without esophagitis; E86.0 Dehydration; Z86.711 Personal history of pulmonary embolism; Z83.3 Family history of diabetes mellitus; R73.03 Prediabetes; R39.15 Urgency of urination; K72.00 Acute and subacute hepatic failure without coma; R31.0 Gross hematuria; E87.2 Acidosis; Z86.718 Personal history of other venous thrombosis and embolism; B96.1 Klebsiella pneumoniae [K. pneumoniae] as the cause of diseases classified elsewhere; A41.59 Other Gram-negative sepsis; N17.9 Acute kidney failure, unspecified; R65.21 Severe sepsis with septic shock

== ENCOUNTER 2022-02-25 12:26 | Inpatient (IN) ==
[2022-02-25] MEDS ORDERED: SODIUM CHLORIDE 0.9% 500 ML IV ONE (12:37)
--- NOTE | 2022-02-25 12:38 | Emergency Department Note ---
Impression & Plan Syncope and collapse, Hypomagnesemia, Generalized weakness, Multiple myeloma ED Provider Note Name: BLANQUITA ALMEIDA Age: 61 Sex: M Arrives Via: Ambulance Informant: Patient nursing staff ED Provider: Devin Colmenares MD Chief Complaint: Syncope Impression: As per impressions above Medical Decision Makin-year-old gentleman with a history of multiple myeloma amongst other multiple medical issues arrives for evaluation following a syncopal event while getting blood drawn at the cancer center. Patient reportedly had no pulse and received 1-2 compressions before he woke up. Patient brought emergently to ER. He is awake alert oriented on arrival generally weak and tired and anxious. Given some fluids. Labs reveal severe hypomagnesemia which is somewhat chronic for patient. He was given 1 g IV mag. His EKG looks okay his initial Trope was nor mal and his CT scan of his head reveals no acute findings. Patient is not short of breath he is not tachycardic and is not hypoxic. I would hold off on CT angio of the chest at this time. I suspect this was a vagal event but in the setting of reported no pulses earlier and a previous history of some sort of cardiac bradycardia requiring hospitalization I do think that bring him back in for monitoring is reasonable. He furthermore needs some magnesium repletion which was started in the ER. Patient and are comfortable with this plan. Patient was a bit nauseous thus given a small dose of Benadryl given a prolonged QTC noted on his EKG. Prior Medical Record and Triage/Nursing Notes reviewed by Me Additional history obtained from nursing staff were responded to code in the cancer center Differentials:Vasovagal event, dehydration, infection, hypoglycemia, electrolyte abnormalities, cardiac sources, intracerebral event, pulmonary embolism, seizure, toxicologic, neurologic, as well as other pathologies. Vital Signs: reviewed and remarkable for no significant abnormalities Interventions: Normal saline bolus, magnesium 1 g IV, Benadryl 25mg IV Labs:Reviewed and remarkable for anemia stable, hypomagnesemia Imaging:CT of the head without any acute findings as per radiology EKG:Per My Interpretation: Indication Syncope: NSR 71 bpm, qtc 499. No Ectopy. No Ischemia. Compared to EKG 02/10/23, no significant changes. Cardiac/Tele Monitoring: Cardiac Monitoring: An Order was placed for continuous cardiac monitoring. The monitor shows a rate of 70 with a normal sinus rhythm. Consults:Dr Myrna EDMONDS Hospitalist Plan: Disposition:Hospitalization. Condition: Good History of Present Illness:51-year-old gentleman arrives for evaluation following syncopal event. Patient was at the cancer treatment center where he is having blood drawn from his chest port when he had a syncopal event. Reportedly had no pulse and thus received brief CPR before coming to. He reportedly was severely diaphoretic pale and ill-appearing. Symptoms gradually improving. He notes blood sugar in the 170s when checked at the cancer center. No medications prior to arrival. Patient states he was feeling fine prior to this. He has no recent fevers, chills, shortness of breath, chest pain, ab dominal pain, back pain, nausea, vomiting, urinary/bowel symptoms or any other signs or symptoms. He has had no recent calf pain or leg swelling. He has no history of DVT/PE. He is not on any blood thinners. He is currently being managed for multiple myeloma has not had any chemotherapy in some time. ROS: See above HPI for pertinent positives & negatives. A total of 10 systems reviewed and were otherwise negative. Past Medical History:See Below Past Surgical History:See Below Family History:See Below Social History:See Below Home Medications:See Below Allergies:fentanyl Vitals:Blood Pressure: 121/74, Pulse 82, RR 15, T 36.6C, O2 100% on RA Physical Exam: GENERAL: Patient is tired appearing and in minimal distress. EYES: No scleral icterus, unremarkable pupils. ENT: Mucous membranes moist, no nasal congestion. NECK: No masses appreciated, nomeningismus, trachea is midline. RESPIRATORY: No dyspnea. Clear to auscultation and equal bilaterally. No wheeze, no rhonchi. CARDIOVASCULAR: Regular rate and rhythm.No murmurs, rubs, gallops appreciated. GASTROINTESTINAL: Abdomen soft, non-tender, no peritonitis.Bowel sounds positive.No masses appreciated. BACK: No midline tenderness, no CVA tenderness EXTREMITIES: Normal motion all extremities, no cyanosis, no edema. NEUROLOGIC: Alert and oriented, no acute motor or sensory deficits, no focal weakness, cranial nerves grossly intact. SKIN: No rash, no jaundice, no diaphoresis. PSYCH: anxious GCS: 15 ED Course: Times/Reassessments: Patient gradually feeling better was a bit nauseous given Benadryl with improvement. He stable throughout and hospitalist then to evaluate for further monitoring Devin Colmenares MD Past Med/Surg History Medical History Acute cholecystitis Anemia Back problem Deep vein thrombosis in leg 02/06 (REASON FOR ELIQUIS) Diverticular disease GERD (gastroesophageal reflux disease) History of chemotherapy oral chemo until 01/30, taking IV chemo and then will be starting with maintaince dose per [facility] scheduling Lumbar compression fracture Lytic lesion of bone on x-ray since 01/2019 and had radiation on this lesion Neoplasm of bone Plantar fascial fibromatosis PT UNAWARE Prediabetes STEROID INDUCED "MY SUGAR GOES UP AND DOWN" checks sugar daily Pulmonary embolism "01/2019 went from leg to lung" (REASON FOR ELIQUIS) Wide-complex tachycardia Surgical History H/O kyphoplasty [facility] May 2019 H/O wrist surgery RT Hx laparoscopic cholecystectomy (02/20/21) Laparoscopic cholecystectomy. Dr. Self 02/20/2021 Hx of biopsy ABDOMINAL LESION LOCATED OUTSIDE PANCREAS Hx of colonoscopy May 2020 Port-A-Cath in place (02/05/21) Insertion of Access Port Left Cephalic Dr. Self 02/05/21 [place] teeth removed Family History Mother , age 93 / old age Breast cancer Father , age 67 Prostate cancer had radiation Coronary heart disease Diabetes Heart disease Brother Diabetes Brother No problems noted. Sister Asthma Addisons disease Daughter No problems noted. Daughter No problems noted. Son No problems noted. Other Family history non-contributory Hearing loss No family history of adverse response to anesthesia No family history of bleeding disorder Social History Smoking Status: Never smoker Second Hand Exposure: No; Hx Alcohol Use: No Hx Substance Use: No Preferred Language: Salvadorean Communication Ability: Effective Visual Impairment: No Limitations Hearing Ability: Normal Fax Machine Operator Required: No Beliefs That Will Affect Care: None marital status: Current Living Situation: Spouse Current Living Situation Comment: Lives with and 2 daughters current occupational status: retired and disabled How many Children do You have: 3 Feels Safe at Home: Yes Childhood Exposure to Second-Hand Smoke: No Dental Care, Regularly: Yes Assistive Devices: Glasses Allergies Allergies Allergy/AdvReac Type Severity Reaction Status Date / Time fentanyl Allergy Severe Vomiting Verified 02/25/22 15:12 Home Meds Home Medications Medication Instructions Recorded Confirmed acyclovir 400 mg tablet 400 mg PO BID 03/22/19 02/25/22 pantoprazole 40 mg tablet,delayed 40 mg PO QAM 05/19/19 02/25/22 release insulin glargine 100 unit/mL (3 0 - 12 unit subcut DIRECTED PRN 01/25/21 02/25/22 mL) subcutaneous pen (Rezzieaglar BSG LEVELS KwikPen U-100 Insulin) ondansetron HCl 8 mg tablet 8 mg PO Q8H PRN Nausea 05/08/21 02/25/22 oxycodone 5 mg tablet 5 mg PO Q6H PRN Pain 05/08/21 02/25/22 tramadol 50 mg tablet 50 mg PO Q6H PRN Pain 07/16/21 02/25/22 sertraline 50 mg tablet (Zoloft) 50 mg PO HS 09/17/21 02/25/22 fluconazole 200 mg tablet 200 mg PO BID 02/10/22 02/25/22 Previous Rx's Medication Instructions Recorded dicyclomine 10 mg capsule 10 mg PO TID PRN Abdominal 07/18/21 Discomfort #90 caps ondansetron 4 mg disintegrating 4 mg PO DAILY PRN nausea and 02/22/22 tablet vomiting 4 days #4 tabs Results & Data (ED) Vital Signs Vital Signs - 24 hr 02/25/22 12:34 02/25/22 12:44 02/25/22 12:50 Temperature 36.6 C Temperature Source Oral Pulse Rate 78 80 82 Pulse Rate from SpO2 Sensor 78 79 Respiratory Rate 20 17 15 Respiratory Effort / Characteristics Non-Labored Spontaneous Respiratory Depth Normal Blood Pressure 121/74 Blood Pressure Mean 89 Pulse Oximetry 100 99 100 Oxygen Delivery Method Room Air Room Air Room Air Sepsis Recent Fever Within 48 Hours No Sepsis New/Unexplained Change in Mental Status No Sepsis Action Taken by Nursing No Action Required Laboratory Data Result diagrams: 02/25/22 12:40 02/25/22 12:40 Lab Results 02/25/22 02/25/22 02/25/22 Range/Units 12:40 12:40 12:40 WBC Cancelled RBC Cancelled Hgb Cancelled Hct Cancelled MCV Cancelled MCH Cancelled MCHC Cancelled RDW Std Deviation Cancelled RDW Coeff of George Cancelled Plt Count Cancelled MPV Cancelled Immature Gran % (Auto) Cancelled Neut % (Auto) Cancelled Lymph % (Auto) Cancelled Erath % (Auto) Cancelled Eos % (Auto) Cancelled Baso % (Auto) Cancelled Neut # (Auto) Cancelled Lymph # (Auto) Cancelled Erath # (Auto) Cancelled Eos # (Auto) Cancelled Baso # (Auto) Cancelled Immature Gran # (Auto) Cancelled Absolute Nucleated RBC Cancelled Nucleated RBC % (auto) Cancelled Neutrophils % (Manual) Cancelled Band Neutrophils % Cancelled Lymphocytes % (Manual) Cancelled Prolymphocyte % Cancelled Reactive Lymphs % (Man) Cancelled Monocytes % (Manual) Cancelled Eosinophils % (Manual) Cancelled Basophils % (Manual) Cancelled Metamyelocytes % (Man) Cancelled Myelocytes % (Man) Cancelled Promyelocytes % (Man) Cancelled Blast Cells % (Manual) Cancelled Plasma Cell % (Manual) Cancelled Other Cells % Cancelled Nucleated RBC % Cancelled Neutrophils # (Manual) Cancelled Band Neutrophils # Cancelled Total Absolute Neuts Cancelled Lymphocytes # (Manual) Cancelled Prolymphocyte # Cancelled Reactive Lymphs # Cancelled Total Abs Lymphocytes Cancelled Monocytes # (Manual) Cancelled Eosinophils # (Manual) Cancelled Basophils # (Manual) Cancelled Metamyelocytes # (Man) Cancelled Myelocytes # (Manual) Cancelled Promyelocytes # (Man) Cancelled Blast Cells # (Man) Cancelled Plasma Cell # (Manual) Cancelled Other Cells # Cancelled Nucleated RBCs # (Man) Cancelled Hypersegmented Neuts Cancelled Hyposegmented Neuts Cancelled Hypogranular Neuts Cancelled Large Granular Lymphs Cancelled # Lrg Granular Lymphs Cancelled Hairy Cells Cancelled Smudge Cells Cancelled Toxic Granulation Cancelled Toxic Vacuolation Cancelled Dohle Bodies Cancelled Jose Rods Cancelled Platelet Estimate Cancelled Hypogranular Platelets Cancelled Clumped Platelets Cancelled Giant Platelets Cancelled Platelet Satelliting Cancelled RBC Morphology Cancelled Polychromasia Cancelled Hypochromasia Cancelled Poikilocytosis Cancelled Basophilic Stippling Cancelled Anisocytosis Cancelled Microcytosis Cancelled Macrocytosis Cancelled Spherocytes Cancelled Pappenheimer Bodies Cancelled Sickle Cells Cancelled Target Cells Cancelled Tear Drop Cells Cancelled Ovalocytes Cancelled Stomatocytes Cancelled Oneal-[place] Bodies Cancelled Echinocytes Cancelled Acanthocytes (Spur) Cancelled Rouleaux Cancelled RBC Agglutinates Cancelled Schistocytes Cancelled Sezary Cell Cancelled PT 11.9 (9.0-12.0) Seconds INR 1.1 (0.9-1.1) Sodium 136 (136-145) mmol/L Potassium 3.4 L (3.5-5.1) mmol/L Chloride 106 (98-107) mmol/L Carbon Dioxide 21 (21-32) mmol/L Anion Gap 9 (3-11) BUN 11 (6-23) mg/dl Creatinine 1.23 (0.6-1.4) mg/dl Est Cr Clr Drug Dosing 73.9 ml/min Est GFR ( Amer) 73.5 ml/min Est GFR (Non-Af Amer) 63.4 ml/min BUN/Creatinine Ratio 8.9 L (10-20) Glucose 152 H (70-99(Fasting)) mg/dl Calcium 8.3 L (8.5-10.1) mg/dl Phosphorus 1.7 L (2.5-4.9) mg/dl Magnesium 1.1 L (1.7-2.4) mg/dl Total Bilirubin 0.7 (0.2-1.0) mg/dl Direct Bilirubin 0.2 (0-0.2) mg/dl AST 21 (13-39) U/L ALT 31 (7-52) U/L Alkaline Phosphatase 69 (34-104) U/L Troponin I High Sens 8.8 (0-20) pg/ml Total Protein 7.1 (6.0-8.3) gm/dl Albumin 3.5 (3.4-5.0) gm/dl Procalcitonin (0-0.5) ng/ml SARS-CoV-2, RNA, NAAT (NEGATIVE) Blood Parasites ID Cancelled 02/25/22 02/25/22 Range/Units 12:40 13:50 WBC RBC Hgb Hct MCV MCH MCHC RDW Std Deviation RDW Coeff of George Plt Count MPV Immature Gran % (Auto) Neut % (Auto) Lymph % (Auto) Erath % (Auto) Eos % (Auto) Baso % (Auto) Neut # (Auto) Lymph # (Auto) Erath # (Auto) Eos # (Auto) Baso # (Auto) Immature Gran # (Auto) Absolute Nucleated RBC Nucleated RBC % (auto) Neutrophils % (Manual) Band Neutrophils % Lymphocytes % (Manual) Prolymphocyte % Reactive Lymphs % (Man) Monocytes % (Manual) Eosinophils % (Manual) Basophils % (Manual) Metamyelocytes % (Man) Myelocytes % (Man) Promyelocytes % (Man) Blast Cells % (Manual) Plasma Cell % (Manual) Other Cells % Nucleated RBC % Neutrophils # (Manual) Band Neutrophils # Total Absolute Neuts Lymphocytes # (Manual) Prolymphocyte # Reactive Lymphs # Total Abs Lymphocytes Monocytes # (Manual) Eosinophils # (Manual) Basophils # (Manual) Metamyelocytes # (Man) Myelocytes # (Manual) Promyelocytes # (Man) Blast Cells # (Man) Plasma Cell # (Manual) Other Cells # Nucleated RBCs # (Man) Hypersegmented Neuts Hyposegmented Neuts Hypogranular Neuts Large Granular Lymphs # Lrg Granular Lymphs Hairy Cells Smudge Cells Toxic Granulation Toxic Vacuolation Dohle Bodies Jose Rods Platelet Estimate Hypogranular Platelets Clumped Platelets Giant Platelets Platelet Satelliting RBC Morphology Polychromasia Hypochromasia Poikilocytosis Basophilic Stippling Anisocytosis Microcytosis Macrocytosis Spherocytes Pappenheimer Bodies Sickle Cells Target Cells Tear Drop Cells Ovalocytes Stomatocytes Oneal-[place] Bodies Echinocytes Acanthocytes (Spur) Rouleaux RBC Agglutinates Schistocytes Sezary Cell PT (9.0-12.0) Seconds INR (0.9-1.1) Sodium (136-145) mmol/L Potassium (3.5-5.1) mmol/L Chloride (98-107) mmol/L Carbon Dioxide (21-32) mmol/L Anion Gap (3-11) BUN (6-23) mg/dl Creatinine (0.6-1.4) mg/dl Est Cr Clr Drug Dosing ml/min Est GFR ( Amer) ml/min Est GFR (Non-Af Amer) ml/min BUN/Creatinine Ratio (10-20) Glucose (70-99(Fasting)) mg/dl Calcium (8.5-10.1) mg/dl Phosphorus (2.5-4.9) mg/dl Magnesium (1.7-2.4) mg/dl Total Bilirubin (0.2-1.0) mg/dl Direct Bilirubin (0-0.2) mg/dl AST (13-39) U/L ALT (7-52) U/L Alkaline Phosphatase (34-104) U/L Troponin I High Sens (0-20) pg/ml Total Protein (6.0-8.3) gm/dl Albumin (3.4-5.0) gm/dl Procalcitonin 0.68 H (0-0.5) ng/ml SARS-CoV-2, RNA, NAAT NEGATIVE (NEGATIVE) Blood Parasites ID Administered Medications Acyclovir (Acyclovir 400 Mg Tab) 400 mg PO BID RADHA Stop: 03/27/22 20:59 Last Admin: 02/25/22 20:28 Dose: 400 mg Documented By: SOFIA Fluconazole (Fluconazole 100 Mg Tab) 200 mg PO BID RADHA Stop: 03/27/22 20:59 Last Admin: 02/25/22 20:28 Dose: 200 mg Documented By: SOFIA Magnesium Sulfate 5 gm/ (Lactated Ringer's) 1,010 mls @ 110 mls/hr IV NOW ONE Stop: 02/25/22 23:55 Last Admin: 02/25/22 15:51 Dose: 110 mls/hr Documented By: MIKE Pantoprazole Sodium 40 mg/ (Syringe) 10 mls @ 5 mls/min IV BID RADHA Stop: 03/27/22 20:59 Last Admin: 02/25/22 20:29 Dose: 5 mls/min Documented By: SOFIA Potassium Phosphate 18 mmol/ (Sodium Chloride) 506 mls @ 88 mls/hr IV ONE ONE Stop: 02/26/22 00:44 Last Admin: 02/25/22 20:13 Dose: 88 mls/hr Documented By: SOFIA Insulin Aspart (Insulin Aspart Per Unit) 0 units SC ACHS RADHA Stop: 03/27/22 17:42 Last Admin: 02/25/22 20:28 Dose: Not Given Documented By: Admin: 02/25/22 18:50 Dose: Not Given Documented By: MIKE Sertraline HCl (Sertraline Hcl 50 Mg Tablet) 50 mg PO HS [facility] Stop: 03/27/22 20:59 Last Admin: 02/25/22 20:29 Dose: 50 mg Documented By: CF Discontinued Medications Diphenhydramine HCl (Diphenhydramine 50 Mg/Ml Vial) 25 mg IV NOW STA Stop: 02/25/22 13:16 Last Admin: 02/25/22 13:29 Dose: 25 mg Documented By: JACKY Sodium Chloride (Nss) 500 mls @ 999 mls/hr IV .Q31M ONE Stop: 02/25/22 13:07 Last Infusion: 02/25/22 14:01 Dose: 0 mls/hr Documented By: Admin: 02/25/22 12:43 Dose: 999 mls/hr Documented By: JACKY Magnesium Sulfate/Dextrose (Magnesium Sulfate / D5w) 1 gm in 100 mls @ 100 mls/hr IV NOW STA Stop: 02/25/22 15:07 Last Infusion: 02/25/22 15:40 Dose: 0 mls/hr Documented By: Admin: 02/25/22 14:38 Dose: 100 mls/hr Documented By: RIKKI Imaging Data Radiologist's Impression: Chest X-Ray 02/25/22 12:37 XR chest 1V portable CLINICAL HISTORY: syncope TECHNIQUE: Single frontal radiograph of the chest was obtained. Comparison: Comparison is made to chest radiographs 08/15/2021 FINDINGS: A port catheter is seen. The cardiomediastinal silhouette is normal. The lungs are clear. No evidence of pleural effusion or pneumothorax. IMPRESSION: No acute chest disease. ACT 112: Negative or not required by law. Electronically signed by: Blue Yin M.D. 02/25/2022 1:[address] 02/25/22 12:37 CT head/brain wo con CLINICAL HISTORY: syncope Technique: Contiguous axial CT images of the head were acquired from the base of the skull to the vertex without intravenous contrast administration. Images were viewed in brain, subdural and bone windows. Automated dose lowering techniques and/or adjustment according to patient size were utilized for this exam. Comparison: Comparison is made to CT head 02/13/2022 Findings: The ventricles, basal cisterns, and cerebral sulci are normal. There is no acute intracranial hemorrhage or evidence of acute territorial infarction. Neither mass effect, shift of the midline structures, nor abnormal extra-axial fluid collections are shown. Imaged portions of the paranasal sinuses and mastoid air cells are clear. The orbits appear normal. There are no acute fractures of the calvaria or scalp swelling. Impression: No acute intracranial hemorrhage, no evidence of acute territorial infarction or other acute intracranial disease process. ACT 112: Negative or not required by law. Electronically signed by: Blue Yin M.D. 02/25/2022 1:16 PM Discharge Plan Visit Data Chief Complaint: Weakness ED Provider: Devin Colmenares Discharge Problem: Syncope and collapse, Hypomagnesemia, Generalized weakness, Multiple myeloma Patient Disposition: Admitted As Inpatient Discharge Instructions Interventions: ED Discharge Assessment Last Done: 02/25/22 17:42 : Multiple myeloma Qualifiers: Multiple myeloma remission status: not in remission Qualified Code(s): C90.00 - Multiple myeloma not having achieved remission
[2022-02-25] MEDS ORDERED: diphenhydrAMINE 50 MG/ML VIAL IV STA (13:15)
[2022-02-25 13:17] LABS: INR 1.1 (0.9-1.1); Prothrombin Time 11.9 Seconds (9.0-12.0)
--- NOTE | 2022-02-25 13:18 | CT Scan Report ---
CT head/brain wo con CLINICAL HISTORY: syncope Technique: Contiguous axial CT images of the head were acquired from the base of the skull to the lindsey brent without intravenous contrast administration. Images were viewed in brain, subdural and [facility]. Automated dose lowering techniques and/or adjustment according to patient size were utilized for this exam. Comparison: Comparison is made to CT head 02/13/2022 Findings: The ventricles, basal cisterns, and cerebral sulci are normal. There is no acute intracranial hemorrh age or evidence of acute territorial infarction. Neither mass effect, shift of the midline structures , nor abnormal extra-axial fluid collections are shown. Imaged portions of the paranasal sinuses and mastoid air cells are clear. The orbits appear normal. There are no acute fractures of the calvaria or scalp swelling. Impression: No acute intracranial hemorrhage, no evidence of acute territorial infarction or other acute intracra nial disease process. ACT 112: Negative or not required by law. Electronically signed by: Blue Yin M.D. 02/25/2022 1:16 PM
--- NOTE | 2022-02-25 13:34 | XRay Report ---
XR chest 1V portable CLINICAL HISTORY: syncope TECHNIQUE: Single frontal radiograph of the chest was obtained. Comparison: Comparison is made to chest radiographs 08/15/2021 FINDINGS: A port catheter is seen. The cardiomediastinal silhouette is normal. The lungs are clear. No evidence of pleural effusion or pneumothorax. IMPRESSION: No acute chest disease. ACT 112: Negative or not required by law. Electronically signed by: Blue Yin M.D. 02/25/2022 1:33 PM
[2022-02-25 13:41] LABS: Albumin Level 3.5 gm/dl (3.4-5.0); BUN Creatinine Ratio 8.9 (10-20); Bilirubin Direct 0.2 mg/dl (0-0.2); Bilirubin,Total 0.7 mg/dl (0.2-1.0); Calcium 8.3 mg/dl (8.5-10.1); Creatinine Clr Calc Pharmacy 73.9 ml/min; Est GFR (African American) 73.5 ml/min; Est GFR (Non-African American) 63.4 ml/min; Magnesium 1.1 mg/dl (1.7-2.4); Phosphorus 1.7 mg/dl (2.5-4.9); Potassium 3.4 mmol/L (3.5-5.1); Total Protein 7.1 gm/dl (6.0-8.3)
[2022-02-25 13:44] LABS: Troponin I High Sensitivity 8.8 pg/ml (0-20)
[2022-02-25] MEDS ORDERED: MAGNESIUM SULFATE / D5W 1 GM/100 ML BAG IV STA (14:08)
[2022-02-25] MEDS ORDERED: LACTATED RINGER S IV ONE (14:45)
[2022-02-25] MEDS ORDERED: MAGNESIUM SULFATE IV ONE (14:45)
--- NOTE | 2022-02-25 15:04 | History & Physical Report ---
Date of Service February 25, 2022 Assessment & Plan (1) Syncope: Plan: Syncope with lying back and during blood draw this morning. Glucose was noted as normal DDX: Hypovolemia with electrolyte disturbance vs. arrhythmia with low magnesium vs. infection or other - replete blood culture and urine culture- hold on further abx and pancytopenia is improving - was not tachycardic/tachypneic or hypoxic- doubt pulmonary embolism - replete electrolytes and hydrate - HScTNI negative and no ECG changes - patient endorses that he will try liquid diet as easier to take in nutrients- appreciate dietary assistance with supplementation (2) Hypomagnesemia: Plan: As above - 5 GM in liter of LR- will be total of 6 GM for magnesium 1.1 - QT/QTc 460/499 ms (3) Hypophosphatemia: Plan: phos 1.7 secondary to decrease oral intake - replete with Kphos 18mmol (4) Pancytopenia: Plan: Secondary to chemotherapy for multiple myeloma - received Neupogen last week - follow - PCT mildly elevated at 0.68 - unsure of significance at this time follow clinical course - Could consider continuing Augmentin further out for 14 days- ID rec discussion with heme onc on such prior to last discharge - continue his acyclovir and fluconazole (5) Type 2 diabetes mellitus: Plan: Continue with AC/HS blood sugar checks - aspart sliding scale (6) Multiple myeloma: Plan: As above- follows with heme/onc- awaiting evaluation at [facility] - patient continues to want to be full code - did discuss with patient and that if he changed his code status this would not mean that we would not continue to treat and in his continued frail state surviving cardiac arrest is low with return of function. They understand and will discuss. Remains full code (7) GERD (gastroesophageal reflux disease): Plan: GERD with persistent nausea - will change to IV protonix 40mg IV BID History of Present Illness Primary Care Provider: Dick Carl MD 61 YOM with medical history of: Multiple Myeloma, sepsis, CKD, pancytopenia. Patient is currently awaiting visit to [facility] for investigational treatment as he has been refractory. Patient was over at Oncology suite today for follow up appointment following his recent admisison for- tyhplitis/sepsis. The patient was preparing for a blood draw, where after they accessed his port he went unresponsive, they had difficulty finding a pulse and he received one chest compression and spontaneously awakened. His 79 and his BP following this was 120/70 with SPO2 98% on room air, and RR 15-18. Patient was then transferred to the [facility] for further evaluation. He had ECG performed, CXR and CT scan of the head completed. His routine bllod work remains with pancytopenia, but stable since his recent discharge. He remains with low magnesium and low phos. Overall the patient endorses continued fatigue and generalized weakness with any activity and remains with persistent nausea that is decreasing his oral food intake. He is tolerating oral liquid intake without difficulty. Patient will be admitted to follow hemodynamics, follow telemetry overnight, replete electrolytes, blood and urine culture. Patient previous hospitalization 02/12-02/22 for sepsis secondary to klebsiella and typhlitis. He completed IV antibiotics and was discharged on completion of Augmentin which he states he finished yesterday. His blood cultures were unable to be identified from either peripheral draw or from medi-port. His repeat cultures remained negative prior to discharge. He did have a PCT drawn today in the [facility] which is at 0.68 down from 35. Will follow culture data and symptamatology at this time, could consider continuing augmentin. COVID test on admission is: NEGATIVE Allergies Allergy/AdvReac Type Severity Reaction Status Date / Time fentanyl Allergy Severe Vomiting Verified 02/25/22 15:12 Home Medications Medication Instructions Recorded Confirmed Type acyclovir 400 mg tablet 400 mg PO BID 03/22/19 02/25/22 History pantoprazole 40 mg tablet,delayed 40 mg PO QAM 05/19/19 02/25/22 History release insulin glargine 100 unit/mL (3 0 - 12 unit subcut DIRECTED PRN 01/25/21 02/25/22 History mL) subcutaneous pen (Basaglar BSG LEVELS KwikPen U-100 Insulin) ondansetron HCl 8 mg tablet 8 mg PO Q8H PRN Nausea 05/08/21 02/25/22 History oxycodone 5 mg tablet 5 mg PO Q6H PRN Pain 05/08/21 02/25/22 History tramadol 50 mg tablet 50 mg PO Q6H PRN Pain 07/16/21 02/25/22 History dicyclomine 10 mg capsule 10 mg PO TID PRN Abdominal 07/18/21 02/25/22 Rx Discomfort #90 caps sertraline 50 mg tablet (Zoloft) 50 mg PO HS 09/17/21 02/25/22 History fluconazole 200 mg tablet 200 mg PO BID 02/10/22 02/25/22 History ondansetron 4 mg disintegrating 4 mg PO DAILY PRN nausea and 02/22/22 02/25/22 Rx tablet vomiting 4 days #4 tabs Past Med/Surg History Medical History Acute cholecystitis Anemia Back problem Deep vein thrombosis in leg 02/06 ([facility]) Diverticular disease GERD (gastroesophageal reflux disease) History of chemotherapy oral chemo until 01/30, taking IV chemo and then will be starting with maintaince dose per [facility] scheduling Lumbar compression fracture Lytic lesion of bone on x-ray since 01/2019 and had radiation on this lesion Neoplasm of bone Plantar fascial fibromatosis PT UNAWARE Prediabetes STEROID INDUCED "MY SUGAR GOES UP AND DOWN" checks sugar daily Pulmonary embolism "01/2019 went from leg to lung" ([facility]) Wide-complex tachycardia Surgical History H/O kyphoplasty [facility] May 2019 H/O wrist surgery RT Hx laparoscopic cholecystectomy (02/20/21) Laparoscopic cholecystectomy. Dr. Self 02/20/2021 Hx of biopsy ABDOMINAL LESION LOCATED OUTSIDE PANCREAS Hx of colonoscopy May 2020 Port-A-Cath in place (02/05/21) Insertion of Access Port Left Cephalic Dr. Self 02/05/21 [place] teeth removed Family History Mother , age 93 / old age Breast cancer Father , age 67 Prostate cancer had radiation Coronary heart disease Diabetes Heart disease Brother Diabetes Brother No problems noted. Sister Asthma Addisons disease Daughter No problems noted. Daughter No problems noted. Son No problems noted. Other Family history non-contributory Hearing loss No family history of adverse response to anesthesia No family history of bleeding disorder Social History Smoking Status: Never smoker Second Hand Exposure: No; Hx Alcohol Use: No Hx Substance Use: No Preferred Language: Irish Communication Ability: Effective Visual Impairment: No Limitations Hearing Ability: Normal [employer] Signal Technician Required: No Beliefs That Will Affect Care: None marital status: Current Living Situation: Spouse Current Living Situation Comment: Lives with and 2 daughters current occupational status: retired and disabled How many Children do You have: 3 Feels Safe at Home: Yes Childhood Exposure to Second-Hand Smoke: No Dental Care, Regularly: Yes Assistive Devices: None Review of Systems Review of Systems: REVIEW OF SYSTEMS: Constitutional: No fever, sweats or chills Eyes: No diplopia, no worsening or blurred vision ENT: normal hearing, no trouble swallowing Respiratory: No cough, sputum, dyspnea at rest or on exertion Cardiovascular: No chest pain, tightness or palpitations Abdomen: (+) nausea, No pain, vomiting, diarrhea or constipation Musculoskeletal: No joint pain, calf pain, swelling Neurologic: (+) generalized weakness, NO numbness/tingling, or balance problems Psychiatric: (+) depression, No anxiety or depression Skin: No rash or itch Physical Exam Physical Exam: PHYSICAL EXAM: General: awake, alert, fatigued appearing Head: Normocephalic, atraumatic ENT: PERRL, EOMI, no pharyngeal exudate, mucous membranes dry Neuro: AAO x 3, speech clear and appropriate, strength intact bilaterally 5/5, sensation intact and equal all extremities and dermatomes, no pronator drift Chest: equal rise and fall of the chest, no accessory muscle use, no heaves or thrills, Clear to auscultation, on room air, Cardiac: Regular rate and rhythm, telemetry reviewed-NSR, skin warm dry, cap refill <3 seconds, peripheral pulses +2 no JVD, no murmur, no edema GI: NABS x 4 quadrants, soft, nontender to palpation, no rebound, guarding or tenderness : Spontaneously voiding, no pain, no CVA tenderness, Psych: Normal mood and affect Skin: no rash or erythema Results & Data Results & Data ([facility]) Vital Signs (Past 12 Hours) Vital Signs Temp Pulse Resp BP Pulse Ox O2 Del Method 02/25/22 12:50 82 15 100 Room Air 02/25/22 12:44 80 17 99 Room Air 02/25/22 12:34 36.6 C 78 20 121/74 100 Room Air Laboratory Results Abnormal lab results 02/25/22 02/25/22 Range/Units 12:40 12:40 Potassium 3.4 L (3.5-5.1) mmol/L BUN/Creatinine Ratio 8.9 L (10-20) Glucose 152 H (70-99(Fasting)) mg/dl Calcium 8.3 L (8.5-10.1) mg/dl Phosphorus 1.7 L (2.5-4.9) mg/dl Magnesium 1.1 L (1.7-2.4) mg/dl Procalcitonin 0.68 H (0-0.5) ng/ml Diagnostic Findings Chest X-Ray 02/25/22 12:37 XR chest 1V portable CLINICAL HISTORY: syncope TECHNIQUE: Single frontal radiograph of the chest was obtained. Comparison: Comparison is made to chest radiographs 08/15/2021 FINDINGS: A port catheter is seen. The cardiomediastinal silhouette is normal. The lungs are clear. No evidence of pleural effusion or pneumothorax. IMPRESSION: No acute chest disease. ACT 112: Negative or not required by law. Electronically signed by: Blue Yin M.D. 02/25/2022 1:[address] 02/25/22 12:37 CT head/brain wo con CLINICAL HISTORY: syncope Technique: Contiguous axial CT images of the head were acquired from the base of the skull to the vertex without intravenous contrast administration. Images were viewed in brain, subdural and bone windows. Automated dose lowering techniques and/or adjustment according to patient size were utilized for this exam. Comparison: Comparison is made to CT head 02/13/2022 Findings: The ventricles, basal cisterns, and cerebral sulci are normal. There is no acute intracranial hemorrhage or evidence of acute territorial infarction. Neither mass effect, shift of the midline structures, nor abnormal extra-axial fluid collections are shown. Imaged portions of the paranasal sinuses and mastoid air cells are clear. The orbits appear normal. There are no acute fractures of the calvaria or scalp swelling. Impression: No acute intracranial hemorrhage, no evidence of acute territorial infarction or other acute intracranial disease process. ACT 112: Negative or not required by law. Electronically signed by: Blue Yin M.D. 02/25/2022 1:16 PM Medications Administered Home Medications acyclovir 400 mg tablet 400 mg PO BID 03/22/19 [History Confirmed 02/10/22] pantoprazole 40 mg tablet,delayed release 40 mg PO QAM 05/19/19 [History Confirmed 02/10/22] insulin glargine 100 unit/mL (3 mL) subcutaneous pen (Basaglar KwikPen U-100 Insulin) 0 - 12 unit subcut DIRECTED PRN BSG LEVELS 01/25/21 [History Confirmed 02/10/22] ondansetron HCl 8 mg tablet 8 mg PO Q8H PRN Nausea 05/08/21 [History Confirmed 02/10/22] oxycodone 5 mg tablet 5 mg PO Q6H PRN Pain 05/08/21 [History Confirmed 02/10/22] tramadol 50 mg tablet 50 mg PO Q6H PRN Pain 07/16/21 [History Confirmed 02/10/22] dicyclomine 10 mg capsule 10 mg PO TID PRN Abdominal Discomfort #90 caps 07/18/21 [Rx Confirmed 02/10/22] sertraline 50 mg tablet (Zoloft) 50 mg PO HS 09/17/21 [History Confirmed 02/10/22] fluconazole 200 mg tablet 200 mg PO BID 02/10/22 [History Confirmed 02/10/22] ondansetron 4 mg disintegrating tablet 4 mg PO DAILY PRN nausea and vomiting 4 days #4 tabs 02/22/22 [Rx] Active Medications Magnesium Sulfate/Dextrose (Magnesium Sulfate / D5w) 1 gm in 100 mls @ 100 mls/hr IV NOW STA Stop: 02/25/22 15:07 Last Admin: 02/25/22 14:38 Dose: 100 mls/hr Magnesium Sulfate 5 gm/ (Lactated Ringer's) 1,010 mls @ 110 mls/hr IV NOW ONE Stop: 02/25/22 23:55 Magnesium Sulfate/Dextrose (Magnesium Sulfate / D5w) 1 gm in 100 mls @ 100 mls/hr IV NOW STA Stop: 02/25/22 15:07 Last Admin: 02/25/22 14:38 Dose: 100 mls/hr Documented By: RIKKI Discontinued Medications Diphenhydramine HCl (Diphenhydramine 50 Mg/Ml Vial) 25 mg IV NOW STA Stop: 02/25/22 13:16 Last Admin: 02/25/22 13:29 Dose: 25 mg Documented By: JACKY Sodium Chloride (Nss) 500 mls @ 999 mls/hr IV .Q31M ONE Stop: 02/25/22 13:07 Last Infusion: 02/25/22 14:01 Dose: 0 mls/hr Documented By: Admin: 02/25/22 12:43 Dose: 999 mls/hr Documented By: JACKY ECG Additional Comments: Normal sinus rhythm Prolonged QT Abnormal ECG When compared with ECG of 2021 17:33, No significant change was found Code Status & VTE Plan Code Status CODE: FULL VTE: Lovenox 40mg subq daily VTE Prophylaxis Plan VTE Prophylaxis will be ordered: Yes Supervising Physician Co-Signing Physician Notes Patient seen briefly during rapid response in the cancer center. Reviewed [employer] note discussed case with him. Agree with above. Patient has a long history of multiple myeloma that has been resistant to multiple treatments. Patient has syncopal episode, staff told me that he "lost his pulse "but was revived with a single chest compression. Suspect this is syncopal episode, ruling out infection. Await culture results. I will hold off on antibiotics for now. We will ask oncology to see. Continue to monitor labs. IV hydration as noted. PG Care Time/CCT Total # of Minutes Spent Total Time Spent with Patient: Total time spent is greater than 50% in coordination of care (as documented) at patient's floor/unit and/or counseling patient: Coding Level of Care Code 28336 Initial Inpt Care Lvl 3 Diagnoses Syncope R55 Hypomagnesemia E83.42 Hypophosphatemia E83.39 Pancytopenia D61.818 Type 2 diabetes mellitus E11.9 Multiple myeloma C90.00 GERD (gastroesophageal reflux disease) K21.9 Esophagitis presence: esophagitis presence not specified (1) GERD (gastroesophageal reflux disease) Esophagitis presence: esophagitis presence not specified Qualified Code(s): K21.9 - Gastro-esophageal reflux disease without esophagitis
[2022-02-25] MEDS ORDERED: POTASSIUM PHOS 3 MMOL/1 ML INFUSION IV ONE (17:43)
[2022-02-25] MEDS ORDERED: CARBOHYDRATES FOR HYPOGLYCEMIA PO PRN (17:43)
[2022-02-25] MEDS ORDERED: GLUCOSE 40% GEL 15 GM TUBE PO PRN (17:43)
[2022-02-25] MEDS ORDERED: DEXTROSE 50% 50 ML SYRINGE IV PRN (17:43)
[2022-02-25] MEDS ORDERED: GLUCAGON FOR INJ 1 MG VIAL SQ PRN (17:43)
[2022-02-25] MEDS ORDERED: ACETAMINOPHEN 325 MG TAB PO PRN ×2 (17:43→18:35)
[2022-02-25] MEDS ORDERED: oxyCODONE HCL IR 5 MG TAB (IMMEDIATE RELEASE) PO PRN ×2 (17:43→18:35)
[2022-02-25] MEDS ORDERED: traMADol HCL 50 MG TABLET PO PRN ×2 (17:43→18:35)
[2022-02-25] MEDS ORDERED: DICYCLOMINE HCL 10 MG CAP PO PRN (17:43)
[2022-02-25] MEDS ORDERED: ONDANSETRON INJ 2 MG/ML 2 ML VIAL IV PRN (17:43)
[2022-02-25 18:12] LABS: Appearance Urine Clear (Clear); Bacteria Urine Automated Negative (Negative); Bilirubin Urine Negative (Negative); Blood Urine 3+ (Negative); Color Urine Yellow; Epithelial Cell Urine Auto 20-30 /lpf (0-5); Glucose Urine UA Negative (Negative); Ketones Urine Negative (Negative); Leukocyte Esterase Urine Negative (Negative); Nitrite Urine Negative (Negative); Protein Urine Trace (Negative); RBC Urine Automated >30 /hpf (0-4); Urobilinogen Urine Negative (Negative); pH Urine 6.5 (4.5-7.5)
[2022-02-25] MEDS: INSULIN ASPART PER UNIT SC SCH ×2 (18:50→20:28)
[2022-02-25] MEDS ORDERED: POTASSIUM PHOSPHATE 18 MMOL in SODIUM CHLORIDE 0.9% 500 ML IV ONE (19:00)
[2022-02-25] MEDS: FLUCONAZOLE 100 MG TAB PO SCH (20:28)
[2022-02-25] MEDS: ACYCLOVIR 400 MG TAB PO SCH (20:28)
[2022-02-25] MEDS: PANTOprazole 40 MG in SYRINGE 0 ML IV SCH (20:29)
[2022-02-25] MEDS: SERTRALINE HCL 50 MG TABLET PO SCH (20:29)
[2022-02-26 06:00] LABS: BUN Creatinine Ratio 7.1 (10-20); Calcium 7.9 mg/dl (8.5-10.1); Creatinine Clr Calc Pharmacy 67.9 ml/min; Est GFR (African American) 70.7 ml/min; Magnesium 2.4 mg/dl (1.7-2.4); Potassium 3.7 mmol/L (3.5-5.1)
--- NOTE | 2022-02-26 06:02 | Electrocardiogram Report ---
Test Reason : Blood Pressure : / mmHG Vent. Rate : 071 BPM Atrial Rate : 071 BPM P-R Int : 158 ms QRS Dur : 088 ms QT Int : 460 ms P-R-T Axes : 071 061 072 degrees QTc Int : 499 ms Normal sinus rhythm Prolonged QT Abnormal ECG When compared with ECG of 10-FEB-2022 17:33, QT has lengthened Confirmed by Doc Marie ([id number]) on 02/26/2022 6:02:01 AM Referred By: Confirmed By:Doc Marie
[2022-02-26 06:24] LABS: Hemoglobin 8.3 g/dl (14.0-18.0); Mean Corpuscular Hemoglobin 31.8 pg (25.0-34.0); Mean Corpuscular Hgb Conc 34.6 g/dL (32.0-36.0); Mean Platelet Volume 11.7 fL (9.4-12.4); Platelet Count 18 K/uL (130-400); RDW Coefficient of Variation 14.7 % (11.5-14.5); RDW Standard Deviation 49.4 fL (36.4-46.3); Red Blood Count 2.61 M/uL (4.63-6.08); White Blood Count 1.64 K/ul (4.8-10.8)
[2022-02-26 06:32] LABS: ALC (manual) 0.26 K/uL (1.2-3.4); ANC (manual) 1.18 K/uL (1.4-6.5); Basophils # (manual) 0.02 K/uL (0-0.2); Basophils % (manual) 1 %; Lymphocytes # (manual) 0.26 K/uL (1.2-3.4); Lymphocytes % (manual) 16 %; Metamyelocytes # (manual) 0.05 K/uL (0-0); Metamyelocytes % (manual) 3 %; Monocytes # (manual) 0.13 K/uL (0.24-0.82); Monocytes % (manual) 8 %; Neutrophils # (manual) 1.18 K/uL (1.4-6.5); Neutrophils % (manual) 72 %; RBC Morphology Unremarkable
[2022-02-26] MEDS: INSULIN ASPART PER UNIT SC SCH ×4 (08:30→21:33)
[2022-02-26] MEDS: PANTOprazole 40 MG in SYRINGE 0 ML IV SCH ×2 (08:50→21:02)
[2022-02-26] MEDS: FLUCONAZOLE 100 MG TAB PO SCH ×2 (08:50→21:02)
[2022-02-26] MEDS: ACYCLOVIR 400 MG TAB PO SCH ×2 (08:50→21:02)
[2022-02-26] MEDS ORDERED: ENOXAPARIN INJ 40 MG/0.4 ML SYR SQ SCH (09:00)
--- NOTE | 2022-02-26 12:33 | Hospitalist Progress Note ---
Date of Service February 26, 2022 Assessment & Plan (1) Syncope: Plan: Most likely vaso vagal Syncope with lying back and during blood draw. Patient says it has happened before Will check orthostatic BP Encourage PO intake (2) Hypomagnesemia: Plan: As above - 5 GM in liter of LR- will be total of 6 GM for magnesium 1.1 - QT/QTc 460/499 ms (3) Hypophosphatemia: Plan: phos 1.7 secondary to decrease oral intake - replete with Kphos 18mmol (4) Pancytopenia: Plan: Secondary to chemotherapy for multiple myeloma - received Neupogen last week - follow - PCT mildly elevated at 0.68 - unsure of significance at this time follow clinical course - completed a course of antibiotics during the last admission - continue his acyclovir and fluconazole (5) Type 2 diabetes mellitus: Plan: Continue with AC/HS blood sugar checks - aspart sliding scale (6) Multiple myeloma: Plan: As above- follows with heme/onc- awaiting evaluation at [facility] - patient continues to want to be full code - did discuss with patient and that if he changed his code status this would not mean that we would not continue to treat and in his continued frail state surviving cardiac arrest is low with return of function. They understand and will discuss. Remains full code (7) GERD (gastroesophageal reflux disease): Plan: GERD with persistent nausea - will change to IV protonix 40mg IV BID Plan monitor overnight, likely d/c in the next 24 hrs Admission and Anticipated Discharge Date Admission Date: February 25, 2022 Subjective patient seen and examined, no new complaints, apart from generalized weakness and poor appetite Review of Systems Review of Systems: All systems reviewed are negative, apart from the ones contained in the history. Physical Exam Physical Exam: The patient is awake, alert and oriented 3, well developed and well nourished, normocephalic and atraumatic, lying in bed and in no acute distress. HEENT--PERRL, EOMI, mucous membranes and oropharynx mildly dry Neck--supple. No JVD. No bruits. Thyroid normal, trachea midline, no adenopathy. Heart--normal S1 and S2. No murmurs, rubs or gallops. Lungs--clear bilaterally, no respiratory distress, no accessory muscle use. Abdomen--normal bowel sounds and soft. Mild epigastric and left sided abdominal pain Extremities--no cyanosis or clubbing. No edema. Dermatologic--normal skin turgor, normal color, no abnormal lymph nodes, no rash. Neurologic--cranial nerves II through XII grossly intact. Rheumatologic--normal range of motion. Psychiatric--normal affect. Results & Data Results & Data ([facility]) Vital Signs (Past 12 Hours) Vital Signs Temp Pulse Pulse Resp BP BP Pulse Ox 02/26/22 12:16 99.0 F 91 H 17 148/86 H 94 02/26/22 09:40 80 02/26/22 08:36 99.3 F 86 16 153/92 H 98 02/26/22 06:00 83 16 141/88 H 02/26/22 05:00 81 9 L 143/106 H 02/26/22 04:00 77 9 L 130/106 H 02/26/22 03:00 88 23 134/81 02/26/22 02:00 88 6 L 138/93 02/26/22 01:00 85 22 147/71 H O2 Del Method 02/26/22 12:16 Room Air 02/26/22 09:40 02/26/22 08:36 Room Air 02/26/22 06:00 02/26/22 05:00 02/26/22 04:00 02/26/22 03:00 02/26/22 02:00 02/26/22 01:00 PG Care Time/CCT Total # of Minutes Spent Total Time Spent with Patient: Total time spent is greater than 50% in coordination of care (as documented) at patient's floor/unit and/or counseling patient: Coding Level of Care Code 46553 Subseq Hosp Care Lvl 2 Diagnoses Syncope R55 Hypomagnesemia E83.42 Hypophosphatemia E83.39 Pancytopenia D61.818 Type 2 diabetes mellitus E11.9 Multiple myeloma C90.00 GERD (gastroesophageal reflux disease) K21.9 Esophagitis presence: esophagitis presence not specified Time Spent (min) 35 (1) GERD (gastroesophageal reflux disease) Esophagitis presence: esophagitis presence not specified Qualified Code(s): K21.9 - Gastro-esophageal reflux disease without esophagitis
[2022-02-26] MEDS: SERTRALINE HCL 50 MG TABLET PO SCH (21:02)
[2022-02-27] MEDS: ACYCLOVIR 400 MG TAB PO SCH ×2 (07:31→20:36)
[2022-02-27] MEDS: PANTOprazole 40 MG in SYRINGE 0 ML IV SCH ×2 (07:31→20:37)
[2022-02-27] MEDS: FLUCONAZOLE 100 MG TAB PO SCH ×2 (07:31→20:37)
[2022-02-27] MEDS: INSULIN ASPART PER UNIT SC SCH ×4 (07:34→21:58)
[2022-02-27] MEDS ORDERED: PROCHLORPERAZINE 5 MG in SYRINGE 4 ML IV PRN (10:30)
[2022-02-27 12:18] LABS: Hematocrit (blood only) 24.6 % (40.1-51.0); Hemoglobin 8.5 g/dl (14.0-18.0); Mean Corpuscular Hemoglobin 31.4 pg (25.0-34.0); Mean Corpuscular Hgb Conc 34.6 g/dL (32.0-36.0); Mean Corpuscular Volume 90.8 fL (80.0-100.0); Mean Platelet Volume 12.3 fL (9.4-12.4); Platelet Count 27 K/uL (130-400); RDW Coefficient of Variation 14.2 % (11.5-14.5); RDW Standard Deviation 45.9 fL (36.4-46.3); Red Blood Count 2.71 M/uL (4.63-6.08); White Blood Count 1.65 K/ul (4.8-10.8)
[2022-02-27 12:22] LABS: Basophils # (auto) 0.01 K/uL (0-0.2); Basophils % (auto) 0.6 %; Immature Granulocytes # (auto) 0.04 K/uL (0.00-0.02); Immature Granulocytes % (auto) 2.4 %; Lymphocytes # (auto) 0.27 K/uL (1.2-3.4); Lymphocytes % (auto) 16.4 %; Monocytes # (auto) 0.38 K/uL (0.24-0.82); Neutrophils # (auto) 0.95 K/uL (1.4-6.5); Neutrophils % (auto) 57.6 %
[2022-02-27 12:32] LABS: BUN Creatinine Ratio 7.4 (10-20); Calcium 8.6 mg/dl (8.5-10.1); Creatinine Clr Calc Pharmacy 70.7 ml/min; Est GFR (African American) 74.2 ml/min; Magnesium 1.5 mg/dl (1.7-2.4); Potassium 3.4 mmol/L (3.5-5.1)
--- NOTE | 2022-02-27 14:56 | Hospitalist Progress Note ---
Date of Service February 27, 2022 Assessment & Plan (1) Syncope: Plan: Recently discharged from the hospital, but had a syncopal attack while in the oncology office Most likely vaso vagal Syncope during blood draw. Will check orthostatic BP Encourage PO intake (2) Pancytopenia: Plan: Secondary to chemotherapy for multiple myeloma - received Neupogen last week - follow - PCT mildly elevated at 0.68 - unsure of significance at this time follow clinical course - completed a course of antibiotics during the last admission - continue his acyclovir and fluconazole (3) Hypomagnesemia: Plan: Repleted (4) Hypophosphatemia: Plan: phos 1.7 secondary to decrease oral intake - replete with Kphos 18mmol (5) Type 2 diabetes mellitus: Plan: Continue with AC/HS blood sugar checks - aspart sliding scale (6) Multiple myeloma: Plan: As above- follows with heme/onc- awaiting evaluation at [facility] - patient continues to want to be full code - did discuss with patient and that if he changed his code status this would not mean that we would not continue to treat and in his continued frail state surviving cardiac arrest is low with return of function. They understand and will discuss. Remains full code (7) GERD (gastroesophageal reflux disease): Plan: GERD with persistent nausea - will change to IV protonix 40mg IV BID Plan monitor overnight, likely d/c in the next 24 hrs. I wanted to d/c him today, but he complained of worsening nausea Admission and Anticipated Discharge Date Admission Date: February 25, 2022 Subjective patient seen and examined, complains of nausea and poor appetite Review of Systems Review of Systems: All systems reviewed are negative, apart from the ones contained in the history. Physical Exam Physical Exam: The patient is awake, alert and oriented 3, well developed and well nourished, normocephalic and atraumatic, lying in bed and in no acute distress. HEENT--PERRL, EOMI, mucous membranes and oropharynx mildly dry Neck--supple. No JVD. No bruits. Thyroid normal, trachea midline, no adenopathy. Heart--normal S1 and S2. No murmurs, rubs or gallops. Lungs--clear bilaterally, no respiratory distress, no accessory muscle use. Abdomen--normal bowel sounds and soft. Mild epigastric and left sided abdominal pain Extremities--no cyanosis or clubbing. No edema. Dermatologic--normal skin turgor, normal color, no abnormal lymph nodes, no rash. Neurologic--cranial nerves II through XII grossly intact. Rheumatologic--normal range of motion. Psychiatric--normal affect. Results & Data Results & Data ([facility]) Vital Signs (Past 12 Hours) Vital Signs Temp Pulse Pulse Resp BP Pulse Ox O2 Del Method 02/27/22 11:50 98.2 F 106 H 16 139/84 98 Room Air 02/27/22 07:16 97 H 02/27/22 06:44 146/81 H 02/27/22 06:37 98.1 F 79 18 170/90 H 98 Room Air PG Care Time/CCT Total # of Minutes Spent Total Time Spent with Patient: Total time spent is greater than 50% in coordination of care (as documented) at patient's floor/unit and/or counseling patient: Coding Level of Care Code 01724 Subseq Hosp Care Lvl 2 Diagnoses Syncope R55 Pancytopenia D61.818 Hypomagnesemia E83.42 Hypophosphatemia E83.39 Type 2 diabetes mellitus E11.9 Multiple myeloma C90.00 GERD (gastroesophageal reflux disease) K21.9 Esophagitis presence: esophagitis presence not specified Time Spent (min) 35 (1) GERD (gastroesophageal reflux disease) Esophagitis presence: esophagitis presence not specified Qualified Code(s): K21.9 - Gastro-esophageal reflux disease without esophagitis
[2022-02-27] MEDS: SERTRALINE HCL 50 MG TABLET PO SCH (20:37)
[2022-02-28 06:38] VITALS: TEMP 98.1; O2SAT 97
[2022-02-28] MEDS: INSULIN ASPART PER UNIT SC SCH ×3 (07:54→17:39)
[2022-02-28] MEDS: ACYCLOVIR 400 MG TAB PO SCH (07:54)
[2022-02-28] MEDS: FLUCONAZOLE 100 MG TAB PO SCH (07:54)
[2022-02-28] MEDS: PANTOprazole 40 MG in SYRINGE 0 ML IV SCH (07:55)
[2022-02-28 08:34] LABS: Hematocrit (blood only) 23.8 % (40.1-51.0); Hemoglobin 8.3 g/dl (14.0-18.0); Mean Corpuscular Hgb Conc 34.9 g/dL (32.0-36.0); Mean Corpuscular Volume 88.8 fL (80.0-100.0); Mean Platelet Volume 11.9 fL (9.4-12.4); Platelet Count 31 K/uL (130-400); RDW Coefficient of Variation 14.4 % (11.5-14.5); RDW Standard Deviation 46.1 fL (36.4-46.3); Red Blood Count 2.68 M/uL (4.63-6.08); White Blood Count 1.53 K/ul (4.8-10.8)
[2022-02-28 08:53] LABS: Stomatocytes 1+; Toxic Granulation 1+
[2022-02-28 08:57] LABS: BUN Creatinine Ratio 8.5 (10-20); Basophils # (auto) 0.01 K/uL (0-0.2); Basophils % (auto) 0.7 %; Creatinine Clr Calc Pharmacy 66.3 ml/min; Est GFR (African American) 68.7 ml/min; Est GFR (Non-African American) 59.3 ml/min; Immature Granulocytes # (auto) 0.05 K/uL (0.00-0.02); Immature Granulocytes % (auto) 3.3 %; Lymphocytes # (auto) 0.29 K/uL (1.2-3.4); Magnesium 1.4 mg/dl (1.7-2.4); Monocytes # (auto) 0.39 K/uL (0.24-0.82); Monocytes % (auto) 25.5 %; Neutrophils # (auto) 0.79 K/uL (1.4-6.5); Neutrophils % (auto) 51.5 %; Potassium 3.6 mmol/L (3.5-5.1)
[2022-02-28] MEDS: MAGNESIUM SULFATE / D5W 1 GM/100 ML BAG IV SCH ×4 (10:52→16:22)
--- NOTE | 2022-02-28 12:06 | Discharge Summary ---
Date of Service February 28, 2022 Admission HPI Per Admitting Provider 61 YOM with medical history of: Multiple Myeloma, sepsis, CKD, pancytopenia. Patient is currently awaiting visit to [facility] for investigational treatment as he has been refractory. Patient was over at Oncology suite today for follow up appointment following his recent admisison for- tyhplitis/sepsis. The patient was preparing for a blood draw, where after they accessed his port he went unresponsive, they had difficulty finding a pulse and he received one chest compression and spontaneously awakened. His 79 and his BP following this was 120/70 with SPO2 98% on room air, and RR 15-18. Patient was then transferred to the [facility] for further evaluation. He had ECG performed, CXR and CT scan of the head completed. His routine bllod work remains with pancytopenia, but stable since his recent discharge. He remains with low magnesium and low phos. Overall the patient endorses continued fatigue and generalized weakness with any activity and remains with persistent nausea that is decreasing his oral food intake. He is tolerating oral liquid intake without difficulty. Patient will be admitted to follow hemodynamics, follow telemetry overnight, replete electrolytes, blood and urine culture. Patient previous hospitalization 02/12-02/22 for sepsis secondary to klebsiella and typhlitis. He completed IV antibiotics and was discharged on completion of Augmentin which he states he finished yesterday. His blood cultures were unable to be identified from either peripheral draw or from [facility]. His repeat cultures remained negative prior to discharge. He did have a PCT drawn today in the [facility] which is at 0.68 down from 35. Will follow culture data and symptamatology at this time, could consider continuing augmentin. COVID test on admission is: NEGATIVE Principal Diagnosis SYncope Discharge Data Allergies Allergy/AdvReac Type Severity Reaction Status Date / Time fentanyl Allergy Severe Vomiting Verified 02/25/22 15:12 Consultations 02/25/22 14:08 ED Decision to Admit Stat Ordered Studies 02/25/22 12:37 CT head/brain wo con Stat Hospital Course (1) Syncope: Recently discharged from the hospital, but had a syncopal attack while in the oncology office Most likely vaso vagal Syncope during blood draw. Has a long h/o sinus pauses and syncopal episodes, seen by Cardiology in past none since and is improved with nausea improving, pancytopenia improving no events on tele (2) Pancytopenia: Secondary to chemotherapy for multiple myeloma - received Neupogen last week, none further needed as per my d/w Oncology - follow - PCT mildly elevated at 0.68 - unsure of significance at this time follow clinical course-no fevers, no signs of infection - completed a course of antibiotics during the last admission for typhilitis - continue his acyclovir but he says he is not on fluconazole a fahad? Likely only when ANC lower (3) Hypomagnesemia: mag 1.4 multiple times--> replaced with 4 grams IV mag on day of discharge follow as outpt at cancer center (4) Hypophosphatemia: replaced early in course follow as outpt (5) Type 2 diabetes mellitus: received SSI (6) Multiple myeloma: As above- follows with heme/onc- awaiting evaluation at [facility] as well received chemo at [facility] (7) GERD (gastroesophageal reflux disease): improved continue PPI Plan Nausea improved, randy po, ambulating around room, generalized fatigue persists Dispo-stable for dc to home with close outpt f/u tomorrow in Cancer Center Total Time Total Time Spent Total Time Spent (In Minutes): 40 min Total Time Includes: Examination of the Patient, Discharge Planning, Medication Reconciliation and Communication With Other Providers (Tabatha Dickinson PA-C) Discharge Plan Discharge Items Patient Disposition: Home - Self-Care Reason For Visit: syncope Discharge Diagnosis: SYncope, pancytopenia, hypomagnesemia Multiple myeloma Condition on Discharge: Fair Activity: Resume your previous activity Non-emergency contact: Primary Care Provider and Oncologist Call non-emergency contact if: you have any medication questions and your symptoms worsen Follow-up/Referrals: Dick Carl MD [Primary Care Provider] - (Follow up within 1-2 weeks) Tabatha Dickinson PA-C [Physician [employer]] - (Follow up tomorrow as scheduled) Diet: Regular Addtl Attending Provider Instructions: Continue your usual medications and slowly advance your diet as tolerated. You had another episode of syncope related to a vasovagal cause like you've had before. It is best to try to avoid this by controlling your nausea, staying hydrated, and making sure you're not straining to have bowel movements. Follow up with Tabatha Dickinson tomorrow at the cancer center as planned. Pending Studies at Discharge: No Stand-Alone Forms: My [facility] Medications and DC Order Prescriptions: Continued ondansetron HCl 8 mg tablet 8 mg PO Q8H PRN (Reason: Nausea) oxycodone 5 mg tablet 5 mg PO Q6H PRN (Reason: Pain) tramadol 50 mg tablet 50 mg PO Q6H PRN (Reason: Pain) dicyclomine 10 mg capsule 10 mg PO TID PRN (Reason: Abdominal Discomfort) Qty: 90 0RF sertraline [Zoloft] 50 mg tablet 50 mg PO HS pantoprazole 40 mg Tablet,Delayed Release (Dr/Ec) 40 mg PO QAM acyclovir 400 mg tablet 400 mg PO BID ondansetron 4 mg tablet,disintegrating 4 mg PO DAILY PRN (Reason: nausea and vomiting) 4 Days Qty: 4 0RF insulin glargine [Basaglar KwikPen U-100 Insulin] 100 unit/mL (3 mL) Insulin Pen 0 - 12 unit SUBCUT DIRECTED PRN (Reason: BSG LEVELS) Rx Instructions: 150 and under no insulin, 150-170=4 UNITS, 171-190=8 units and over 190= 12units. Discontinued fluconazole 200 mg tablet 200 mg PO BID Discharge Orders: Discharge Order (Routine); Ordered 02/28/22 Ordered By: Carolina Vidales Admission Data Admit Date/Time: 02/25/22 14:36 Attending Provider: Carolina Vidales Admit Provider: Ankit Norris Primary Care Provider: Dick Carl Other Providers: Ankit Norris Coding Level of Care Code D/C DAY MANAGEMENT >30 MINS Diagnoses Syncope R55 Pancytopenia D61.818 Hypomagnesemia E83.42 Hypophosphatemia E83.39 Type 2 diabetes mellitus E11.9 Multiple myeloma C90.00 GERD (gastroesophageal reflux disease) K21.9 Esophagitis presence: esophagitis presence not specified
[2022-02-28 15:49] VITALS: BP 143/75
[2022-02-28] MEDS ORDERED: HEPARIN 100 UNIT/ML 5ML FLUSH FLUSH STA (15:49)
[2022-02-28 16:03] VITALS: PULSE 91
== END 2022-02-28 18:48 | disposition home or self-care (01) | DRG 312 ==
LOC: ED 12:26 → SUATTDRO 14:36 → EDINP 14:36 → 1E 17:42 → 2W 02-26 17:33